=== PATIENT | female | born 1950 | race Caucasian/White ===

== ENCOUNTER → 2016-11-25 | Outpatient (CLI) | payer OTHER ==
[~2016-11-25] MED LIST: BUDESUS NAE; CALCTAB5 PO; CHOLDRO4 PO; DLN100 PO; FLUO40CA8 PO; GLUCTAB4; INSULIN ASPART; LEVO125T72 PO; MAGN1CAP2 PO; MELO15TA10 PO; MULTTAB45 PO; PHEN-310 PO; RIZA1TAB7 PO; SIMV20TA2 PO; SULF800T23 PO; TOPI50TA16 PO; ZOLP10TA PO; [UNRECOGNIZED DRUG - OTHER]
[2016-11-25 14:34] LABS: BASO % 1.1 %; BASO ABS # 0.04 K/uL (0-0.2); COMPLETE YES; HEMATOCRIT 39.8 % (37-47); LYMPH % 31.1 %; LYMPH ABS # 1.09 K/uL (1.2-3.4); MEAN CELL VOLUME 88.2 fL (80-100); MEAN CORPUSCULAR HEMOGLOBIN 30.4 pg (25-34); MEAN CORPUSCULAR HGB CONC 34.4 g/dl (32-36); MEAN PLATELET VOLUME 9.4 fL (7.4-10.4); MONO % 13.4 %; NEUT % 54.4 %; PLATELET COUNT 200 K/uL (130-400); RED BLOOD COUNT 4.51 M/uL (4.2-5.4); WHITE BLOOD COUNT 3.51 K/uL (4.8-10.8)
[2016-11-25 14:47] LABS: ALT/SGPT 22 U/L (12-78); BLOOD UREA NITROGEN 18 mg/dl (7-18); BUN/CREATININE RATIO 20.5 (10-20); CALCIUM 9.3 mg/dl (8.5-10.1); CARBON DIOXIDE 28 mmol/L (21-32); CHLORIDE 106 mmol/L (98-107); CHOLESTEROL 186 mg/dl (0-200); CREATININE 0.86 mg/dl (0.60-1.20); GLUCOSE 87 mg/dl (70-99); POTASSIUM 4.1 mmol/L (3.5-5.1); SODIUM 142 mmol/L (136-145)
[2016-11-25 14:56] LABS: ALKALINE PHOSPHATASE 131 U/L (45-117); AST/SGOT 17 U/L (15-37); HDL CHOLESTEROL 93 mg/dl; LDL CHOLESTEROL CALCULATED 79 mg/dl; THYROID STIMULATING HORMONE 0.187 uIu/ml (0.300-4.500); TRIGLYCERIDES 71 mg/dl (0-150); VERY LOW DENSITY LIPOPROT CALC 14 mg/dl
[2016-11-26 05:56] LABS: ESTIMATED AVERAGE GLUCOSE 169 mg/dl; HA1C FLAG Normal (Normal)
== END | disposition home or self-care (01) ==
LOC: C.LAB1850 12:32
PROVIDERS: ATTEND Internal Medicine
DX: E03.9 Hypothyroidism, unspecified (principal); G40.909 Epilepsy, unspecified, not intractable, without status epilepticus; E10.649 Type 1 diabetes mellitus with hypoglycemia without coma; E78.5 Hyperlipidemia, unspecified; M81.0 Age-related osteoporosis without current pathological fracture

== ENCOUNTER → 2017-02-07 | Outpatient (CLI) | payer OTHER ==
[2017-02-08 07:29] LABS: ESTIMATED AVERAGE GLUCOSE 186 mg/dl; HA1C FLAG Normal (Normal)
== END | disposition home or self-care (01) ==
LOC: C.LAB1850 15:31
PROVIDERS: ATTEND Internal Medicine
DX: E10.649 Type 1 diabetes mellitus with hypoglycemia without coma (principal); E03.9 Hypothyroidism, unspecified

== ENCOUNTER → 2017-03-23 | Outpatient (CLI) | payer OTHER ==
[2017-03-23 13:17] LABS: CHOLESTEROL/HDL RATIO 1.9
[2017-03-23 13:37] LABS: LYME DISEASE AB IGG NEG (NEG)
[2017-03-23 13:41] LABS: LYME DISEASE AB IGM NEG (NEG)
[2017-03-25 00:02] LABS: RAPID PLASMA REAGIN NONREACTIVE (NONREACT)
== END | disposition home or self-care (01) ==
LOC: C.LAB1850 10:52
PROVIDERS: ATTEND Internal Medicine
DX: R41.3 Other amnesia (principal); E78.5 Hyperlipidemia, unspecified

== ENCOUNTER → 2017-03-31 | Outpatient (CLI) | payer OTHER | END | disposition home or self-care (01) | LOC: C.LAB1850 11:23 | PROVIDERS: ATTEND Internal Medicine | DX: R41.3 Other amnesia (principal); Z51.81 Encounter for therapeutic drug level monitoring; Z79.899 Other long term (current) drug therapy ==

== ENCOUNTER → 2017-04-06 | Outpatient (CLI) | payer OTHER | END | disposition home or self-care (01) | LOC: C.LAB1850 11:56 | PROVIDERS: ATTEND Physician Assistant | DX: R41.3 Other amnesia (principal) ==

== ENCOUNTER → 2017-04-26 | Outpatient (CLI) | payer OTHER ==
[2017-04-26 16:10] LABS: BLOOD UREA NITROGEN 16 mg/dl (7-18)
[2017-04-26 16:20] LABS: RATIO 5.1 mcg/mg (0-30.0)
[2017-04-27 06:26] LABS: ESTIMATED AVERAGE GLUCOSE 160 mg/dl; HA1C FLAG Normal (Normal)
== END | disposition home or self-care (01) ==
LOC: C.LAB1850 14:05
PROVIDERS: ATTEND Nurse Practitioner Adult Health
DX: Z00.00 Encounter for general adult medical examination without abnormal findings (principal); E10.649 Type 1 diabetes mellitus with hypoglycemia without coma; E10.69 Type 1 diabetes mellitus with other specified complication; Z79.4 Long term (current) use of insulin

== ENCOUNTER → 2017-04-29 | Outpatient (CLI) | payer OTHER ==
[~2017-04-29] MED LIST changes: +GADAVIST IV PRN
--- NOTE | 2017-04-29 13:53 | DIAGNOSTIC IMAGING REPORT ---
MRI OF THE BRAIN COMBO CLINICAL HISTORY: Memory impairment. Urge and stress incontinence. COMPARISON STUDY: No priors. TECHNIQUE: MRI of the brain was performed utilizing various T1 and T2-weighted sequences in the axial, sagittal, and coronal planes. Contrast-enhanced sequences were acquired following the administration of 7 cc of Gadavist. FINDINGS: Brain parenchyma: There is mild age-related involutional change. Minimal periventricular microangiopathic disease is noted. There is no hemorrhage or mass effect. There is no restricted diffusion to suggest acute ischemia. No enhancing mass lesion is identified on the postcontrast images. Ramirez-white matter differentiation is preserved. No extra-axial fluid collection is seen. The cerebellar tonsils are normal in configuration. Ventricles, sulci, and cisterns: Prominent secondary to involutional change. Pituitary and sella: Unremarkable. Intracranial vasculature: Normal flow voids are maintained at the skull base. Orbits: The bony orbits are grossly intact. Orbital contents are normal in appearance noting bilateral ocular lens implants. Sinuses and mastoids: Clear. Calvarium: Unremarkable. Cervical cord: Partially visualized cervical spinal cord is normal in morphology and signal intensity. IMPRESSION: No acute intracranial abnormality. Electronically signed by: Shantanu Arias M.D. 04/29/2017 1:51 PM Dictated Date/Time: 04/29/2017 1:48 PM
== END | disposition home or self-care (01) ==
LOC: C.MRI 11:46
PROVIDERS: ATTEND Physician Assistant
DX: R41.3 Other amnesia (principal); R26.89 Other abnormalities of gait and mobility; N39.46 Mixed incontinence

== ENCOUNTER → 2017-05-12 | Outpatient (CLI) | payer OTHER ==
[~2017-05-12] MED LIST changes: -GADAVIST IV PRN
[2017-05-12 12:18] LABS: ALT/SGPT 30 U/L (12-78); BLOOD UREA NITROGEN 18 mg/dl (7-18); BUN/CREATININE RATIO 19.6 (10-20); CALCIUM 9.2 mg/dl (8.5-10.1); CARBON DIOXIDE 28 mmol/L (21-32); CHLORIDE 107 mmol/L (98-107); CREATININE 0.91 mg/dl (0.60-1.20); GLUCOSE 163 mg/dl (70-99); POTASSIUM 4.4 mmol/L (3.5-5.1); SODIUM 139 mmol/L (136-145)
[2017-05-12 12:30] LABS: ALB/GLOB RATIO 1.1 (0.9-2); ALKALINE PHOSPHATASE 115 U/L (45-117); AST/SGOT 23 U/L (15-37); THYROID STIMULATING HORMONE 0.813 uIu/ml (0.300-4.500)
== END | disposition home or self-care (01) ==
LOC: C.LAB1850 10:09
PROVIDERS: ATTEND Internal Medicine
DX: E03.9 Hypothyroidism, unspecified (principal); R74.8 Abnormal levels of other serum enzymes; G40.909 Epilepsy, unspecified, not intractable, without status epilepticus

== ENCOUNTER → 2017-08-12 | Outpatient (CLI) | payer OTHER ==
--- NOTE | 2017-08-12 15:38 | MAMMOGRAPHY REPORT ---
BILATERAL DIGITAL SCREENING MAMMOGRAM TOMOSYNTHESIS WITH CAD: 08/12/2017 CLINICAL HISTORY: Routine screening. TECHNIQUE: Breast tomosynthesis in addition to standard 2D mammography was performed. Current study was also evaluated with a Computer Aided Detection (CAD) system. COMPARISON: Comparison is made to exams dated: 09/07/2016 ultrasound, 07/26/2016 mammogram, 07/24/20 15 mammogram, 07/18/2014 mammogram, 07/17/2013 mammogram, and 04/26/2011 mammogram - [facility]. BREAST COMPOSITION: The tissue of both breasts is extremely dense, which lowers the sensitivity of m ammography. FINDINGS: No suspicious masses, calcifications, or areas of architectural distortion are noted in ei ther breast. There has been no significant interval change compared to prior exams. Benign left anna st calcifications are again noted. IMPRESSION: ACR BI-RADS CATEGORY 2: BENIGN There is no mammographic evidence of malignancy. A 1 year screening mammogram is recommended. The pa tient will receive written notification of the results. Approximately 10% of breast cancers are not detected with mammography. A negative mammographic report should not delay biopsy if a clinically suggestive mass is present. Cheli Allen M.D. /:08/12/2017 12:45:25 Road Oiler: Lisy CORONA(Justice)(M), [facility] letter sent: Normal 1/2 BI-RADS Code: ACR BI-RADS Category 2: Benign
== END | disposition home or self-care (01) ==
LOC: C.MAMM 10:16
PROVIDERS: ATTEND Obstetrics & Gynecology
DX: Z12.31 Encounter for screening mammogram for malignant neoplasm of breast (principal)

== ENCOUNTER → 2017-09-13 | Outpatient (CLI) | payer OTHER ==
--- NOTE | 2017-09-13 13:47 | DIAGNOSTIC IMAGING REPORT ---
L-SPINE MIN 4 VIEWS ROUTINE CLINICAL HISTORY: 67 years-old Female presenting with M62.830 Back muscle [id number]. TECHNIQUE: Frontal, bilateral oblique, lateral, and coned in lateral views of the lumbar spine were obtained. COMPARISON: 04/26/2015. FINDINGS: No scoliosis. 9 mm of grade 1 anterolisthesis of L4 on L5. No gross evidence of a pars defect. Vertebral body heights maintained. Intervertebral disc height loss at L4-5. Remainder of intervertebral disc spaces preserved. No advanced degenerative change other than changes at L4-5. Suspected osseous neural foraminal narrowing at this level. No compression deformity or subluxation. An implanted nerve stimulator device projects over the right lower quadrant. Moderate stool burden. Atherosclerosis. IMPRESSION: Degenerative changes focally at L4-5 with grade 1 anterolisthesis of L4 on L5. Electronically signed by: Fredo Coleman M.D. 09/13/2017 1:45 PM Dictated Date/Time: 09/13/2017 1:42 PM
[2017-09-13 14:38] LABS: HEMATOCRIT 38.8 % (37-47); MEAN CELL VOLUME 92.2 fL (80-100); MEAN CORPUSCULAR HEMOGLOBIN 31.6 pg (25-34); MEAN CORPUSCULAR HGB CONC 34.3 g/dl (32-36); MEAN PLATELET VOLUME 9.4 fL (7.4-10.4); PLATELET COUNT 210 K/uL (130-400); RED BLOOD COUNT 4.21 M/uL (4.2-5.4); WHITE BLOOD COUNT 3.79 K/uL (4.8-10.8)
[2017-09-13 15:02] LABS: AST/SGOT 16 U/L (15-37); BLOOD UREA NITROGEN 21 mg/dl (7-18); BUN/CREATININE RATIO 22.9 (10-20); CALCIUM 9.2 mg/dl (8.5-10.1); CARBON DIOXIDE 27 mmol/L (21-32); CHLORIDE 108 mmol/L (98-107); GLUCOSE 184 mg/dl (70-99); POTASSIUM 4.2 mmol/L (3.5-5.1); SODIUM 140 mmol/L (136-145)
[2017-09-13 15:13] LABS: ALT/SGPT 25 U/L (12-78); CHOLESTEROL 184 mg/dl (0-200); CHOLESTEROL/HDL RATIO 2.1; HDL CHOLESTEROL 86 mg/dl; LDL CHOLESTEROL CALCULATED 82 mg/dl; THYROID STIMULATING HORMONE 0.268 uIu/ml (0.300-4.500); TRIGLYCERIDES 82 mg/dl (0-150); VERY LOW DENSITY LIPOPROT CALC 16 mg/dl
[2017-09-14 07:38] LABS: ESTIMATED AVERAGE GLUCOSE 157 mg/dl; HA1C FLAG Normal (Normal)
== END | disposition home or self-care (01) ==
LOC: C.RAD1850 12:57
PROVIDERS: ATTEND Internal Medicine
DX: M62.830 Muscle spasm of back (principal); E03.9 Hypothyroidism, unspecified; E10.649 Type 1 diabetes mellitus with hypoglycemia without coma; G40.909 Epilepsy, unspecified, not intractable, without status epilepticus; M81.0 Age-related osteoporosis without current pathological fracture; E78.5 Hyperlipidemia, unspecified

== ENCOUNTER → 2017-10-07 | Outpatient (CLI) | payer OTHER | END | disposition home or self-care (01) | LOC: C.LAB1850 17:07 | PROVIDERS: ATTEND Urology | DX: N39.41 Urge incontinence (principal) ==

== ENCOUNTER → 2017-12-26 | Outpatient (CLI) | payer OTHER ==
[~2017-12-26] MED LIST changes: +METH4PAK PO
[2017-12-26 15:51] LABS: HEMOGLOBIN A1C 7.4 % (4.5-5.6)
== END | disposition home or self-care (01) ==
LOC: C.LAB1850 14:16
PROVIDERS: ATTEND Nurse Practitioner Adult Health
DX: Z00.00 Encounter for general adult medical examination without abnormal findings (principal); E10.649 Type 1 diabetes mellitus with hypoglycemia without coma; E03.9 Hypothyroidism, unspecified

== ENCOUNTER → 2017-12-28 | Outpatient (CLI) | payer OTHER ==
--- NOTE | 2017-12-28 19:50 | DIAGNOSTIC IMAGING REPORT ---
TWO VIEW CHEST CLINICAL HISTORY: Cough and fever. FINDINGS: PA and lateral chest radiographs are compared to study dated 02/06/2013. The cardiomediastinal silhouette is unremarkable. There is mild atherosclerotic calcification of the thoracic aorta. The lungs and pleural spaces are clear. There is no pneumothorax. The skeletal structures are osteopenic. The bony thorax appears intact. IMPRESSION: No active disease in the chest. Electronically signed by: Shantanu Arias M.D. 12/28/2017 7:49 PM Dictated Date/Time: 12/28/2017 7:48 PM
== END | disposition home or self-care (01) ==
LOC: C.RAD 19:15
PROVIDERS: ATTEND Internal Medicine
DX: R50.9 Fever, unspecified (principal); R05 Cough

== ENCOUNTER 2018-01-06 15:45 | Emergency (ER) | payer OTHER ==
[~2018-01-06] VITALS: Ht 165.1 cm; Wt 73.8 kg
[~2018-01-06 15:45] MED LIST changes: -METH4PAK PO
[2018-01-06 15:57] VITALS: TEMP 37.1; Ht 165.1 cm; Wt 73.8 kg
[2018-01-06] MEDS ORDERED: RANITIDINE HCL 50 MG/100 ML D5W IV STA (16:36)
[2018-01-06] MEDS ORDERED: DiphenhydrAMINE HCL 50 MG/ML VIAL IV STA ×2 (16:36→18:43)
--- NOTE | 2018-01-06 16:47 | EMERGENCY ROOM VISIT NOTE ---
History First contact with patient: 16:18 Chief Complaint: RASH Stated Complaint: HIVES ALL OVER FOR 4+ WEEKS NOW History of Present Illness The patient is a 67 year old female who presents to the Emergency Room with complaints of a pruritic rash that started on her legs approximately 1 month ago. Last week it spread to her chest. She has been to a heel cementer machine twice. She is also been to her primary care doctor. She was prescribed Zyrtec to take twice daily. She is also taken Benadryl 50 mg at night. They also recommended a shampoo and soap. She has had no significant relief. She denies any new environmental factors such as new pets or other changes in detergents or foods. No new medications besides what is stated above. She denies any difficulty breathing or swallowing. No swelling of the face, lips or tongue. No fever. Review of Systems 10 system review performed and negative unless noted in HPI or below Past Medical/Surgical History Type 1 diabetes bronchitis Urinary incontinence Seizures Migraines Social History Smoking Status: Never Smoker Marital Status: Housing Status: lives with significant other Current/Historical Medications Scheduled Budesonide (Nasal) (Rhinocort Aq Nasal), 2 SPRAY BLAINE QD Calcium (Caltrate), 600 MG PO DAILY Cholecalciferol (Vitamin D3), 1 TAB PO DAILY Fluoxetine (Prozac), 20 MG PO DAILY Eavatvyzxpx-Jec-Syb C-Manganes (Glucosamine Msm Complex), DIRECTED Levothyroxine Sodium (Synthroid), 125 MCG PO DAILY Magnesium Oxide (Mg Supplement (Magnesium), 1 CAP PO DAILY Meloxicam (Mobic), 15 MG PO DAILY Methylprednisolone (Medrol Dosepak), 0 PO DAILY Multiple Vitamin (Multiple Vitamin), 2 TABS PO DAILY Phenytoin Sodium (Dilantin *), 30 MG PO DAILY Phenytoin Sodium Extended (Dilantin), 30 MG PO UD Rizatriptan Benzoate (Rizatriptan Benzoate), 1 TAB PO PRN Simvastatin (Zocor), 20 MG PO DAILY Sulfa/Trimethoprim (Bactrim Ds 800MG/160MG), 1 TAB PO BID Topiramate (Topamax), 50 MG PO UD Scheduled PRN Zolpidem Tartrate (Ambien), 5-10 MG PO HS PRN for INSOMNIA Miscellaneous Medications [insulin novalog pump] Physical Exam Vital Signs Date Time Temp Pulse Resp B/P (MAP) Pulse Ox O2 Delivery O2 Flow Rate FiO2 01/06/18 19:15 69 20 152/69 98 Room Air 01/06/18 18:04 67 18 154/61 99 Room Air 01/06/18 15:57 37.1 80 18 153/66 95 Room Air Physical Exam VITALS: Vitals are noted on the nurse's note and reviewed by myself. Vital signs stable. GENERAL: 67-year-old female, in moderate discomfort, SKIN: Urticaria extensively noted on the anterior upper chest and to a lesser extent the thighs bilaterally. No lesions in the oral mucosa, palms or fingers. HEAD: Normocephalic atraumatic. MOUTH: Mucous membranes moist. Tonsils are not enlarged. Pharynx without erythema or exudate. Uvula midline. Airway patent. Tongue does not deviate. NECK: No lymphadenopathy. Cervical spine is nontender. No JVD. HEART: Regular rate and rhythm without murmurs gallops or rubs. LUNGS: Clear to auscultation bilaterally without wheezes, rales or rhonchi. No accessory muscle use. MUSCULOSKELETAL: No muscle atrophy, erythema, or edema noted. Strength 5/5 throughout. NEURO: Patient was alert and oriented to person place and time. Normal sensation to touch. No focal neurological deficits. Medical Decision & Procedures Laboratory Results 01/06/18 16:45 Red Blood Count 3.93, Mean Corpuscular Volume 89.3, Mean Corpuscular Hemoglobin 31.0, Mean Corpuscular Hemoglobin Concent 34.8, Mean Platelet Volume 8.4, Neutrophils (%) (Auto) 71.0, Lymphocytes (%) (Auto) 19.7, Monocytes (%) (Auto) 9.2, Eosinophils (%) (Auto) 0.0, Basophils (%) (Auto) 0.0, Neutrophils # (Auto) 4.80, Lymphocytes # (Auto) 1.33, Monocytes # (Auto) 0.62, Eosinophils # (Auto) 0.00, Basophils # (Auto) 0.00 01/06/18 16:45 Test 01/06/18 16:45 White Blood Count 6.76 K/uL (4.8-10.8) Red Blood Count 3.93 M/uL (4.2-5.4) Hemoglobin 12.2 g/dL (12.0-16.0) Hematocrit 35.1 % (37-47) Mean Corpuscular Volume 89.3 fL (80-100) Mean Corpuscular Hemoglobin 31.0 pg (25-34) Mean Corpuscular Hemoglobin Concent 34.8 g/dl (32-36) Platelet Count 263 K/uL (130-400) Mean Platelet Volume 8.4 fL (7.4-10.4) Neutrophils (%) (Auto) 71.0 % Lymphocytes (%) (Auto) 19.7 % Monocytes (%) (Auto) 9.2 % Eosinophils (%) (Auto) 0.0 % Basophils (%) (Auto) 0.0 % Neutrophils # (Auto) 4.80 K/uL (1.4-6.5) Lymphocytes # (Auto) 1.33 K/uL (1.2-3.4) Monocytes # (Auto) 0.62 K/uL (0.11-0.59) Eosinophils # (Auto) 0.00 K/uL (0-0.5) Basophils # (Auto) 0.00 K/uL (0-0.2) RDW Standard Deviation 41.8 fL (36.4-46.3) RDW Coefficient of Variation 12.9 % (11.5-14.5) Immature Granulocyte % (Auto) 0.1 % Immature Granulocyte # (Auto) 0.01 K/uL (0.00-0.02) Anion Gap 7.0 mmol/L (3-11) Est Creatinine Clear Calc Drug Dose 59.5 ml/min Estimated GFR () 75.1 Estimated GFR (Non- 64.8 BUN/Creatinine Ratio 15.2 (10-20) Calcium Level 9.0 mg/dl (8.5-10.1) Medications Administered Medications (Trade) Dose Ordered Sig/Valerie Route Start Time Stop Time Status Last Admin Dose Admin Ranitidine HCl (zANTac IV) 50 mg NOW STAT IV 01/06/18 16:36 01/06/18 16:39 DC 01/06/18 17:09 50 MG Diphenhydramine HCl (Benadryl Inj) 25 mg NOW STAT IV 01/06/18 16:36 01/06/18 16:39 DC 01/06/18 16:50 25 MG Sodium Chloride 500 ml @ 999 mls/hr Q31M STAT IV 01/06/18 17:17 01/06/18 17:47 DC 01/06/18 17:17 999 MLS/HR Dexamethasone Sodium Phosphate (Decadron Inj) 4 mg STK-MED ONCE .ROUTE 01/06/18 17:57 01/06/18 17:58 DC 01/06/18 18:02 2 MG Diphenhydramine HCl (Benadryl Inj) 25 mg NOW STAT IV 01/06/18 18:43 01/06/18 18:44 DC 01/06/18 18:53 25 MG ED Course Patient was seen and examined Vital signs including blood pressure were reviewed medications list was verified with patient Labs were obtained, and a saline lock was established The patient was medicated with Zantac 50 mg IV and Benadryl 25 mg IV The patient was also medicated with Decadron 2 mg IV and an additional dose of Benadryl 25 mg IV. The patient was seen and examined by my supervising physician who is in agreement with my plan I reviewed the patient's workup with her and her . They voiced understanding, and were comfortable being discharged home. I reviewed discharge instructions the patient. They voiced understanding and had no further questions. Medical Decision Differential diagnosis differential diagnosis: Allergic reaction, anaphylaxis, angioedema This patient is a 67-year-old female presents to the emergency department with an itchy rash for the last 4 weeks. No signs of anaphylaxis or angioedema. She does have diffuse hives. The patient was reluctant to take steroids Due to her history of type 1 diabetes. She was given a small dose of Decadron in addition to Benadryl and Zantac. She will be sent home with a Medrol Dosepak. She was encouraged to continue Benadryl every 8 hours, and follow-up with her primary care physician in addition to her corporate director of pharmacy. She was comfortable with this plan, and agrees to return with worsening symptoms This chart was completed in part utilizing [employer] Speech Voice Recognition software. Attempts were made to minimize the grammatical errors, random word insertions, pronoun errors and incomplete sentences. Any formal questions or concerns about the content, text or information contained within the body of this dictation should be directly addressed to the provider for clarification. Medication Reconcilliation Current Medication List: was personally reviewed by me Blood Pressure Screening Patient's blood pressure: Elevated blood pressure Blood pressure disposition: Did not require urgent referral Impression Primary Impression: Hives Departure Information Dispostion Home / Self-Care Condition GOOD Prescriptions Methylprednisolone (MEDROL DOSEPAK) 4 Mg Benjamin 0 PO DAILY, #1 PKT Prov: Orly Granados PA-C 01/06/18 Referrals Art Montenegro M.D. (PCP) Patient Instructions [facility] Additional Instructions You were evaluated in the emergency department for hives. Please take Benadryl 50 mg every 8 hours Please continue Zyrtec twice daily Please take the entire course of steroids. Please monitor your blood sugars. Please also touch base with your glue jointer operator. Please avoid getting overheated as this can make the rash and itching worse Please follow-up with your primary care physician in addition to your corporate director of pharmacy as soon as possible. If you have difficulty getting an appointment, please call the emergency department on Tuesday morning. [phone] Please do not hesitate to return to the emergency department with any new, worsening or concerning symptoms it was a pleasure participating in your care today
[2018-01-06 17:03] LABS: HEMATOCRIT 35.1 % (37-47); HEMOGLOBIN 12.2 g/dL (12.0-16.0); IG# 0.01 K/uL (0.00-0.02); LYMPH % 19.7 %; LYMPH ABS # 1.33 K/uL (1.2-3.4); MEAN CELL VOLUME 89.3 fL (80-100); MEAN CORPUSCULAR HGB CONC 34.8 g/dl (32-36); MEAN PLATELET VOLUME 8.4 fL (7.4-10.4); MONO % 9.2 %; MONO ABS # 0.62 K/uL (0.11-0.59); PLATELET COUNT 263 K/uL (130-400); RED CELL DISTRIBUTION WIDTH CV 12.9 % (11.5-14.5); RED CELL DISTRIBUTION WIDTH SD 41.8 fL (36.4-46.3); WHITE BLOOD COUNT 6.76 K/uL (4.8-10.8)
[2018-01-06] MEDS ORDERED: SODIUM CHLORIDE 0.9% 500ML 500 ML IV STA (17:17)
[2018-01-06 17:21] LABS: CREATININE 0.91 mg/dl (0.60-1.20)
[2018-01-06] MEDS ORDERED: DEXAMETHASONE INJ 2 MG in SYRINGE 0 ML IV STA (17:47)
--- NOTE | 2018-01-06 17:48 | EMERGENCY ROOM VISIT NOTE ---
ED Visit Note First contact with patient: 17:18 The patient was seen and examined with urban. I agree with the history, physical and findings. Please see the note for disposition and details.
[2018-01-06] MEDS ORDERED: DEXAMETHASONE SOD INJ 4 MG/ML VIAL ONE (17:57)
[2018-01-06 19:15] VITALS: BP 152/69; PULSE 69; O2SAT 98
[2018-01-06] MEDS ORDERED: METH4PAK PO (19:20)
== END 2018-01-06 19:45 | disposition home or self-care (01) ==
LOC: C.EDB 15:46 → C.EDA 19:45
DX: L50.9 Urticaria, unspecified (principal); E10.9 Type 1 diabetes mellitus without complications; G40.909 Epilepsy, unspecified, not intractable, without status epilepticus; Z79.899 Other long term (current) drug therapy; Z96.41 Presence of insulin pump (external) (internal)

== ENCOUNTER → 2018-01-06 | Outpatient (CLI) | payer OTHER ==
[2018-01-06 15:51] LABS: BASO % 0.1 %; BASO ABS # 0.01 K/uL (0-0.2); EOS % 0.1 %; EOS ABS # 0.01 K/uL (0-0.5); HEMOGLOBIN 11.8 g/dL (12.0-16.0); IG# 0.02 K/uL (0.00-0.02); LYMPH % 17.5 %; LYMPH ABS # 1.25 K/uL (1.2-3.4); MEAN CELL VOLUME 90.2 fL (80-100); MEAN CORPUSCULAR HEMOGLOBIN 30.4 pg (25-34); MEAN CORPUSCULAR HGB CONC 33.7 g/dl (32-36); MEAN PLATELET VOLUME 8.8 fL (7.4-10.4); MONO % 9.4 %; MONO ABS # 0.67 K/uL (0.11-0.59); NEUT % 72.6 %; NEUT ABS # 5.18 K/uL (1.4-6.5); PLATELET COUNT 270 K/uL (130-400); RED CELL DISTRIBUTION WIDTH CV 12.9 % (11.5-14.5); RED CELL DISTRIBUTION WIDTH SD 42.3 fL (36.4-46.3); WHITE BLOOD COUNT 7.14 K/uL (4.8-10.8)
[2018-01-06 16:12] LABS: ALBUMIN 3.4 gm/dl (3.4-5.0); ALT/SGPT 31 U/L (12-78); AST/SGOT 23 U/L (15-37); BLOOD UREA NITROGEN 15 mg/dl (7-18); CARBON DIOXIDE 27 mmol/L (21-32); CREATININE 0.94 mg/dl (0.60-1.20); GLUCOSE 194 mg/dl (70-99); SODIUM 136 mmol/L (136-145)
[2018-01-06 16:14] LABS: ALKALINE PHOSPHATASE 139 U/L (45-117); TOTAL PROTEIN 7.2 gm/dl (6.4-8.2)
== END | disposition home or self-care (01) ==
LOC: C.LAB1850 15:05
PROVIDERS: ATTEND Urology
DX: Z01.810 Encounter for preprocedural cardiovascular examination (principal); N39.41 Urge incontinence; R35.0 Frequency of micturition; Z01.812 Encounter for preprocedural laboratory examination

== ENCOUNTER → 2018-01-23 | Outpatient (CLI) | payer OTHER | END | disposition home or self-care (01) | LOC: C.LAB1850 16:23 | PROVIDERS: ATTEND Physician Assistant Medical | DX: L50.9 Urticaria, unspecified (principal) ==

== ENCOUNTER 2019-09-18 14:06 | Inpatient (IN) ==
[2019-09-18] MEDS ORDERED: fentaNYL citrate 100 MCG/2 ML VIAL IV STA ×2 (14:40→15:44)
[2019-09-18 14:57] LABS: Basophils # (auto) 0.01 K/uL (0-0.2); Basophils % (auto) 0.2 %; Hematocrit (blood only) 36.8 % (37-47); Hemoglobin 12.4 g/dL (12.0-16.0); Immature Granulocytes # (auto) 0.01 K/uL (0.00-0.02); Immature Granulocytes % (auto) 0.2 %; Lymphocytes # (auto) 1.09 K/uL (1.2-3.4); Lymphocytes % (auto) 25.1 %; Mean Corpuscular Hemoglobin 30.3 pg (25-34); Mean Corpuscular Hgb Conc 33.7 g/dL (32-36); Mean Platelet Volume 8.9 fL (7.4-10.4); Monocytes # (auto) 0.42 K/uL (0.11-0.59); Monocytes % (auto) 9.7 %; Neutrophils # (auto) 2.81 K/uL (1.4-6.5); Neutrophils % (auto) 64.8 %; Platelet Count 171 K/uL (130-400); RDW Standard Deviation 46.5 fL (36.4-46.3); Red Blood Count 4.09 M/uL (4.2-5.4); White Blood Count 4.34 K/uL (4.8-10.8)
--- NOTE | 2019-09-18 15:09 | XRay Report ---
XR ankle RT 2V, XR foot RT 2V HISTORY: 69 years-old Female R ankle pain and deformity s/p fall acute right foot and ankle pain sta tus post trauma COMPARISON: None available TECHNIQUE: 2 views of the right foot and 2 views of the right ankle FINDINGS: ANKLE: Demineralized appearance of the bones. Acute trimalleolar fracture with mild displacement and angulat ion of the distal fibular fracture. The posterior malleolar fracture is displaced posteriorly 1.7 cm and angulated. Pathologic widening of the anterior and medial aspects of the tibiotalar joint. The me dial malleolar fracture is mildly comminuted with a diffuse small mildly displaced bone fragments. Mo derate soft tissue swelling of the ankle with joint effusion. FOOT: Abnormal morphology of the first metatarsal head may be projectional. There is mild multifocal osteoa rthritis with demineralized appearance of the bones. Arterial calcifications are noted. No definite a cute fracture or dislocation of the foot. IMPRESSION: 1. Acute trimalleolar ankle fracture with displacement as above. 2. Associated subluxation/partial dislocation of the tibiotalar joint. 3. No acute fracture of the right foot identified. ACT 112: Negative or not required by law. The above report was generated using voice recognition software. It may contain grammatical, syntax o r spelling errors. Electronically signed by: Carlos Simon M.D. 09/18/2019 3:08 PM
[2019-09-18 15:29] LABS: BUN Creatinine Ratio 15.4 (10-20); Calcium 8.9 mg/dl (8.5-10.1); Creatinine Clr Calc Pharmacy 50.6 ml/min; Est GFR (African American) 58.3; Est GFR (Non-African American) 50.3; Potassium 4.1 mmol/L (3.5-5.1)
[2019-09-18] MEDS ORDERED: ONDANSETRON INJ 2 MG/ML 2 ML VIAL IV STA ×2 (15:39→19:19)
[2019-09-18] MEDS ORDERED: PROPOFOL IV EMULSION 10 MG/ML 20 ML VIAL IV ONE ×2 (16:06→16:25)
--- NOTE | 2019-09-18 16:33 | XRay Report ---
RIGHT ANKLE 3 VIEWS CLINICAL HISTORY: Postreduction examination. FINDINGS: 3 views of the right ankle are compared to study performed earlier the same day 09/18/2019. The examination is performed through a cast, obscuring fine bony details. The skeletal structures ar e osteopenic. Again seen is a comminuted fracture of the distal fibula, as well as a fracture through the base of the medial malleolus and a posterior malleolar fracture. There is mild dorsal distractio n of the posterior malleolar fragment. There has been nondenominational of near-anatomic alignment status p ost external fixation. There is a joint effusion, and soft tissue edema is present around ankle. IMPRESSION: Religion of near-anatomic alignment at the ankle joint status post closed reduction of a trimalleolar fracture as above. Electronically signed by: Shantanu Arias M.D. 09/18/2019 4:32 PM
--- NOTE | 2019-09-18 16:38 | Emergency Department Note ---
History of Present Illness General Chief complaint: Fall Time Seen by Provider: 09/18/19 14:26 History of Present Illness Maximum Pain Intensity: 8 This is a 69-year-old female that presents to the emergency department via ambulance with complaints of "fall/ankle pain". The patient states that just prior to arrival, she slipped on ice while ambulating around noon time. She notes that she twisted the right foot/ankle and now has pain and deformity to the right ankle. She notes that she has never broken this before. Pain is a 3/10 on arrival after 75 mcg of fentanyl. It is worse with movement and slightly alleviated with rest. She denies striking the head or loss of consciousness. She notes that she did not have a seizure or syncopize causing the fall, rather she slipped on ice. Home Medications Home Medications Medication Instructions Recorded Confirmed Type calcium carbonate 500 mg calcium 500 mg PO DAILY tab 04/03/19 09/18/19 History (1,250 mg) tablet multivitamin with iron 1 tab PO DAILY 04/03/19 09/18/19 History valacyclovir 1 gram tablet 1,000 mg PO DAILY #30 tab 04/03/19 09/18/19 History cholecalciferol (vitamin D3) 125 5,000 units PO DAILY tab 05/07/19 09/18/19 History mcg (5,000 unit) tablet ntylftqqhpb-fqe-ptijcruck-hrb 1 tab PO DAILY tab 05/07/19 09/18/19 History 149-hyalur 500 mg-500 mg-66.7 mg tablet insulin syringe-needle U-100 0.3 #10 ea 05/07/19 09/13/19 History mL 31 gauge x 5/16" rizatriptan 10 mg disintegrating 10 mg PO UD PRN tab 05/07/19 09/18/19 History tablet simvastatin 20 mg tablet 20 mg PO DAILY #90 tab 05/08/19 09/18/19 Rx levothyroxine 125 mcg tablet 125 mcg PO DAILY #90 tab 05/16/19 09/18/19 Rx omalizumab 150 mg subcutaneous 300 mg SQ Q4WK ea 05/21/19 09/18/19 History solution epinephrine 0.3 mg/0.3 mL 0.3 ml IM UD PRN ea 05/23/19 09/18/19 History injection, auto-injector insulin aspart U-100 100 100 See Rx Instructions SQ UD ml 05/23/19 09/18/19 History unit/mL subcutaneous solution fluoxetine 20 mg capsule 20 mg PO DAILY #90 cap 07/03/19 09/18/19 Rx FreeStyle Test #700 ea NS 07/05/19 09/13/19 Rx hydroxyzine HCl 50 mg PO BID 08/25/19 09/18/19 History phenytoin sodium extended 30 mg PO QPM 08/25/19 09/18/19 History phenytoin sodium extended 60 mg PO QAM 08/25/19 09/18/19 History phenytoin sodium extended 100 mg PO BID 08/25/19 09/18/19 History fluoxetine 10 mg capsule 10 mg PO Q OTHER DAY 09/13/19 09/18/19 History topiramate 50 mg tablet 50 mg PO PM tab 09/13/19 09/18/19 History magnesium 200 mg PO 3XWK 09/18/19 09/18/19 History oxycodone [Roxicodone] 5 mg PO Q6H PRN #12 tab 09/18/19 Rx topiramate 100 mg PO QAM 09/18/19 09/18/19 History Allergies Allergy/AdvReac Type Severity Reaction Status Date / Time Penicillins Allergy Severe ANAPHYLAXIS Verified 09/18/19 15:29 aspirin Allergy Unknown NOTED Verified 09/18/19 15:29 "ASPIRIN COMBINATION" chlorpheniramine Allergy Unknown . Verified 09/18/19 15:29 codeine Allergy Unknown . Verified 09/18/19 15:29 oxybutynin Allergy Unknown UNKNOWN Verified 09/18/19 15:29 propoxyphene Allergy Unknown . Verified 09/18/19 15:29 lisinopril AdvReac Intermediate DIZZY,LIGHT Verified 09/18/19 15:29 HEADED losartan AdvReac Intermediate Dizzy, Verified 09/18/19 15:29 mentation change, mood change Past Med/Surg History Medical History Constipation Dyslipidemia (Chronic) History of concussion History of migraine headaches Hypothyroidism (Chronic) No significant family history No significant medical problems Osteoporosis (Chronic) Seizure disorder (Chronic) Type 1 diabetes mellitus with hypoglycemia, with long-term current use of insulin (Chronic) Urge and stress incontinence (Chronic) Surgical History H/O dilation and curettage H/O hand surgery H/O oral surgery No significant past surgical history S/P carpal tunnel release Family History Mother Cervical cancer Grandmother Uterine cancer Father Acute myocardial infarction Stroke syndrome Myocardial infarction Social History Preferred Language: Peruvian Communication Ability: Effective Visual Impairment: No Limitations Hearing Ability: Normal marital status: Current Living Situation: Spouse Feels Safe at Home: Yes Smoking Status: Former smoker Hx Alcohol Use: No Hx Substance Use: No Seatbelt Use: always Review of Systems A total of 10 systems reviewed and were otherwise negative Physical Exam Vital Signs Vital Signs - 24 hr 09/18/19 14:11 09/18/19 14:28 09/18/19 14:41 Temperature 37.0 C Temperature Source Oral Pulse Rate 69 70 67 Pulse Rate [Left Finger] Pulse Rate from SpO2 Sensor 69 67 Pulse Rhythm [Left Finger] Pulse Strength [Left Finger] Respiratory Rate 16 18 17 Respiratory Effort / Characteristics Respiratory Depth Respiratory Pattern Blood Pressure 156/65 H 156/65 H Blood Pressure [Left Arm] Blood Pressure [Right Arm] Blood Pressure Mean 105 95 Blood Pressure Mean [Left Arm] Blood Pressure Mean [Right Arm] Blood Pressure Position [Left Arm] Pulse Oximetry 97 93 96 Oxygen Delivery Method Room Air Oxygen Flow Rate Sepsis Recent Fever Within 48 Hours No Sepsis New/Unexplained Change in Mental Status No Sepsis Action Taken by Nursing No Action Required End-Tidal CO2 End Tidal CO2 (18-54mmHg) 09/18/19 14:45 09/18/19 14:54 09/18/19 15:00 Temperature Temperature Source Pulse Rate 71 74 Pulse Rate [Left Finger] 71 Pulse Rate from SpO2 Sensor 71 74 Pulse Rhythm [Left Finger] Pulse Strength [Left Finger] Respiratory Rate 19 16 14 Respiratory Effort / Characteristics Respiratory Depth Respiratory Pattern Blood Pressure Blood Pressure [Left Arm] 156/65 H Blood Pressure [Right Arm] Blood Pressure Mean Blood Pressure Mean [Left Arm] 95 Blood Pressure Mean [Right Arm] Blood Pressure Position [Left Arm] Pulse Oximetry 98 98 87 L Oxygen Delivery Method Room Air Oxygen Flow Rate Sepsis Recent Fever Within 48 Hours Sepsis New/Unexplained Change in Mental Status Sepsis Action Taken by Nursing End-Tidal CO2 End Tidal CO2 (18-54mmHg) 09/18/19 15:15 09/18/19 15:30 09/18/19 15:45 Temperature Temperature Source Pulse Rate 69 68 69 Pulse Rate [Left Finger] Pulse Rate from SpO2 Sensor 68 68 69 Pulse Rhythm [Left Finger] Pulse Strength [Left Finger] Respiratory Rate 12 12 18 Respiratory Effort / Characteristics Respiratory Depth Respiratory Pattern Blood Pressure Blood Pressure [Left Arm] Blood Pressure [Right Arm] Blood Pressure Mean Blood Pressure Mean [Left Arm] Blood Pressure Mean [Right Arm] Blood Pressure Position [Left Arm] Pulse Oximetry 99 99 100 Oxygen Delivery Method Oxygen Flow Rate Sepsis Recent Fever Within 48 Hours Sepsis New/Unexplained Change in Mental Status Sepsis Action Taken by Nursing End-Tidal CO2 End Tidal CO2 (18-54mmHg) 09/18/19 16:00 09/18/19 16:14 09/18/19 16:15 Temperature Temperature Source Pulse Rate 69 69 65 Pulse Rate [Left Finger] Pulse Rate from SpO2 Sensor 69 70 66 Pulse Rhythm [Left Finger] Pulse Strength [Left Finger] Respiratory Rate 18 Respiratory Effort / Characteristics Non-Labored Spontaneous Respiratory Depth Normal Respiratory Pattern Blood Pressure 143/62 H Blood Pressure [Left Arm] 143/62 H Blood Pressure [Right Arm] 143/62 H Blood Pressure Mean 101 Blood Pressure Mean [Left Arm] Blood Pressure Mean [Right Arm] Blood Pressure Position [Left Arm] Pulse Oximetry 99 99 98 Oxygen Delivery Method Nasal Cannula Oxygen Flow Rate 6 Sepsis Recent Fever Within 48 Hours Sepsis New/Unexplained Change in Mental Status Sepsis Action Taken by Nursing End-Tidal CO2 32 26 End Tidal CO2 (18-54mmHg) 39 09/18/19 16:16 09/18/19 16:19 09/18/19 16:20 Temperature Temperature Source Pulse Rate 66 64 64 Pulse Rate [Left Finger] Pulse Rate from SpO2 Sensor 65 64 64 Pulse Rhythm [Left Finger] Pulse Strength [Left Finger] Respiratory Rate 17 14 13 Respiratory Effort / Characteristics Respiratory Depth Respiratory Pattern Blood Pressure 133/65 126/65 128/56 L Blood Pressure [Left Arm] Blood Pressure [Right Arm] Blood Pressure Mean 101 91 73 Blood Pressure Mean [Left Arm] Blood Pressure Mean [Right Arm] Blood Pressure Position [Left Arm] Pulse Oximetry 96 96 99 Oxygen Delivery Method Nasal Cannula Nasal Cannula Nasal Cannula Oxygen Flow Rate 6 6 6 Sepsis Recent Fever Within 48 Hours Sepsis New/Unexplained Change in Mental Status Sepsis Action Taken by Nursing End-Tidal CO2 29 6 20 End Tidal CO2 (18-54mmHg) 09/18/19 16:22 09/18/19 16:23 09/18/19 16:25 Temperature Temperature Source Pulse Rate 71 71 Pulse Rate [Left Finger] Pulse Rate from SpO2 Sensor 66 71 71 Pulse Rhythm [Left Finger] Pulse Strength [Left Finger] Respiratory Rate 18 13 Respiratory Effort / Characteristics Respiratory Depth Respiratory Pattern Blood Pressure 132/70 132/70 146/68 H Blood Pressure [Left Arm] Blood Pressure [Right Arm] Blood Pressure Mean 90 104 110 Blood Pressure Mean [Left Arm] Blood Pressure Mean [Right Arm] Blood Pressure Position [Left Arm] Pulse Oximetry 99 100 100 Oxygen Delivery Method Nasal Cannula Nasal Cannula Oxygen Flow Rate 6 6 Sepsis Recent Fever Within 48 Hours Sepsis New/Unexplained Change in Mental Status Sepsis Action Taken by Nursing End-Tidal CO2 29 13 36 End Tidal CO2 (18-54mmHg) 09/18/19 16:30 09/18/19 16:31 09/18/19 16:35 Temperature Temperature Source Pulse Rate 68 68 66 Pulse Rate [Left Finger] Pulse Rate from SpO2 Sensor 68 67 66 Pulse Rhythm [Left Finger] Pulse Strength [Left Finger] Respiratory Rate 20 Respiratory Effort / Characteristics Respiratory Depth Respiratory Pattern Blood Pressure 149/67 H 151/67 H Blood Pressure [Left Arm] Blood Pressure [Right Arm] Blood Pressure Mean 97 99 Blood Pressure Mean [Left Arm] Blood Pressure Mean [Right Arm] Blood Pressure Position [Left Arm] Pulse Oximetry 100 100 100 Oxygen Delivery Method Room Air Oxygen Flow Rate Sepsis Recent Fever Within 48 Hours Sepsis New/Unexplained Change in Mental Status Sepsis Action Taken by Nursing End-Tidal CO2 33 33 8 End Tidal CO2 (18-54mmHg) 09/18/19 16:40 09/18/19 16:45 09/18/19 16:46 Temperature Temperature Source Pulse Rate 66 62 64 Pulse Rate [Left Finger] 66 Pulse Rate from SpO2 Sensor 66 63 64 Pulse Rhythm [Left Finger] Pulse Strength [Left Finger] Respiratory Rate 20 Respiratory Effort / Characteristics Non-Labored Respiratory Depth Normal Respiratory Pattern Blood Pressure 145/67 H 159/65 H Blood Pressure [Left Arm] Blood Pressure [Right Arm] 133/65 Blood Pressure Mean 98 109 Blood Pressure Mean [Left Arm] Blood Pressure Mean [Right Arm] 87 Blood Pressure Position [Left Arm] Pulse Oximetry 100 100 100 Oxygen Delivery Method Nasal Cannula Oxygen Flow Rate 6 Sepsis Recent Fever Within 48 Hours Sepsis New/Unexplained Change in Mental Status Sepsis Action Taken by Nursing End-Tidal CO2 21 13 31 End Tidal CO2 (18-54mmHg) 09/18/19 16:50 09/18/19 16:55 09/18/19 17:00 Temperature Temperature Source Pulse Rate 65 64 67 Pulse Rate [Left Finger] Pulse Rate from SpO2 Sensor 66 64 67 Pulse Rhythm [Left Finger] Pulse Strength [Left Finger] Respiratory Rate 16 Respiratory Effort / Characteristics Respiratory Depth Respiratory Pattern Blood Pressure 153/67 H 136/63 111/65 Blood Pressure [Left Arm] Blood Pressure [Right Arm] Blood Pressure Mean 109 103 80 Blood Pressure Mean [Left Arm] Blood Pressure Mean [Right Arm] Blood Pressure Position [Left Arm] Pulse Oximetry 94 94 92 Oxygen Delivery Method Room Air Oxygen Flow Rate Sepsis Recent Fever Within 48 Hours Sepsis New/Unexplained Change in Mental Status Sepsis Action Taken by Nursing End-Tidal CO2 End Tidal CO2 (18-54mmHg) 09/18/19 17:01 09/18/19 17:05 09/18/19 17:10 Temperature Temperature Source Pulse Rate 67 66 66 Pulse Rate [Left Finger] Pulse Rate from SpO2 Sensor 67 66 67 Pulse Rhythm [Left Finger] Pulse Strength [Left Finger] Respiratory Rate 20 Respiratory Effort / Characteristics Respiratory Depth Respiratory Pattern Blood Pressure 144/60 H 135/76 Blood Pressure [Left Arm] Blood Pressure [Right Arm] Blood Pressure Mean 106 111 Blood Pressure Mean [Left Arm] Blood Pressure Mean [Right Arm] Blood Pressure Position [Left Arm] Pulse Oximetry 93 95 96 Oxygen Delivery Method Room Air Oxygen Flow Rate Sepsis Recent Fever Within 48 Hours Sepsis New/Unexplained Change in Mental Status Sepsis Action Taken by Nursing End-Tidal CO2 End Tidal CO2 (18-54mmHg) 09/18/19 17:15 09/18/19 17:16 09/18/19 17:18 Temperature Temperature Source Pulse Rate 66 66 65 Pulse Rate [Left Finger] Pulse Rate from SpO2 Sensor 67 67 66 Pulse Rhythm [Left Finger] Pulse Strength [Left Finger] Respiratory Rate Respiratory Effort / Characteristics Respiratory Depth Respiratory Pattern Blood Pressure 127/59 L 149/60 H Blood Pressure [Left Arm] Blood Pressure [Right Arm] Blood Pressure Mean 87 114 Blood Pressure Mean [Left Arm] Blood Pressure Mean [Right Arm] Blood Pressure Position [Left Arm] Pulse Oximetry 97 95 95 Oxygen Delivery Method Oxygen Flow Rate Sepsis Recent Fever Within 48 Hours Sepsis New/Unexplained Change in Mental Status Sepsis Action Taken by Nursing End-Tidal CO2 End Tidal CO2 (18-54mmHg) 09/18/19 17:30 09/18/19 17:31 09/18/19 17:45 Temperature Temperature Source Pulse Rate 66 67 73 Pulse Rate [Left Finger] Pulse Rate from SpO2 Sensor 66 67 73 Pulse Rhythm [Left Finger] Pulse Strength [Left Finger] Respiratory Rate Respiratory Effort / Characteristics Respiratory Depth Respiratory Pattern Blood Pressure 142/56 H Blood Pressure [Left Arm] Blood Pressure [Right Arm] Blood Pressure Mean 103 Blood Pressure Mean [Left Arm] Blood Pressure Mean [Right Arm] Blood Pressure Position [Left Arm] Pulse Oximetry 95 95 97 Oxygen Delivery Method Oxygen Flow Rate Sepsis Recent Fever Within 48 Hours Sepsis New/Unexplained Change in Mental Status Sepsis Action Taken by Nursing End-Tidal CO2 End Tidal CO2 (18-54mmHg) 09/18/19 18:00 09/18/19 18:01 09/18/19 18:15 Temperature Temperature Source Pulse Rate 74 76 74 Pulse Rate [Left Finger] Pulse Rate from SpO2 Sensor 74 71 74 Pulse Rhythm [Left Finger] Pulse Strength [Left Finger] Respiratory Rate Respiratory Effort / Characteristics Respiratory Depth Respiratory Pattern Blood Pressure 174/61 H Blood Pressure [Left Arm] Blood Pressure [Right Arm] Blood Pressure Mean 118 Blood Pressure Mean [Left Arm] Blood Pressure Mean [Right Arm] Blood Pressure Position [Left Arm] Pulse Oximetry 96 97 96 Oxygen Delivery Method Oxygen Flow Rate Sepsis Recent Fever Within 48 Hours Sepsis New/Unexplained Change in Mental Status Sepsis Action Taken by Nursing End-Tidal CO2 End Tidal CO2 (18-54mmHg) 09/18/19 18:30 09/18/19 18:31 09/18/19 19:39 Temperature Temperature Source Pulse Rate 68 69 Pulse Rate [Left Finger] 68 Pulse Rate from SpO2 Sensor 68 68 Pulse Rhythm [Left Finger] Regular Pulse Strength [Left Finger] Normal Respiratory Rate 16 Respiratory Effort / Characteristics Non-Labored Spontaneous Respiratory Depth Normal Respiratory Pattern Regular Blood Pressure 156/63 H Blood Pressure [Left Arm] 141/61 H Blood Pressure [Right Arm] Blood Pressure Mean 105 Blood Pressure Mean [Left Arm] 87 Blood Pressure Mean [Right Arm] Blood Pressure Position [Left Arm] Lying Pulse Oximetry 95 94 95 Oxygen Delivery Method Room Air Oxygen Flow Rate Sepsis Recent Fever Within 48 Hours Sepsis New/Unexplained Change in Mental Status Sepsis Action Taken by Nursing End-Tidal CO2 End Tidal CO2 (18-54mmHg) VITAL SIGNS - Vital signs and nursing notes were reviewed. Stable and afebrile. GENERAL -69-year-old female appearing her stated age who is in no acute distress. Communicates well with provider and answers questions appropriately. SKIN - Without rashes. There is no break in the integument. There is deformity with the right foot to the right on exam. HEAD - NC/AT. EYES - Sclera anicteric. LUNGS - Chest wall symmetric without accessory muscle use, intercostals retractions, or central cyanosis. Normal vesicular breath sounds CTA B/L. No wheezes, rales, or rhonchi appreciated. CARDIAC - RRR with S1/S2. No murmur, rubs, or gallops appreciated. EXTREMITIES - No clubbing or peripheral cyanosis. No pretibial edema present. Deformity to right ankle/foot on exam. +5/5 strength noted in UE/LE bilaterally. She is neurovascularly intact distally. There is tenderness overlying the right ankle. No proximal fibular tenderness or knee tenderness. NEUROLOGIC - Cranial nerves II through XII grossly intact. Sensory intact to light touch throughout. PSYCH - A&Ox3 and cooperates fully with examiner. Pt is very pleasant and interacts well with examiner. Course Administered Medications Discontinued Medications Fentanyl Citrate (Fentanyl Citrate) 75 mcg IV NOW STA Stop: 09/18/19 14:41 Last Admin: 09/18/19 14:53 Dose: 75 mcg Documented by: [id number] Fentanyl Citrate (Fentanyl Citrate) 50 mcg IV NOW STA Stop: 09/18/19 15:45 Last Admin: 09/18/19 15:54 Dose: 50 mcg Documented by: [id number] Morphine Sulfate (Morphine Sulfate) 4 mg IV NOW STA Stop: 09/18/19 19:25 Last Admin: 09/18/19 19:31 Dose: 4 mg Documented by: [id number] Ondansetron HCl (Zofran) 4 mg IV NOW STA Stop: 09/18/19 15:40 Last Admin: 09/18/19 15:55 Dose: 4 mg Documented by: [id number] Ondansetron HCl (Zofran) 4 mg IV NOW STA Stop: 09/18/19 19:20 Last Admin: 09/18/19 19:22 Dose: 4 mg Documented by: [id number] Ondansetron HCl (Zofran) Confirm Administered Dose 4 mg .ROUTE .STK-MED ONE Stop: 09/18/19 19:21 Last Admin: 09/18/19 19:22 Dose: Not Given Documented by: [id number] Oxycodone HCl (Roxicodone Immediate Rel 5mg Home Pack) 1 homepack PO UD ONE Stop: 09/18/19 18:18 Last Admin: 09/18/19 19:27 Dose: Not Given Documented by: [id number] Oxycodone HCl (Roxicodone Immediate Rel 5mg Home Pack) 1 homepack PO UD ONE Stop: 09/18/19 18:18 Last Admin: 09/18/19 19:28 Dose: Not Given Documented by: [id number] Propofol (Diprivan) Confirm Administered Dose 200 mg IV .STK-MED ONE Stop: 09/18/19 16:07 Last Admin: 09/18/19 17:02 Dose: Not Given Documented by: [id number] Propofol (Diprivan) 50 mg IV TODAY@1625 ONE Stop: 09/18/19 16:26 Last Admin: 09/18/19 17:01 Dose: 50 mg Documented by: [id number] Cosigned by: [id number] Medical Decision Making Laboratory Data Result diagrams: 09/18/19 14:45 09/18/19 14:45 Lab Results 09/18/19 09/18/19 Range/Units 14:45 14:45 WBC 4.34 L (4.8-10.8) K/uL RBC 4.09 L (4.2-5.4) M/uL Hgb 12.4 (12.0-16.0) g/dL Hct 36.8 L (37-47) % MCV 90.0 (80-100) fL MCH 30.3 (25-34) pg MCHC 33.7 (32-36) g/dL RDW Std Deviation 46.5 H (36.4-46.3) fL RDW Coeff of Price 14.0 (11.5-14.5) % Plt Count 171 (130-400) K/uL MPV 8.9 (7.4-10.4) fL Immature Gran % (Auto) 0.2 % Neut % (Auto) 64.8 % Lymph % (Auto) 25.1 % [place] % (Auto) 9.7 % Eos % (Auto) 0.0 % Baso % (Auto) 0.2 % Immature Gran # (Auto) 0.01 (0.00-0.02) K/uL Neut # (Auto) 2.81 (1.4-6.5) K/uL Lymph # (Auto) 1.09 L (1.2-3.4) K/uL [place] # (Auto) 0.42 (0.11-0.59) K/uL Eos # (Auto) 0.00 (0-0.5) K/uL Baso # (Auto) 0.01 (0-0.2) K/uL Sodium 138 (136-145) mmol/L Potassium 4.1 (3.5-5.1) mmol/L Chloride 106 (98-107) mmol/L Carbon Dioxide 27 (21-32) mmol/L Anion Gap 5.0 (3-11) BUN 17 (7-18) mg/dl Creatinine 1.11 (0.6-1.2) mg/dl Est Cr Clr Drug Dosing 50.6 ml/min Est GFR ( Amer) 58.3 Est GFR (Non-Af Amer) 50.3 BUN/Creatinine Ratio 15.4 (10-20) Glucose 283 H (70-99) mg/dl Calcium 8.9 (8.5-10.1) mg/dl Imaging Data Radiologist's Impression: XR ankle RT 2V, XR foot RT 2V HISTORY: 69 years-old Female R ankle pain and deformity s/p fall acute right foot and ankle pain status post trauma COMPARISON: None available TECHNIQUE: 2 views of the right foot and 2 views of the right ankle FINDINGS: ANKLE: Demineralized appearance of the bones. Acute trimalleolar fracture with mild displacement and angulation of the distal fibular fracture. The posterior malleolar fracture is displaced posteriorly 1.7 cm and angulated. Pathologic widening of the anterior and medial aspects of the tibiotalar joint. The medial malleolar fracture is mildly comminuted with a diffuse small mildly displaced bone fragments. Moderate soft tissue swelling of the ankle with joint effusion. FOOT: Abnormal morphology of the first metatarsal head may be projectional. There is mild multifocal osteoarthritis with demineralized appearance of the bones. Arterial calcifications are noted. No definite acute fracture or dislocation of the foot. IMPRESSION: 1. Acute trimalleolar ankle fracture with displacement as above. 2. Associated subluxation/partial dislocation of the tibiotalar joint. 3. No acute fracture of the right foot identified. ACT 112: Negative or not required by law. The above report was generated using voice recognition software. It may contain grammatical, syntax or spelling errors. Electronically signed by: Carlos Simon M.D. 09/18/2019 3:08 PM RIGHT ANKLE 3 VIEWS CLINICAL HISTORY: Postreduction examination. FINDINGS: 3 views of the right ankle are compared to study performed earlier the same day 09/18/2019. The examination is performed through a cast, obscuring fine bony details. The skeletal structures are osteopenic. Again seen is a comminuted fracture of the distal fibula, as well as a fracture through the base of the medial malleolus and a posterior malleolar fracture. There is mild dorsal distraction of the posterior malleolar fragment. There has been mandaen of near-anatomic alignment status post external fixation. There is a joint effusion, and soft tissue edema is present around ankle. IMPRESSION: Alevism of near-anatomic alignment at the ankle joint status post closed reduction of a trimalleolar fracture as above. Electronically signed by: Shantanu Arias M.D. 09/18/2019 4:32 PM MDM Narrative Patient was seen and evaluated as above in room a 10. Review was performed of nursing notes and vital signs. After obtaining a thorough history and physical examination the above work up was performed. She presents to us today via ambulance over concerns of a right ankle injury status post mechanical fall. She is adamant that she did not syncopized or have a seizure causing this event. She notes that she slipped on ice. She received 75 mcg of fentanyl prehospital. She rates her current pain at 3/10. Examination reveals a deformity to the right ankle. X-ray was obtained and there is acute trimalleolar fracture with displacement. This was felt to require reduction. The attending physician obtained consent, and the patient was sedated. The patient was supine, and distal traction was applied by myself to the patient's right foot and then I passively dorsiflex the right foot and ankle and on exam there was near anatomic alignment restored. This was confirmed via x-ray. Patient was neurovascularly intact post reduction. She was placed in a 3 sided Ortho-Glass splint. I discussed the case with the orthopedic surgeon, Dr. Eaton and the plan was to have the patient follow-up in the outpatient setting on of this week with likely having surgery on Tuesday. The patient was then provided a walker and was felt stable for discharge. Unfortunately, during ambulatory trial even with the patient nonweightbearing with the involved extremity, her pain was extreme and the patient as well as the at bedside verbalized concern over taking her home given the fall risk and were concerned about being able to take care of her. They desire admission. I believe this is reasonable and certainly the patient did try every reasonable effort to try to manage this. I discussed the case with the hospitalist, Dr. Moe. Patient be admitted for further evaluation and management. Please refer to further documentation regarding her stay. Case was discussed with the attending physician. I attest that I have personally reviewed the patient medication list. I attest that I have reviewed the patient's blood pressure, although she is not being admitted for her blood pressure, she will be admitted for further evaluation and management of her presentation here today. GCS: 15 In the evaluation and treatment of this patient, the following differential diagnoses were considered: Ankle Fracture, Ankle Sprain, Distal Fibula Fracture, Distal Tibia Fracture, Foot Fracture, [place] Fracture, among others. Impression & Plan Closed right trimalleolar fracture Discharge Plan Visit Data Chief Complaint: Fall ED Provider: Marcial Holman ED Midlevel Provider: Frank Corrales Discharge Problem: Closed right trimalleolar fracture Patient Disposition: Admitted As Inpatient Condition: Good Discharge Instructions Rosalba/Other Patient Handouts: ED Sedation Procedural Discon Forms Stand Alone Forms: [facility], Important Visit Information Prescriptions Prescriptions: New oxycodone [Roxicodone] 5 mg tablet 5 mg PO Q6H PRN (Reason: pain) Qty: 12 RF: 0 No Action simvastatin 20 mg tablet 20 mg PO DAILY Qty: 90 RF: 3 fluoxetine 20 mg capsule 20 mg PO DAILY Qty: 90 RF: 1 (DME) FreeStyle Test strip See Dose Instructions .ROUTE .MEDSUPPLY Qty: 700 RF: 3 multivitamin with iron [Daily Multiple Vitamins/Iron] tablet 1 tab PO DAILY RF: 0 calcium carbonate [Calcium 500] 500 mg calcium (1,250 mg) tablet 500 mg PO DAILY RF: 0 valacyclovir 1 gram tablet 1,000 mg PO DAILY Qty: 30 RF: 0 zdwsgguh-wtd-fvutf-dgd435-eydo 500-500-66.7 mg tablet 1 tab PO DAILY RF: 0 cholecalciferol (vitamin D3) 5,000 unit tablet 5,000 units PO DAILY RF: 0 epinephrine 0.3 mg/0.3 mL auto-injector 0.3 ml IM UD PRN (Reason: anaphylaxis) RF: 0 (DME) insulin syringe-needle U-100 [BD Insulin Syringe Ultra-Fine] 0.3 mL 31 gauge x 5/16" syringe See Dose Instructions .ROUTE .MEDSUPPLY Qty: 10 RF: 0 rizatriptan 10 mg tablet,disintegrating 10 mg PO UD PRN (Reason: Migraine Headache) RF: 0 levothyroxine 125 mcg tablet 125 mcg PO DAILY Qty: 90 RF: 3 Novolog U-100 Insulin aspart 100 unit/mL solution See Rx Instructions SQ UD RF: 0 topiramate 50 mg tablet 50 mg PO PM RF: 0 omalizumab 150 mg recon soln 300 mg SQ Q4WK RF: 0 phenytoin sodium extended 30 mg Capsule 30 mg PO QPM RF: 0 phenytoin sodium extended 100 mg capsule 100 mg PO BID RF: 0 hydroxyzine HCl 25 mg tablet 50 mg PO BID RF: 0 phenytoin sodium extended 30 mg capsule 60 mg PO QAM RF: 0 fluoxetine 10 mg capsule 10 mg PO Q OTHER DAY RF: 0 magnesium 200 mg Tablet 200 mg PO 3XWK RF: 0 topiramate 50 mg tablet 100 mg PO QAM RF: 0 Referrals Referrals: Art Montenegro MD [Primary Care Provider] - Edmundo Eaton DO [Surgeon] -
--- NOTE | 2019-09-18 17:17 | Emergency Department Note ---
Pre Sedation Assessment Vital Signs Temp Pulse Pulse Resp BP BP BP 09/18/19 17:05 68 20 144/60 H 09/18/19 16:50 65 16 153/67 H 09/18/19 16:45 66 20 133/65 09/18/19 16:35 67 20 151/67 H 09/18/19 16:25 72 13 146/68 H 09/18/19 16:22 18 132/70 09/18/19 16:20 13 128/56 L 09/18/19 16:19 64 14 126/65 09/18/19 16:16 66 17 133/65 09/18/19 16:14 72 18 143/62 H 143/62 H 143/62 H 09/18/19 14:54 71 16 156/65 H 09/18/19 14:28 37.0 C 70 18 156/65 H Pulse Ox 09/18/19 17:05 94 09/18/19 16:50 96 09/18/19 16:45 94 09/18/19 16:35 100 09/18/19 16:25 100 09/18/19 16:22 99 09/18/19 16:20 99 09/18/19 16:19 97 09/18/19 16:16 94 09/18/19 16:14 98 09/18/19 14:54 98 09/18/19 14:28 93 Pre-Sedation Airway Assessment Smoking Status: Former smoker Thyromental Distance: > or= 3.5 Finger Breadths Oral Cavity: + WNL Mallampati Class: II ASA: ASA2 NPO Status Date of Last Intake of Fluids: 09/18/19 Time of Last Intake of Fluids: 09:00 Date of Last Intake of Solid Food: 09/18/19 Time of Last Intake of Solid Foods: 09:00 Notes The planned sedation has been discussed with the patient. Informed Consent was obtained. I have identified the patient, determined the appropriateness of sedation and have assessed the patient immediately prior to the procedure. All medicine(s) and interventions are by my order.
--- NOTE | 2019-09-18 17:18 | Emergency Department Note ---
Post Sedation Assessment Vital Signs Temp Pulse Pulse Resp BP BP BP 09/18/19 17:05 68 20 144/60 H 09/18/19 16:50 65 16 153/67 H 09/18/19 16:45 66 20 133/65 09/18/19 16:35 67 20 151/67 H 09/18/19 16:25 72 13 146/68 H 09/18/19 16:22 18 132/70 09/18/19 16:20 13 128/56 L 09/18/19 16:19 64 14 126/65 09/18/19 16:16 66 17 133/65 09/18/19 16:14 72 18 143/62 H 143/62 H 143/62 H 09/18/19 14:54 71 16 156/65 H 09/18/19 14:28 37.0 C 70 18 156/65 H Pulse Ox 09/18/19 17:05 94 09/18/19 16:50 96 09/18/19 16:45 94 09/18/19 16:35 100 09/18/19 16:25 100 09/18/19 16:22 99 09/18/19 16:20 99 09/18/19 16:19 97 09/18/19 16:16 94 09/18/19 16:14 98 09/18/19 14:54 98 09/18/19 14:28 93 Recovery Score Activity: Moves 4 extremities Respiration: Deep Breath/Cough Circulation: +/-20% PreAnes Value Consciousness: Fully Awake Post Anesthesia Score: 4 Discharge Sedation Unexpected Event: None Post Sedation Plan On clinical assessment, the patient appears to have tolerated the sedation without complications. Patient is recovering as anticipated. Patient will continue to be monitored by nursing and may be discharged when sedation discharge criteria are met per below protocol. Upon Completions of procedure up to 15 minutes continue every 5 minute vital signs and the P.A.R. score; then discharge to a Phase I or Fast Track to Phase II per the following guidelines: * Discharge Patient to appropriate Phase II area if PAR is 8 or greater or return to pre- procedure baseline. The post - procedure orders will be as directed. * If PAR score is less than 8 or not return to pre-procedure baseline then patient will follow Phase I monitoring till PAR is reached for Phase II. The Phase I may be done in procedure room or may call to secure a Phase I area. * If naloxone or flumazenil are used for reversal, hold in Phase I for continued monitoring from when last reversal dose was given for a minimum of 60 minutes or longer pending the nurse and/or physician discretion of patient condition before discharge to Phase II. Please call the Sedation Physician to re-evaluate and complete post-note for discharge to Phase II area. Do NOT discharge from procedure sedation or Phase 1 until post- sedation evaluation note is complete by procedure /sedation MD Sedation Discharge Instructions to be given to the patient at discharge to home. Sedation Data Sedation Times Sedation Start Date: 09/18/19 Sedation Start Time: 16:14 Sedation End Date: 09/18/19 Sedation End Time: 16:24 Total Sedation Time: 10 Procedure Times Procedure Start Time:: 16:14 Procedure End Time: 16:45 Specimens Specimens Obtained: No
--- NOTE | 2019-09-18 17:21 | Emergency Department Note ---
ED Visit Note Procedural Sedation Indication: Right ankle dislocation reduction. Last Ate: 9am (6+ hours pre sedation) Previous issues with sedation: Yes, nausea/vomiting Snore: Yes Emergent: Yes Smoker: Remote use ASA: 2 Mallampati: 2+ Dentures: None Time Out: 16:12 Time Recovered: 16:24 Total time: 15 minutes including pre-anesthesia discussion and post anesthesia monitoring. Written consent was obtained after the risks and benefits were explained to the patient/, including, but not limited to aspiration, allergic reaction, breathing difficulties, cardiac complications, vomiting, pain, event recall, bleeding, and/or infection. Pre-sedation examination and paperwork completed. The patient was on 100% oxygen via NRB prior to the procedure. Continuos end tidal CO2 monitoring, pulse oximetry, and cardiac monitoring were utilized. Suction, airway equipment, medications, respiratory equipment, and appropriate personnel were prepared prior to the initiation of the procedure. A time out was taken. Sedation was achieved utilizing 50 mg of Propofol. After I observed the patient had reached the appropriate level of sedation the main procedure was performed without complication. Sedation was discontinued and the monitoring continued. The patient recovered quickly from the effects of the medication without complication or adverse event. Marcial Holman MD
[2019-09-18] MEDS: OXYCODONE IR HOME PACK PO ONE ×4 (18:55→19:28)
[2019-09-18] MEDS ORDERED: ONDANSETRON INJ 2 MG/ML 2 ML VIAL ONE (19:20)
[2019-09-18] MEDS ORDERED: MoRPHine SULFATE 4 MG/ML 1 ML CARP\\VIAL IV STA (19:24)
[2019-09-18] MEDS ORDERED: GLUCOSE 40% GEL 15 GM TUBE PO PRN (21:44)
[2019-09-18] MEDS ORDERED: DEXTROSE 50% 50 ML SYRINGE IV PRN (21:44)
[2019-09-18] MEDS ORDERED: INSULIN ASPART PER UNIT SQ SCH (21:44)
[2019-09-18] MEDS ORDERED: GLUCAGON FOR INJ 1 MG VIAL SQ PRN (21:44)
[2019-09-18] MEDS ORDERED: ONDANSETRON INJ 2 MG/ML 2 ML VIAL IV PRN (21:44)
[2019-09-18] MEDS ORDERED: GLUCOSE 10 TABS/TUBE PO PRN (21:44)
[2019-09-18] MEDS ORDERED: CARBOHYDRATES FOR HYPOGLYCEMIA PO PRN (21:44)
[2019-09-18] MEDS ORDERED: RIZATRIPTAN BENZOATE 10 MG TAB PO PRN (21:44)
--- NOTE | 2019-09-18 21:54 | History & Physical Report ---
Date of Service September 18, 2019 Assessment & Plan (1) Closed right trimalleolar fracture: Underwent reduction during ED stay. Being admitted due to uncontrolled pain. Was given fentanyl while in ED which did not last long enough. Morphine given in ED lasted longer but made her feel disoriented. Will do a trial of Dilaudid 0.5 mg IV every 3 hours as needed severe pain. She will be n.p.o. after midnight. Dr. Eaton, orthopedics, is aware and has been consulted. Present on Admission?: Yes (2) Manages insulin pump without assistance: Patient will manage her diabetic control with her own pump settings Present on Admission?: Yes (3) Type 1 diabetes mellitus with hypoglycemia, with long-term current use of insulin: Patient will manage her own blood sugar control by adjusting insulin pump settings. Placed on Accu-Cheks before meals and at bedtime at a minimum, or as frequently as patient needs. Present on Admission?: Yes (4) Constipation: Constipation- Patient reports she has a a pending appointment with gastroenterology within the next week. She has used [id number]-ovh-yomhcrf medications per her PCP to help with bowel movements. Presumptive diabetic gastroparesis. May benefit from trial of Amitiza, but will not be done during hospital stay. We need to monitor constipation is present side effect of narcotic medications used for pain control. Would do trial of Movantik during hospital stay while on narcotic medications, however, it is nonformulary. We will keep patient on MiraLAX and IV fluids. Present on Admission?: Yes (5) Urge and stress incontinence: No Rx treatment indicated Present on Admission?: Yes (6) Dyslipidemia: No medications listed for treatment Present on Admission?: Yes (7) Hypothyroidism: Continue levothyroxine sodium 1 to 25 mcg p.o. daily Present on Admission?: Yes (8) Seizure disorder: Continue phenytoin and topiramate. Present on Admission?: Yes History of Present Illness Chief Complaint: The patient presents to the emergency department after a slip and fall on ice, with the development of immediate left ankle pain and inability to bear weight. Primary Care Provider: Art Montenegro MD The patient is a 69-year-old female with a past medical history including type 1 diabetes mellitus with insulin pump, hypothyroidism, dyslipidemia, urge and stress urinary incontinence and seizure disorder. She reports that while out visiting a friend at their house, as she was stepping down from the step she slipped on ice, twisted and fell and developed immediate left ankle pain and inability to bear weight. Her called 911, she was brought to the emergency department, was found to have a closed right trimalleolar fracture, which was reduced while in the ED, but due to continued inability to bear weight due to extreme pain, she was referred for evaluation for admission. Allergies Allergy/AdvReac Type Severity Reaction Status Date / Time Penicillins Allergy Severe ANAPHYLAXIS Verified 09/18/19 15:29 aspirin Allergy Unknown NOTED Verified 09/18/19 15:29 "ASPIRIN COMBINATION" chlorpheniramine Allergy Unknown . Verified 09/18/19 15:29 codeine Allergy Unknown . Verified 09/18/19 15:29 oxybutynin Allergy Unknown UNKNOWN Verified 09/18/19 15:29 propoxyphene Allergy Unknown . Verified 09/18/19 15:29 lisinopril AdvReac Intermediate DIZZY,LIGHT Verified 09/18/19 15:29 HEADED losartan AdvReac Intermediate Dizzy, Verified 09/18/19 15:29 mentation change, mood change Home Medications Home Medications Medication Instructions Recorded Confirmed Type calcium carbonate 500 mg calcium 500 mg PO DAILY tab 04/03/19 09/18/19 History (1,250 mg) tablet multivitamin with iron 1 tab PO DAILY 04/03/19 09/18/19 History valacyclovir 1 gram tablet 1,000 mg PO DAILY #30 tab 04/03/19 09/18/19 History cholecalciferol (vitamin D3) 125 5,000 units PO DAILY tab 05/07/19 09/18/19 History mcg (5,000 unit) tablet wipalnapsuv-vsq-bqmfugroh-hrb 1 tab PO DAILY tab 05/07/19 09/18/19 History 149-hyalur 500 mg-500 mg-66.7 mg tablet insulin syringe-needle U-100 0.3 #10 ea 05/07/19 09/13/19 History mL 31 gauge x 02/08" rizatriptan 10 mg disintegrating 10 mg PO UD PRN tab 05/07/19 09/18/19 History tablet simvastatin 20 mg tablet 20 mg PO DAILY #90 tab 05/08/19 09/18/19 Rx levothyroxine 125 mcg tablet 125 mcg PO DAILY #90 tab 05/16/19 09/18/19 Rx omalizumab 150 mg subcutaneous 300 mg SQ Q4WK ea 05/21/19 09/18/19 History solution epinephrine 0.3 mg/0.3 mL 0.3 ml IM UD PRN ea 05/23/19 09/18/19 History injection, auto-injector insulin aspart U-100 100 100 See Rx Instructions SQ UD ml 05/23/19 09/18/19 History unit/mL subcutaneous solution fluoxetine 20 mg capsule 20 mg PO DAILY #90 cap 07/03/19 09/18/19 Rx FreeStyle Test #700 ea NS 07/05/19 09/13/19 Rx hydroxyzine HCl 50 mg PO BID 08/25/19 09/18/19 History phenytoin sodium extended 30 mg PO QPM 08/25/19 09/18/19 History phenytoin sodium extended 60 mg PO QAM 08/25/19 09/18/19 History phenytoin sodium extended 100 mg PO BID 08/25/19 09/18/19 History fluoxetine 10 mg capsule 10 mg PO Q OTHER DAY 09/13/19 09/18/19 History topiramate 50 mg tablet 50 mg PO PM tab 09/13/19 09/18/19 History magnesium 200 mg PO 3XWK 09/18/19 09/18/19 History oxycodone [Roxicodone] 5 mg PO Q6H PRN #12 tab 09/18/19 Rx topiramate 100 mg PO QAM 09/18/19 09/18/19 History Past Med/Surg History Medical History Constipation Dyslipidemia (Chronic) History of concussion History of migraine headaches Hypothyroidism (Chronic) No significant family history No significant medical problems Osteoporosis (Chronic) Seizure disorder (Chronic) Type 1 diabetes mellitus with hypoglycemia, with long-term current use of insulin (Chronic) Urge and stress incontinence (Chronic) Surgical History H/O dilation and curettage H/O hand surgery H/O oral surgery No significant past surgical history S/P carpal tunnel release Family History Mother Cervical cancer Grandmother Uterine cancer Father Acute myocardial infarction Stroke syndrome Myocardial infarction Social History Preferred Language: Algerian Communication Ability: Effective Visual Impairment: No Limitations Hearing Ability: Normal 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 Beliefs That Will Affect Care: None marital status: Current Living Situation: Spouse Feels Safe at Home: Yes Safety Concerns: Feels Safe At This Time Smoking Status: Never smoker Hx Alcohol Use: No Hx Substance Use: No Seatbelt Use: always Review of Systems Review of Systems: The patient denies chest pain, palpitations, shortness of breath, dyspnea on exertion, cough, sore throat, fevers, chills, sweats, weight change, fatigue, nausea, vomiting, diarrhea , constipation, abdominal pain, pelvic pain, blood in urine or stool, dysuria, urinary frequency or urgency, lightheadedness, dizziness, headache, memory loss, loss of consciousness, rash, abnormal bruising or bleeding, focal or generalized weakness, numbness or tingling in arms or left leg, generalized arthralgias or myalgias, back or neck pain, or night sweats. The review of systems is otherwise negative other than for that already noted above, and at least 10 systems have been reviewed. Physical Exam Physical Exam: The patient is awake, alert and oriented 3, well developed and well nourished, normocephalic and atraumatic, lying in bed and in no acute distress. HEENT--PERRL, EOMI, mucous membranes and oropharynx normal. Neck--supple. No JVD. No bruits. Thyroid normal, trachea midline, no adenopathy. Heart--normal S1 and S2. No murmurs, rubs or gallops. Lungs--clear bilaterally, no respiratory distress, no accessory muscle use. Abdomen--normal bowel sounds and soft. Nontender. Nondistended. Extremities--no cyanosis or clubbing. No edema. Dermatologic--normal skin turgor, normal color, no abnormal lymph nodes, no rash. Neurologic--cranial nerves II through XII grossly intact. Rheumatologic--normal range of motion. Psychiatric--normal affect. Results & Data Vital Signs (Past 12 Hours) Vital Signs Temp Pulse Pulse Resp BP BP BP 09/18/19 21:33 99.0 F 67 16 136/62 09/18/19 21:12 65 20 144/59 H 09/18/19 19:39 68 16 141/61 H 09/18/19 18:31 69 09/18/19 18:30 68 156/63 H 09/18/19 18:15 74 09/18/19 18:01 76 09/18/19 18:00 74 174/61 H 09/18/19 17:45 73 09/18/19 17:31 67 09/18/19 17:30 66 142/56 H 09/18/19 17:18 65 149/60 H 09/18/19 17:16 66 09/18/19 17:15 66 127/59 L 09/18/19 17:10 66 135/76 09/18/19 17:05 66 20 144/60 H 09/18/19 17:01 67 09/18/19 17:00 67 111/65 09/18/19 16:55 64 136/63 09/18/19 16:50 65 16 153/67 H 09/18/19 16:46 64 09/18/19 16:45 62 66 20 159/65 H 133/65 09/18/19 16:40 66 145/67 H 09/18/19 16:35 66 20 151/67 H 09/18/19 16:31 68 09/18/19 16:30 68 149/67 H 09/18/19 16:25 71 13 146/68 H 09/18/19 16:23 71 132/70 09/18/19 16:22 18 132/70 09/18/19 16:20 64 13 128/56 L 09/18/19 16:19 64 14 126/65 09/18/19 16:16 66 17 133/65 09/18/19 16:15 65 09/18/19 16:14 69 18 143/62 H 143/62 H 143/62 H 09/18/19 16:00 69 09/18/19 15:45 69 18 09/18/19 15:30 68 12 09/18/19 15:15 69 12 09/18/19 15:00 74 14 09/18/19 14:54 71 16 156/65 H 09/18/19 14:45 71 19 09/18/19 14:41 67 17 09/18/19 14:28 98.6 F 70 18 156/65 H 09/18/19 14:11 69 16 156/65 H Pulse Ox 09/18/19 21:33 98 09/18/19 21:12 98 09/18/19 19:39 95 09/18/19 18:31 94 09/18/19 18:30 95 09/18/19 18:15 96 09/18/19 18:01 97 09/18/19 18:00 96 09/18/19 17:45 97 09/18/19 17:31 95 09/18/19 17:30 95 09/18/19 17:18 95 09/18/19 17:16 95 09/18/19 17:15 97 09/18/19 17:10 96 09/18/19 17:05 95 09/18/19 17:01 93 09/18/19 17:00 92 09/18/19 16:55 94 09/18/19 16:50 94 09/18/19 16:46 100 09/18/19 16:45 100 09/18/19 16:40 100 09/18/19 16:35 100 09/18/19 16:31 100 09/18/19 16:30 100 09/18/19 16:25 100 09/18/19 16:23 100 09/18/19 16:22 99 09/18/19 16:20 99 09/18/19 16:19 96 09/18/19 16:16 96 09/18/19 16:15 98 09/18/19 16:14 99 09/18/19 16:00 99 09/18/19 15:45 100 09/18/19 15:30 99 09/18/19 15:15 99 09/18/19 15:00 87 L 09/18/19 14:54 98 09/18/19 14:45 98 09/18/19 14:41 96 09/18/19 14:28 93 09/18/19 14:11 97 Laboratory Results Laboratory Results WBC 4.34 K/uL (4.8-10.8) L 09/18/19 14:45 RBC 4.09 M/uL (4.2-5.4) L 09/18/19 14:45 Hgb 12.4 g/dL (12.0-16.0) 09/18/19 14:45 Hct 36.8 % (37-47) L 09/18/19 14:45 MCV 90.0 fL (80-100) 09/18/19 14:45 MCH 30.3 pg (25-34) 09/18/19 14:45 MCHC 33.7 g/dL (32-36) 09/18/19 14:45 RDW Std Deviation 46.5 fL (36.4-46.3) H 09/18/19 14:45 RDW Coeff of Price 14.0 % (11.5-14.5) 09/18/19 14:45 Plt Count 171 K/uL (130-400) 09/18/19 14:45 MPV 8.9 fL (7.4-10.4) 09/18/19 14:45 Immature Gran % (Auto) 0.2 % 09/18/19 14:45 Neut % (Auto) 64.8 % 09/18/19 14:45 Lymph % (Auto) 25.1 % 09/18/19 14:45 Pecos % (Auto) 9.7 % 09/18/19 14:45 Eos % (Auto) 0.0 % 09/18/19 14:45 Baso % (Auto) 0.2 % 09/18/19 14:45 Immature Gran # (Auto) 0.01 K/uL (0.00-0.02) 09/18/19 14:45 Neut # (Auto) 2.81 K/uL (1.4-6.5) 09/18/19 14:45 Lymph # (Auto) 1.09 K/uL (1.2-3.4) L 09/18/19 14:45 Pecos # (Auto) 0.42 K/uL (0.11-0.59) 09/18/19 14:45 Eos # (Auto) 0.00 K/uL (0-0.5) 09/18/19 14:45 Baso # (Auto) 0.01 K/uL (0-0.2) 09/18/19 14:45 Sodium 138 mmol/L (136-145) 09/18/19 14:45 Potassium 4.1 mmol/L (3.5-5.1) 09/18/19 14:45 Chloride 106 mmol/L (98-107) 09/18/19 14:45 Carbon Dioxide 27 mmol/L (21-32) 09/18/19 14:45 Anion Gap 5.0 (3-11) 09/18/19 14:45 BUN 17 mg/dl (7-18) 09/18/19 14:45 Creatinine 1.11 mg/dl (0.6-1.2) 09/18/19 14:45 Est Cr Clr Drug Dosing 50.6 ml/min 09/18/19 14:45 Est GFR ( Amer) 58.3 09/18/19 14:45 Est GFR (Non-Af Amer) 50.3 09/18/19 14:45 BUN/Creatinine Ratio 15.4 (10-20) 09/18/19 14:45 Glucose 283 mg/dl (70-99) H 09/18/19 14:45 POC Glucose 163 (70-99) H 09/18/19 23:28 Calcium 8.9 mg/dl (8.5-10.1) 09/18/19 14:45 Hepatitis C Ab Screen Neg (Neg) 09/18/19 14:45 Diagnostic Findings [place], [place] [phone] XRay Report Patient: TASH SURESH Date: 09/18/19 MR#: [id number]: [address] [facility] Acct ID:[id number]: Date: 1950[facility] Zip: [place] [address] Age: 69Location: ED Sex: F Room/Bed: Att Phy:Diagnosis: FALL/ANKLE RIGHT PAIN [place]ak Phy: Art Montenegro MDService Date: 09/18/19 Fam Phy:Interpreting Phy: Pacheco Simon Admit Phy: Ordering Phy: Frank Corrales PA-C cc: ~ XR ankle RT 2V, XR foot RT 2V HISTORY: 69 years-old Female R ankle pain and deformity s/p fall acute right foot and ankle pain status post trauma COMPARISON: None available TECHNIQUE: 2 views of the right foot and 2 views of the right ankle FINDINGS: ANKLE: Demineralized appearance of the bones. Acute trimalleolar fracture with mild displacement and angulation of the distal fibular fracture. The posterior malleolar fracture is displaced posteriorly 1.7 cm and angulated. Pathologic widening of the anterior and medial aspects of the tibiotalar joint. The medial malleolar fracture is mildly comminuted with a diffuse small mildly displaced helena ne fragments. Moderate soft tissue swelling of the ankle with joint effusion. FOOT: Abnormal morphology of the first metatarsal head may be projectional. There is mild multifocal osteoarthritis with demineralized appearance of the bones. Arterial calcifications are noted. No definite acute fracture or dislocation of the foot. IMPRESSION: 1. Acute trimalleolar ankle fracture with displacement as above. 2. Associated subluxation/partial dislocation of the tibiotalar joint. 3. No acute fracture of the right foot identified. ACT 112: Negative or not required by law. The above report was generated using voice recognition software. It may contain grammatical, syntax or spelling errors. Electronically signed by: Carlos Simon M.D. 09/18/2019 3:08 PM Dictated: 09/18/19 1504 Transcribed: 09/18/19 1504 [place], [place] [phone] XRay Report Patient: TASH SURESH Date: 09/18/19 MR#: [id number]: [address] Acct ID:[id number]: Date: 1950[facility] Zip: [place] [address] Age: 69Location: ED Sex: F Room/Bed: Att Phy:Diagnosis: FALL/ANKLE RIGHT PAIN Palak Phy: Art Montenegro MDServrui Date: 09/18/19 Fam Phy:Interpreting Phy: Shantanu Arias MD Admit Phy: Ordering Phy: Frank Corrales PA-C cc: ~ RIGHT ANKLE 3 VIEWS CLINICAL HISTORY: Postreduction examination. FINDINGS: 3 views of the right ankle are compared to study performed earlier the same day 09/18/2019. The examination is performed through a cast, obscuring fine bony details. The skeletal structures are osteopenic. Again seen is a comminuted fracture of the distal fibula, as well as a fracture through the base of the medial malleolus and a posterior malleolar fracture. There is mild dorsal distraction of the posterior malleolar fragment. There has been presybeterian of near-anatomic alignment status post external fixation. There is a joint effusion, and soft tissue edema is present around ankle. IMPRESSION: Mormon of near-anatomic alignment at the ankle joint status post closed reduction of a trimalleolar fracture as above. Electronically signed by: Shantanu Arias M.D. 09/18/2019 4:32 PM Dictated: 09/18/19 1630 Transcribed: 09/18/19 1630 Code Status & VTE Plan Code Status Full code VTE Prophylaxis Plan VTE Prophylaxis will be ordered: Yes PG Care Time/CCT Total # of Minutes Spent Total Time Spent with Patient: Total time spent is greater than 50% in coordination of care (as documented) at patient's floor/unit and/or counseling patient:
[2019-09-18] MEDS: PHENYTOIN SODIUM ER 30 MG CAP PO SCH (22:39)
[2019-09-18] MEDS: PHENYTOIN SODIUM ER 100 MG CAP PO SCH (22:39)
[2019-09-18] MEDS: FLUOXETINE HCL 10 MG CAP PO SCH (22:40)
[2019-09-18] MEDS: TOPIRAMATE 50 MG TAB PO SCH (22:40)
[2019-09-18] MEDS: HEPARIN SOD 5,000 UNIT/0.5 ML VIAL SQ SCH (22:47)
[2019-09-18] MEDS: HYDROmorphone INJ 0.5 MG/0.5 ML SYR IV PRN (22:49)
[2019-09-18] MEDS ORDERED: INSULIN ASPART 100 UNITS/ML VIAL SC PRN (23:00)
[2019-09-19] MEDS: NovoLOG INSULIN PUMP SCH ×5 (00:06→23:57)
[2019-09-19] MEDS: LEVOTHYROXINE SODIUM 125 MCG TABLET PO SCH (06:22)
[2019-09-19] MEDS: HYDROmorphone INJ 0.5 MG/0.5 ML SYR IV PRN ×4 (06:22→18:28)
[2019-09-19] MEDS: PHENYTOIN SODIUM ER 30 MG CAP PO SCH ×2 (07:36→20:46)
[2019-09-19] MEDS: PHENYTOIN SODIUM ER 100 MG CAP PO SCH ×2 (07:36→20:46)
[2019-09-19] MEDS: TOPIRAMATE 100 MG TAB PO SCH (07:37)
[2019-09-19] MEDS: SIMVASTATIN 20 MG TAB PO SCH (07:37)
[2019-09-19] MEDS: VALACYCLOVIR HCL 500 MG TABLET PO SCH (07:38)
[2019-09-19] MEDS: CHOLECALCIFEROL 1,000 UNITS TAB PO SCH (07:39)
[2019-09-19] MEDS: CALCIUM CARBONATE 1250MG TAB PO SCH (07:39)
[2019-09-19] MEDS: MAGNESIUM OXIDE 400 MG TAB PO SCH (07:39)
[2019-09-19] MEDS: MULTIVITAMIN TAB PO SCH (07:39)
[2019-09-19] MEDS ORDERED: [UNRECOGNIZED DRUG - OTHER] PO SCH (09:00)
--- NOTE | 2019-09-19 10:43 | Emergency Department Note ---
ED Visit Note Physician Evaluation Note: I have personally evaluated and examined this patient. I agree with assessment and plan of Frank Corrales PA-C. Right ankle fracture dislocation. I did do sedation while Mr Corrales reduced ankle. No complications. Repeat imaging shows excellent alignment post reduction. Multiple n/v exams post without issue. Discharged with strict post sedation and post fracture instructions reviewed. Marcial Holman MD
[2019-09-19] MEDS: fentaNYL 25 MCG/HR TDSY TD SCH (14:05)
--- NOTE | 2019-09-19 15:46 | CT Scan Report ---
CT OF THE RIGHT ANKLE WITHOUT CONTRAST CLINICAL HISTORY: pre-op planning, ankle fracture COMPARISON STUDY: Right ankle radiographs September 18, 2019 at 4:19 PM. TECHNIQUE: Axial images of the right ankle were obtained without IV contrast. Sagittal and coronal re constructions were viewed. Automated exposure control was utilized for the study. A dose lowering te chnique was utilized adhering to the principles of ALARA. FINDINGS: Note is made of an acute comminuted mildly displaced trimalleolar fracture of the right ank le. Ankle mortise alignment has improved since initial radiographs performed at 2:51 PM on August 272018. A few tiny bone fragments between the distal right tibia and fibula measure up to 4 mm. Silva r dome is intact. There is no acute fracture of the talus or calcaneus. Alignment of the subtalar mirna nt is anatomic. No midfoot fracture is identified on this examination. Diffuse soft tissue swelling i s present. IMPRESSION: 1. Acute comminuted mildly displaced trimalleolar fracture of the right ankle. 2. Multiple bone fragments located between the distal right tibia and fibula which measure up to 4 mm . Several these may be intra-articular location. ACT 112: Negative or not required by law. Electronically signed by: Saravanan Deutsch M.D. 09/19/2019 3:45 PM
[2019-09-19] MEDS: CHECK FENTANYL PATCH PLACEMENT SCH ×2 (17:10→23:55)
--- NOTE | 2019-09-19 19:00 | Orthopedic Consultation ---
Date of Consultation September 19, 2019 History of Present Illness Reason for Consultation: 69-year-old female who twisted her ankle slipped on the ice sustained a fracture dislocation of her right ankle had a closed reduction and splinting with good reduction. Patient still has considerable pain with any movement of her ankle. Attending Physician: Abram Mc Allergies Allergy/AdvReac Type Severity Reaction Status Date / Time Penicillins Allergy Severe ANAPHYLAXIS Verified 09/18/19 15:29 aspirin Allergy Unknown NOTED Verified 09/18/19 15:29 "ASPIRIN COMBINATION" chlorpheniramine Allergy Unknown . Verified 09/18/19 15:29 codeine Allergy Unknown . Verified 09/18/19 15:29 oxybutynin Allergy Unknown UNKNOWN Verified 09/18/19 15:29 propoxyphene Allergy Unknown . Verified 09/18/19 15:29 lisinopril AdvReac Intermediate DIZZY,LIGHT Verified 09/18/19 15:29 HEADED losartan AdvReac Intermediate Dizzy, Verified 09/18/19 15:29 mentation change, mood change Home Medications Home Medications Medication Instructions Recorded Confirmed Type calcium carbonate 500 mg calcium 500 mg PO DAILY tab 04/03/19 09/18/19 History (1,250 mg) tablet multivitamin with iron 1 tab PO DAILY 04/03/19 09/18/19 History valacyclovir 1 gram tablet 1,000 mg PO DAILY #30 tab 04/03/19 09/18/19 History cholecalciferol (vitamin D3) 125 5,000 units PO DAILY tab 05/07/19 09/18/19 History mcg (5,000 unit) tablet cvblsabhlxi-aqd-gfsiabjon-hrb 1 tab PO DAILY tab 05/07/19 09/18/19 History 149-hyalur 500 mg-500 mg-66.7 mg tablet insulin syringe-needle U-100 0.3 #10 ea 05/07/19 09/13/19 History mL 31 gauge x /16" rizatriptan 10 mg disintegrating 10 mg PO UD PRN tab 05/07/19 09/18/19 History tablet simvastatin 20 mg tablet 20 mg PO DAILY #90 tab 05/08/19 09/18/19 Rx levothyroxine 125 mcg tablet 125 mcg PO DAILY #90 tab 05/16/19 09/18/19 Rx omalizumab 150 mg subcutaneous 300 mg SQ Q4WK ea 05/21/19 09/18/19 History solution epinephrine 0.3 mg/0.3 mL 0.3 ml IM UD PRN ea 05/23/19 09/18/19 History injection, auto-injector insulin aspart U-100 100 100 See Rx Instructions SQ UD ml 05/23/19 09/18/19 History unit/mL subcutaneous solution fluoxetine 20 mg capsule 20 mg PO DAILY #90 cap 07/03/19 09/18/19 Rx FreeStyle Test #700 ea NS 07/05/19 09/13/19 Rx hydroxyzine HCl 50 mg PO BID 08/25/19 09/18/19 History phenytoin sodium extended 30 mg PO QPM 08/25/19 09/18/19 History phenytoin sodium extended 60 mg PO QAM 08/25/19 09/18/19 History phenytoin sodium extended 100 mg PO BID 08/25/19 09/18/19 History fluoxetine 10 mg capsule 10 mg PO Q OTHER DAY 09/13/19 09/18/19 History topiramate 50 mg tablet 50 mg PO PM tab 09/13/19 09/18/19 History magnesium 200 mg PO 3XWK 09/18/19 09/18/19 History oxycodone [Roxicodone] 5 mg PO Q6H PRN #12 tab 09/18/19 Rx topiramate 100 mg PO QAM 09/18/19 09/18/19 History Patient History Medical History Constipation Dyslipidemia (Chronic) History of concussion History of migraine headaches Hypothyroidism (Chronic) Manages insulin pump without assistance No significant family history No significant medical problems Osteoporosis (Chronic) Seizure disorder (Chronic) Type 1 diabetes mellitus with hypoglycemia, with long-term current use of insulin (Chronic) Urge and stress incontinence (Chronic) Surgical History H/O dilation and curettage H/O hand surgery H/O oral surgery No significant past surgical history S/P carpal tunnel release Family History Mother Cervical cancer Grandmother Uterine cancer Father Acute myocardial infarction Stroke syndrome Myocardial infarction Social History Preferred Language: Frisian Communication Ability: Effective Visual Impairment: No Limitations Hearing Ability: Normal Orthotics Prosthetics Assistant Required: No Beliefs That Will Affect Care: None marital status: Current Living Situation: Spouse Feels Safe at Home: Yes Safety Concerns: Feels Safe At This Time Smoking Status: Never smoker Hx Alcohol Use: No Hx Substance Use: No Seatbelt Use: always Review of Systems Review of Systems: Has diabetes but denies neuropathy or any loss sensation to the foot Physical Exam Physical Exam: Left knee nontender painless range of motion left ankle normal normal neurological exam circulation left lower extremity. Right ankle and a posterior and sugar tong splint with good capillary refill to the toes she can flex and extend her toes. She has sensation to light touch all toes. Results & Data Vital Signs (Past 12 Hours) Vital Signs Temp Pulse Resp BP Pulse Ox 09/19/19 15:26 36.8 C 75 18 148/65 H 92 09/19/19 06:58 36.9 C 69 18 120/65 96 Radiographs demonstrate a fracture dislocation and a subsequent reduction and splinting still with some slight malalignment from anatomic position. CT scan reviewed demonstrates some comminution at the fracture sites with most of the comminution and posterior malleolus fracture but sizable medial malleolus fracture which should be satisfactory for fixation as well as the fibula. Patient is going to require open reduction total fixation with plate and screw fixation. I discussed the case with Dr. Rishabh Eaton our foot and ankle specialist who will evaluate and likely proceed with surgery if there is not much swelling this Tuesday. At this time recommend ice and elevation with elevation above heart level on pillows when possible in the interim. Pain management as needed.
[2019-09-19] MEDS: TOPIRAMATE 50 MG TAB PO SCH (20:46)
[2019-09-19] MEDS: HEPARIN SOD 5,000 UNIT/0.5 ML VIAL SQ SCH (20:46)
[2019-09-19] MEDS: FLUOXETINE HCL 20 MG CAP PO SCH (20:46)
--- NOTE | 2019-09-19 23:13 | Hospitalist Progress Note ---
Date of Service September 19, 2019 Assessment & Plan (1) Closed right trimalleolar fracture: Underwent reduction during ED stay. Being admitted due to uncontrolled pain. Was given fentanyl while in ED which did not last long enough. Morphine given in ED lasted longer but made her feel disoriented. Pain currently is not controlled with dilaudid at 0.5 mg IV q3h Will place patient on fentanyl patch, updated . will order diet today. ordered ortho consult as it was not ordered on admission. She will be n.p.o. after midnight. Dr. Eaton, orthopedics, is aware. (2) Manages insulin pump without assistance: Patient will manage her diabetic control with her own pump settings (3) Type 1 diabetes mellitus with hypoglycemia, with long-term current use of insulin: Patient will manage her own blood sugar control by adjusting insulin pump settings. Placed on Accu-Cheks before meals and at bedtime at a minimum, or as frequently as patient needs. (4) Constipation: Constipation- Patient reports she has a a pending appointment with gastroenterology within the next week. She has used cgzq-lku-qrakqsu medications per her PCP to help with bowel movements. Presumptive diabetic gastroparesis. May benefit from trial of Amitiza, but will not be done during hospital stay. We need to monitor constipation is present side effect of narcotic medications used for pain control. Would do trial of Movantik during hospital stay while on narcotic medications, however, it is nonformulary. We will keep patient on MiraLAX and IV fluids. (5) Urge and stress incontinence: No Rx treatment indicated (6) Dyslipidemia: No medications listed for treatment (7) Hypothyroidism: Continue levothyroxine sodium 1 to 25 mcg p.o. daily (8) Seizure disorder: Continue phenytoin and topiramate. Subjective Patient reports having significant pain in her right leg. She states it is a 9 out of 10. Updated , Review of Systems Review of Systems: All systems reviewed & are unremarkable except as noted in HPI & below Physical Exam Physical Exam: The patient is awake, alert and oriented 3, well developed and well nourished, normocephalic and atraumatic, lying in bed and in no acute distress. HEENT--PERRL, EOMI, mucous membranes and oropharynx normal. Neck--supple. No JVD. No bruits. Thyroid normal, trachea midline, no adenopathy. Heart--normal S1 and S2. No murmurs, rubs or gallops. Lungs--clear bilaterally, no respiratory distress, no accessory muscle use. Abdomen--normal bowel sounds and soft. Nontender. Nondistended. Extremities--no cyanosis or clubbing. No edema. Right leg is wrapped. Dermatologic--normal skin turgor, normal color, no abnormal lymph nodes, no rash. Neurologic--cranial nerves II through XII grossly intact. Rheumatologic--normal range of motion. Psychiatric--normal affect. Results & Data Vital Signs (Past 12 Hours) Vital Signs Temp Pulse Resp BP Pulse Ox 09/19/19 23:01 37.1 C 75 16 131/67 91 09/19/19 15:26 36.8 C 75 18 148/65 H 92 PG Care Time/CCT Total # of Minutes Spent Total Time Spent with Patient: Total time spent is greater than 50% in coordination of care (as documented) at patient's floor/unit and/or counseling patient:
[2019-09-20] MEDS: LEVOTHYROXINE SODIUM 125 MCG TABLET PO SCH (05:55)
[2019-09-20] MEDS: NovoLOG INSULIN PUMP SCH ×4 (05:56→21:58)
[2019-09-20] MEDS: CHECK FENTANYL PATCH PLACEMENT SCH ×2 (07:50→16:35)
[2019-09-20] MEDS: PHENYTOIN SODIUM ER 30 MG CAP PO SCH (08:31)
[2019-09-20] MEDS: MULTIVITAMIN TAB PO SCH (08:31)
[2019-09-20] MEDS: VALACYCLOVIR HCL 500 MG TABLET PO SCH (08:31)
[2019-09-20] MEDS: CHOLECALCIFEROL 1,000 UNITS TAB PO SCH (08:31)
[2019-09-20] MEDS: CALCIUM CARBONATE 1250MG TAB PO SCH (08:31)
[2019-09-20] MEDS: TOPIRAMATE 100 MG TAB PO SCH (08:31)
[2019-09-20] MEDS: PHENYTOIN SODIUM ER 100 MG CAP PO SCH (08:31)
[2019-09-20] MEDS: SIMVASTATIN 20 MG TAB PO SCH (08:32)
[2019-09-20] MEDS: HEPARIN SOD 5,000 UNIT/0.5 ML VIAL SQ SCH ×2 (08:36→20:37)
[2019-09-20] MEDS: HYDROmorphone INJ 0.5 MG/0.5 ML SYR IV PRN ×3 (08:41→20:29)
[2019-09-20] MEDS ORDERED: ACETAMINOPHEN 1,000 MG/100 ML VIAL IV PRN (10:23)
[2019-09-20] MEDS ORDERED: HYDROmorphone INJ 0.5 MG/0.5 ML SYR IV STA (10:23)
--- NOTE | 2019-09-20 13:41 | Hospitalist Progress Note ---
Date of Service September 20, 2019 Assessment & Plan (1) Closed right trimalleolar fracture: Underwent reduction during ED stay. - Seen by Dr. Stanford on 09/19 with concern for fracture - Will be seen by Dr. Eaton today with plan for likely surgery. - Continue fentanyl patch and Dilaudid 0.5 mg IV q3h - Start standing Tylenol IV x 2 days to help maintain baseline pain. (2) Manages insulin pump without assistance: A1c is 7.8% in 06/2019. - Patient will manage her diabetic control with her own pump settings - Diabetic diet (3) Type 1 diabetes mellitus with hypoglycemia, with long-term current use of insulin: Patient will manage her own blood sugar control by adjusting insulin pump settings. - Placed on Accu-Cheks before meals and at bedtime at a minimum, or as frequently as patient needs. (4) Constipation: Patient reports she has a a pending appointment with gastroenterology within the next week. She has used faoc-gis-kikngru medications per her PCP to help with bowel movements. - May benefit from trial of Amitiza, but will not be done during hospital stay. - Continue MiraLAX and IV fluids. (5) Urge and stress incontinence: No Rx treatment indicated (6) Hypothyroidism: Last TSH was in 03/2019 and was normal. - Continue levothyroxine 125 mcg daily - Recheck tomorrow (7) Seizure disorder: No inpatient seizure activity. - Continue phenytoin and topiramate. (8) DVT prophylaxis: Heparin 5000 units BID - Hold prior to surgery Subjective In less pain now with the extra dose of Dilaudid. Reports the pain as a 3/10 at rest and 9/10 with any movement. Reports no fevers/chills, chest pain, shortness of breath, abdominal pain, nausea, or vomiting. Physical Exam Constitutional: WD/WN, vitals as above Eyes: EOM intact bilaterally; no conjunctival abnormality ENMT: external ear and nose normal, oropharynx normal Neck: trachea midline, no thyromegaly normal visual inspection Respiratory: normal respiratory effort, lungs clear to auscultation no respiratory distress Cardiovascular: RRR, no murmur, no edema Gastrointestinal (Abdomen): Inspection/Auscultation: abdomen normal to inspection; abdomen not distended Musculoskeletal: Extremities: + limited ROM of extremities (Right leg in bandage) Skin: no rashes, warm and dry Neurologic: moves all extremities and awake Psychiatric: Orientation: alert, oriented to person and cooperative Results & Data Vital Signs (Past 12 Hours) Vital Signs Temp Pulse Resp BP Pulse Ox 09/20/19 07:35 36.9 C 80 18 124/65 96 PG Care Time/CCT Total # of Minutes Spent Total Time Spent with Patient: Total time spent is greater than 50% in coordination of care (as documented) at patient's floor/unit and/or counseling patient:
[2019-09-20] MEDS: ACETAMINOPHEN 1,000 MG/100 ML VIAL IV SCH ×2 (14:01→21:40)
[2019-09-20] MEDS ORDERED: Nursing to Pharmacy Communication ONE ×2 (14:42→16:31)
[2019-09-20] MEDS ORDERED: PHENYTOIN SODIUM ER 100 MG CAP PO STA (16:31)
[2019-09-20] MEDS ORDERED: PHENYTOIN SODIUM ER 30 MG CAP PO STA (16:33)
[2019-09-20] MEDS ORDERED: TOPIRAMATE 100 MG TAB PO STA (16:34)
[2019-09-20] MEDS: FLUOXETINE HCL 20 MG CAP PO SCH (20:24)
[2019-09-20] MEDS: FLUOXETINE HCL 10 MG CAP PO SCH (20:24)
[2019-09-21] MEDS: PHENYTOIN SODIUM ER 30 MG CAP PO SCH ×3 (00:08→20:45)
[2019-09-21] MEDS: PHENYTOIN SODIUM ER 100 MG CAP PO SCH ×3 (00:08→20:45)
[2019-09-21] MEDS: TOPIRAMATE 50 MG TAB PO SCH ×2 (00:09→20:45)
[2019-09-21] MEDS: CHECK FENTANYL PATCH PLACEMENT SCH ×4 (00:10→23:16)
[2019-09-21] MEDS ORDERED: Nursing to Pharmacy Communication ONE ×2 (02:04→14:33)
[2019-09-21] MEDS: ACETAMINOPHEN 1,000 MG/100 ML VIAL IV SCH ×3 (05:44→22:35)
[2019-09-21] MEDS: LEVOTHYROXINE SODIUM 125 MCG TABLET PO SCH (05:44)
[2019-09-21] MEDS: NovoLOG INSULIN PUMP SCH ×4 (05:51→20:37)
[2019-09-21 06:09] LABS: Hematocrit (blood only) 34.2 % (37-47); Hemoglobin 11.6 g/dL (12.0-16.0); Mean Corpuscular Hemoglobin 31.1 pg (25-34); Mean Corpuscular Hgb Conc 33.9 g/dL (32-36); Mean Corpuscular Volume 91.7 fL (80-100); Platelet Count 152 K/uL (130-400); RDW Coefficient of Variation 13.8 % (11.5-14.5); RDW Standard Deviation 46.3 fL (36.4-46.3); Red Blood Count 3.73 M/uL (4.2-5.4); White Blood Count 7.12 K/uL (4.8-10.8)
[2019-09-21 06:39] LABS: BUN Creatinine Ratio 15.5 (10-20); Calcium 8.6 mg/dl (8.5-10.1); Est GFR (African American) 73.1; Est GFR (Non-African American) 63.1; Potassium 4.1 mmol/L (3.5-5.1)
[2019-09-21] MEDS ORDERED: ROPIVACAINE 0.5% 5 MG/ML 30 ML VIAL ONE (06:39)
[2019-09-21 06:40] LABS: Phosphorus 2.5 mg/dl (2.5-4.9)
[2019-09-21] MEDS: HYDROmorphone INJ 0.5 MG/0.5 ML SYR IV PRN (07:42)
[2019-09-21] MEDS ORDERED: ONDANSETRON INJ 2 MG/ML 2 ML VIAL ONE (08:36)
[2019-09-21] MEDS ORDERED: NEOSTIGMINE METHYLSULFATE 5 MG/5 ML SYR ONE (08:36)
[2019-09-21] MEDS ORDERED: DEXAMETHASONE SOD INJ 4 MG/ML VIAL ONE (08:36)
[2019-09-21] MEDS ORDERED: GLYCOPYRROLATE 0.2 MG/ML VIAL ONE (08:36)
[2019-09-21] MEDS ORDERED: PROPOFOL IV EMULSION 10 MG/ML 20 ML VIAL IV ONE (08:36)
[2019-09-21] MEDS ORDERED: LIDOCAINE HCL 2% 2 ML VIAL/AMP(20MG/ML) INFIL ONE (08:36)
[2019-09-21] MEDS ORDERED: fentaNYL citrate 100 MCG/2 ML VIAL ONE (08:37)
[2019-09-21] MEDS ORDERED: MIDAZOLAM HCL 1 MG/ML 2ML VIAL ONE ×2 (08:37)
[2019-09-21] MEDS: TOPIRAMATE 100 MG TAB PO SCH (09:05)
[2019-09-21] MEDS: CALCIUM CARBONATE 1250MG TAB PO SCH (09:05)
[2019-09-21] MEDS: CHOLECALCIFEROL 1,000 UNITS TAB PO SCH (09:05)
[2019-09-21] MEDS: SIMVASTATIN 20 MG TAB PO SCH (09:06)
[2019-09-21] MEDS: MULTIVITAMIN TAB PO SCH (09:06)
[2019-09-21] MEDS: VALACYCLOVIR HCL 500 MG TABLET PO SCH (09:06)
[2019-09-21] MEDS: MAGNESIUM OXIDE 400 MG TAB PO SCH (09:07)
[2019-09-21] MEDS: HEPARIN SOD 5,000 UNIT/0.5 ML VIAL SQ SCH (09:08)
[2019-09-21] MEDS ORDERED: BUPIVACAINE 0.25% 30 ML VIAL ONE (09:51)
--- NOTE | 2019-09-21 10:07 | History & Physical Bridge Note ---
Date of Service September 21, 2019 History & Physical Bridge Note I have examined the patient, reviewed the History & Physical and in the interval since the performance of the History & Physical I have noted the following changes of clinical significance:To OR for fixation right ankle fracture.
--- NOTE | 2019-09-21 10:14 | Anesthesiology Consultation ---
Date of Service September 21, 2019 Assessment & Plan (1) Encounter for pre-operative examination: Chart Review Chart Review: Acceptable Risk for Surgery and Patient seen in Pre Admission Testing Consults Requested none ASA ASA3 Proposed Anesthesia Anesthesia Type: General Regional Regional Laterality: Right Site: Popliteal and Adductor Canal Risk / Benefits Reviewed With: PT / POA / Parent / Guardian, Accepts Plan and Informed Consent Obtained History Surgery Operation Date: 09/21/19 09:30 Proposed Procedures p Right Trimalleolar Fracture Open Reduction Internal Fixation - Edmundo Eaton DO Height/Weight Height: 5 ft 5 in Weight: 84.4 kg Allergies Allergy/AdvReac Type Severity Reaction Status Date / Time Penicillins Allergy Severe ANAPHYLAXIS Verified 09/18/19 15:29 aspirin Allergy Unknown NOTED Verified 09/18/19 15:29 "ASPIRIN COMBINATION" chlorpheniramine Allergy Unknown . Verified 09/18/19 15:29 codeine Allergy Unknown . Verified 09/18/19 15:29 oxybutynin Allergy Unknown UNKNOWN Verified 09/18/19 15:29 propoxyphene Allergy Unknown . Verified 09/18/19 15:29 lisinopril AdvReac Intermediate DIZZY,LIGHT Verified 09/18/19 15:29 HEADED losartan AdvReac Intermediate Dizzy, Verified 09/18/19 15:29 mentation change, mood change Medications Home Medications Medication Instructions Recorded Confirmed Last Taken calcium carbonate 500 mg calcium 500 mg PO DAILY tab 04/03/19 09/18/19 Unknown (1,250 mg) tablet multivitamin with iron 1 tab PO DAILY 04/03/19 09/18/19 Unknown valacyclovir 1 gram tablet 1,000 mg PO DAILY #30 tab 04/03/19 09/18/19 Unknown cholecalciferol (vitamin D3) 125 5,000 units PO DAILY tab 05/07/19 09/18/19 Unknown mcg (5,000 unit) tablet bwatohephbs-npx-ldatxqhkr-hrb 1 tab PO DAILY tab 05/07/19 09/18/19 Unknown 149-hyalur 500 mg-500 mg-66.7 mg tablet insulin syringe-needle U-100 0.3 #10 ea 05/07/19 09/13/19 Unknown mL 31 gauge x 5/16" rizatriptan 10 mg disintegrating 10 mg PO UD PRN tab 05/07/19 09/18/19 Unknown tablet simvastatin 20 mg tablet 20 mg PO DAILY #90 tab 05/08/19 09/18/19 Unknown levothyroxine 125 mcg tablet 125 mcg PO DAILY #90 tab 05/16/19 09/18/19 Unknown omalizumab 150 mg subcutaneous 300 mg SQ Q4WK ea 05/21/19 09/18/19 Unknown solution epinephrine 0.3 mg/0.3 mL 0.3 ml IM UD PRN ea 05/23/19 09/18/19 Unknown injection, auto-injector insulin aspart U-100 100 100 See Rx Instructions SQ UD ml 05/23/19 09/18/19 Unknown unit/mL subcutaneous solution fluoxetine 20 mg capsule 20 mg PO DAILY #90 cap 07/03/19 09/18/19 Unknown FreeStyle Test #700 ea NS 07/05/19 09/13/19 Unknown hydroxyzine HCl 50 mg PO BID 08/25/19 09/18/19 Unknown phenytoin sodium extended 30 mg PO QPM 08/25/19 09/18/19 Unknown phenytoin sodium extended 60 mg PO QAM 08/25/19 09/18/19 Unknown phenytoin sodium extended 100 mg PO BID 08/25/19 09/18/19 Unknown fluoxetine 10 mg capsule 10 mg PO Q OTHER DAY 09/13/19 09/18/19 Unknown topiramate 50 mg tablet 50 mg PO PM tab 09/13/19 09/18/19 Unknown magnesium 200 mg PO 3XWK 09/18/19 09/18/19 Unknown oxycodone [Roxicodone] 5 mg PO Q6H PRN #12 tab 09/18/19 Unknown topiramate 100 mg PO QAM 09/18/19 09/18/19 Unknown Active Medications Generic Name Dose Route Start Last Admin Trade Name Freq PRN Reason Stop Dose Admin Calcium Carbonate 500 mg 09/19/19 09:00 09/21/19 09:05 Os-Miko 500 PO 10/19/19 08:59 500 mg DAILY ERNESTO Administration Fentanyl 25 mcg 09/19/19 13:30 09/19/19 14:05 Duragesic TD 10/03/19 13:29 25 mcg Q3D ERNESTO Administration Fluoxetine HCl 10 mg 09/18/19 21:44 09/20/19 20:24 Prozac PO 10/18/19 21:43 10 mg Q2D@2100 ERNESTO Administration Fluoxetine HCl 20 mg 09/19/19 21:00 09/20/19 20:24 Prozac PO 10/19/19 20:59 20 mg QPM ERNESTO Administration Heparin Sodium (Porcine) 5,000 units 09/18/19 22:00 09/21/19 09:08 Heparin Sodium (Porcine) SQ 10/18/19 21:59 5,000 units Q12 ERNESTO Administration Hydromorphone HCl 0.5 mg 09/18/19 21:44 09/21/19 07:42 Dilaudid IV 10/02/19 21:43 0.5 mg Q3H PRN Administration Severe Pain Hydroxyzine HCl 50 mg 09/18/19 22:00 09/21/19 09:06 Vistaril PO 10/18/19 21:59 50 mg BID ERNESTO Administration Acetaminophen 1,000 mg in 100 mls @ 400 mls/hr 09/20/19 14:00 09/21/19 05:59 Ofirmev IV 09/22/19 13:59 Infused Q8H ERNESTO Infusion Insulin Aspart 1 ea 09/21/19 06:00 09/21/19 05:51 Novolog Insulin Pump N/A 10/21/19 05:59 1 ea Q6 ERNESTO Administration Protocol Levothyroxine Sodium 125 mcg 09/19/19 06:30 09/21/19 05:44 Synthroid PO 10/19/19 06:29 125 mcg DAILYBB ERNESTO Administration Magnesium Oxide 200 mg 09/19/19 09:00 09/21/19 09:07 Mag-Ox PO 10/19/19 08:59 200 mg MoWeFr@0900 ERNESTO Administration Miscellaneous 1 ea 09/19/19 16:00 09/21/19 07:42 Fentanyl Patch Check Placement N/A 10/19/19 15:59 1 ea QS ERNESTO Administration Multivitamins 1 tab 09/19/19 09:00 09/21/19 09:06 Multivitamin Tab PO 10/19/19 08:59 1 tab DAILY ERNESTO Administration Phenytoin Sodium 30 mg 09/18/19 21:44 09/21/19 00:08 Dilantin Er PO 10/18/19 21:43 30 mg QPM ERNESTO Administration Phenytoin Sodium 60 mg 09/19/19 09:00 09/21/19 09:08 Dilantin Er PO 01/24/20 08:59 60 mg QAM ERNESTO Administration Phenytoin Sodium 100 mg 09/18/19 21:44 09/21/19 09:08 Dilantin Er PO 10/18/19 21:43 100 mg BID ERNESTO Administration Simvastatin 20 mg 09/19/19 09:00 09/21/19 09:06 Zocor PO 10/19/19 08:59 20 mg DAILY ERNESTO Administration Topiramate 50 mg 09/18/19 22:00 09/21/19 00:09 Topamax PO 10/18/19 21:59 50 mg PM ERNESTO Administration Topiramate 100 mg 09/19/19 09:00 09/21/19 09:05 Topamax PO 10/19/19 08:59 100 mg QAM ERNESTO Administration Valacyclovir HCl 1,000 mg 09/19/19 09:00 09/21/19 09:06 Valtrex PO 10/19/19 08:59 1,000 mg DAILY ERNESTO Administration Vitamin D 5,000 units 09/19/19 09:00 09/21/19 09:05 Vitamin D3 PO 10/19/19 08:59 5,000 units DAILY ERNESTO Administration NPO Date Last Intake of Fluids: 09/20/19 Time Last Intake of Fluids: 20:00 Date Last Intake of Solids: 09/20/19 Time Last Intake of Solids: 20:00 Past Medical History Medical History Constipation Dyslipidemia (Chronic) History of concussion History of migraine headaches Hypothyroidism (Chronic) Manages insulin pump without assistance No significant family history No significant medical problems Osteoporosis (Chronic) Seizure disorder (Chronic) Type 1 diabetes mellitus with hypoglycemia, with long-term current use of insulin (Chronic) Urge and stress incontinence (Chronic) Exercise / Class Metabolic Activity III < 4 Walking/Shop/Light housework Past Family History Family History Mother Cervical cancer Grandmother Uterine cancer Father Acute myocardial infarction Stroke syndrome Myocardial infarction Past Surgical History Surgical History H/O dilation and curettage H/O hand surgery H/O oral surgery No significant past surgical history S/P carpal tunnel release Past Anesthesia History No Hx of Anesthesia Complications (Slow to wake) History of PONV No Hx of Motion Sickness and History of PONV Social History Smoking Status: Never smoker Hx Alcohol Use: No Hx Substance Use: No Review of Systems Negative for chest pain or shortness of breath. Significant constipation - denies N/V Physical Exam Vital Signs Last Vital Signs Temp 37.2 C 09/21/19 09:29 Pulse 79 09/21/19 09:29 Resp 18 09/21/19 09:29 BP 158/70 H 09/21/19 09:29 Pulse Ox 94 09/21/19 09:29 Constitutional + obese ENMT Mouth: no TMJ abnormality and oral opening not small Thyromental Distance: < 3.5 Finger Breadths Mallampati Class: II Neck normal visual inspection; neck extension not limited Respiratory normal respiratory effort Auscultation: lungs clear to auscultation bilaterally Cardiovascular Rate/Rhythm: regular rate and regular rhythm Heart Sounds: no murmur Neurologic moves all extremities Psychiatric Orientation: alert and oriented x 3 Testing Laboratory Results 09/21/19 05:58 09/21/19 05:58 09/21/19 05:29 POC Glucose 162 H Electrocardiogram Date: 09/18/19 Findings: + NSR @ (66) and + RBBB (incomplete)
[2019-09-21] MEDS ORDERED: BACITRACIN INJ 50,000 UNIT VIAL ONE (10:29)
[2019-09-21] MEDS ORDERED: CLINDAMYCIN 600 MG/54 ML D5W IV ONE (10:57)
[2019-09-21] MEDS ORDERED: CLINDAMYCIN 600 MG/54 ML BAG IV SCH (11:00)
[2019-09-21] MEDS ORDERED: ePHEDrine sulfate 50 MG/ML AMP IV PRN (11:47)
[2019-09-21] MEDS ORDERED: ATROPINE SULFATE 0.1 MG/ML 10ML SYR IV PRN (11:47)
[2019-09-21] MEDS ORDERED: fentaNYL citrate 100 MCG/2 ML VIAL IV PRN (11:47)
[2019-09-21] MEDS ORDERED: HYDROmorphone INJ 2 MG/ML SYR/VIAL IV PRN (11:47)
[2019-09-21] MEDS ORDERED: ONDANSETRON INJ 2 MG/ML 2 ML VIAL IV PRN ×2 (11:47→13:32)
--- NOTE | 2019-09-21 13:07 | Fluoroscopy Report ---
FL ankle RT 2V CLINICAL HISTORY: R ANKLE FX COMPARISON STUDY: 09/18/2019 FLUOROSCOPY TIME: 43 seconds. NUMBER OF FLUOROSCOPIC IMAGES: 2 FINDINGS: 2 intraoperative fluoroscopic spot images are provided for interpretation. These demonstrat e 2 cannulated lag screws fixating a medial malleolar fracture. There is a distal fibular fracture wh ich is fixated with a lateral metallic plate and 10 screws. The ankle mortise appears intact on the p rovided images. IMPRESSION: Internally fixated fractures of the medial malleolus and distal fibula. ACT 112: Negative or not required by law. Electronically signed by: Warren Maldonado M.D. 09/21/2019 1:06 PM
--- NOTE | 2019-09-21 13:23 | Post Operative Brief Note ---
Immediate Post Op Note v1 Date of Surgery September 21, 2019 Pre & Post Diagnosis Operation Date: 09/21/19 09:30 Pre-Op Diagnosis: CLOSED DISPLACED RIGHT TRIMALLEOLAR ANKLE FRACTURE Post-Op Diagnosis: CLOSED DISPLACED RIGHT TRIMALLEOLAR ANKLE FRACTURE, INTRAARTICULAR AVULSION FRACTURE TIBIA, ACUTE CHONDRAL LESION MEDIAL TALUS I identified the patient and participated in the time-out.: Yes Procedure Operation Date: 09/21/19 09:30 Actual Procedures p Right Trimalleolar Fracture Open Reduction Internal Fixation, Removal of Intra Articular Avulsion Fracture tibia, Chondroplasty medial talus, Ankle Arthrotomy(Right) - Edmundo Eaton DO Surgeon Edmundo Eaton DO Department Of Sociology Chair Nando Patricia PA-C Estimated Blood Loss 7 Findings Consistent with Post-Op Diagnosis Specimens None Anesthesia Type General Regional Complications none Disposition Accompanied Patient To Recovery: No Disposition: Recovery Room
[2019-09-21] MEDS ORDERED: NALOXONE HCL 0.4 MG/1 ML VIAL/CARP IV PRN (13:32)
[2019-09-21] MEDS ORDERED: METOCLOPRAMIDE HCL INJ 5 MG/ML 2 ML VIAL IV PRN (13:32)
[2019-09-21] MEDS ORDERED: bisacodyL 10 MG SUPP PR PRN (13:32)
[2019-09-21] MEDS ORDERED: SODIUM CHLORIDE 0.9% 1000ML 1,000 ML IV SCH (13:45)
[2019-09-21] MEDS ORDERED: NO NSAIDS SCH (13:45)
--- NOTE | 2019-09-21 14:26 | Anesthesiology Progress Note ---
Date of Service September 21, 2019 Anesthesia Post Procedure Vital Signs Vital Signs: Temp Pulse Pulse Resp BP Pulse Ox 09/21/19 14:17 84 18 150/57 H 95 09/21/19 14:05 84 18 145/61 H 96 09/21/19 13:55 36.5 C 80 18 150/62 H 100 09/21/19 13:45 86 18 158/63 H 99 09/21/19 13:35 86 18 164/71 H 100 09/21/19 13:28 36.4 C L 92 H 18 179/68 H 99 09/21/19 09:29 37.2 C 79 18 158/70 H 94 09/21/19 07:18 37.3 C 76 16 134/64 92 09/21/19 06:13 95 09/20/19 23:34 93 09/20/19 23:33 37.4 C 81 141/61 H 81 L 09/20/19 15:40 36.9 C 77 16 159/66 H 91 Pain Intensity Right Ankle: Pain Intensity: 3 Transfer of Care Handoff Completed per policy Notes Mental Status: alert / awake / arousable and participated in evaluation Patient Amnestic to Procedure: Yes Nausea / Vomiting: adequately controlled Pain: adequately controlled Airway Patency, RR, SpO2: stable & adequate BP & HR: stable & adequate Hydration State: stable & adequate Anesthetic Complications: no major complications apparent and Pt Satisfied with anesthetic care Notes: block is functioning well
--- NOTE | 2019-09-21 15:09 | Operative Report ---
DATE OF OPERATION: 09/21/2019 PREOPERATIVE DIAGNOSES: 1. Right ankle displaced trimalleolar fracture. 2. Intra-articular avulsion fracture of the anterior distal tibia. POSTOPERATIVE DIAGNOSES: 1. Right displaced comminuted trimalleolar ankle fracture. 2. Intra-articular avulsion fracture of the anterior distal tibia. 3. Acute chondral lesion of the medial talus. PROCEDURE: 1. Open reduction internal fixation right ankle trimalleolar displaced comminuted fracture. 2. Chondroplasty of the medial talus. 3. Ankle joint arthrotomy. 4. Removal intraarticular avulsion fracture anterior distal tibia. SURGEON: Edmundo Eaton DO. VP STRATEGIC PARTNERSHIPS: Nando Patricia PA-C who was present for patient positioning, sterile prep and drape, management of retractors and instruments. He was present through the critical portions of the case including wound closure, application of sterile dressing and transport of the patient to recovery. ANESTHESIA: General regional. SPECIMENS: None. DRAINS: None. COMPLICATIONS: None. BLOOD LOSS: 7 mL. PERTINENT HISTORY: This is a 69-year-old female who sustained a twisting injury in the right ankle when she slipped on some ice, leaving a friend's home. She is unable to ambulate. Her ankle was notably twisted in a non-anatomic fashion. She was transported to [facility]. Radiographs and evaluation was performed by the emergency department physician. Her ankle joint was reduced and placed into a splint after radiographs were performed. She did have a CT scan to assess the degree of fragmentation and displacement. The patient was admitted to the hospital for further care and management and optimization for surgery. The patient was then scheduled for surgery as indicated. All potential risks, benefits, complications, alternatives, rehab, potential for incomplete relief of symptoms, need for further surgery, DVT, PE, , persistent pain, swelling, scarring, weakness, neurovascular injury, wound complications, hardware failure, nonunion, malunion, bone fracture were discussed with the patient. The patient decided to proceed with the procedure as indicated. DESCRIPTION OF PROCEDURE: The patient received a popliteal and adductor canal block in the preop holding area, the patient stated that local anesthetics did not work on her and I did explain to her that large fibroid nerve blocks were far more effective than any distal or local anesthetic effects of any previous procedures. I also explained her that the significant improvement in postop patient outcomes and reduction in risk of ileus and other sympathetic mediated pain phenomenon with the use of a regional anesthetic such as the one offered today. The patient did finally acquiesced and decided to have the nerve block as recommended. The patient was then taken to the operative suite, placed supine on the operating table. After review of consent and identification of proper operative site, the patient was anesthetized, LMA was placed. Tourniquet was placed high on the right thigh over cast padding. Right lower extremity was sterilely prepped in usual fashion, elevated and exsanguinated with bandage, tourniquet inflated to 350 mmHg. Next, a 15 blade scalpel was used to make an incision centered over the lateral malleolus of the distal aspect extending proximally. The incision was deepened subcutaneous tissue. Meticulous hemostasis achieved with electrocautery. Full thickness skin flaps were developed. The sensory cutaneous nerves were identified, freed, retracted, and protected with Maxx rakes. Periosteum was then incised along the skin incision over the fracture and using judicious sharp dissection with a 15 blade scalpel, the fracture was then clearly defined and then using a point reduction forceps and direct palpation the fracture fragments were then reduced and stabilized with 2 percutaneous pins placed in the distal fibula into the shaft of the fibula. Radiographs were obtained noting near anatomic reduction and alignment. Next, a Synthes 5-hole locking periarticular fibular plate was then firmly affixed to the lateral aspect of the fibula using a nonlocking screw under live fluoroscopic assistance. Next, using manual reduction techniques, the ankle was held in near anatomic reduction and the multiple locking screws were placed to stabilize and reduce the fracture in anatomic position and alignment. Next, a 15 blade scalpel was used to make an incision centered over the anterior aspect of the medial malleolus extending along the medial border of the tibialis anterior. The incision was deepened through subcutaneous tissue. Meticulous hemostasis was achieved with electrocautery. Full thickness skin flaps were developed with a Maxx rakes and the saphenous vein was identified, freed, retracted, and protected with a house retractor. The periosteum was then gently incised at the site of the fracture. The fracture was then opened with a Maxx rake revealing the intra-articular avulsion fracture of the distal tibia, which was then removed with a pituitary rongeur. Also noted to be an acute chondral lesion of the superomedial talus. A chondroplasty was then performed with the pituitary rongeur. The ankle was then copiously irrigated with sterile normal saline. Small arthrotomy was made anteriorly. A 15 blade scalpel was used to gain visualization. Next, after copious irrigation with sterile normal saline until clear, the medial malleolus was then reduced into near anatomic position and held in place with two 2.25 mm guide pins placed under live fluoroscopic assistance. Next, two 50 mm long thread Synthes cannulated screws were placed from the medial malleolus stabilizing and compressing the fracture into anatomic position and alignment. Guide pins were removed. Final radiographs were obtained in AP and lateral projections noting anatomic reduction and fixation of the right trimalleolar ankle fracture. All incisions were then copiously irrigated with sterile normal saline until clear. The periosteum was closed over the medial malleolus with 2-0 Vicryl and the periosteum and deep soft tissue was closed over the plate laterally with 2-0 Vicryl. The dermis was closed using buried interrupted 3-0 Vicryl sutures both medial and lateral incisions followed by closure of the skin with 4-0 nylon sutures both medially and laterally. Finally, a sterile compressive dressing and bulky Riley Cullen plaster splint was applied with the foot held in neutral dorsiflexion. The tourniquet was released, the toes noted to pink and warm. The patient was awakened and taken to recovery in stable condition. I attest to the content of the Intraoperative Record and any orders documented therein. Any exception s are noted below.
--- NOTE | 2019-09-21 17:41 | Hospitalist Progress Note ---
Date of Service September 21, 2019 Assessment & Plan (1) Closed right trimalleolar fracture: Underwent reduction during ED stay. Now s/p fixation with Dr. Eaton on 09/21. - Continue fentanyl patch and Dilaudid 0.5 mg IV q3h - Start standing Tylenol IV x 2 days to help maintain baseline pain control. - Post-op care per surgical team. (2) Manages insulin pump without assistance: A1c is 7.8% in 06/2019. - Patient will manage her diabetic control with her own pump settings - Diabetic diet - Sugars fairly controlled today with her surgery. Mostly in the 110-250 range. (3) Type 1 diabetes mellitus with hypoglycemia, with long-term current use of insulin: Patient will manage her own blood sugar control by adjusting insulin pump settings. - Placed on Accu-Cheks before meals and at bedtime at a minimum, or as frequently as patient needs. (4) Constipation: Patient reports she has a a pending appointment with gastroenterology within the next week. She has used [id number] medications per her PCP to help with bowel movements. - May benefit from trial of Amitiza, but will not be done during hospital stay. - Continue MiraLAX and IV fluids. (5) Urge and stress incontinence: No Rx treatment indicated (6) Hypothyroidism: Last TSH was in 03/2019 and was normal. - Continue levothyroxine 125 mcg daily - Recheck tomorrow (7) Seizure disorder: No inpatient seizure activity. - Continue phenytoin and topiramate. (8) DVT prophylaxis: Will start Xarelto DVT ppx dosing tomorrow after discussion with surgical team. Subjective Feels quite well after surgery. She does not have any pain in the foot as the block is still active. Reports no fevers/chills, chest pain, shortness of breath, abdominal pain, nausea, or vomiting. Physical Exam Constitutional: WD/WN, vitals as above Eyes: EOM intact bilaterally; no conjunctival abnormality ENMT: external ear and nose normal, oropharynx normal Neck: trachea midline, no thyromegaly normal visual inspection Respiratory: normal respiratory effort, lungs clear to auscultation no respiratory distress Cardiovascular: RRR, no murmur, no edema Gastrointestinal (Abdomen): Inspection/Auscultation: abdomen normal to inspection; abdomen not distended Musculoskeletal: Extremities: + limited ROM of extremities (Right leg in cast) Skin: no rashes, warm and dry Neurologic: moves all extremities and awake Psychiatric: Orientation: alert, oriented to person and cooperative Results & Data Vital Signs (Past 12 Hours) Vital Signs Temp Pulse Pulse Resp BP Pulse Ox 09/21/19 17:29 36.9 C 85 16 142/60 H 93 09/21/19 16:30 36.9 C 85 16 148/67 H 90 09/21/19 15:37 36.8 C 80 16 139/65 93 09/21/19 15:06 36.8 C 80 16 144/69 H 96 09/21/19 14:30 36.8 C 84 16 144/60 H 93 09/21/19 14:17 84 18 150/57 H 95 09/21/19 14:05 84 18 145/61 H 96 09/21/19 13:55 36.5 C 80 18 150/62 H 100 09/21/19 13:45 86 18 158/63 H 99 09/21/19 13:35 86 18 164/71 H 100 09/21/19 13:28 36.4 C L 92 H 18 179/68 H 99 09/21/19 09:29 37.2 C 79 18 158/70 H 94 09/21/19 07:18 37.3 C 76 16 134/64 92 09/21/19 06:13 95 PG Care Time/CCT Total # of Minutes Spent Total Time Spent with Patient: Total time spent is greater than 50% in coordination of care (as documented) at patient's floor/unit and/or counseling patient:
[2019-09-21] MEDS: CLINDAMYCIN 600 MG in DEXTROSE 5% 50 ML IV SCH (20:34)
[2019-09-21] MEDS: DOCUSATE SODIUM 100 MG CAP PO SCH (20:45)
[2019-09-21] MEDS: FLUOXETINE HCL 20 MG CAP PO SCH (20:45)
[2019-09-21] MEDS ORDERED: ASPIRIN 81 MG ECTAB PO SCH (21:00)
[2019-09-21] MEDS: SENNA 8.6 MG TAB PO SCH (21:42)
[2019-09-22] MEDS: OXYCODONE HCL IR 5 MG TAB (IMMEDIATE RELEASE) PO PRN ×3 (03:07→15:38)
[2019-09-22] MEDS: CLINDAMYCIN 600 MG in DEXTROSE 5% 50 ML IV SCH (04:03)
[2019-09-22 05:59] LABS: Hematocrit (blood only) 30.6 % (37-47); Hemoglobin 10.5 g/dL (12.0-16.0); Mean Corpuscular Hemoglobin 30.6 pg (25-34); Mean Corpuscular Hgb Conc 34.3 g/dL (32-36); Mean Corpuscular Volume 89.2 fL (80-100); Mean Platelet Volume 9.3 fL (7.4-10.4); Platelet Count 155 K/uL (130-400); RDW Coefficient of Variation 13.8 % (11.5-14.5); RDW Standard Deviation 45.4 fL (36.4-46.3); Red Blood Count 3.43 M/uL (4.2-5.4); White Blood Count 6.32 K/uL (4.8-10.8)
[2019-09-22] MEDS: LEVOTHYROXINE SODIUM 125 MCG TABLET PO SCH (06:03)
[2019-09-22] MEDS: ACETAMINOPHEN 1,000 MG/100 ML VIAL IV SCH (06:03)
[2019-09-22] MEDS: MAGNESIUM HYDROXIDE SUSP 30 ML UDC PO PRN (06:30)
[2019-09-22 06:35] LABS: BUN Creatinine Ratio 14.1 (10-20); Calcium 8.7 mg/dl (8.5-10.1); Creatinine Clr Calc Pharmacy 55.6 ml/min; Est GFR (African American) 65.3; Est GFR (Non-African American) 56.4; Potassium 3.8 mmol/L (3.5-5.1)
--- NOTE | 2019-09-22 08:25 | Orthopedic Progress Note ---
Date of Service September 22, 2019 Assessment & Plan (1) Closed right trimalleolar fracture: POD #1, Right ankle ORIF trimall fracture PT/ OT - NWB Right LE with walker DVT proph- Xarelto Pain management Disposition- Patient wishes rehab/ SNF As per primary team. Supervising Physician Co-Signing Physician Notes Patient seen and examined. Agree with MARKUS Guillaume's note above. Patient denies significant pain, but describes "creepy" feeling in ankle. Intact plantar flexion of ankle/toes, minimal dorsiflexion and decreased sensation diffusely; nerve block likely still working somewhat. NWB on ankle. Subjective POD #1, Patient seen in bed. Pain controlled his AM, she just had pain meds prior to exam Denies SOB, CP, N/V. Wishes rehab on discharge. Physical Exam Physical Exam: Right splints/ dressings c/d/i. Toes mobile. Patient somewhat groggy due to pain meds but A&Ox3 and appropriate. Results & Data Vital Signs (Past 12 Hours) Vital Signs Temp Pulse Resp BP BP Pulse Ox 09/22/19 07:33 37.2 C 84 16 127/61 96 09/22/19 03:26 37.1 C 80 16 151/64 H 96 09/21/19 22:55 37.3 C 82 18 135/66 95 09/21/19 21:06 37.3 C 83 18 146/68 H 95
[2019-09-22] MEDS: CHECK FENTANYL PATCH PLACEMENT SCH ×3 (08:29→23:15)
[2019-09-22] MEDS: NovoLOG INSULIN PUMP SCH ×3 (08:40→20:59)
[2019-09-22] MEDS: CHOLECALCIFEROL 1,000 UNITS TAB PO SCH (08:56)
[2019-09-22] MEDS: MULTIVITAMIN TAB PO SCH (08:56)
[2019-09-22] MEDS: SIMVASTATIN 20 MG TAB PO SCH (08:57)
[2019-09-22] MEDS: TOPIRAMATE 100 MG TAB PO SCH (08:58)
[2019-09-22] MEDS: VALACYCLOVIR HCL 500 MG TABLET PO SCH (08:58)
[2019-09-22] MEDS: PHENYTOIN SODIUM ER 100 MG CAP PO SCH ×2 (08:59→20:45)
[2019-09-22] MEDS ORDERED: MULTIVITAMIN TAB PO SCH (09:00)
[2019-09-22] MEDS: PHENYTOIN SODIUM ER 30 MG CAP PO SCH ×2 (09:00→20:42)
[2019-09-22] MEDS: DOCUSATE SODIUM 100 MG CAP PO SCH ×2 (09:01→20:44)
[2019-09-22] MEDS: CALCIUM CARBONATE 1250MG TAB PO SCH (09:01)
[2019-09-22] MEDS: RIVAROXABAN 10 MG TABLET PO SCH (09:02)
[2019-09-22] MEDS: HYDROmorphone INJ 0.5 MG/0.5 ML SYR IV PRN (13:21)
--- NOTE | 2019-09-22 14:06 | Hospitalist Progress Note ---
Date of Service September 22, 2019 Assessment & Plan (1) Closed right trimalleolar fracture: Underwent reduction during ED stay. Now s/p fixation with Dr. Eaton on 09/21. - Continue fentanyl patch and Dilaudid 0.5 mg IV q3h - Start standing Tylenol IV x 2 days to help maintain baseline pain control. - Post-op care per surgical team. (2) Manages insulin pump without assistance: A1c is 7.8% in 06/2019. - Patient will manage her diabetic control with her own pump settings - Diabetic diet - Sugars fairly controlled today after surgery. Mostly in the 110-250 range. (3) Type 1 diabetes mellitus with hypoglycemia, with long-term current use of insulin: Patient will manage her own blood sugar control by adjusting insulin pump settings. - Placed on Accu-Cheks before meals and at bedtime at a minimum, or as frequently as patient needs. (4) Constipation: Patient reports she has a a pending appointment with gastroenterology within the next week. She has used [id number] medications per her PCP to help with bowel movements. - May benefit from trial of Amitiza, but will not be done during hospital stay. - Continue bowel regimen. (5) Urge and stress incontinence: No Rx treatment indicated (6) Hypothyroidism: Last TSH was in 03/2019 and was normal. - Continue levothyroxine 125 mcg daily - Recheck tomorrow (7) Seizure disorder: No inpatient seizure activity. - Continue phenytoin and topiramate. (8) DVT prophylaxis: Xarelto DVT ppx dosing Subjective Some pain. Improving overall. Reports no fevers/chills, chest pain, shortness of breath, abdominal pain, nausea, or vomiting. Physical Exam Constitutional: WD/WN, vitals as above Eyes: EOM intact bilaterally; no conjunctival abnormality ENMT: external ear and nose normal, oropharynx normal Neck: trachea midline, no thyromegaly normal visual inspection Respiratory: normal respiratory effort, lungs clear to auscultation no respiratory distress Cardiovascular: RRR, no murmur, no edema Gastrointestinal (Abdomen): Inspection/Auscultation: abdomen normal to inspection; abdomen not distended Musculoskeletal: Extremities: + limited ROM of extremities (Right leg in cast) Skin: no rashes, warm and dry Neurologic: moves all extremities and awake Psychiatric: Orientation: alert, oriented to person and cooperative Results & Data Vital Signs (Past 12 Hours) Vital Signs Temp Pulse Resp BP BP Pulse Ox 09/22/19 07:33 37.2 C 84 16 127/61 96 09/22/19 03:26 37.1 C 80 16 151/64 H 96 PG Care Time/CCT Total # of Minutes Spent Total Time Spent with Patient: Total time spent is greater than 50% in coordination of care (as documented) at patient's floor/unit and/or counseling patient:
[2019-09-22] MEDS: fentaNYL 25 MCG/HR TDSY TD SCH (14:16)
[2019-09-22] MEDS ORDERED: PHARMACY GLYCEMIC MGMT CONSULT PRN (18:52)
--- NOTE | 2019-09-22 19:13 | Anesthesiology Progress Note ---
Date of Service September 22, 2019 Anesthesia Post Procedure Vital Signs Vital Signs: Temp Pulse Resp BP BP Pulse Ox 09/22/19 15:46 37.3 C 83 17 161/67 H 95 09/22/19 12:00 37.4 C 85 18 159/69 H 92 09/22/19 07:33 37.2 C 84 16 127/61 96 09/22/19 03:26 37.1 C 80 16 151/64 H 96 09/21/19 22:55 37.3 C 82 18 135/66 95 09/21/19 21:06 37.3 C 83 18 146/68 H 95 Pain Intensity Right Ankle: Pain Intensity: 4 Notes Mental Status: alert / awake / arousable and participated in evaluation Patient Amnestic to Procedure: Yes Nausea / Vomiting: adequately controlled Pain: improving with treatment Airway Patency, RR, SpO2: stable & adequate BP & HR: stable & adequate Hydration State: stable & adequate Anesthetic Complications: no major complications apparent and Pt Satisfied with anesthetic care Notes: Block has worn off and patient is reporting significant ankle pain that she feels is not being relieved by her current medications.
[2019-09-22] MEDS: INSULIN ASPART 100 UNITS/ML 3 ML PEN SC SCH ×2 (19:56→23:54)
[2019-09-22] MEDS: INSULIN GLARGINE SOLOSTAR 100 UNITS/ML 3 ML PEN SC SCH (19:59)
[2019-09-22] MEDS: FLUOXETINE HCL 20 MG CAP PO SCH (20:42)
[2019-09-22] MEDS: SENNA 8.6 MG TAB PO SCH (20:43)
[2019-09-22] MEDS: FLUOXETINE HCL 10 MG CAP PO SCH (20:43)
[2019-09-22] MEDS: TOPIRAMATE 50 MG TAB PO SCH (20:43)
[2019-09-22] MEDS: ACETAMINOPHEN 325 MG TAB PO SCH (20:44)
[2019-09-23] MEDS ORDERED: INSULIN ASPART 100 UNITS/ML 3 ML PEN SC SCH
[2019-09-23] MEDS: INSULIN ASPART 100 UNITS/ML 3 ML PEN SC SCH ×5 (03:10→21:42)
[2019-09-23] MEDS: LEVOTHYROXINE SODIUM 125 MCG TABLET PO SCH (05:32)
[2019-09-23 05:37] LABS: Hematocrit (blood only) 29.9 % (37-47); Hemoglobin 10.3 g/dL (12.0-16.0); Mean Corpuscular Hgb Conc 34.4 g/dL (32-36); Mean Corpuscular Volume 90.1 fL (80-100); Mean Platelet Volume 9.1 fL (7.4-10.4); Platelet Count 153 K/uL (130-400); RDW Standard Deviation 46.2 fL (36.4-46.3); Red Blood Count 3.32 M/uL (4.2-5.4); White Blood Count 5.94 K/uL (4.8-10.8)
[2019-09-23] MEDS: MAGNESIUM HYDROXIDE SUSP 30 ML UDC PO PRN (05:57)
[2019-09-23 06:05] LABS: BUN Creatinine Ratio 14.5 (10-20); Calcium 8.4 mg/dl (8.5-10.1); Creatinine Clr Calc Pharmacy 69.3 ml/min; Est GFR (African American) 85.3; Est GFR (Non-African American) 73.6; Magnesium 1.9 mg/dl (1.8-2.4); Potassium 3.6 mmol/L (3.5-5.1)
[2019-09-23 06:16] LABS: Phosphorus 2.3 mg/dl (2.5-4.9); Thyroid Stimulating Hormone 4.74 uIu/ml (0.300-4.500)
[2019-09-23 06:28] LABS: T4 Free Thyroxine 1.06 ng/dl (0.8-1.6)
[2019-09-23] MEDS: INSULIN GLARGINE SOLOSTAR 100 UNITS/ML 3 ML PEN SC SCH (09:23)
[2019-09-23] MEDS: DOCUSATE SODIUM 100 MG CAP PO SCH ×2 (09:28→20:32)
[2019-09-23] MEDS: PHENYTOIN SODIUM ER 100 MG CAP PO SCH ×2 (09:30→20:35)
[2019-09-23] MEDS: PHENYTOIN SODIUM ER 30 MG CAP PO SCH ×2 (09:30→20:36)
[2019-09-23] MEDS: CALCIUM CARBONATE 1250MG TAB PO SCH (09:31)
[2019-09-23] MEDS: MULTIVITAMIN TAB PO SCH (09:31)
[2019-09-23] MEDS: TOPIRAMATE 100 MG TAB PO SCH (09:31)
[2019-09-23] MEDS: VALACYCLOVIR HCL 500 MG TABLET PO SCH (09:32)
[2019-09-23] MEDS: ACETAMINOPHEN 325 MG TAB PO SCH ×3 (09:32→20:35)
[2019-09-23] MEDS: CHOLECALCIFEROL 1,000 UNITS TAB PO SCH (09:33)
[2019-09-23] MEDS: RIVAROXABAN 10 MG TABLET PO SCH (09:33)
[2019-09-23] MEDS: SIMVASTATIN 20 MG TAB PO SCH (09:33)
--- NOTE | 2019-09-23 12:20 | Orthopedic Progress Note ---
Date of Service September 23, 2019 Assessment & Plan (1) Closed right trimalleolar fracture: POD #2 Right ankle ORIF trimall fracture PT/ OT - NWB Right LE with walker DVT proph- Xarelto Pain management Disposition- Patient wishes rehab/ SNF As per primary team. Supervising Physician Co-Signing Physician Notes Patient seen and examined this morning. I agree with MARKUS Guillaume's note above. She is resting comfortably. Pain is well controlled. She is mobilizing on the scooter. She now has full motor control in her foot with intact dorsiflexion and plantarflexion of her toes. Sensation is intact light touch all around her forefoot. Likely discharge to rehab facility in the next 1 to 2 days. Subjective POD #2, Patient seen in bed. Pain controlled his AM, she just had pain meds prior to exam Denies SOB, CP, N/V. Wishes rehab on discharge. Sttates she was a bit disoriented when awakened during the night. Physical Exam Physical Exam: Right splint/ dressings c/d/i, Toes mobile, sensation in tact. A&Ox3 at time of interview. Results & Data Vital Signs (Past 12 Hours) Vital Signs Temp Pulse Resp BP Pulse Ox 09/23/19 07:42 37.0 C 78 16 138/69 95
--- NOTE | 2019-09-23 14:30 | Hospitalist Progress Note ---
Date of Service September 23, 2019 Assessment & Plan (1) Closed right trimalleolar fracture: Underwent reduction during ED stay. Now s/p fixation with Dr. Eaton on 09/21. - Continue pain management. - Was on fentanyl patch prior to surgery for pain; stopped on 09/22 for confusion. Doing better today. - Start standing Tylenol IV x 2 days to help maintain baseline pain control. - Post-op care per surgical team. Plan for SNF. - Getting left leg Doppler for some calf tenderness today. She did also fall on that leg, so I think low likelihood, but will check. Has been on DVT prophylaxis while here. (2) Manages insulin pump without assistance: A1c is 7.8% in 06/2019. - Patient managed her diabetic control with her own pump settings. - Diabetic diet - On 09/22, she got confused from the fentanyl patch. Pump was removed, and pharmacy is managing sugars now. Running a bit higher as we transitioned from pump to basal-bolus. (3) Type 1 diabetes mellitus with hypoglycemia, with long-term current use of insulin: - See above (4) Constipation: Patient reports she has a a pending appointment with gastroenterology within the next week. She has used [id number] medications per her PCP to help with bowel movements. - May benefit from trial of Amitiza, but will not be done during hospital stay. - Continue bowel regimen. (5) Urge and stress incontinence: No Rx treatment indicated (6) Hypothyroidism: Last TSH was in 03/2019 and was normal. Rechecked on 09/23 and again within normal range. - Continue levothyroxine 125 mcg daily (7) Seizure disorder: No inpatient seizure activity. - Continue phenytoin and topiramate. (8) DVT prophylaxis: Xarelto DVT ppx dosing - Left LE Doppler as above Subjective Doing well today. Overall, doing well. Had some confusion overnight. Fentanyl patch was taken off, and she is doing better today. Physical Exam Constitutional: WD/WN, vitals as above Eyes: EOM intact bilaterally; no conjunctival abnormality ENMT: external ear and nose normal, oropharynx normal Neck: trachea midline, no thyromegaly normal visual inspection Respiratory: normal respiratory effort, lungs clear to auscultation no respiratory distress Cardiovascular: RRR, no murmur, no edema Gastrointestinal (Abdomen): Inspection/Auscultation: abdomen normal to inspection; abdomen not distended Musculoskeletal: Extremities: + limited ROM of extremities (Right leg in cast) and + lower leg abnormality (Left calf tender) Skin: no rashes, warm and dry Neurologic: moves all extremities and awake Psychiatric: Orientation: alert, oriented to person and cooperative Results & Data Vital Signs (Past 12 Hours) Vital Signs Temp Pulse Resp BP Pulse Ox 09/23/19 07:42 37.0 C 78 16 138/69 95 PG Care Time/CCT Total # of Minutes Spent Total Time Spent with Patient: Total time spent is greater than 50% in coordination of care (as documented) at patient's floor/unit and/or counseling patient:
[2019-09-23] MEDS ORDERED: POTASSIUM PHOS 3 MMOL/1 ML INFUSION IV STA (14:31)
[2019-09-23] MEDS ORDERED: POTASSIUM PHOSPHATE 15 MMOL in SODIUM CHLORIDE 0.9% 250 ML IV ONE (14:45)
--- NOTE | 2019-09-23 15:36 | Ultrasound Report ---
US venous doppler LE LT HISTORY: 69 years-old Female Left anklel pain acute pain and swelling of the left lower extremity COMPARISON: Duplex venous Doppler study 08/28/2012 TECHNIQUE: Multiple real-time sonographic images of the left lower extremity deep venous structures w ere obtained assessing grayscale appearance, color and spectral flow FINDINGS: Normal flow, compressibility, phasicity and augmentation of the left lower extremity deep venous stru ctures. IMPRESSION: No sonographic evidence of deep venous thrombosis. ACT 112: Negative or not required by law. The above report was generated using voice recognition software. It may contain grammatical, syntax o r spelling errors. Electronically signed by: Carlos Simon M.D. 09/23/2019 3:35 PM
--- NOTE | 2019-09-23 15:40 | Pharmacy Report ---
Pharmacy Glycemic Short Note 2 - Date of Service September 23, 2019 - Glycemic Short BSG Results (Last 24 hours): 09/22/19 09/22/19 09/22/19 17:08 19:54 20:12 Glucose POC Glucose 253 H 325 H* 334 H* 09/22/19 09/22/19 09/23/19 20:14 23:40 03:06 Glucose POC Glucose 349 H* 242 H 238 H 09/23/19 09/23/19 09/23/19 05:18 08:38 12:02 Glucose 207 H POC Glucose 233 H 290 H OUTPATIENT ANTIDIABETIC REGIMEN: * Insulin pump 0.7 units/hr, CR: 13, CF: 55-65 * A1c = 7.8% 06/29/19 ASSESSMENT: * Patient is a T1DM admitted for closed right trimalleolar fracture s/p fixation on 09/21 * Patient was continue on her home insulin pump per outpatient settings 09/20- 09/12 PM. Nursing staff reported change in mental status, therefore pump was removed and pharmacy was consulted for SQ insulin management. * Lantus and Novolog were initiated 09/22 PM based on home insulin usage * Fasting BSG is above goal, 233 mg/dL. I suspect this is due to basal deficiency, therefore patient was given full 24 hour basal dose at dinnertime. * Will tighten carb ratio since lunch BSG is 290 mg/dL. PLAN FOR INPATIENT GLYCEMIC CONTROL: * Hold outpatient oral diabetes medications * Basal insulin * Lantus 18 units SQ qPM * Bolus insulin * NovoLog per scale ACHS or Q6hrs while NPO * Goal Range: Low 100 mg/dL - High 180 mg/dL * Correction Factor: 35 mg/dL/unit * Nutritional / Prandial insulin per carb ratio of 1 unit per 10 grams CHO consumed
[2019-09-23] MEDS ORDERED: INSULIN GLARGINE SOLOSTAR 100 UNITS/ML 3 ML PEN SC SCH (16:30)
[2019-09-23] MEDS: OXYCODONE HCL IR 5 MG TAB (IMMEDIATE RELEASE) PO PRN ×2 (16:43→22:57)
[2019-09-23] MEDS: HYDROmorphone INJ 0.5 MG/0.5 ML SYR IV PRN (18:47)
[2019-09-23] MEDS: SENNA 8.6 MG TAB PO SCH (20:33)
[2019-09-23] MEDS: TOPIRAMATE 50 MG TAB PO SCH (20:34)
[2019-09-23] MEDS: FLUOXETINE HCL 20 MG CAP PO SCH (20:34)
[2019-09-24] MEDS: HYDROmorphone INJ 0.5 MG/0.5 ML SYR IV PRN ×2 (00:10→03:54)
[2019-09-24] MEDS ORDERED: COUGH DROP (SUGAR FREE) LOZ 24 LOZ/1 BOX BUCCAL ONE (01:10)
[2019-09-24] MEDS: OXYCODONE HCL IR 5 MG TAB (IMMEDIATE RELEASE) PO PRN ×2 (02:44→08:18)
[2019-09-24] MEDS: LEVOTHYROXINE SODIUM 125 MCG TABLET PO SCH (05:57)
[2019-09-24 07:51] LABS: Hematocrit (blood only) 29.6 % (37-47); Hemoglobin 10.4 g/dL (12.0-16.0); Mean Corpuscular Hemoglobin 31.5 pg (25-34); Mean Corpuscular Hgb Conc 35.1 g/dL (32-36); Mean Corpuscular Volume 89.7 fL (80-100); Mean Platelet Volume 9.2 fL (7.4-10.4); Platelet Count 185 K/uL (130-400); RDW Coefficient of Variation 13.9 % (11.5-14.5); RDW Standard Deviation 45.9 fL (36.4-46.3); White Blood Count 5.53 K/uL (4.8-10.8)
--- NOTE | 2019-09-24 08:02 | Orthopedic Progress Note ---
Date of Service September 24, 2019 Assessment & Plan (1) Closed right trimalleolar fracture: POD #3 Right ankle ORIF trimalloelar fracture PT/ OT - NWB Right LE with walker or scooter DVT proph- Xarelto Pain management Disposition- Patient wishes rehab/ SNF As per primary team. Ortho will sign off at this time. Instructions already placed in DC instructions. Please call with any questions. Subjective Pt sitting up in bed awake and alert. Having some pain off and on with the ankle. No new complaints. Hoping to go to Rehab facility soon. Physical Exam Physical Exam: Splint C/D/I. Toes pink/warm. Cap refill <2 seconds. Moving toes well. Denies numbness in toes. Results & Data Vital Signs (Past 12 Hours) Vital Signs Temp Pulse Resp BP Pulse Ox 09/24/19 06:59 37.2 C 75 16 179/75 H 96 09/23/19 22:57 37 C 80 18 145/68 H 94
[2019-09-24 08:10] LABS: BUN Creatinine Ratio 14.6 (10-20); Calcium 8.7 mg/dl (8.5-10.1); Creatinine Clr Calc Pharmacy 75.9 ml/min; Est GFR (African American) 95.1; Est GFR (Non-African American) 82.1; Potassium 3.7 mmol/L (3.5-5.1)
[2019-09-24] MEDS: INSULIN ASPART 100 UNITS/ML 3 ML PEN SC SCH ×2 (09:31→13:31)
[2019-09-24] MEDS: SIMVASTATIN 20 MG TAB PO SCH (09:32)
[2019-09-24] MEDS: MULTIVITAMIN TAB PO SCH (09:32)
[2019-09-24] MEDS: DOCUSATE SODIUM 100 MG CAP PO SCH ×2 (09:32→09:43)
[2019-09-24] MEDS: CHOLECALCIFEROL 1,000 UNITS TAB PO SCH (09:33)
[2019-09-24] MEDS: CALCIUM CARBONATE 1250MG TAB PO SCH (09:33)
[2019-09-24] MEDS: VALACYCLOVIR HCL 500 MG TABLET PO SCH (09:33)
[2019-09-24] MEDS: RIVAROXABAN 10 MG TABLET PO SCH (09:33)
[2019-09-24] MEDS: MAGNESIUM OXIDE 400 MG TAB PO SCH (09:33)
[2019-09-24] MEDS: PHENYTOIN SODIUM ER 100 MG CAP PO SCH (09:34)
[2019-09-24] MEDS: ACETAMINOPHEN 325 MG TAB PO SCH ×2 (09:34→13:31)
[2019-09-24] MEDS: PHENYTOIN SODIUM ER 30 MG CAP PO SCH (09:35)
[2019-09-24] MEDS: TOPIRAMATE 100 MG TAB PO SCH (09:35)
[2019-09-24] MEDS ORDERED: INSULIN HUMAN REGULAR PER UNIT 4 UNITS in SYRINGE 3.96 ML IV ONE (12:30)
--- NOTE | 2019-09-24 15:04 | Pharmacy Report ---
Glycemic Control Progress Note - Date of Service September 24, 2019 - Scope Glycemic Pharmacist consulted for glycemic control to write orders per [facility] inpatient glycemic control protocol. - Objective Accuchecks BSG(last 24 hours):: 09/21/19 09/23/19 09/23/19 09:42 17:35 20:37 Glucose POC Glucose 173 H 253 H 161 H 09/24/19 09/24/19 09/24/19 06:54 07:05 12:03 Glucose 76 POC Glucose 76 364 H* 09/24/19 12:04 Glucose POC Glucose 360 H* - Recent Pertinent Medications The patient is currently receiving: * Basal insulin: Lantus 18 units every 24 hours * Correctional Insulin: Novolog Correction per scale ACHS Goal Range: Low 100 mg/dL - High 180 mg/dL Correction Factor: 35 mg/dL/unit * Prandial insulin: Per carb ratio of 1 unit per 10 grams CHO consumed - Outpatient Anti-Diabetic Meds Novolog pump Continuous rate of 0.7 units/hr CF 55-65 CR 13 - Assessment & Plan ASSESSMENT: * See progress note from 09/23/19 for more background info, in short: * Pt receiving SQ basal bolus insulin regimen for hyperglycemia secondary to baseline DM (outpatient regimen on hold). Patient s/p orthopedic surgery and in a great deal of pain. Per conversation with patient, she does not like blood sugars below 100 mg/dL. She does have labile blood sugars at home. * Patient is currently receiving an average of 50 units of insulin per day * 27 units of basal insulin * 23 units of prandial/correctional insulin * BSGs ranging 161 - 290 mg/dl over the past 24hrs * Changes needed to insulin regimen: * AM Fasting BSG = 76 mg/dl. This is below goal range for patient based on inpatient targets and co-morbidities. The patient expressed discomfort with this blood sugar. It is most likely due to combo of 9 units in morning and 18 units at dinnertime. After discussion with Nahomi Nolascoor (per patient's request), continue Lantus 18 units as patient's basal is 75% of her home dose. Okay with patient running a little high prior to pump placement tomorrow. * Post-prandial BSGs are labile. Tighten carbohydrate ratio for lunch but after speaking with patient loosened back up again. Gave small IV bolus for lunch blood sugar over 350 mg/dL. Expect swinging blood sugars. * Total daily dose = 30 units. Takes about 28 units/day at home. PLAN FOR INPATIENT GLYCEMIC CONTROL: * Continuing Lantus 18 units SQ QDD * Continuing correction factor of 35 mg/dl/unit * Continuing carb ratio of 1 unit per 10 grams CHO consumed * Continuing goal range of Low 110 mg/dL - High 180 mg/dL RECOMMENDATIONS FOR DISCHARGE: * Plan to place pump tomorrow afternoon prior to discharge to [facility]. * Please note that the plan above was derived based on current level of insulin resistance and hospital stress. These recommendations are appropriate for inpatient admission only. Plan of care upon discharge will need to be reassessed to avoid potential outpatient hypo/hyperglycemia. Thank you.
[2019-09-24] MEDS ORDERED: INSULIN GLARGINE SOLOSTAR 100 UNITS/ML 3 ML PEN SC SCH ×2 (16:30)
--- NOTE | 2019-09-24 17:02 | Discharge Summary ---
Date of Service September 24, 2019 Admission HPI Per Admitting Provider The patient is a 69-year-old female with a past medical history including type 1 diabetes mellitus with insulin pump, hypothyroidism, dyslipidemia, urge and stress urinary incontinence and seizure disorder. She reports that while out visiting a friend at their house, as she was stepping down from the step she slipped on ice, twisted and fell and developed immediate left ankle pain and inability to bear weight. Her called 911, she was brought to the emergency department, was found to have a closed right trimalleolar fracture, which was reduced while in the ED, but due to continued inability to bear weight due to extreme pain, she was referred for evaluation for admission. Admission Exam Per Admitting Provider The patient is awake, alert and oriented 3, well developed and well nourished, normocephalic and atraumatic, lying in bed and in no acute distress. HEENT--PERRL, EOMI, mucous membranes and oropharynx normal. Neck--supple. No JVD. No bruits. Thyroid normal, trachea midline, no adenopathy. Heart--normal S1 and S2. No murmurs, rubs or gallops. Lungs--clear bilaterally, no respiratory distress, no accessory muscle use. Abdomen--normal bowel sounds and soft. Nontender. Nondistended. Extremities--no cyanosis or clubbing. No edema. Dermatologic--normal skin turgor, normal color, no abnormal lymph nodes, no bear h. Neurologic--cranial nerves II through XII grossly intact. Rheumatologic--normal range of motion. Psychiatric--normal affect. Principal Diagnosis 1. Right trimalleolar fracture, status post ORIF by Dr. Eaton on 09/21 and 2. Diabetes mellitus with insulin pump 3. Hypothyroidism 4. Seizure disorder Discharge Exam Constitutional well nourished and cooperative Neck trachea midline, no thyromegaly Respiratory normal respiratory effort, lungs clear to auscultation Auscultation: lungs clear to auscultation bilaterally; no crackles, no rales, no rhonchi and no wheezes Cardiovascular Rate/Rhythm: regular rate Heart Sounds: normal S1 and normal S2 Vessels: no JVD and no carotid bruit Gastrointestinal (Abdomen) Inspection/Auscultation: abdomen normal to inspection Percussion/Palpation: abdomen soft; abdomen nontender, no guarding, abdomen not rigid and no hepatosplenomegaly Neurologic PERRL, EOMI, accommodation nl, no face palsy, no dysarthria Psychiatric A+Ox3, euthymic affect Discharge Data Allergies Allergy/AdvReac Type Severity Reaction Status Date / Time Penicillins Allergy Severe ANAPHYLAXIS Verified 09/18/19 15:29 aspirin Allergy Unknown NOTED Verified 09/18/19 15:29 "ASPIRIN COMBINATION" chlorpheniramine Allergy Unknown . Verified 09/18/19 15:29 codeine Allergy Unknown . Verified 09/18/19 15:29 oxybutynin Allergy Unknown UNKNOWN Verified 09/18/19 15:29 propoxyphene Allergy Unknown . Verified 09/18/19 15:29 lisinopril AdvReac Intermediate DIZZY,LIGHT Verified 09/18/19 15:29 HEADED losartan AdvReac Intermediate Dizzy, Verified 09/18/19 15:29 mentation change, mood change Consultations 09/18/19 19:24 ED Decision to Admit Stat 09/18/19 21:44 Consult Case Management - Discharge Planning Routine 09/19/19 13:12 Consult Orthopedic Surgery Routine 09/21/19 13:33 Consult Case Management - Discharge Planning Routine Procedures Performed Operation Date: 09/21/19 09:30 Actual Procedures p Right Trimalleolar Fracture Open Reduction Internal Fixation, Removal of Intra Articular Avulsion Fracture, Ankle Arthrotomy(Right) - Edmundo Eaton, Ordered Studies 09/19/19 14:42 CT ankle RT wo con Routine 09/21/19 11:39 FL ankle RT 2V Routine 09/21/19 11:40 FL fluoroscopy <1hr Routine 09/21/19 11:47 US - OR guided needle placemen Routine 09/21/19 11:55 US - OR guided needle placemen Routine 09/23/19 14:23 US venous doppler LE LT Routine Hospital Course (1) Closed right trimalleolar fracture: Underwent reduction during ED stay. Now s/p fixation with Dr. Eaton on 09/21. - Continue pain management. - Was on fentanyl patch prior to surgery for pain; stopped on 09/22 for confusion. Doing better today. - Start standing Tylenol IV x 2 days to help maintain baseline pain control. - Post-op care per surgical team. [facility], to follow with orthopedics as instructed. Nonweightbearing on the right leg. - Getting left leg Doppler for some calf tenderness today. Doppler was checked on 09/15 was negative for DVT (2) Manages insulin pump without assistance: A1c is 7.8% in 06/2019. - Patient managed her diabetic control with her own pump settings. - Diabetic diet - On 09/22, she got confused from the fentanyl patch. Pump was removed, and pharmacy is managing sugars now. Running a bit higher as we transitioned from pump to basal-bolus. -For now, will be continued on insulin as ordered. I will keep the insulin pump off as the patient is not maintaining it appropriately. I will defer to outpatient endocrinology whether to restart this. (3) Type 1 diabetes mellitus with hypoglycemia, with long-term current use of insulin: - See above (4) Constipation: Patient reports she has a a pending appointment with gastroenterology within the next week. She has used [id number] medications per her PCP to help with bowel movements. - May benefit from trial of Amitiza, but will not be done during hospital stay. - Continue bowel regimen. (5) Urge and stress incontinence: No Rx treatment indicated (6) Hypothyroidism: Last TSH was in 03/2019 and was normal. Rechecked on 09/23 and again within normal range. - Continue levothyroxine 125 mcg daily (7) Seizure disorder: No inpatient seizure activity. - Continue phenytoin and topiramate. (8) DVT prophylaxis: Xarelto DVT ppx dosing - Left LE Doppler as above Total Time Total Time Spent Total Time Spent (In Minutes): Time to prepare discharge in excess of 30 minutes Discharge Plan Discharge Items Patient Disposition: Transfer Inpatient Rehab Fac Reason For Visit: CLOSE RIGHT TRIMALLEOLAR FRACTURE Discharge Diagnosis: 1. Closed right trimalleolar fracture, status post ORIF on 09/21 2. Insulin-dependent diabetes mellitus, on insulin pump 3. Urge and stress incontinence 4. Hypothyroidism 5. Seizure disorder Condition on Discharge: Good Activity: Per Instructions section Lifting: Gradually increase as tolerated Exercise/Sports: None Weightbearing: Right non-weightbearing Non-emergency contact: Primary Care Provider Call non-emergency contact if: you have any medication questions, your pain is not controlled and your rectal temperature is above 100.4 Follow-up/Referrals: Pro,Art Batres MD [Primary Care Provider] - Barter,Edmundo A, DO [Surgeon] - (Call to make a follow up appointment for 2 weeks from surgery.) Diet: Carb Count or DM1 Addtl Attending Provider Instructions: Nonweightbearing to the right extremity Addtl Pet Care Associate Provider Instructions: ACTIVITY RECOMMENDATIONS: Limitations: No weight bearing to affected limb at all times. SPECIAL CARE INSTRUCTIONS: * Some drainage onto the dressing is normal and is no cause for alarm. * Some swelling is natural especially after walking. * When resting, keep your foot elevated above the level of your heart. * Call [facility] if you notice: -Increased drainage -Fever over 101 degrees F -Severe constant pain BANDAGE: * Leave bandage/cast in place unless otherwise directed. * Keep bandage/cast dry at all times. FOLLOW UP VISIT WITH DR. EATON If appointment is not already scheduled: Please call [facility] after you get home today to schedule a follow-up appointment for [address] Eaton at . Pending Studies at Discharge: No Stand-Alone Forms: My [facility] Skilled Items Patient informed of condition?: Yes DNR: No Discharge Level of Care: Acute rehab Communicable Disease: No Discharge Prognosis: Stable Lines: None Urinary Catheter: No Medications and DC Order Prescriptions: New oxycodone [Roxicodone] 5 mg tablet 5 mg PO Q6H PRN (Reason: pain) Qty: 12 RF: 0 sennosides [Senokot] 8.6 mg Tablet 17.2 mg PO HS Qty: 30 RF: 0 bisacodyl [Laxative (bisacodyl)] 10 mg Suppository 10 mg VT DAILY PRN (Reason: constipation) Qty: 28 RF: 0 docusate sodium 100 mg Capsule 100 mg PO BID Qty: 30 RF: 0 Continued simvastatin 20 mg tablet 20 mg PO DAILY Qty: 90 RF: 3 fluoxetine 20 mg capsule 20 mg PO DAILY Qty: 90 RF: 1 (DME) FreeStyle Test strip See Dose Instructions .ROUTE .MEDSUPPLY Qty: 700 RF: 3 multivitamin with iron [Daily Multiple Vitamins/Iron] tablet 1 tab PO DAILY RF: 0 calcium carbonate [Calcium 500] 500 mg calcium (1,250 mg) tablet 500 mg PO DAILY RF: 0 valacyclovir 1 gram tablet 1,000 mg PO DAILY Qty: 30 RF: 0 [id number]-gyc-[id number] 500-500-66.7 mg tablet 1 tab PO DAILY RF: 0 cholecalciferol (vitamin D3) 5,000 unit tablet 5,000 units PO DAILY RF: 0 epinephrine 0.3 mg/0.3 mL auto-injector 0.3 ml IM UD PRN (Reason: anaphylaxis) RF: 0 (DME) insulin syringe-needle U-100 [BD Insulin Syringe Ultra-Fine] 0.3 mL 31 gauge x 5/16" syringe See Dose Instructions .ROUTE .MEDSUPPLY Qty: 10 RF: 0 rizatriptan 10 mg tablet,disintegrating 10 mg PO UD PRN (Reason: Migraine Headache) RF: 0 levothyroxine 125 mcg tablet 125 mcg PO DAILY Qty: 90 RF: 3 Novolog U-100 Insulin aspart 100 unit/mL solution See Rx Instructions SQ UD RF: 0 topiramate 50 mg tablet 50 mg PO PM RF: 0 omalizumab 150 mg recon soln 300 mg SQ Q4WK RF: 0 phenytoin sodium extended 30 mg Capsule 30 mg PO QPM RF: 0 phenytoin sodium extended 100 mg capsule 100 mg PO BID RF: 0 hydroxyzine HCl 25 mg tablet 50 mg PO BID RF: 0 phenytoin sodium extended 30 mg capsule 60 mg PO QAM RF: 0 fluoxetine 10 mg capsule 10 mg PO Q OTHER DAY RF: 0 magnesium 200 mg Tablet 200 mg PO 3XWK RF: 0 topiramate 50 mg tablet 100 mg PO QAM RF: 0 Discharge Orders: Discharge Order (Routine); Ordered 09/24/19 Ordered By: Prem Emerson Admission Data Admit Date/Time: 09/18/19 20:48 Attending Provider: Prem Emerson Admit Provider: Hossein Moe Primary Care Provider: Art Montenegro Other Providers: Vladimir Mayo ; Hossein Moe ; Farshad Stanford ; [facility] Other Interventions: Discharge Summary Assessment (RN) Last Done: 09/24/19 16:34
== END 2019-09-24 17:33 | DRG 494 ==
LOC: ED 14:06 → SUATTDRO 20:48 → 3W 20:48

== ENCOUNTER 2021-09-17 16:05 | Observation (INO) ==
--- NOTE | 2021-09-17 17:13 | Emergency Department Note ---
Impression & Plan Bilateral pulmonary embolism, Seizure disorder, Type 1 diabetes mellitus, Deep vein thrombosis (DVT) of femoral vein of left lower extremity ED Provider Note NAME: TASH SURESH AGE: 71 SEX: F : 1950 ARRIVES VIA: Walk-In INFORMANT: patient, ED PROVIDER(S): Brant Vanegas MD � Chief Complaint: Shortness of breath, headache HPI: Patient does present with shortness of breath which is ongoing 3 days and is gotten progressively worse. Patient denies any cough. The patient had been seen in the outpatient setting for a tibial inflammatory issue with the orthopedist earlier today. The patient has noticed left lower extremity swelling over the last 3 days as well. No recent surgeries or procedures. Patient denies any recent hospitalizations or history of DVT or PE. The patient denies any chest pains. The patient does have migraine which started yesterday around 2 PM he describes it as bitemporal and throbbing in nature. Nonradiating. Patient denies any numbness tingling or focal weakness. No recent trauma or falls. Patient is vaccinated for COVID-19 denies any prior history of heart or lung disease. Patient is primarily concerned about her increasing shortness of breath which is been ongoing over the last 3 days. ROS: See HPI for pertinent positives and negatives. A total of 10 systems were reviewed and otherwise negative. Past medical history: See below Surgical history: See below Social history: See below Physical Exam: GENERAL: NAD, wearing a mask, non-toxic. EYE EXAM: Right eye conjunctival injection. Gross vision is intact. PERRL, no anisocoria and EOM's grossly intact w/o pain. NECK: Supple, no nuchal rigidity, no adenopathy, non-tender. No signs of mening ismus. LUNGS: Clear to auscultation. Normal chest wall mechanics. HEART: NSR, no MRG. ABDOMEN: Abdomen soft, non-tender, normo-active bowel sounds, no masses, no rebound or guarding. BACK: No CVA TTP. SKIN: No rashes and no bruising. UPPER EXTREMITIES: Upper extremities are grossly normal. LOWER EXTREMITIES: Left greater than right lower extremity swelling without pain. Neurovascular intact and compartments are soft. NEURO EXAM: A&O x3, cranial nerves II-XII grossly intact, normal speech, moves all 4 extremities on command w/o issue. Differential diagnoses: Reactive airway disease, pneumonia, pneumothorax, COPD, CHF, infections, cardiac ischemia, pulmonary embolism, musculoskeletal, jessica rointestinal, as well as other pathologies. Course: Patient was seen and evaluated the bedside. Full history physical exam was performed. EKG interpreted by me Normal sinus rhythm, rate of 66, normal intervals, normal axis, no ST changes or T WI. Imaging Studies: See Below Cardiac monitoring: An order was placed for continuous cardiac monitoring. The monitor shows a rate of 72 with sinus rhythm. MDM: Patient was seen in a subweight as there were no beds available for the patient at the time that I saw the patient. Blood work was obtained along with a DVT ultrasound. Patient is a normal white count H&H and platelet count. The patient's kidney function is unremarkable. Sugar is elevated but has known history of diabetes. Covid flu and RSV negative. DVT ultrasound is positive an d given the patient shortness of breath a CT angiography had also been ordered as well. Patient was ordered IV heparin. Patient CT does show bilateral pulmonary emboli. I did speak to the on-call hospitalist Dr. Cole and the patient was admitted to the medicine service. Critical Care: I have personally spent 77 minutes of critical care time in direct management of this patient. This includes bedside care, interpretation of diagnostic studies, and testing, discussion with consultants, patient, and family members, and other require inpatient management activities. This 77 minutes is in excess of all separately billable procedures. 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 Ana Julio, reason for dilantin Tremor of both hands Type 1 diabetes mellitus with hypoglycemia, with long-term current use of insulin Urge and stress incontinence Surgical History H/O dilation and curettage H/O hand surgery left hand thumb tendon repair History of bilateral cataract extraction History of bladder surgery bladder stimulator placed, currently not working, turned off History of carpal tunnel surgery of left wrist History of colonoscopy History of left breast biopsy benign History of open reduction and internal fixation (ORIF) procedure right ankle--hardware in place History of wisdom tooth extraction Status post trigger finger release x9--all fingers on left hand/all but ring finger on right hand Family History Mother Cervical cancer Grandmother Uterine cancer Father Acute myocardial infarction Myocardial infarction Stroke syndrome Other No family history of adverse response to anesthesia Denies family history of Ovarian cancer Prostate cancer Breast cancer Colorectal cancer Social History (Updated 09/17/21 @ 22:57 by Brant Vanegas MD) Smoking Status: Former smoker Age Started Using Tobacco: 17; Age Quit Using Tobacco: 26; Years Smoked: 9; Second Hand Exposure: Yes (parents smoked/ smoked); Hx Alcohol Use: Yes (Occasional social ) Alcohol type: wine Hx Substance Use: Yes (Marijuana as a younger adult - none in >40 years) Prescribed Medications: Marijuana Last Used Substance: Unknown Last Used Substance Other:: fall 2018 Preferred Language: German Communication Ability: Effective Visual Impairment: No Limitations Hearing Ability: Normal Master Lay Out Specialist Required: No Beliefs That Will Affect Care: None marital status: Current Living Situation: Spouse Feels Safe at Home: Yes Seatbelt Use: always Assistive Devices: Glasses Immunizations: Vaccinated for COVID-19 Allergies Allergies Allergy/AdvReac Type Severity Reaction Status Date / Time aspirin Allergy Severe bruise all Verified 09/17/21 19:55 over Penicillins Allergy Severe ANAPHYLAXIS Verified 09/17/21 19:55 dextromethorphan Allergy Intermediate "nearly Verified 09/17/21 19:55 [From Coricidin HBP Cough passed out" and Cold] lamotrigine Allergy Mild Rash Verified 09/17/21 19:55 oxybutynin Allergy Mild Rash Verified 09/17/21 19:55 fentanyl AdvReac Severe HALLUCINATIONS, Verified 09/17/21 19:55 SCREAMED FOR 6 DAYS. lisinopril AdvReac Intermediate DIZZY,LIGHT Verified 09/17/21 19:55 HEADED losartan AdvReac Intermediate Dizzy, Verified 09/17/21 19:55 mood change propoxyphene AdvReac Intermediate hallucinati Verified 09/17/21 19:55 ons meloxicam AdvReac Mild Nausea Verified 09/17/21 19:55 Home Meds Home Medications Medication Instructions Recorded Confirmed multivitamin with iron (Daily 1 tab PO QPM 04/03/19 09/17/21 Multiple Vitamins/Iron) cholecalciferol (vitamin D3) 125 5,000 units PO QPM tab 05/07/19 09/17/21 mcg (5,000 unit) tablet [id number]-hrb 1 tab PO HS tab 05/07/19 09/17/21 149-hyalur 500 mg-500 mg-66.7 mg tablet insulin syringe-needle U-100 0.3 #10 ea 05/07/19 09/16/21 mL 31 gauge x 5/16" (BD Insulin Syringe Ultra-Fine) calcium carbonate 500 mg calcium 500 mg PO DAILY tab 04/07/20 09/17/21 (1,250 mg) tablet (Calcium 500) valacyclovir 1 gram tablet 1,000 mg PO QPM tab 07/08/20 09/17/21 blood sugar diagnostic (FreeStyle ea 10/16/20 09/16/21 Test) hydroxyzine HCl 25 mg tablet 25 mg PO QID PRN tab 07/23/21 09/17/21 magnesium 250 mg tablet 250 mg PO DAILY 07/23/21 09/17/21 fluoxetine 10 mg capsule 10 mg PO Q OTHER DAY 09/17/21 09/17/21 fremanezumab-vfrm 225 mg/1.5 mL 225 mg SUBCUT MONTHLY 09/17/21 09/17/21 subcutaneous syringe insulin aspart U-100 100 unit/mL 0 unit CONTINUOUS SUBCUTANEOUS 09/17/21 09/17/21 subcutaneous solution (Novolog INFUSION UD U-100 Insulin aspart) rizatriptan 10 mg disintegrating 10 mg PO DIRECTED PRN 09/17/21 09/17/21 tablet Previous Rx's Medication Instructions Recorded Omnipod Dash 5 Pack Pod (insulin #30 ea NS 12/23/20 pump cartridge) simvastatin 20 mg tablet 20 mg PO QPM #90 tab 04/13/21 naproxen 500 mg tablet 500 mg PO BID #60 tab 07/23/21 fluoxetine 20 mg capsule 20 mg PO HS #90 cap 08/17/21 phenytoin sodium extended 100 mg 100 mg PO BID #180 cap 08/18/21 capsule levothyroxine 125 mcg tablet 125 mcg PO QAM #90 tab 08/24/21 phenytoin sodium extended 30 mg See Rx Instructions PO .COMPLEX 90 09/14/21 capsule Days #270 cap Results & Data (ED) Vital Signs Vital Signs - 24 hr 09/17/21 16:15 09/17/21 16:23 09/17/21 20:05 Temperature 36.6 C Temperature Source Oral Pulse Rate 73 66 Pulse Rate [Left Radial] 68 Pulse Rate from SpO2 Sensor Pulse Rhythm Regular Pulse Rhythm [Left Radial] Regular Pulse Strength [Left Radial] Normal Respiratory Rate 18 14 Respiratory Effort / Characteristics Non-Labored Spontaneous Non-Labored Respiratory Depth Normal Normal Respiratory Pattern Regular Blood Pressure 163/74 H Blood Pressure [Left Arm] 205/138 H Blood Pressure Mean 103 Blood Pressure Mean [Left Arm] 160 Blood Pressure Position [Left Arm] Lying Pulse Oximetry 96 96 98 Oxygen Delivery Method Room Air Room Air Room Air Sepsis Recent Fever Within 48 Hours No Sepsis New/Unexplained Change in Mental Status No Sepsis Action Taken by Nursing No Action Required 09/17/21 20:28 09/17/21 20:30 09/17/21 20:41 Temperature Temperature Source Pulse Rate 67 63 Pulse Rate [Left Radial] Pulse Rate from SpO2 Sensor 67 64 Pulse Rhythm Pulse Rhythm [Left Radial] Pulse Strength [Left Radial] Respiratory Rate 15 14 Respiratory Effort / Characteristics Respiratory Depth Respiratory Pattern Blood Pressure Blood Pressure [Left Arm] Blood Pressure Mean Blood Pressure Mean [Left Arm] Blood Pressure Position [Left Arm] Pulse Oximetry 99 98 Oxygen Delivery Method Room Air Sepsis Recent Fever Within 48 Hours Sepsis New/Unexplained Change in Mental Status Sepsis Action Taken by Nursing 09/17/21 20:45 09/17/21 21:20 09/17/21 21:25 Temperature Temperature Source Pulse Rate 115 H 68 Pulse Rate [Left Radial] Pulse Rate from SpO2 Sensor Pulse Rhythm Pulse Rhythm [Left Radial] Pulse Strength [Left Radial] Respiratory Rate 17 20 Respiratory Effort / Characteristics Non-Labored Respiratory Depth Respiratory Pattern Blood Pressure Blood Pressure [Left Arm] Blood Pressure Mean Blood Pressure Mean [Left Arm] Blood Pressure Position [Left Arm] Pulse Oximetry 98 Oxygen Delivery Method Room Air Sepsis Recent Fever Within 48 Hours Sepsis New/Unexplained Change in Mental Status Sepsis Action Taken by Nursing 09/17/21 21:30 09/17/21 21:40 09/17/21 21:50 Temperature Temperature Source Pulse Rate 66 71 74 Pulse Rate [Left Radial] Pulse Rate from SpO2 Sensor 65 Pulse Rhythm Pulse Rhythm [Left Radial] Pulse Strength [Left Radial] Respiratory Rate 16 16 21 Respiratory Effort / Characteristics Respiratory Depth Respiratory Pattern Blood Pressure 165/106 H Blood Pressure [Left Arm] Blood Pressure Mean 125 Blood Pressure Mean [Left Arm] Blood Pressure Position [Left Arm] Pulse Oximetry 97 Oxygen Delivery Method Sepsis Recent Fever Within 48 Hours Sepsis New/Unexplained Change in Mental Status Sepsis Action Taken by Nursing 09/17/21 22:00 Temperature Temperature Source Pulse Rate Pulse Rate [Left Radial] 70 Pulse Rate from SpO2 Sensor Pulse Rhythm Pulse Rhythm [Left Radial] Regular Pulse Strength [Left Radial] Normal Respiratory Rate 14 Respiratory Effort / Characteristics Non-Labored Respiratory Depth Normal Respiratory Pattern Regular Blood Pressure Blood Pressure [Left Arm] 183/75 H Blood Pressure Mean Blood Pressure Mean [Left Arm] 111 Blood Pressure Position [Left Arm] Lying Pulse Oximetry 96 Oxygen Delivery Method Room Air Sepsis Recent Fever Within 48 Hours Sepsis New/Unexplained Change in Mental Status Sepsis Action Taken by Half-Way Medications Current Medication List: was personally reviewed by me Laboratory Data Attestation: I reviewed the patient's lab results. Result diagrams: 09/17/21 17:39 09/17/21 17:39 Lab Results 09/17/21 09/17/21 09/17/21 Range/Units 16:20 17:39 17:39 WBC 6.29 (4.8-10.8) K/uL RBC 4.19 L (4.2-5.4) M/uL Hgb 12.6 (12.0-16.0) g/dL Hct 37.3 (37-47) % MCV 89.0 (80-100) fL MCH 30.1 (25-34) pg MCHC 33.8 (32-36) g/dL RDW Std Deviation 45.3 (36.4-46.3) fL RDW Coeff of Price 13.9 (11.5-14.5) % Plt Count 245 (130-400) K/uL MPV 9.0 (7.4-10.4) fL Immature Gran % (Auto) 0.2 % Neut % (Auto) 65.7 % Lymph % (Auto) 23.2 % Stevens % (Auto) 9.9 % Eos % (Auto) 0.0 % Baso % (Auto) 1.0 % Neut # (Auto) 4.14 (1.4-6.5) K/uL Lymph # (Auto) 1.46 (1.2-3.4) K/uL Stevens # (Auto) 0.62 H (0.11-0.59) K/uL Eos # (Auto) 0.00 (0-0.5) K/uL Baso # (Auto) 0.06 (0-0.2) K/uL Immature Gran # (Auto) 0.01 (0.00-0.02) K/uL PT Cancelled INR Cancelled APTT Cancelled PTT Ratio Cancelled Sodium (136-145) mmol/L Potassium (3.5-5.1) mmol/L Chloride (98-107) mmol/L Carbon Dioxide (21-32) mmol/L Anion Gap (3-11) BUN (7-18) mg/dl Creatinine (0.6-1.2) mg/dl Est Cr Clr Drug Dosing ml/min Est GFR ( Amer) ml/min Est GFR (Non-Af Amer) ml/min BUN/Creatinine Ratio (10-20) Glucose (70-99) mg/dl Calcium (8.5-10.1) mg/dl Magnesium (1.8-2.4) mg/dl Total Bilirubin (0.2-1) mg/dl AST (15-37) U/L ALT (12-78) Alkaline Phosphatase (45-117) U/L Troponin I (0-0.045) ng/ml Total Protein (6.4-8.2) gm/dl Albumin (3.4-5.0) gm/dl Globulin (2.5-4.0) gm/dl Albumin/Globulin Ratio (0.9-2) SARS-CoV-2 (PCR) NEGATIVE (Negative) Influenza Type A (PCR) Negative (Neg) Influenza Type B (PCR) Negative (Neg) RSV (RT-PCR) Negative (Neg) 09/17/21 09/17/21 Range/Units 17:39 20:24 WBC (4.8-10.8) K/uL RBC (4.2-5.4) M/uL Hgb (12.0-16.0) g/dL Hct (37-47) % MCV (80-100) fL MCH (25-34) pg MCHC (32-36) g/dL RDW Std Deviation (36.4-46.3) fL RDW Coeff of Price (11.5-14.5) % Plt Count (130-400) K/uL MPV (7.4-10.4) fL Immature Gran % (Auto) % Neut % (Auto) % Lymph % (Auto) % Stevens % (Auto) % Eos % (Auto) % Baso % (Auto) % Neut # (Auto) (1.4-6.5) K/uL Lymph # (Auto) (1.2-3.4) K/uL Stevens # (Auto) (0.11-0.59) K/uL Eos # (Auto) (0-0.5) K/uL Baso # (Auto) (0-0.2) K/uL Immature Gran # (Auto) (0.00-0.02) K/uL PT 11.8 INR 1.2 H APTT 25.1 PTT Ratio 1.0 Sodium 137 (136-145) mmol/L Potassium 4.3 (3.5-5.1) mmol/L Chloride 105 (98-107) mmol/L Carbon Dioxide 27 (21-32) mmol/L Anion Gap 5.0 (3-11) BUN 20 H (7-18) mg/dl Creatinine 1.01 (0.6-1.2) mg/dl Est Cr Clr Drug Dosing 52.0 ml/min Est GFR ( Amer) 64.4 ml/min Est GFR (Non-Af Amer) 55.6 ml/min BUN/Creatinine Ratio 20.3 H (10-20) Glucose 262 H (70-99) mg/dl Calcium 9.5 (8.5-10.1) mg/dl Magnesium 2.0 (1.8-2.4) mg/dl Total Bilirubin 0.2 (0.2-1) mg/dl AST 24 (15-37) U/L ALT 24 (12-78) Alkaline Phosphatase 153 H (45-117) U/L Troponin I < 0.015 (0-0.045) ng/ml Total Protein 7.4 (6.4-8.2) gm/dl Albumin 3.4 (3.4-5.0) gm/dl Globulin 4.0 (2.5-4.0) gm/dl Albumin/Globulin Ratio 0.9 (0.9-2) SARS-CoV-2 (PCR) (Negative) Influenza Type A (PCR) (Neg) Influenza Type B (PCR) (Neg) RSV (RT-PCR) (Neg) Administered Medications Enoxaparin Sodium (Enoxaparin 80 Mg/0.8 Ml Syr) 80 mg SQ Q12H ERNESTO Stop: 10/17/21 21:59 Last Admin: 09/17/21 21:40 Dose: 80 mg Documented by: [id number] Discontinued Medications Heparin Sodium/Dextrose (Heparin Iv Adult Wt-Based Standard *No* Bolus Protocol) 1 ea IV ONE ONE; Protocol Stop: 09/17/21 18:55 Last Admin: 09/17/21 20:46 Dose: Not Given Documented by: [id number] Heparin Sodium/Dextrose (Heparin Sodium/Dextrose) 25,000 units in 500 mls @ 0.02 mls/hr IV .Q24H ERNESTO; Protocol Stop: 10/17/21 19:14 Last Admin: 09/17/21 20:46 Dose: Not Given Documented by: [id number] Ioversol (Optiray 320 125ml) 114 ml IV ONCE ONE Stop: 09/17/21 19:03 Last Admin: 09/17/21 20:46 Dose: Not Given Documented by: [id number] Ioversol (Optiray 320 125ml) 114 ml IV ONCE ONE Stop: 09/17/21 19:19 Last Admin: 09/17/21 19:18 Dose: 114 ml Documented by: [id number] Imaging Data Radiologist's Impression: Chest X-Ray 09/17/21 16:23 XR chest 1V portable CLINICAL HISTORY: SOB TECHNIQUE: Single frontal radiograph of the chest was obtained. Comparison: Comparison is made to chest one view 01/22/2009 FINDINGS: No lines and tubes are seen. The cardiomediastinal silhouette is normal. The lungs are clear. No evidence of pleural effusion or pneumothorax. IMPRESSION: No acute chest disease. ACT 112: Negative or not required by law. Electronically signed by: Bacilio Jaimes M.D. 09/17/2021 5:43 PM Chest CTA 09/17/21 17:08 CT angio chest PE protocol CLINICAL HISTORY: PE dyspnea TECHNIQUE: Multidetector row helical CT of the chest was performed. Coronal and sagittal reformations were obtained. Coronal and sagittal MIPS were obtained from the axial data set and were submitted for review. Automated dose lowering techniques and/or adjustment according to patient size were utilized for this exam. Comparison: Diffuse peripheral predominant groundglass opacities are seen. There is focal atelectasis in the right middle lobe. FINDINGS: Lungs and pleura: Normal. Heart and pericardium: Cardiomegaly is seen with biatrial enlargement. Vessels: Moderate atherosclerotic changes in the aorta and coronary arteries. There is a nonocclusive embolus in the left main pulmonary artery with extension into the lower lobes. Nonocclusive right lower lobe pulmonary embolism is also seen. Mediastinum and laura: Unremarkable. Chest wall and lower neck: Unremarkable. Abdomen: Unremarkable. Bones: Degenerative changes in the thoracic spine. IMPRESSION: Bilateral nonocclusive pulmonary emboli are seen. No evidence of right heart strain. ACT 112: Negative or not required by law. Electronically signed by: Bacilio Jaimes M.D. 09/17/2021 7:32 PM Venous Doppler Study 09/17/21 17:08 US venous doppler LE LT CLINICAL HISTORY: swelling, SOB COMPARISON: None available at the time of this dictation. TECHNIQUE: Left lower extremity real-time compression venous ultrasound with Color Doppler imaging. Utilizing real-time ultrasonic imaging multiple real time high-resolution ultrasonic images with compression and noncompression maneuvers of the deep venous system in addition to color doppler imaging were performed from the common femoral vein through the proximal calf veins. FINDINGS: Occlusive deep venous thrombus is seen in the superficial femoral vein distally, the popliteal vein, the posterior tibial vein, and the peroneal vein. Impression: Occlusive deep venous thrombus as above. ACT 112: Negative or not required by law. Electronically signed by: Bacilio Jaimes M.D. 09/17/2021 6:38 PM Discharge Plan Visit Data Chief Complaint: Shortness of Breath/Dyspnea Stated Complaint: SOB 3 DAYS, GETTING WORSE, MIGRAINE ED Provider: Brant Vanegas Patient Disposition: Admitted As Inpatient Prescriptions Prescriptions: No Action (DME) Omnipod Dash 5 Pack Pod Cartridge See Rx Instructions .ROUTE .MEDSUPPLY Qty: 30 RF: 3 simvastatin 20 mg tablet 20 mg PO QPM Qty: 90 RF: 3 fluoxetine 20 mg capsule 20 mg PO HS Qty: 90 RF: 3 phenytoin sodium extended 100 mg capsule 100 mg PO BID Qty: 180 RF: 1 levothyroxine 125 mcg tablet 125 mcg PO QAM Qty: 90 RF: 3 phenytoin sodium extended 30 mg capsule See Rx Instructions PO .COMPLEX 90 Days Qty: 270 RF: 1 multivitamin with iron [Daily Multiple Vitamins/Iron] tablet 1 tab PO QPM RF: 0 [id number]-geyc 500-500-66.7 mg tablet 1 tab PO HS RF: 0 cholecalciferol (vitamin D3) 5,000 unit tablet 5,000 units PO QPM RF: 0 calcium carbonate [Calcium 500] 500 mg calcium (1,250 mg) tablet 500 mg PO DAILY RF: 0 (DME) insulin syringe-needle U-100 [BD Insulin Syringe Ultra-Fine] 0.3 mL 31 gauge x 5/16" syringe See Dose Instructions .ROUTE .MEDSUPPLY Qty: 10 RF: 0 hydroxyzine HCl 25 mg tablet 25 mg PO QID PRN (Reason: itching) RF: 0 magnesium 250 mg tablet 250 mg PO DAILY RF: 0 naproxen 500 mg tablet 500 mg PO BID Qty: 60 RF: 2 valacyclovir 1 gram tablet 1,000 mg PO QPM RF: 0 (DME) FreeStyle Test Strip See Rx Instructions .ROUTE .MEDSUPPLY RF: 0 rizatriptan 10 mg tablet,disintegrating 10 mg PO DIRECTED PRN (Reason: Migraine Headache) RF: 0 insulin aspart U-100 [Novolog U-100 Insulin aspart] 100 unit/mL solution 0 unit continuous subcutaneous infusion UD RF: 0 fluoxetine 10 mg capsule 10 mg PO Q OTHER DAY RF: 0 fremanezumab-vfrm 225 mg/1.5 mL syringe 225 mg subcut MONTHLY RF: 0
--- NOTE | 2021-09-17 17:44 | XRay Report ---
XR chest 1V portable CLINICAL HISTORY: SOB TECHNIQUE: Single frontal radiograph of the chest was obtained. Comparison: Comparison is made to chest one view 01/22/2009 FINDINGS: No lines and tubes are seen. The cardiomediastinal silhouette is normal. The lungs are clear. No evid ence of pleural effusion or pneumothorax. IMPRESSION: No acute chest disease. ACT 112: Negative or not required by law. Electronically signed by: Bacilio Jaimes M.D. 09/17/2021 5:43 PM
[2021-09-17 17:47] LABS: Basophils # (auto) 0.06 K/uL (0-0.2); Hematocrit (blood only) 37.3 % (37-47); Hemoglobin 12.6 g/dL (12.0-16.0); Immature Granulocytes # (auto) 0.01 K/uL (0.00-0.02); Immature Granulocytes % (auto) 0.2 %; Lymphocytes # (auto) 1.46 K/uL (1.2-3.4); Lymphocytes % (auto) 23.2 %; Mean Corpuscular Hemoglobin 30.1 pg (25-34); Mean Corpuscular Hgb Conc 33.8 g/dL (32-36); Monocytes # (auto) 0.62 K/uL (0.11-0.59); Monocytes % (auto) 9.9 %; Neutrophils # (auto) 4.14 K/uL (1.4-6.5); Neutrophils % (auto) 65.7 %; Platelet Count 245 K/uL (130-400); RDW Coefficient of Variation 13.9 % (11.5-14.5); RDW Standard Deviation 45.3 fL (36.4-46.3); Red Blood Count 4.19 M/uL (4.2-5.4); White Blood Count 6.29 K/uL (4.8-10.8)
[2021-09-17 18:12] LABS: Alanine Aminotransferase 24 (12-78); Albumin Level 3.4 gm/dl (3.4-5.0); Aspartate Aminotransferase 24 U/L (15-37); BUN Creatinine Ratio 20.3 (10-20); Blood Urea Nitrogen 20 mg/dl (7-18); Calcium 9.5 mg/dl (8.5-10.1); Carbon Dioxide 27 mmol/L (21-32); Chloride 105 mmol/L (98-107); Est GFR (African American) 64.4 ml/min; Est GFR (Non-African American) 55.6 ml/min; Glucose 262 mg/dl (70-99); Potassium 4.3 mmol/L (3.5-5.1); Sodium 137 mmol/L (136-145)
[2021-09-17 18:24] LABS: Influenza A virus by PCR Negative (Neg); Influenza B virus by PCR Negative (Neg); RSV by PCR Negative (Neg); SARS CoV2 RNA(COVID-19) InHosp NEGATIVE (Negative)
[2021-09-17 18:28] LABS: Albumin Globulin Ratio 0.9 (0.9-2); Alkaline Phosphatase 153 U/L (45-117); Bilirubin,Total 0.2 mg/dl (0.2-1); Total Protein 7.4 gm/dl (6.4-8.2); Troponin I < 0.015 ng/ml (0-0.045)
--- NOTE | 2021-09-17 18:39 | Ultrasound Report ---
US venous doppler LE LT CLINICAL HISTORY: swelling, SOB COMPARISON: None available at the time of this dictation. TECHNIQUE: Left lower extremity real-time compression venous ultrasound with Color Doppler imaging. Utilizing real-time ultrasonic imaging multiple real time high-resolution ultrasonic images with comp ression and noncompression maneuvers of the deep venous system in addition to color doppler imaging w ere performed from the common femoral vein through the proximal calf veins. FINDINGS: Occlusive deep venous thrombus is seen in the superficial femoral vein distally, the popliteal vein, the posterior tibial vein, and the peroneal vein. Impression: Occlusive deep venous thrombus as above. ACT 112: Negative or not required by law. Electronically signed by: Bacilio Jaimes M.D. 09/17/2021 6:38 PM
[2021-09-17] MEDS ORDERED: Heparin IV Adult Wt-Based Standard *NO* Bolus Protocol IV ONE (18:54)
[2021-09-17] MEDS ORDERED: OPTIRAY 320 125ml IV ONE ×2 (19:02→19:18)
[2021-09-17] MEDS ORDERED: HEPARIN SODIUM/DEXTROSE 25,000 UNITS/500 ML BAG IV SCH (19:15)
--- NOTE | 2021-09-17 19:33 | CT Scan Report ---
CT angio chest PE protocol CLINICAL HISTORY: PE dyspnea TECHNIQUE: Multidetector row helical CT of the chest was performed. Coronal and sagittal reformations were obtained. Coronal and sagittal MIPS were obtained from the axial data set and were submitted fo r review. Automated dose lowering techniques and/or adjustment according to patient size were utiliz ed for this exam. Comparison: Diffuse peripheral predominant groundglass opacities are seen. There is focal atelectasis in the right middle lobe. FINDINGS: Lungs and pleura: Normal. Heart and pericardium: Cardiomegaly is seen with biatrial enlargement. Vessels: Moderate atherosclerotic changes in the aorta and coronary arteries. There is a nonocclusive embolus in the left main pulmonary artery with extension into the lower lobes. Nonocclusive right lo wer lobe pulmonary embolism is also seen. Mediastinum and laura: Unremarkable. Chest wall and lower neck: Unremarkable. Abdomen: Unremarkable. Bones: Degenerative changes in the thoracic spine. IMPRESSION: Bilateral nonocclusive pulmonary emboli are seen. No evidence of right heart strain. ACT 112: Negative or not required by law. Electronically signed by: Bacilio Jaimes M.D. 09/17/2021 7:32 PM
[2021-09-17 20:48] LABS: INR 1.2 (0.9-1.1); Partial Thromboplastin Time 25.1 Seconds (21.0-31.0); Prothrombin Time 11.8 Seconds (9.0-12.0)
--- NOTE | 2021-09-17 20:59 | History & Physical Report ---
Date of Service September 17, 2021 Assessment & Plan (1) Deep vein thrombosis (DVT) of left lower extremity: Plan: DVT left lower extremity/bilateral PE- Placed on Lovenox 1 mg/kg subcu every 12 hours Can be changed over to Xarelto in the a.m. Hypercoagulable work-up Father with history of clots (2) Bilateral pulmonary embolism: Plan: See above (3) Type 1 diabetes mellitus with hypoglycemia, with long-term current use of insulin: Plan: Patient will continue his own insulin pump (4) Dyslipidemia: Plan: Continue simvastatin (5) Hypothyroidism: Plan: Continue levothyroxine 125 mcg daily (6) Seizure disorder: Plan: Continue phenytoin (7) Depression: Plan: Continue fluoxetine (8) Viral infection of right eye: Plan: Continue valacyclovir 1 g p.o. every evening Has a history of a unknown viral infection in the left line. Now with erythema and foreign body sensation in right eye For now placed on Viroptic 1 drop every 2 hours while awake, up to maximum of 9 doses History of Present Illness Chief Complaint: The patient presents to the emergency department with complaint of 3 days of worsening shortness of breath Primary Care Provider: Art Montenegro MD The patient is a 71-year-old female with past medical history including, migrai ne without aura, depression, chronic idiopathic urticaria, insulin pump, urge and stress incontinence, dyslipidemia, hypothyroidism, seizure disorder and type 1 diabetes mellitus. She presents with 3 days of worsening shortness of breath as noted above Allergies Allergy/AdvReac Type Severity Reaction Status Date / Time aspirin Allergy Severe bruise all Verified 09/17/21 19:55 over Penicillins Allergy Severe ANAPHYLAXIS Verified 09/17/21 19:55 dextromethorphan Allergy Intermediate "nearly Verified 09/17/21 19:55 [From Coricidin HBP Cough passed out" and Cold] lamotrigine Allergy Mild Rash Verified 09/17/21 19:55 oxybutynin Allergy Mild Rash Verified 09/17/21 19:55 fentanyl AdvReac Severe HALLUCINATIONS, Verified 09/17/21 19:55 SCREAMED FOR 6 DAYS. lisinopril AdvReac Intermediate DIZZY,LIGHT Verified 09/17/21 19:55 HEADED losartan AdvReac Intermediate Dizzy, Verified 09/17/21 19:55 mood change propoxyphene AdvReac Intermediate hallucinati Verified 12/23/21 19:55 ons meloxicam AdvReac Mild Nausea Verified 09/17/21 19:55 Home Medications Medication Instructions Recorded Confirmed Type multivitamin with iron (Daily 1 tab PO QPM 04/03/19 09/17/21 History Multiple Vitamins/Iron) cholecalciferol (vitamin D3) 125 5,000 units PO QPM tab 05/07/19 09/17/21 History mcg (5,000 unit) tablet cpbphlipwkw-rus-usrvrnrld-hrb 1 tab PO HS tab 05/07/19 09/17/21 History 149-hyalur 500 mg-500 mg-66.7 mg tablet insulin syringe-needle U-100 0.3 #10 ea 05/07/19 09/16/21 History mL 31 gauge x 5/16" (BD Insulin Syringe Ultra-Fine) calcium carbonate 500 mg calcium 500 mg PO DAILY tab 04/07/20 09/17/21 History (1,250 mg) tablet (Calcium 500) valacyclovir 1 gram tablet 1,000 mg PO QPM tab 07/08/20 09/17/21 History blood sugar diagnostic (FreeStyle ea 10/16/20 09/16/21 History Test) Omnipod Dash 5 Pack Pod (insulin #30 ea NS 12/23/20 09/16/21 Rx pump cartridge) simvastatin 20 mg tablet 20 mg PO QPM #90 tab 04/13/21 09/17/21 Rx hydroxyzine HCl 25 mg tablet 25 mg PO QID PRN tab 07/23/21 09/17/21 History magnesium 250 mg tablet 250 mg PO DAILY 07/23/21 09/17/21 History naproxen 500 mg tablet 500 mg PO BID #60 tab 07/23/21 09/17/21 Rx fluoxetine 20 mg capsule 20 mg PO HS #90 cap 08/17/21 09/17/21 Rx phenytoin sodium extended 100 mg 100 mg PO BID #180 cap 08/18/21 09/17/21 Rx capsule levothyroxine 125 mcg tablet 125 mcg PO QAM #90 tab 08/24/21 09/17/21 Rx phenytoin sodium extended 30 mg See Rx Instructions PO .COMPLEX 90 09/14/21 09/17/21 Rx capsule Days #270 cap fluoxetine 10 mg capsule 10 mg PO Q OTHER DAY 09/17/21 09/17/21 History fremanezumab-vfrm 225 mg/1.5 mL 225 mg SUBCUT MONTHLY 09/17/21 09/17/21 History subcutaneous syringe insulin aspart U-100 100 unit/mL 0 unit CONTINUOUS SUBCUTANEOUS 09/17/21 09/17/21 History subcutaneous solution (Novolog INFUSION UD U-100 Insulin aspart) rizatriptan 10 mg disintegrating 10 mg PO DIRECTED PRN 09/17/21 09/17/21 History tablet Past Med/Surg History Medical History Anxiety Colonic obstruction 07/2019 Constipation Depression Dyslipidemia History of migraine headaches Hypothyroidism Insulin pump in place Manages insulin pump without assistance Nausea and vomiting after administration of anesthetic agent Nocturnal hypoxia no oxygen Osteoarthritis Osteoporosis Seizure disorder 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 Ana Julio, reason for dilantin Tremor of both hands Type 1 diabetes mellitus with hypoglycemia, with long-term current use of insulin Urge and stress incontinence Surgical History H/O dilation and curettage H/O hand surgery left hand thumb tendon repair History of bilateral cataract extraction History of bladder surgery bladder stimulator placed, currently not working, turned off History of carpal tunnel surgery of left wrist History of colonoscopy History of left breast biopsy benign History of open reduction and internal fixation (ORIF) procedure right ankle--hardware in place History of wisdom tooth extraction Status post trigger finger release x9--all fingers on left hand/all but ring finger on right hand Family History Mother Cervical cancer Grandmother Uterine cancer Father Acute myocardial infarction Myocardial infarction Stroke syndrome Other No family history of adverse response to anesthesia Denies family history of Ovarian cancer Prostate cancer Breast cancer Colorectal cancer Social History (Updated 09/17/21 @ 22:57 by Brant Vanegas MD) Smoking Status: Former smoker Age Started Using Tobacco: 17; Age Quit Using Tobacco: 26; Years Smoked: 9; Second Hand Exposure: Yes (parents smoked/ smoked); Hx Alcohol Use: Yes (Occasional social ) Alcohol type: wine Hx Substance Use: Yes (Marijuana as a younger adult - none in >40 years) Prescribed Medications: Marijuana Last Used Substance: Unknown Last Used Substance Other:: fall 2018 Preferred Language: Greek Communication Ability: Effective Visual Impairment: No Limitations Hearing Ability: Normal Turning Sander Operator Required: No Beliefs That Will Affect Care: None marital status: Current Living Situation: Spouse Feels Safe at Home: Yes Seatbelt Use: always Assistive Devices: Glasses Review of Systems Review of Systems: The patient denies palpitations, cough, lower extremity swelling, sore throat, fevers, chills, sweats, nausea, vomiting, diarrhea , constipation, abdominal pain, pelvic pain, blood in urine or stool, dysuria, urinary frequency or urgency, lightheadedness, dizziness, headache, memory loss, loss of consciousness, rash, abnormal bruising or bleeding, imbalance, focal or generalized weakness, numbness or tingling in arms or legs, generalized arthralgias or myalgias, back or neck pain, or night sweats. The review of systems is otherwise negative other than for that already noted above, and at least 10 systems have been reviewed. Physical Exam Physical Exam: The patient is awake, alert and oriented �3, well developed and well nourished, normocephalic and atraumatic, lying in bed and in no acute distress. HEENT--PERRL, EOMI, mucous membranes and oropharynx normal Neck--supple. No JVD. No bruits. Thyroid normal, trachea midline, no adenopathy. Heart--normal S1 and S2. No murmurs, rubs or gallops. Lungs--clear bilaterally, no respiratory distress, no accessory muscle use. Abdomen--normal bowel sounds and soft. Nontender. Nondistended, no hernias or masses, no organomegaly. Extremities--no cyanosis or clubbing. No edema. There are good distal pulses b/l. Dermatologic--normal skin turgor, normal color, no abnormal lymph nodes, no rash. Neurologic--cranial nerves II through XII grossly intact. Rheumatologic--normal range of motion. Psychiatric--normal affect. Results & Data Results & Data ([facility]) Vital Signs (Past 12 Hours) Vital Signs Temp Pulse Pulse Resp BP BP Pulse Ox 09/17/21 20:05 68 14 205/138 H 98 09/17/21 16:15 36.6 C 73 18 163/74 H 96 Laboratory Results Laboratory Results WBC 6.29 K/uL (4.8-10.8) 09/17/21 17:39 RBC 4.19 M/uL (4.2-5.4) L 09/17/21 17:39 Hgb 12.6 g/dL (12.0-16.0) 09/17/21 17:39 Hct 37.3 % (37-47) 09/17/21 17:39 MCV 89.0 fL (80-100) 09/17/21 17:39 MCH 30.1 pg (25-34) 09/17/21 17:39 MCHC 33.8 g/dL (32-36) 09/17/21 17:39 RDW Std Deviation 45.3 fL (36.4-46.3) 09/17/21 17:39 RDW Coeff of Price 13.9 % (11.5-14.5) 09/17/21 17:39 Plt Count 245 K/uL (130-400) 09/17/21 17:39 MPV 9.0 fL (7.4-10.4) 09/17/21 17:39 Immature Gran % (Auto) 0.2 % 09/17/21 17:39 Neut % (Auto) 65.7 % 09/17/21 17:39 Lymph % (Auto) 23.2 % 09/17/21 17:39 Whitman % (Auto) 9.9 % 09/17/21 17:39 Eos % (Auto) 0.0 % 09/17/21 17:39 Baso % (Auto) 1.0 % 09/17/21 17:39 Neut # (Auto) 4.14 K/uL (1.4-6.5) 09/17/21 17:39 Lymph # (Auto) 1.46 K/uL (1.2-3.4) 09/17/21 17:39 Whitman # (Auto) 0.62 K/uL (0.11-0.59) H 09/17/21 17:39 Eos # (Auto) 0.00 K/uL (0-0.5) 09/17/21 17:39 Baso # (Auto) 0.06 K/uL (0-0.2) 09/17/21 17:39 Immature Gran # (Auto) 0.01 K/uL (0.00-0.02) 09/17/21 17:39 PT 11.8 Seconds (9.0-12.0) 09/17/21 20:24 INR 1.2 (0.9-1.1) H 09/17/21 20:24 APTT 25.1 Seconds (21.0-31.0) 09/17/21 20:24 PTT Ratio 1.0 09/17/21 20:24 Sodium 137 mmol/L (136-145) 09/17/21 17:39 Potassium 4.3 mmol/L (3.5-5.1) 09/17/21 17:39 Chloride 105 mmol/L (98-107) 09/17/21 17:39 Carbon Dioxide 27 mmol/L (21-32) 09/17/21 17:39 Anion Gap 5.0 (3-11) 09/17/21 17:39 BUN 20 mg/dl (7-18) H 09/17/21 17:39 Creatinine 1.01 mg/dl (0.6-1.2) 09/17/21 17:39 Est Cr Clr Drug Dosing 52.0 ml/min 09/17/21 17:39 Est GFR ( Amer) 64.4 ml/min 09/17/21 17:39 Est GFR (Non-Af Amer) 55.6 ml/min 09/17/21 17:39 BUN/Creatinine Ratio 20.3 (10-20) H 09/17/21 17:39 Glucose 262 mg/dl (70-99) H 09/17/21 17:39 Calcium 9.5 mg/dl (8.5-10.1) 09/17/21 17:39 Magnesium 2.0 mg/dl (1.8-2.4) 09/17/21 17:39 Total Bilirubin 0.2 mg/dl (0.2-1) 09/17/21 17:39 AST 24 U/L (15-37) 09/17/21 17:39 ALT 24 (12-78) 09/17/21 17:39 Alkaline Phosphatase 153 U/L (45-117) H 09/17/21 17:39 Troponin I < 0.015 ng/ml (0-0.045) 09/17/21 17:39 Total Protein 7.4 gm/dl (6.4-8.2) 09/17/21 17:39 Albumin 3.4 gm/dl (3.4-5.0) 09/17/21 17:39 Globulin 4.0 gm/dl (2.5-4.0) 09/17/21 17:39 Albumin/Globulin Ratio 0.9 (0.9-2) 09/17/21 17:39 SARS-CoV-2 (PCR) NEGATIVE (Negative) 09/17/21 16:20 Influenza Type A (PCR) Negative (Neg) 09/17/21 16:20 Influenza Type B (PCR) Negative (Neg) 09/17/21 16:20 RSV (RT-PCR) Negative (Neg) 09/17/21 16:20 Impressions Chest X-Ray 09/17/21 16:23 XR chest 1V portable CLINICAL HISTORY: SOB TECHNIQUE: Single frontal radiograph of the chest was obtained. Comparison: Comparison is made to chest one view 01/22/2009 FINDINGS: No lines and tubes are seen. The cardiomediastinal silhouette is normal. The lungs are clear. No evidence of pleural effusion or pneumothorax. IMPRESSION: No acute chest disease. ACT 112: Negative or not required by law. Electronically signed by: Bacilio Jaimes M.D. 09/17/2021 5:43 PM Chest CTA 09/17/21 17:08 CT angio chest PE protocol CLINICAL HISTORY: PE dyspnea TECHNIQUE: Multidetector row helical CT of the chest was performed. Coronal and sagittal reformations were obtained. Coronal and sagittal MIPS were obtained from the axial data set and were submitted for review. Automated dose lowering techniques and/or adjustment according to patient size were utilized for this exam. Comparison: Diffuse peripheral predominant groundglass opacities are seen. There is focal atelectasis in the right middle lobe. FINDINGS: Lungs and pleura: Normal. Heart and pericardium: Cardiomegaly is seen with biatrial enlargement. Vessels: Moderate atherosclerotic changes in the aorta and coronary arteries. There is a nonocclusive embolus in the left main pulmonary artery with extension into the lower lobes. Nonocclusive right lower lobe pulmonary embolism is also seen. Mediastinum and laura: Unremarkable. Chest wall and lower neck: Unremarkable. Abdomen: Unremarkable. Bones: Degenerative changes in the thoracic spine. IMPRESSION: Bilateral nonocclusive pulmonary emboli are seen. No evidence of right heart strain. ACT 112: Negative or not required by law. Electronically signed by: Bacilio Jaimes M.D. 09/17/2021 7:32 PM Venous Doppler Study 09/17/21 17:08 US venous doppler LE LT CLINICAL HISTORY: swelling, SOB COMPARISON: None available at the time of this dictation. TECHNIQUE: Left lower extremity real-time compression venous ultrasound with Color Doppler imaging. Utilizing real-time ultrasonic imaging multiple real time high-resolution ultrasonic images with compression and noncompression maneuvers of the deep venous system in addition to color doppler imaging were performed from the common femoral vein through the proximal calf veins. FINDINGS: Occlusive deep venous thrombus is seen in the superficial femoral vein distally, the popliteal vein, the posterior tibial vein, and the peroneal vein. Impression: Occlusive deep venous thrombus as above. ACT 112: Negative or not required by law. Electronically signed by: Bacilio Jaimes M.D. 09/17/2021 6:38 PM Code Status & VTE Plan Code Status Full code VTE Prophylaxis Plan VTE Prophylaxis will be ordered: Yes PG Care Time/CCT Total # of Minutes Spent Total Time Spent with Patient: Total time spent is greater than 50% in coordination of care (as documented) at patient's floor/unit and/or counseling patient: Coding Level of Care Code INT OBSERVATION CARE 70M LVL 3 Diagnoses Deep vein thrombosis (DVT) of left lower extremity I82.402 Bilateral pulmonary embolism I26.99 Type 1 diabetes mellitus with hypoglycemia, with long-term current use of insulin E10.649 Dyslipidemia E78.5 Hypothyroidism E03.9 Seizure disorder G40.909 Depression F32.9 Viral infection of right eye H44.001; B97.89
[2021-09-17] MEDS: ENOXAPARIN 80 MG/0.8 ML SYR SQ SCH (21:40)
[2021-09-17] MEDS ORDERED: FLUoxetine HCL 20 MG CAP PO SCH (23:08)
[2021-09-17] MEDS ORDERED: [UNRECOGNIZED DRUG - MIXTURE] PO SCH (23:08)
[2021-09-17] MEDS ORDERED: GLUCOSE 10 TABS/TUBE PO PRN (23:08)
[2021-09-17] MEDS ORDERED: PHENYTOIN SODIUM ER 30 MG CAP PO SCH (23:08)
[2021-09-17] MEDS ORDERED: CARBOHYDRATES FOR HYPOGLYCEMIA PO PRN (23:08)
[2021-09-17] MEDS ORDERED: ONDANSETRON INJ 2 MG/ML 2 ML VIAL IV PRN (23:08)
[2021-09-17] MEDS ORDERED: GLUCOSE 40% GEL 15 GM TUBE PO PRN (23:08)
[2021-09-17] MEDS ORDERED: DEXTROSE 50% 50 ML SYRINGE IV PRN (23:08)
[2021-09-17] MEDS ORDERED: CHOLECALCIFEROL 5,000 UNITS 125 MCG TAB PO SCH (23:08)
[2021-09-17] MEDS ORDERED: GLUCAGON FOR INJ 1 MG VIAL SQ PRN (23:08)
[2021-09-17] MEDS ORDERED: MULTIVITAMIN CHEWABLE TAB PO SCH (23:08)
[2021-09-17] MEDS ORDERED: hydrOXYzine HCl 25 MG TAB PO PRN (23:08)
[2021-09-17] MEDS ORDERED: valACYclovir HCL 500 MG TABLET PO SCH (23:08)
[2021-09-17] MEDS ORDERED: SIMVASTATIN 20 MG TAB PO SCH (23:08)
[2021-09-18] MEDS ORDERED: RIZATRIPTAN BENZOATE MLT 10 MG TAB PO PRN (00:54)
[2021-09-18] MEDS: PHENYTOIN SODIUM ER 100 MG CAP PO SCH ×2 (01:35→10:31)
[2021-09-18] MEDS: TRIFLURIDINE 1% 7.5 ML BTL OP SCH ×6 (01:37→14:17)
[2021-09-18] MEDS: ACETAMINOPHEN 325 MG TAB PO PRN ×2 (01:40→12:11)
[2021-09-18 06:09] LABS: Basophils # (auto) 0.06 K/uL (0-0.2); Eosinophils # (auto) 0.01 K/uL (0-0.5); Eosinophils % (auto) 0.2 %; Hematocrit (blood only) 37.8 % (37-47); Hemoglobin 12.6 g/dL (12.0-16.0); Immature Granulocytes # (auto) 0.01 K/uL (0.00-0.02); Immature Granulocytes % (auto) 0.2 %; Lymphocytes # (auto) 1.73 K/uL (1.2-3.4); Lymphocytes % (auto) 29.2 %; Mean Corpuscular Hemoglobin 29.9 pg (25-34); Mean Corpuscular Hgb Conc 33.3 g/dL (32-36); Mean Corpuscular Volume 89.6 fL (80-100); Mean Platelet Volume 9.1 fL (7.4-10.4); Monocytes # (auto) 0.75 K/uL (0.11-0.59); Monocytes % (auto) 12.7 %; Neutrophils # (auto) 3.36 K/uL (1.4-6.5); Neutrophils % (auto) 56.7 %; Platelet Count 262 K/uL (130-400); RDW Coefficient of Variation 13.7 % (11.5-14.5); Red Blood Count 4.22 M/uL (4.2-5.4); White Blood Count 5.92 K/uL (4.8-10.8)
[2021-09-18] MEDS ORDERED: LEVOTHYROXINE SODIUM 125 MCG TABLET PO SCH (06:30)
[2021-09-18 06:38] LABS: Albumin Level 3.3 gm/dl (3.4-5.0); BUN Creatinine Ratio 19.9 (10-20); Calcium 9.2 mg/dl (8.5-10.1); Creatinine Clr Calc Pharmacy 66.5 ml/min; Est GFR (African American) 86.7 ml/min; Est GFR (Non-African American) 74.8 ml/min; Potassium 3.8 mmol/L (3.5-5.1)
[2021-09-18 06:41] LABS: Albumin Globulin Ratio 0.9 (0.9-2); Bilirubin,Total 0.3 mg/dl (0.2-1); Globulin 3.8 gm/dl (2.5-4.0); Total Protein 7.1 gm/dl (6.4-8.2)
[2021-09-18 07:56] LABS: Estimated Average Glucose 180 mg/dl; Hemoglobin A1C 7.9 % (4.5-5.6)
[2021-09-18] MEDS ORDERED: CALCIUM CARBONATE 1250MG TAB PO SCH (09:00)
[2021-09-18] MEDS ORDERED: PHENYTOIN SODIUM ER 30 MG CAP PO SCH ×2 (09:00→21:00)
[2021-09-18] MEDS ORDERED: MAGNESIUM OXIDE 400 MG TAB PO SCH (09:00)
--- NOTE | 2021-09-18 10:24 | Electrocardiogram Report ---
Test Reason : Blood Pressure : / mmHG Vent. Rate : 066 BPM Atrial Rate : 066 BPM P-R Int : 180 ms QRS Dur : 086 ms QT Int : 460 ms P-R-T Axes : 076 006 038 degrees QTc Int : 482 ms Normal sinus rhythm Normal ECG When compared with ECG of 24-OCT-2020 15:35, Questionable change in QRS axis Confirmed by Art Ku ([id number]) on 09/18/2021 10:23:52 AM Referred By: REFERRED SELF Confirmed By:Art Ku
[2021-09-18] MEDS: ENOXAPARIN 80 MG/0.8 ML SYR SQ SCH (10:32)
[2021-09-18 14:02] LABS: INR 1.3 (0.9-1.1); Prothrombin Time 12.5 Seconds (9.0-12.0)
[2021-09-18 14:09] LABS: NT Pro B Type Natriuretic Pept 399 pg/ml (0-900); Troponin I < 0.015 ng/ml (0-0.045)
[2021-09-18] MEDS ORDERED: WARFARIN SOD 5 MG TAB PO ONE (14:45)
--- NOTE | 2021-09-18 20:32 | Discharge Summary ---
Date of Service September 18, 2021 Admission HPI Per Admitting Provider The patient is a 71-year-old female with past medical history including, migraine without aura, depression, chronic idiopathic urticaria, insulin pump, urge and stress incontinence, dyslipidemia, hypothyroidism, seizure disorder and type 1 diabetes mellitus. She presents with 3 days of worsening shortness of breath as noted above Principal Diagnosis LLE DVT; Bilateral Pulmonary Embolism Discharge Exam PHYSICAL EXAM General Appearance: WDWN in NAD who is A&O x 3 HEENT: Head is normocephalic/atraumatic; Hearing grossly intact; Mucous membranes moist; Pharynx negative for exudate/lesions Neck: Supple; Trachea midline; Neg JVD Heart: RRR with no M/G/R Lungs: CTA in all lung ibrahim bilaterally; Respirations unlabored; Neg accessory muscle use Abdomen: Soft, non-tender, non-distended; Positive BS x 4 quadrants Extremities: Neg cyanosis or edema Neurological: Speech clear; Gross motor/sensory function intact; Neg focal neurologic deficits Psychiatric: Appropriate mood/affect Skin: Normal Color; Warm/Dry Discharge Data Allergies Allergy/AdvReac Type Severity Reaction Status Date / Time aspirin Allergy Severe bruise all Verified 09/17/21 19:55 over Penicillins Allergy Severe ANAPHYLAXIS Verified 09/17/21 19:55 dextromethorphan Allergy Intermediate "nearly Verified 09/17/21 19:55 [From Coricidin HBP Cough passed out" and Cold] lamotrigine Allergy Mild Rash Verified 09/17/21 19:55 oxybutynin Allergy Mild Rash Verified 09/17/21 19:55 fentanyl AdvReac Severe HALLUCINATIONS, Verified 09/17/21 19:55 SCREAMED FOR 6 DAYS. lisinopril AdvReac Intermediate DIZZY,LIGHT Verified 09/17/21 19:55 HEADED losartan AdvReac Intermediate Dizzy, Verified 09/17/21 19:55 mood change propoxyphene AdvReac Intermediate hallucinati Verified 09/17/21 19:55 ons meloxicam AdvReac Mild Nausea Verified 09/17/21 19:55 Consultations 09/17/21 19:35 ED Decision to Admit Stat Ordered Studies Chest X-Ray 09/17/21 16:23 XR chest 1V portable CLINICAL HISTORY: SOB TECHNIQUE: Single frontal radiograph of the chest was obtained. Comparison: Comparison is made to chest one view 01/22/2009 FINDINGS: No lines and tubes are seen. The cardiomediastinal silhouette is normal. The lungs are clear. No evidence of pleural effusion or pneumothorax. IMPRESSION: No acute chest disease. ACT 112: Negative or not required by law. Electronically signed by: Bacilio Jaimes M.D. 09/17/2021 5:43 PM Chest CTA 09/17/21 17:08 CT angio chest PE protocol CLINICAL HISTORY: PE dyspnea TECHNIQUE: Multidetector row helical CT of the chest was performed. Coronal and sagittal reformations were obtained. Coronal and sagittal MIPS were obtained from the axial data set and were submitted for review. Automated dose lowering techniques and/or adjustment according to patient size were utilized for this exam. Comparison: Diffuse peripheral predominant groundglass opacities are seen. There is focal atelectasis in the right middle lobe. FINDINGS: Lungs and pleura: Normal. Heart and pericardium: Cardiomegaly is seen with biatrial enlargement. Vessels: Moderate atherosclerotic changes in the aorta and coronary arteries. There is a nonocclusive embolus in the left main pulmonary artery with extension into the lower lobes. Nonocclusive right lower lobe pulmonary embolism is also seen. Mediastinum and laura: Unremarkable. Chest wall and lower neck: Unremarkable. Abdomen: Unremarkable. Bones: Degenerative changes in the thoracic spine. IMPRESSION: Bilateral nonocclusive pulmonary emboli are seen. No evidence of right heart strain. ACT 112: Negative or not required by law. Electronically signed by: Bacilio Jaimes M.D. 09/17/2021 7:32 PM Venous Doppler Study 09/17/21 17:08 US venous doppler LE LT CLINICAL HISTORY: swelling, SOB COMPARISON: None available at the time of this dictation. TECHNIQUE: Left lower extremity real-time compression venous ultrasound with Color Doppler imaging. Utilizing real-time ultrasonic imaging multiple real time high-resolution ultrasonic images with compression and noncompression maneuvers of the deep venous system in addition to color doppler imaging were performed from the common femoral vein through the proximal calf veins. FINDINGS: Occlusive deep venous thrombus is seen in the superficial femoral vein distally, the popliteal vein, the posterior tibial vein, and the peroneal vein. Impression: Occlusive deep venous thrombus as above. ACT 112: Negative or not required by law. Electronically signed by: Bacilio Jaimes M.D. 09/17/2021 6:38 PM Hospital Course (1) Deep vein thrombosis (DVT) of left lower extremity: - Found to have occlusive DVT in the left superficial femoral vein distally, the popliteal vein, the posterior tibial vein, and the peroneal vein. Also with bilateral nonocclusive pulmonary emboli (left main pulmonary artery with extension into lower lobes and right lower lobe PE) - Not certain what the etiology of the clots could be. She reports both parents had clots. Hypercoaguable work-up sent however may be skewed if obtained after anti-coagulation started as well as active clot may produce false positive reads -- She is up-to-date on mammogram and colonoscopy - may be worth doing a CT scan of the abdomen to assess for any other occult malignancy? - Due to her Dilantin the best anti-coagulant option would be Coumadin as Xarelto/Eliquis could have reduced efficacy with Dilantin and discussed with Dr. Kessler - Start Coumadin 5 mg daily and bridge with Lovenox BID until INR between 2-3. Rx for lab work given to patient as next available Coumadin clinic appt is Sep 28 which was arranged -- Since she is diabetic she is well trained in self administration of injectables (2) Bilateral pulmonary embolism: - See above (3) Type 1 diabetes mellitus with hypoglycemia, with long-term current use of insulin: - Continue insulin pump (4) Dyslipidemia: - Continue simvastatin (5) Hypothyroidism: - Continue levothyroxine 125 mcg daily (6) Seizure disorder: - Continue phenytoin (7) Depression: - Continue fluoxetine (8) Viral infection of right eye: - Continue valacyclovir 1 g p.o. every evening Has a history of a unknown viral infection in the left line; Given Viroptic drops while here (9) Elevated blood pressure reading: - Having higher pressures. No neurological symptoms - Reports normal BPs as outpatient and never had issue - suspect may be situational and therefore recommend routine monitoring - Should pressures remain high could consider treatment as outpatient Total Time Total Time Spent Total Time Spent (In Minutes): Spent greater than 30 minutes preparing patient for discharge. This includes discussion with patient/family, assessment, intervention, medication reconciliation, and coordination of care. Discharge Plan Discharge Items Patient Disposition: Home - Self-Care Reason For Visit: LLE DVT, B/L PE'S Discharge Diagnosis: Blood Clot in Leg; Blood Clot in Lungs Activity: Per Instructions section Lifting: Gradually increase as tolerated Bathing: No limitations Sexual Activity: When tolerated Exercise/Sports: Gradually increase as tolerated Driving/Machine Use: No limitations Weightbearing: Full weightbearing Non-emergency contact: Primary Care Provider Call non-emergency contact if: you have any medication questions, your symptoms worsen and you have a fever Follow-up/Referrals: Art Montenegro MD [Primary Care Provider] - Ashley Kessler MD, PhD [Pathologist] - 09/28/21 9:00 am (This appointment is for the anticoagulation clinic at [facility]. Please come to the hospital, and drive around to the back of the facility. You will need to enter through the [facility] entrance. The veterinary receptionist will direct you from there. ) Diet: Carb Count or DM1 Ambulatory Orders: Prothrombin Time INR (Routine) Timeframe: 3 Days Location: Determined by Patient Ordered By: Yuliya Echols Attending Provider Instructions: �Deep Vein Thrombosis of Left Leg and Pulmonary Embolism: - You were found to have blood clots in the superficial femoral vein distally, the popliteal vein, the posterior tibial vein, and the peroneal vein - You were also found to have blood clots that traveled to the lungs. This is non-occlusive in the left main pulmonary artery with extension to the lower lobes and non-occlusive right lower lobe pulmonary embolism - You had blood drawn to check for genetic markers that may make you prone to clots but these can take a week or so to come back and can follow-up with your family doctor for these results. - They may want to refer to you a trust advisor (blood doctor) for further workup to try and determine a cause of the clots and determine length of treatment with blood thinners - Due to your Dilantin, our best blood thinner option is Coumadin. In order for Coumadin to be effective it needs to be therapeutic. We check an INR and need it between 2 to 3. We will have to bridge with Lovenox 80 mg twice a day injected until the level is therapeutic. Once in the range of 2-3 then the Lovenox will stop. - You had a dose of Lovenox today so you would just need to do once tonight near bedtime. - You will have a dose of Coumadin prior to leaving the hospital. You will continue Coumadin 5 mg daily starting tomorrow. Pending a check of INR you may need a dosage adjustment. - We got you set up with the Coumadin Clinic here at the hospital however the first appointment is not until 28 September at 9 AM. In the meantime we will give you a script for bloodwork to be sent to Dr. Bacon office. You can go anywhere you normally do for blood work and the results will be sent to him until you have your Coumadin clinic appointment - Would recommend stopping the Naproxen for now. Talk with Dr. Montenegro about an alternative option. Tylenol is safe to use while on blood thinners. Blood Pressure: - You had some higher blood pressures here but that may be situational given you normally have good pressures outside of the hospital. - Recommend to periodically check this and can monitor with Dr. Montenegro for any need for medication for this Pending Studies at Discharge: No Stand-Alone Forms: My [facility] [employer], Smoking Cessation Medications and DC Order Prescriptions: New enoxaparin 80 mg/0.8 mL syringe 80 mg subcut Q12H 5 Days Qty: 8 RF: 0 warfarin 5 mg tablet 5 mg PO DAILY 30 Days Qty: 30 RF: 0 Continued (DME) Omnipod Dash 5 Pack Pod Cartridge See Rx Instructions .ROUTE .MEDSUPPLY Qty: 30 RF: 3 simvastatin 20 mg tablet 20 mg PO QPM Qty: 90 RF: 3 fluoxetine 20 mg capsule 20 mg PO HS Qty: 90 RF: 3 phenytoin sodium extended 100 mg capsule 100 mg PO BID Qty: 180 RF: 1 levothyroxine 125 mcg tablet 125 mcg PO QAM Qty: 90 RF: 3 phenytoin sodium extended 30 mg capsule See Rx Instructions PO .COMPLEX 90 Days Qty: 270 RF: 1 multivitamin with iron [Daily Multiple Vitamins/Iron] tablet 1 tab PO QPM RF: 0 [id number]-kpl-[id number]-[id number] 500-500-66.7 mg tablet 1 tab PO HS RF: 0 cholecalciferol (vitamin D3) 5,000 unit tablet 5,000 units PO QPM RF: 0 calcium carbonate [Calcium 500] 500 mg calcium (1,250 mg) tablet 500 mg PO DAILY RF: 0 (DME) insulin syringe-needle U-100 [BD Insulin Syringe Ultra-Fine] 0.3 mL 31 gauge x 5/16" syringe See Dose Instructions .ROUTE .MEDSUPPLY Qty: 10 RF: 0 hydroxyzine HCl 25 mg tablet 25 mg PO QID PRN (Reason: itching) RF: 0 magnesium 250 mg tablet 250 mg PO DAILY RF: 0 valacyclovir 1 gram tablet 1,000 mg PO QPM RF: 0 (DME) FreeStyle Test Strip See Rx Instructions .ROUTE .MEDSUPPLY RF: 0 rizatriptan 10 mg tablet,disintegrating 10 mg PO DIRECTED PRN (Reason: Migraine Headache) RF: 0 insulin aspart U-100 [Novolog U-100 Insulin aspart] 100 unit/mL solution 0 unit continuous subcutaneous infusion UD RF: 0 fluoxetine 10 mg capsule 10 mg PO Q OTHER DAY RF: 0 fremanezumab-vfrm 225 mg/1.5 mL syringe 225 mg subcut MONTHLY RF: 0 Discontinued naproxen 500 mg tablet 500 mg PO BID Qty: 60 RF: 2 Discharge Orders: Discharge Order (Routine); Ordered 09/18/21 Ordered By: Marianne Navarrete/Other Patient Handouts: Pulmonary Embolism, What to Know When Taking�Warfarin, Managing Type 1 Diabetes, Embolism Pulmonary Dc, Venous Thromboembolism, ED Deep Vein Thrombosis (DVT) Admission Data Admit Date/Time: 09/17/21 20:59 Attending Provider: Marianne Sotelo Admit Provider: Hossein Moe Primary Care Provider: Art Montenegro Other Providers: Hossein Moe Other Interventions: Discharge Summary Assessment (RN) Last Done: 09/18/21 16:19 Coding Level of Care Code D/C DAY MANAGEMENT >30 MINS Diagnoses Deep vein thrombosis (DVT) of left lower extremity I82.402 Bilateral pulmonary embolism I26.99 Type 1 diabetes mellitus with hypoglycemia, with long-term current use of insulin E10.649 Dyslipidemia E78.5 Hypothyroidism E03.9 Seizure disorder G40.909 Depression F32.9 Viral infection of right eye H44.001; B97.89 Elevated blood pressure reading R03.0
[2021-09-19] MEDS ORDERED: FLUoxetine HCL 10 MG CAP PO SCH (21:00)
[2021-09-23 07:01] LABS: Anti Cardiolipin Ab IgG <2.0 GPL-U/mL; Anti Cardiolipin Ab IgM 2.7 MPL-U/mL; Anti-Thrombin III Activity 150 % normal (80-135); B2 Glycoprotein IgG <2.0 U/mL (<20.0); B2 Glycoprotein IgM <2.0 U/mL (<20.0); PTT LA Screen 34 sec (<=40); Protein S Functional(Activity) 69 % (60-140)
[2021-09-23 17:41] LABS: Factor 5 Mutation NEGATIVE
== END 2021-09-18 16:19 | disposition home or self-care (01) ==
LOC: EDINP 16:05 → ED 16:05 → SUATTDRO 20:59 → EDINP 23:09
DX: G40.909 Epilepsy, unspecified, not intractable, without status epilepticus; Z88.0 Allergy status to penicillin; B97.89 Other viral agents as the cause of diseases classified elsewhere; E10.649 Type 1 diabetes mellitus with hypoglycemia without coma; Z88.6 Allergy status to analgesic agent; E78.5 Hyperlipidemia, unspecified; Z79.899 Other long term (current) drug therapy; Z88.8 Allergy status to other drugs, medicaments and biological substances; Z82.3 Family history of stroke; Z82.49 Family history of ischemic heart disease and other diseases of the circulatory system; I26.99 Other pulmonary embolism without acute cor pulmonale; Z79.890 Hormone replacement therapy; Z79.82 Long term (current) use of aspirin; Z87.891 Personal history of nicotine dependence; I82.452 Acute embolism and thrombosis of left peroneal vein; I82.432 Acute embolism and thrombosis of left popliteal vein; E03.9 Hypothyroidism, unspecified; Z20.822 Contact with and (suspected) exposure to COVID-19; M81.0 Age-related osteoporosis without current pathological fracture; I82.412 Acute embolism and thrombosis of left femoral vein; Z96.41 Presence of insulin pump (external) (internal); Z79.4 Long term (current) use of insulin; H44.001 Unspecified purulent endophthalmitis, right eye; I82.442 Acute embolism and thrombosis of left tibial vein

== ENCOUNTER 2023-10-24 06:19 | Inpatient (IN) ==
--- NOTE | 2023-10-06 12:03 | PAT Medication Instructions ---
Medication Instructions Date of Service October 06, 2023 Home Medications Medication Instructions Recorded insulin lispro 100 unit/mL 50 unit (0.5 mL) subcut .COMPLEX 01/15/23 subcutaneous solution (Humalog #50 mL U-100 Insulin) Omnipod Dash Pods (Gen 4) (insulin #30 ea 02/09/23 pump cart,cont inf,BT) betamethasone dipropionate 0.05 % 1 applic topical DAILY PRN skin 04/11/23 lotion irritation #60 mL phenytoin sodium extended 100 mg See Rx Instructions .Route 06/20/23 capsule .COMPLEX #180 caps fremanezumab-vfrm 225 mg/1.5 mL See Rx Instructions .Route 07/19/23 subcutaneous syringe (Ajovy .COMPLEX #1.5 mL Syringe) phenytoin sodium extended 30 mg See Rx Instructions .Route 07/28/23 capsule (Dilantin) .COMPLEX #270 caps levothyroxine 125 mcg tablet 125 mcg PO QAM #90 tabs 08/09/23 hydroxyzine HCl 25 mg tablet See Rx Instructions .Route 09/12/23 .COMPLEX #90 tabs pregabalin 75 mg capsule 75 mg PO BID #180 caps 09/23/23 cholecalciferol (vitamin D3) 125 mcg (5,000 unit) tablet 5,000 units PO QPM [id number]-nym-oklyuwyqa-hrb 149-hyalur 500 mg-500 mg-66.7 mg tablet 1 tab PO HS rizatriptan 10 mg disintegrating tablet 10 mg PO DIRECTED PRN albuterol sulfate 90 mcg/actuation aerosol inhaler 2 inh inhalation Q8H PRN duloxetine 30 mg capsule,delayed release 30 mg PO QAM insulin lispro 100 unit/mL subcutaneous solution (Humalog U-100 Insulin) 50 unit (0.5 mL) subcut .COMPLEX betamethasone dipropionate 0.05 % lotion 1 applic topical DAILY PRN magnesium 250 mg tablet 250 mg PO UD phenytoin sodium extended 100 mg capsule See Rx Instructions .Route .COMPLEX fremanezumab-vfrm 225 mg/1.5 mL subcutaneous syringe (Ajovy Syringe) See Rx Instructions .Route .COMPLEX phenytoin sodium extended 30 mg capsule (Dilantin) See Rx Instructions .Route .COMPLEX levothyroxine 125 mcg tablet 125 mcg PO QAM hydroxyzine HCl 25 mg tablet See Rx Instructions .Route .COMPLEX pregabalin 75 mg capsule 75 mg PO BID calcium carbonate 500 mg calcium (1,250 mg) tablet 1,000 mg PO HS cyanocobalamin (vitamin B-12) 2,500 mcg tablet 2,500 mcg PO Q2D simvastatin 40 mg tablet 40 mg PO PM Continue as directed phenytoin sodium extended 100 mg capsule See Rx Instructions .Route .COMPLEX phenytoin sodium extended 30 mg capsule (Dilantin) See Rx Instructions .Route .COMPLEX hydroxyzine HCl 25 mg tablet See Rx Instructions .Route .COMPLEX rizatriptan 10 mg disintegrating tablet 10 mg PO DIRECTED PRN(if needed) ASK your prescriber and surgeon fremanezumab-vfrm 225 mg/1.5 mL subcutaneous syringe (Ajovy Syringe) See Rx Instructions .Route .COMPLEX STOP taking 2 weeks before surgery (or as soon as possible if surgery is within 2 weeks) rrezgqozdux-lon-omnomnfrq-hrb 149-hyalur 500 mg-500 mg-66.7 mg tablet 1 tab PO HS STOP taking 24 hours before surgery betamethasone dipropionate 0.05 % lotion 1 applic topical DAILY PRN DO NOT take the morning of surgery insulin lispro 100 unit/mL subcutaneous solution (Humalog U-100 Insulin) 50 unit (0.5 mL) subcut .COMPLEX magnesium 250 mg tablet 250 mg PO UD cyanocobalamin (vitamin B-12) 2,500 mcg tablet 2,500 mcg PO Q2D Take morning of surgery With a small sip of water, OTHERWISE NOTHING TO EAT OR DRINK AFTER MIDNIGHT: albuterol sulfate 90 mcg/actuation aerosol inhaler 2 inh inhalation Q8H PRN(use if needed; please bring with you to hospital day of surgery if possible) duloxetine 30 mg capsule,delayed release 30 mg PO QAM levothyroxine 125 mcg tablet 125 mcg PO QAM pregabalin 75 mg capsule 75 mg PO BID Take evening before surgery cholecalciferol (vitamin D3) 125 mcg (5,000 unit) tablet 5,000 units PO QPM pregabalin 75 mg capsule 75 mg PO BID calcium carbonate 500 mg calcium (1,250 mg) tablet 1,000 mg PO HS simvastatin 40 mg tablet 40 mg PO PM albuterol sulfate 90 mcg/actuation aerosol inhaler 2 inh inhalation Q8H PRN(if needed) Other Notes If you have any questions please call us at [phone] or [phone] or [phone] or [phone]
--- NOTE | 2023-10-10 09:09 | Anesthesiology Consultation ---
Date of Service October 10, 2023 Assessment & Plan (1) Encounter for pre-operative examination: - Check BSG AM DOS - Infectious disease screening: Per assessment on 10/10/23: No known infectious disease contacts or current infectious disease symptoms. No noted recent Covid positive test result. - Pending: * Awaiting surgeon-ordered PCP [facility]op evaluation [facility] * Awaiting upcoming neurology visit ([facility] [place] [facility], [place]). Chart Review Chart Review: Patient seen in Pre Admission Testing Teaching & Discussion Pre-Anesthesia Teaching/Discussion Notes: Instructed NPO after midnight before surgery,except medications with 15 cc of water. Medication instructions provided according to the PAT guidelines. History Surgery Operation Date: 10/25/23 07:45 Proposed Procedures p L2-L5 Decompression and Fusion with Spinal Cord Monitoring - Delta Pratt, Height/Weight Height: 5 ft 3 in Weight: 85.7 kg Allergies Allergy/AdvReac Type Severity Reaction Status Date / Time aspirin Allergy Severe Diffuse Verified 10/07/23 11:28 bruising Penicillins Allergy Severe Anaphylaxis Verified 10/07/23 11:28 lamotrigine Allergy Mild Rash Verified 10/06/23 09:34 oxybutynin Allergy Mild Rash Verified 10/06/23 09:34 fentanyl AdvReac Severe Hallucinations Verified 10/07/23 11:28 ("screamed for 6 days") dextromethorphan AdvReac Intermediate Near Verified 10/07/23 11:28 [From Coricidin HBP Cough syncope and Cold] losartan AdvReac Intermediate Dizzy, Verified 10/06/23 09:34 mood change propoxyphene AdvReac Intermediate Hallucinati Verified 10/07/23 11:28 ons meloxicam AdvReac Mild Nausea Verified 10/06/23 09:34 Medications Home Medications Medication Instructions Recorded Confirmed Last Taken cholecalciferol (vitamin D3) 125 5,000 units PO QPM 05/07/19 10/06/23 01/09/23 mcg (5,000 unit) tablet khjzruqdteu-mpn-ppirvxwws-hrb 1 tab PO HS 05/07/19 10/06/23 01/09/23 149-hyalur 500 mg-500 mg-66.7 mg tablet rizatriptan 10 mg disintegrating 10 mg PO DIRECTED PRN Migraine 09/17/21 10/06/2321 tablet Headache albuterol sulfate 90 mcg/actuation 2 inh inhalation Q8H PRN sob 03/08/22 10/06/23 01/08/23 aerosol inhaler duloxetine 30 mg capsule,delayed 30 mg PO QAM 12/31/22 10/06/23 01/09/23 release insulin lispro 100 unit/mL 50 unit (0.5 mL) subcut .COMPLEX 01/15/23 10/06/23 Unknown subcutaneous solution (Humalog #50 mL U-100 Insulin) Omnipod Dash Pods (Gen 4) (insulin #30 ea 02/09/23 09/29/23 Unknown pump cart,cont inf,BT) betamethasone dipropionate 0.05 % 1 applic topical DAILY PRN skin 04/11/23 10/06/23 Unknown lotion irritation #60 mL magnesium 250 mg tablet 250 mg PO UD 04/11/23 10/06/23 Unknown phenytoin sodium extended 100 mg See Rx Instructions .Route 06/20/23 10/06/23 Unknown capsule .COMPLEX #180 caps fremanezumab-vfrm 225 mg/1.5 mL See Rx Instructions .Route 07/19/23 10/06/23 Unknown subcutaneous syringe (Ajovy .COMPLEX #1.5 mL Syringe) phenytoin sodium extended 30 mg See Rx Instructions .Route 07/28/23 10/06/23 Unknown capsule (Dilantin) .COMPLEX #270 caps levothyroxine 125 mcg tablet 125 mcg PO QAM #90 tabs 08/09/23 10/06/23 Unknown hydroxyzine HCl 25 mg tablet See Rx Instructions .Route 09/12/23 10/06/23 Unknown .COMPLEX #90 tabs pregabalin 75 mg capsule 75 mg PO BID #180 caps 09/23/23 10/06/23 Unknown calcium carbonate 500 mg calcium 1,000 mg PO HS 10/06/23 10/06/23 Unknown (1,250 mg) tablet cyanocobalamin (vitamin B-12) 2,500 mcg PO Q2D 10/06/23 10/06/23 Unknown 2,500 mcg tablet simvastatin 40 mg tablet 40 mg PO PM 10/06/23 10/06/23 Unknown Past Medical History Medical History Anxiety and depression Bilateral pulmonary embolism 2020 Constipation Deep vein thrombosis (DVT) of left lower extremity LLE (2020) Dyslipidemia History of migraine headaches Hoarseness of voice Occasional Hx of intestinal obstruction 2018 Hypothyroidism Insulin pump in place Lumbar radiculopathy Nocturnal hypoxia no oxygen Osteoarthritis Osteoporosis Seizure disorder 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 Ana Julio, reason for Dilantin Spinal stenosis of lumbar region Spondylolisthesis at L4-L5 level Tremor of both hands Type 1 diabetes mellitus with hypoglycemia, with long-term current use of insulin Urge and stress incontinence Exercise / Class Metabolic Activity II 4-5 Yardwork/Stairs/Walk up hill (one FS (no CP, no SOB)) Past Family History Family History Mother Cervical cancer Grandmother Uterine cancer Father Acute myocardial infarction Myocardial infarction Stroke syndrome Other No family history of adverse response to anesthesia Denies family history of Ovarian cancer Prostate cancer Breast cancer Colorectal cancer Past Surgical History Surgical History H/O dilation and curettage History of bilateral cataract extraction History of bladder surgery bladder stimulator > removed 08/2023 History of carpal tunnel surgery of left wrist History of carpal tunnel surgery of right wrist History of colonoscopy History of esophagogastroduodenoscopy (EGD) EGD (01/10/23): MAC at [facility] History of left breast biopsy benign History of open reduction and internal fixation (ORIF) procedure right ankle History of removal of retained hardware History of wisdom tooth extraction Nausea and vomiting after administration of anesthetic agent Status post trigger finger release x10 (left hand "all fingers"/several right hand fingers) Past Anesthesia History No Hx of Anesthesia Complications and No Family Hx of Anesthesia Complications History of PONV No Hx of Motion Sickness and History of PONV (Post-op dry heaves (1988), no issues with subsequent anesthesia/surgeries) Social History Smoking Status: Former smoker Do You Dip or Chew Tobacco: No Smoking End Date: Quit 1991 Hx Alcohol Use: Yes Alcohol type: wine alcohol intake frequency: holidays/special occasions only substance use type: does not use Review of Systems Patient denies chest pain, shortness of breath, dyspnea on exertion, fever, chills, cough, wheezing, palpitations. Physical Exam Vital Signs VITALS BP 147/75 P 77 TEMP SP02 95%RA RESP 18 PHYSICAL Full cervical extension range of motion. Full TMJ range of motion. TMD 3 finger breaths Mallampati Score 3 Dentition: intact Lungs: clear throughout to auscultation Cardiac: regular rate and rhythm, no murmurs noted Spine: normal Carotid arteries: negative bruit Extremities: no LE edema Lab Results Anesthesia Preop Results Results Anesthesia Widget: WBC 3.97 K/ul (4.8-10.8) L 10/10/23 Hgb 13.3 g/dl (12.0-16.0) 10/10/23 Hct 40.7 % (37.0-47.0) 10/10/23 Plt 224 K/uL (130-400) 10/10/23 Na 140 mmol/L (136-145) 10/10/23 K 4.3 mmol/L (3.5-5.1) 10/10/23 Cl 105 mmol/L (98-107) 10/10/23 CO2 30 mmol/L (21-32) 10/10/23 BUN 19 mg/dl (6-23) 10/10/23 Creat 0.86 mg/dl (0.6-1.2) 10/10/23 Glucose Level 136 mg/dl (70-99(Fasting)) H 10/10/23 PT 12.8 Seconds (9.0-12.0) H 10/10/23 PTT 26 Seconds (21-31) 10/10/23 INR 1.2 (0.9-1.1) H 10/10/23 HA1c 7.9 % (4.5-5.6) H 10/10/23 Urine Color Yellow 10/10/23 Urine Appearance Clear (Clear) 10/10/23 Urine pH 5.5 (4.5-7.5) 10/10/23 Urine Specific [place] 1.019 (1.000-1.030) 10/10/23 Urine Protein Negative (Negative) 10/10/23 Urine Glucose (UA) Negative (Negative) 10/10/23 Urine Ketones Negative (Negative) 10/10/23 Urine Blood 1+ (Negative) H 10/10/23 Urine Nitrite Negative (Negative) 10/10/23 Urine Bilirubin Negative (Negative) 10/10/23 Urine Urobilinogen Negative (Negative) 10/10/23 Urine Leukocyte Esterase 1+ (Negative) H 10/10/23 Urine WBC (Auto) 5-10 /hpf (0-5) H 10/10/23 Urine RBC (Auto) 5-10 /hpf (0-4) H 10/10/23 Urine Hyaline Casts (Auto) 1-5 /lpf (0-5) 10/10/23 Urine Epithelial Cells (Auto) >30 /lpf (0-5) H 10/10/23 Urine Bacteria (Auto) Negative (Negative) 10/10/23 Blood Type A Negative 10/10/23 Antibody Screen NEGATIVE 10/10/23 Testing Laboratory Results *Surgeon's office made aware of low WBC/elevated A1C* Electrocardiogram Date: 10/10/23 NSR at 68bpm. iRBBB. No significant change compared to 09/20/2021 per nurse transplant comparison. Chest X-Ray Date: 10/10/23 FINDINGS: No lines and tubes are seen. Calcified aortic knob is seen. The lungs are clear. No evidence of pleural effusion or pneumothorax. IMPRESSION: No acute chest disease. Echocardiogram Date: 09/25/21 EF greater than 70%. No regional wall motion abnormality. Mild concentric LVH. Normal RV size and systolic function. Mild MR.
[~2023-10-24 06:19] MED LIST changes: -BUDESUS NAE; -CALCTAB5 PO; -CHOLDRO4 PO; +CeleBREX 200 MG CAP PO SCH; -DLN100 PO; -FLUO40CA8 PO; +GABAPENTIN 300 MG CAP PO SCH; -GLUCTAB4; -INSULIN ASPART; -LEVO125T72 PO; +LR 15ML/HR IV SCH; +LR 60ML/HR IV SCH; -MAGN1CAP2 PO; -MELO15TA10 PO; -MULTTAB45 PO; -PHEN-310 PO; -RIZA1TAB7 PO; -SIMV20TA2 PO; -SULF800T23 PO; -TOPI50TA16 PO; +VANCOMYCIN HCL 1,250 MG in SODIUM CHLORIDE 0.9% 250 ML IV SCH; -ZOLP10TA PO; -[UNRECOGNIZED DRUG - OTHER]
[2023-10-24] MEDS ORDERED: BUPIVACAINE/EPINEPHRINE 0.5% MPF 1:200,000 30 ML VIAL ONE (07:02)
[2023-10-24] MEDS ORDERED: ceFAZolin 330 MG/ML 1 GM VIAL ONE (07:03)
[2023-10-24] MEDS ORDERED: ROCURONIUM BROMIDE 10 MG/ML 5 ML VIAL IV ONE ×2 (07:09→08:57)
[2023-10-24] MEDS ORDERED: LIDOCAINE 2% 2 ML VIAL/AMP(20MG/ML) INFIL ONE (07:09)
[2023-10-24] MEDS ORDERED: PROPOFOL IV EMULSION 10 MG/ML 20 ML VIAL IV ONE ×3 (07:09→09:34)
[2023-10-24] MEDS ORDERED: fentaNYL citrate PF 100 MCG/2 ML VIAL ONE (07:09)
[2023-10-24] MEDS ORDERED: MIDAZOLAM HCL 1 MG/ML 2ML VIAL ONE (07:09)
[2023-10-24] MEDS ORDERED: PROMETHAZINE HCL 12.5 MG in SODIUM CHLORIDE 0.9% 50 ML IV PRN ×2 (07:16→12:09)
[2023-10-24] MEDS ORDERED: ePHEDrine sulfate 50 MG/ML AMP IV PRN (07:16)
[2023-10-24] MEDS ORDERED: HYDROmorphone INJ 2 MG/ML SYR/VIAL IV PRN (07:16)
[2023-10-24] MEDS ORDERED: ATROPINE SULFATE 0.1 MG/ML 10ML SYR IV PRN (07:16)
[2023-10-24] MEDS ORDERED: ONDANSETRON INJ 2 MG/ML 2 ML VIAL IV PRN ×2 (07:16→12:09)
--- NOTE | 2023-10-24 07:39 | History & Physical Bridge Note ---
Date of Service October 24, 2023 History & Physical Bridge Note I have examined the patient, reviewed the History & Physical and in the interval since the performance of the History & Physical I have noted the following changes of clinical significance: no changes noted
--- NOTE | 2023-10-24 07:40 | History & Physical Report ---
Date of Service October 24, 2023 Assessment & Plan (1) Spinal stenosis of lumbar region: Plan: L2-L5 decompression and fusion History of Present Illness Chief Complaint: Back and bilateral leg pain Primary Care Provider: Art Montenegro MD This is a 73-year-old female who presents with chronic persistent back and leg pain after failing course of nonoperative care is here for surgical invention. Allergies Allergy/AdvReac Type Severity Reaction Status Date / Time aspirin Allergy Severe Diffuse Verified 10/24/23 06:52 bruising Penicillins Allergy Severe Anaphylaxis Verified 10/24/23 06:52 lamotrigine Allergy Mild Rash Verified 10/24/23 06:52 oxybutynin Allergy Mild Rash Verified 10/24/23 06:52 fentanyl AdvReac Severe Hallucinations Verified 10/24/23 06:52 ("screamed for 6 days") dextromethorphan AdvReac Intermediate Near Verified 10/24/23 06:52 [From Coricidin HBP Cough syncope and Cold] losartan AdvReac Intermediate Dizzy, Verified 10/24/23 06:52 mood change propoxyphene AdvReac Intermediate Hallucinati Verified 10/24/23 06:52 ons meloxicam AdvReac Mild Nausea Verified 10/24/23 06:52 ajovy Allergy Intermediate Rash Uncoded 10/24/23 06:52 Home Medications Medication Instructions Recorded Confirmed Type cholecalciferol (vitamin D3) 125 5,000 units PO QPM 05/07/19 10/24/23 History mcg (5,000 unit) tablet duoeqrwgxzj-sxl-mmzmteusm-hrb 1 tab PO HS 05/07/19 10/24/23 History 149-hyalur 500 mg-500 mg-66.7 mg tablet rizatriptan 10 mg disintegrating 10 mg PO DIRECTED PRN Migraine 09/17/21 10/24/23 History tablet (Maxalt-ANIMAL BEHAVIORIST) Headache albuterol sulfate 90 mcg/actuation 2 inh inhalation Q8H PRN sob 03/08/22 10/24/23 History aerosol inhaler (ProAir HFA) duloxetine 30 mg capsule,delayed 30 mg PO QAM 12/31/22 10/24/23 History release (Cymbalta) insulin lispro 100 unit/mL 50 unit (0.5 mL) subcut .COMPLEX 01/15/23 10/24/23 Rx subcutaneous solution (Humalog #50 mL U-100 Insulin) Omnipod Dash Pods (Gen 4) (insulin #30 ea 02/09/23 10/13/23 Rx pump cart,cont inf,BT) betamethasone dipropionate 0.05 % 1 applic topical DAILY PRN skin 04/11/23 10/24/23 Rx lotion irritation #60 mL magnesium 250 mg tablet 250 mg PO UD 04/11/23 10/24/23 History phenytoin sodium extended 100 mg See Rx Instructions .Route 06/20/23 10/24/23 Rx capsule .COMPLEX #180 caps phenytoin sodium extended 30 mg See Rx Instructions .Route 07/28/23 10/24/23 Rx capsule (Dilantin) .COMPLEX #270 caps levothyroxine 125 mcg tablet 125 mcg PO QAM #90 tabs 08/09/23 10/24/23 Rx hydroxyzine HCl 25 mg tablet See Rx Instructions .Route 09/12/23 10/24/23 Rx .COMPLEX #90 tabs calcium carbonate 500 mg calcium 1,000 mg PO HS 10/06/23 10/24/23 History (1,250 mg) tablet cyanocobalamin (vitamin B-12) 2,500 mcg PO Q2D 10/06/23 10/24/23 History 2,500 mcg tablet atogepant 60 mg tablet (Qulipta) 60 mg PO DAILY #90 tabs 10/13/23 10/24/23 Rx simvastatin 40 mg tablet 40 mg PO PM #90 tabs 10/14/23 10/24/23 Rx pregabalin 75 mg capsule (Lyrica) 75 mg PO BID 10/24/23 10/24/23 History Past Med/Surg History Medical History Hx of intestinal obstruction Anxiety and depression Hoarseness of voice Spinal stenosis of lumbar region Lumbar radiculopathy Spondylolisthesis at L4-L5 level Bilateral pulmonary embolism Deep vein thrombosis (DVT) of left lower extremity Osteoarthritis Insulin pump in place Tremor of both hands Nocturnal hypoxia Constipation Dyslipidemia Hypothyroidism Osteoporosis Seizure disorder Type 1 diabetes mellitus with hypoglycemia, with long-term current use of insulin Urge and stress incontinence History of migraine headaches Surgical History History of esophagogastroduodenoscopy (EGD) History of carpal tunnel surgery of right wrist History of removal of retained hardware Nausea and vomiting after administration of anesthetic agent History of left breast biopsy History of open reduction and internal fixation (ORIF) procedure History of carpal tunnel surgery of left wrist Status post trigger finger release History of bladder surgery History of colonoscopy History of wisdom tooth extraction History of bilateral cataract extraction H/O dilation and curettage Family History Mother Cervical cancer Grandmother Uterine cancer Father Acute myocardial infarction Myocardial infarction Stroke syndrome Other No family history of adverse response to anesthesia Denies family history of Ovarian cancer Prostate cancer Breast cancer Colorectal cancer Social History Smoking Status: Former smoker Tobacco Type: Cigarettes Age Started Using Tobacco: 17; Age Quit Using Tobacco: 26; Smoking End Date: Quit 1991; Second Hand Exposure: Yes (parents smoked. smoked first 10 years of marriage); Do You Dip or Chew Tobacco: No; Hx Alcohol Use: Yes Alcohol type: wine Preferred Language: Kinyarwanda Communication Ability: Effective Visual Impairment: No Limitations Hearing Ability: Normal Staff Anesthetist Required: No Beliefs That Will Affect Care: None marital status: Current Living Situation: Spouse Feels Safe at Home: Yes Safety Concerns: Feels Safe At This Time Seatbelt Use: always Assistive Devices: Cane and Glasses Assistive Devices Comment: reading glasses Physical Exam Physical Exam: Patient is alert and oriented Heart regular rhythm Lungs clear Results & Data Results & Data Vital Signs (Past 12 Hours) Vital Signs Temp Pulse Resp BP Pulse Ox O2 Del Method 10/24/23 07:02 36.7 C 72 20 178/72 H 94 Room Air
[2023-10-24] MEDS ORDERED: ePHEDrine sulfate 50 MG/ML AMP ONE (08:34)
[2023-10-24] MEDS ORDERED: DEXAMETHASONE SOD INJ 4 MG/ML VIAL ONE (08:34)
[2023-10-24] MEDS ORDERED: ONDANSETRON INJ 2 MG/ML 2 ML VIAL ONE (08:34)
[2023-10-24] MEDS ORDERED: HYDROmorphone INJ 2 MG/ML SYR/VIAL ONE (08:35)
[2023-10-24] MEDS ORDERED: FLOSEAL HEMOSTATIC MATRIX 10ML TOP ONE (08:46)
[2023-10-24] MEDS ORDERED: PHENYLEPHRINE 100MCG/ML 10ML SYR IV ONE (09:58)
[2023-10-24] MEDS ORDERED: SUGAMMADEX SODIUM 200 MG/2 ML VIAL IV ONE ×2 (10:14→10:33)
--- NOTE | 2023-10-24 10:23 | Operative Report ---
Post Operative Report Pre & Post Diagnosis Operation Date: 10/24/23 07:45 Pre-Op Diagnosis: Lumbar spinal stenosis with neurogenic claudication Lumbar spondylolisthesis Post-Op Diagnosis: Same I identified the patient and participated in the time-out.: Yes Procedure Operation Date: 10/24/23 07:45 Actual Procedures #1 lumbar decompression bilateral medial facetectomies and foraminotomies L2-L3, L3-L4 and L4-L5. #2 posterior spinal fusion L2-L5. #3 placement posterior segmental instrumentation L2-L5. #4 interbody fusion L5-S1. #5 the 9 x 26 mm c age x 2 at L5-S1. #6 placement locally harvested morselized autograft in the posterior lateral gutters. #7 placement of infuse collagen sponge combined with Koros bone graft in the posterior gutters and Morpheus bone graft interbody space. Surgeon Delta Pratt, DO Vacation Guide Kaitlynn Chaudhari Estimated Blood Loss 800 Findings See Below The patient is 5 foot 3 weighing over 86 kg with a BMI in excess of 33. The patient's body habitus did contribute to significant technical difficulty requiring her deeper retractors longer instruments in order to perform her procedure. This at least 50% increased operative time. Specimens None Indications This is a 73-year-old female who presents above was diagnosed after failing extensive course of nonoperative care is a here for surgical intervention. Description of Procedure Patient met with identified informed consent obtained. Patient was then taken to the operative suite underwent patient placed in a prone position the Nabor abdominals and frame. All bony promises well-padded eyes inspected to ensure no external precipice upon them. This point the lumbar spine was prepped and draped in a sterile fashion. Sharp dissection with the assistance of Bovie cautery form down to and exposing the lamina and transverse processes of L2-L3 L4-5 bilaterally. From caudal to cephalad fashion complete laminectomy of L4 L3 and L2 was performed including bilateral medial facetectomies and foraminotomies addressing severe spinal stenosis. Pedicle screws were then placed at L2-L3 L4- 5 bilaterally with assistance of fluoroscopy in the process bo contoured and placed. By way of transforaminal approach on the right at discectomy of L4-L5 was performed endplates guarded to subcortical bleeding bone and a 9 x 26 mm spiral cage with Morpheus tapped in position. Then proceeded to the left transforaminal region at L4-5 completed the discectomy curetted the endplates to subcortical bleeding bone and placed a second 9 x 26 mm Spira cage with I factor into position. The rods were then locked in final position bilaterally. The transverse processes of L2-L3 L4-5 burred to subcortical bone. Infuse collagen sponge, with Koros and local autograft placed in the posterior lateral gutters. 15 round BREANN inserted. The incision was then closed with 1 Vicryl to fascia 2-0 Vicryl subcutaneously and 4 Monocryl for final skin closure. Steri-Strips sterile dressing placed. Patient waken taken to PACU stable condition. Please note spinal cord monitoring was utilized at the procedure no changes noted. Lastly Kaitlynn Chaudhari was present at the entire surgeon while the patient positioning complex portion of the surgery and fashion closure. I attest to the content of the Intraoperative Record and any orders documented therein. Any exceptions are noted below.
--- NOTE | 2023-10-24 10:38 | Fluoroscopy Report ---
FL lumbar spine 2-3V CLINICAL HISTORY: L2-L5 DECOMRPESSION AND FUSION WITH INTERBODY COMPARISON STUDY: CT lumbar spine 09/14/2022 FLUOROSCOPY TIME: 31.0 seconds FLUOROSCOPY IMAGES: 3 EXPOSURE DOSE: 25.49 mGy FINDINGS: Posterior interbody bo and screw fusion hardware is noted at L2-L5 with L4-L5 discectomy. There is improved alignment at L4-L5 compared to the prior exam. The hardware appears intact. A batte ry pack projects over the left flank. IMPRESSION: Fluoroscopic assistance as above. ACT 112: Negative or not required by law. Electronically signed by: Pacheco Simon M.D. 10/24/2023 10:37 AM
[2023-10-24] MEDS ORDERED: INSULIN HUMAN REGULAR SC STA ×2 (10:48→11:28)
[2023-10-24] MEDS ORDERED: NovoLIN-R INSULIN PER UNIT CHARGE ONE ×2 (10:51→11:30)
--- NOTE | 2023-10-24 11:49 | Anesthesiology Progress Note ---
Date of Service October 24, 2023 Anesthesia Post Procedure Vital Signs Vital Signs: Temp Pulse Pulse Resp BP Pulse Ox O2 Del Method 10/24/23 11:40 36.4 C L 83 15 112/53 L 93 Nasal Cannula 10/24/23 11:30 36.4 C L 86 17 148/53 H 93 Nasal Cannula 10/24/23 11:20 36.4 C L 84 10 L 120/60 92 Oxymask 10/24/23 11:10 87 10 L 119/50 L 100 Oxymask 10/24/23 11:00 79 8 L 135/49 L 99 Oxymask 10/24/23 10:50 78 7 L 131/45 L 99 Oxymask 10/24/23 10:44 36.4 C L 79 10 L 133/49 L 100 Oxymask 10/24/23 07:02 36.7 C 72 20 178/72 H 94 Room Air O2 Flow Rate 10/24/23 11:40 3 10/24/23 11:30 3 10/24/23 11:20 4 10/24/23 11:10 7 10/24/23 11:00 9 10/24/23 10:50 9 10/24/23 10:44 9 10/24/23 07:02 Transfer of Care Handoff Completed per policy Notes Mental Status: alert / awake / arousable and participated in evaluation Patient Amnestic to Procedure: Yes Nausea / Vomiting: adequately controlled Pain: adequately controlled Airway Patency, RR, SpO2: stable & adequate BP & HR: stable & adequate Hydration State: stable & adequate Anesthetic Complications: no major complications apparent
[2023-10-24] MEDS ORDERED: SOD PHOSPHATE/SOD BIPHOSPHATE ENEMA 132 ML BTL PR PRN (12:09)
[2023-10-24] MEDS ORDERED: ACETAMINOPHEN 500 MG TAB PO PRN (12:09)
[2023-10-24] MEDS ORDERED: DO NOT ADMINISTER PNEUMOCOCCAL VACCINE PRN (12:09)
[2023-10-24] MEDS ORDERED: FAMOTIDINE 20 MG TAB PO PRN (12:09)
[2023-10-24] MEDS ORDERED: NON-FORMULARY MEDICATION (Insulin Lispro [Humalog U-100 Insulin] 100 unit/mL solution) SQ SCH (12:09)
[2023-10-24] MEDS ORDERED: ONDANSETRON 4 MG OD TAB PO PRN (12:09)
[2023-10-24] MEDS ORDERED: HYDROmorphone INJ 1 MG/ML SYRINGE IV PRN (12:09)
[2023-10-24] MEDS ORDERED: RIZATRIPTAN BENZOATE MLT 10 MG TAB PO PRN (12:09)
[2023-10-24] MEDS ORDERED: MAGNESIUM HYDROXIDE SUSP 30 ML UDC PO PRN (12:09)
[2023-10-24] MEDS ORDERED: HYDROmorphone INJ 0.5 MG/0.5 ML SYR IV PRN (12:09)
[2023-10-24] MEDS ORDERED: METOCLOPRAMIDE HCL INJ 5 MG/ML 2 ML VIAL IV PRN (12:09)
[2023-10-24] MEDS ORDERED: LORazepam 0.5 MG in SYRINGE 0.25 ML IV PRN (12:09)
[2023-10-24] MEDS ORDERED: diphenhydrAMINE Capsule 25 MG CAP PO PRN (12:09)
[2023-10-24] MEDS ORDERED: bisacodyL 10 MG SUPP PR PRN (12:09)
[2023-10-24] MEDS ORDERED: hydrOXYzine HCl 25 MG TAB PO PRN (12:09)
[2023-10-24] MEDS ORDERED: DO NOT ADMINISTER FLU VACCINE PRN (12:09)
[2023-10-24] MEDS ORDERED: LORazepam 0.5 MG TAB PO PRN (12:09)
[2023-10-24] MEDS ORDERED: NALOXONE HCL 0.4 MG/1 ML VIAL/CARP IV PRN (12:09)
[2023-10-24] MEDS ORDERED: ACETAMINOPHEN 1,000 MG/100 ML VIAL IV PRN (12:09)
[2023-10-24] MEDS ORDERED: ALBUTEROL HFA 8 GM INHALER INH PRN (12:09)
[2023-10-24] MEDS ORDERED: PHARMACY GLYCEMIC MGMT CONSULT PRN (12:09)
[2023-10-24] MEDS ORDERED: ALUMINUM/MAGNESIUM SUSP 30 ML UDC PO PRN (12:09)
--- NOTE | 2023-10-24 12:20 | Hospitalist Consultation ---
Date of Consultation October 24, 2023 Assessment & Plan (1) Status post lumbar spine surgery for decompression of spinal cord: Pain / VTE / Bowel management per primary ortho spine team (2) Postoperative hypotension: LR 1L bolus now, as long as MAP > 65 can go back on maintenance fluids following this. CBC, BMP now. (3) Type 1 diabetes mellitus with hypoglycemia, with long-term current use of insulin: HbA1C 7.9, no need to repeat Patient wishes to manage insulin with her pump while here and she is alert and orientated to do so with glucose levels now coming down Given prior lability of glucose with basal bolus SQ will allow her to control with insulin pump as long as remains reasonably controlled (4) Seizure disorder: Continue her usual phenytoin (5) Osteoporosis: Noted history of this (6) History of pulmonary embolism: Ambulate when able Plan Thanks you for the consult, we will continue to see with AM labs History of Present Illness Reason for Consultation: Medical management Attending Physician: Delta Pratt, History of Present Illness Pippa Kwan is a 73-year-old female POD#0 lumbar decompression and posterior spinal fusion L2-L5 performed by Dr. Pratt earlier today. Estimated blood loss 800 mL. Patient with hypotension post operatively but no associated dizziness or lightheadedness. She does not take any anti-hypertensives. Last seizures was in the 1980s. No history of heart attack or stroke. She feels she is doing well post operatively. Allergies Allergy/AdvReac Type Severity Reaction Status Date / Time aspirin Allergy Severe Diffuse Verified 10/24/23 06:52 bruising Penicillins Allergy Severe Anaphylaxis Verified 10/24/23 06:52 lamotrigine Allergy Mild Rash Verified 10/24/23 06:52 oxybutynin Allergy Mild Rash Verified 10/24/23 06:52 fentanyl AdvReac Severe Hallucinations Verified 10/24/23 06:52 ("screamed for 6 days") dextromethorphan AdvReac Intermediate Near Verified 10/24/23 06:52 [From Coricidin HBP Cough syncope and Cold] losartan AdvReac Intermediate Dizzy, Verified 10/24/23 06:52 mood change propoxyphene AdvReac Intermediate Hallucinati Verified 10/24/23 06:52 ons meloxicam AdvReac Mild Nausea Verified 10/24/23 06:52 ajovy Allergy Intermediate Rash Uncoded 10/24/23 06:52 Home Medications Medication Instructions Recorded Confirmed Type cholecalciferol (vitamin D3) 125 5,000 units PO QPM 05/07/19 10/24/23 History mcg (5,000 unit) tablet aikxbadqfxm-nvi-zxpzymeue-hrb 1 tab PO HS 05/07/19 10/24/23 History 149-hyalur 500 mg-500 mg-66.7 mg tablet rizatriptan 10 mg disintegrating 10 mg PO DIRECTED PRN Migraine 09/17/21 10/24/23 History tablet (Maxalt-[employer]) Headache albuterol sulfate 90 mcg/actuation 2 inh inhalation Q8H PRN sob 03/08/22 10/24/23 History aerosol inhaler (ProAir HFA) duloxetine 30 mg capsule,delayed 30 mg PO QAM 12/31/22 10/24/23 History release (Cymbalta) insulin lispro 100 unit/mL 50 unit (0.5 mL) subcut .COMPLEX 01/15/23 10/24/23 Rx subcutaneous solution (Humalog #50 mL U-100 Insulin) Omnipod Dash Pods (Gen 4) (insulin #30 ea 02/09/23 10/13/23 Rx pump cart,cont inf,BT) betamethasone dipropionate 0.05 % 1 applic topical DAILY PRN skin 04/11/23 10/24/23 Rx lotion irritation #60 mL magnesium 250 mg tablet 250 mg PO UD 04/11/23 10/24/23 History phenytoin sodium extended 100 mg See Rx Instructions .Route 06/20/23 10/24/23 Rx capsule .COMPLEX #180 caps phenytoin sodium extended 30 mg See Rx Instructions .Route 07/28/23 10/24/23 Rx capsule (Dilantin) .COMPLEX #270 caps levothyroxine 125 mcg tablet 125 mcg PO QAM #90 tabs 08/09/23 10/24/23 Rx hydroxyzine HCl 25 mg tablet See Rx Instructions .Route 09/12/23 10/24/23 Rx .COMPLEX #90 tabs calcium carbonate 500 mg calcium 1,000 mg PO HS 10/06/23 10/24/23 History (1,250 mg) tablet cyanocobalamin (vitamin B-12) 2,500 mcg PO Q2D 10/06/23 10/24/23 History 2,500 mcg tablet atogepant 60 mg tablet (Qulipta) 60 mg PO DAILY #90 tabs 10/13/23 10/24/23 Rx simvastatin 40 mg tablet 40 mg PO PM #90 tabs 10/14/23 10/24/23 Rx pregabalin 75 mg capsule (Lyrica) 75 mg PO BID 10/24/23 10/24/23 History Patient History Medical History Hx of intestinal obstruction Anxiety and depression Hoarseness of voice Spinal stenosis of lumbar region Lumbar radiculopathy Spondylolisthesis at L4-L5 level Bilateral pulmonary embolism Deep vein thrombosis (DVT) of left lower extremity Osteoarthritis Insulin pump in place Tremor of both hands Nocturnal hypoxia Constipation Dyslipidemia Hypothyroidism Osteoporosis Seizure disorder Type 1 diabetes mellitus with hypoglycemia, with long-term current use of insulin Urge and stress incontinence History of migraine headaches Surgical History History of esophagogastroduodenoscopy (EGD) History of carpal tunnel surgery of right wrist History of removal of retained hardware Nausea and vomiting after administration of anesthetic agent History of left breast biopsy History of open reduction and internal fixation (ORIF) procedure History of carpal tunnel surgery of left wrist Status post trigger finger release History of bladder surgery History of colonoscopy History of wisdom tooth extraction History of bilateral cataract extraction H/O dilation and curettage Family History Mother Cervical cancer Grandmother Uterine cancer Father Acute myocardial infarction Myocardial infarction Stroke syndrome Other No family history of adverse response to anesthesia Denies family history of Ovarian cancer Prostate cancer Breast cancer Colorectal cancer Social History Smoking Status: Former smoker Tobacco Type: Cigarettes Age Started Using Tobacco: 17; Age Quit Using Tobacco: 26; Smoking End Date: Quit 1991; Second Hand Exposure: Yes (parents smoked. smoked first 10 years of marriage); Do You Dip or Chew Tobacco: No; Hx Alcohol Use: Yes Alcohol type: wine Preferred Language: [place]ar[place] Communication Ability: Effective Visual Impairment: No Limitations Hearing Ability: Normal Behavioral Pediatrician Required: No Beliefs That Will Affect Care: None marital status: Current Living Situation: Spouse Feels Safe at Home: Yes Safety Concerns: Feels Safe At This Time Seatbelt Use: always Assistive Devices: Cane and Glasses Assistive Devices Comment: reading glasses Review of Systems Review of Systems: All systems reviewed & are unremarkable except as noted in HPI & below Physical Exam Constitutional: WD/WN, vitals as above Eyes: PERRL, conjunctivae normal, anicteric sclerae Respiratory: normal respiratory effort, lungs clear to auscultation Cardiovascular: RRR, no murmur, no edema Gastrointestinal (Abdomen): normal bowel sounds, soft, nontender, no hep atosplenomegaly Skin: no rashes, warm and dry Neurologic: moves all extremities and awake; not confused Psychiatric: A+Ox3, euthymic affect Results & Data Results & Data Vital Signs (Past 12 Hours) Vital Signs Temp Pulse Pulse Resp BP Pulse Ox O2 Del Method 10/24/23 11:50 36.4 C L 82 16 135/55 L 95 Nasal Cannula 10/24/23 11:40 36.4 C L 83 15 112/53 L 93 Nasal Cannula 10/24/23 11:30 36.4 C L 86 17 148/53 H 93 Nasal Cannula 10/24/23 11:20 36.4 C L 84 10 L 120/60 92 Oxymask 10/24/23 11:10 87 10 L 119/50 L 100 Oxymask 10/24/23 11:00 79 8 L 135/49 L 99 Oxymask 10/24/23 10:50 78 7 L 131/45 L 99 Oxymask 10/24/23 10:44 36.4 C L 79 10 L 133/49 L 100 Oxymask 10/24/23 07:02 36.7 C 72 20 178/72 H 94 Room Air O2 Flow Rate 10/24/23 11:50 3 10/24/23 11:40 3 10/24/23 11:30 3 10/24/23 11:20 4 10/24/23 11:10 7 10/24/23 11:00 9 10/24/23 10:50 9 10/24/23 10:44 9 10/24/23 07:02 PG Care Time/CCT Total # of Minutes Spent Total Time Spent with Patient: Total time spent is greater than 50% in coordination of care (as documented) at patient's floor/unit and/or counseling patient: Coding Level of Care Code 20681 IN/OBS CONSULT LVL 4,60M Diagnoses Status post lumbar spine surgery for decompression of spinal cord Z98.890 Postoperative hypotension I95.81 Type 1 diabetes mellitus with hypoglycemia, with long-term current use of insulin E10.649 Seizure disorder G40.909 Osteoporosis M81.0 History of pulmonary embolism Z86.711
[2023-10-24] MEDS ORDERED: MAGNESIUM OXIDE 400 MG TAB PO SCH (12:30)
[2023-10-24] MEDS: LACTATED RINGER'S 1,000 ML IV SCH ×2 (13:07→23:09)
[2023-10-24] MEDS ORDERED: DEXTROSE 50% 50 ML SYRINGE IV PRN (13:15)
[2023-10-24] MEDS ORDERED: GLUCOSE 40% GEL 15 GM TUBE PO PRN (13:15)
[2023-10-24] MEDS ORDERED: CARBOHYDRATES FOR HYPOGLYCEMIA PO PRN (13:15)
[2023-10-24] MEDS ORDERED: GLUCAGON FOR INJ 1 MG VIAL IM PRN (13:15)
[2023-10-24] MEDS ORDERED: INSULIN ASPART 100 UNITS/ML VIAL SC PRN (13:15)
[2023-10-24] MEDS ORDERED: GLUCOSE 10 TAB/TUBE PO PRN (13:15)
[2023-10-24] MEDS: INSULIN, Rapid-Acting PUMP SCH ×3 (13:26→21:38)
[2023-10-24] MEDS ORDERED: LACTATED RINGER'S 1,000 ML IV ONE (15:48)
[2023-10-24] MEDS: MAGNESIUM OXIDE 400 MG TAB PO SCH (15:57)
[2023-10-24] MEDS: CYANOCOBALAMIN (B-12) 2,500 MCG TABLET PO SCH (15:57)
[2023-10-24] MEDS: hydrOXYzine HCl 25 MG TAB PO SCH ×2 (15:58→21:33)
[2023-10-24] MEDS: oxyCODONE HCL IR 5 MG TAB (IMMEDIATE RELEASE) PO PRN ×2 (16:17→21:25)
[2023-10-24 16:30] LABS: Basophils # (auto) 0.03 K/uL (0.00-0.20); Basophils % (auto) 0.3 %; Hematocrit (blood only) 30.8 % (37.0-47.0); Hemoglobin 9.9 g/dl (12.0-16.0); Immature Granulocytes # (auto) 0.03 K/uL (0.01-0.20); Immature Granulocytes % (auto) 0.3 %; Lymphocytes # (auto) 0.58 K/uL (1.20-3.40); Mean Corpuscular Hemoglobin 28.2 pg (25.0-34.0); Mean Corpuscular Hgb Conc 32.1 g/dL (32.0-36.0); Mean Corpuscular Volume 87.7 fL (80.0-100.0); Mean Platelet Volume 9.6 fL (9.4-12.4); Monocytes # (auto) 0.63 K/uL (0.11-0.59); Monocytes % (auto) 6.5 %; Neutrophils # (auto) 8.37 K/uL (1.40-6.50); Neutrophils % (auto) 86.9 %; Platelet Count 186 K/uL (130-400); RDW Coefficient of Variation 13.6 % (11.5-14.5); RDW Standard Deviation 43.9 fL (36.4-46.3); Red Blood Count 3.51 M/uL (4.20-5.40); White Blood Count 9.64 K/ul (4.8-10.8)
[2023-10-24] MEDS: CLINDAMYCIN/D5W 600 MG/50 ML BAG IV SCH (16:47)
[2023-10-24 17:01] LABS: BUN Creatinine Ratio 24.8 (10-20); Calcium 8.9 mg/dl (8.6-10.3); Creatinine Clr Calc Pharmacy 48.9 ml/min; Est GFR (African American) 60.6 ml/min; Est GFR (Non-African American) 52.3 ml/min; Magnesium 1.7 mg/dl (1.7-2.4); Potassium 4.6 mmol/L (3.5-5.1)
[2023-10-24 17:05] LABS: INR 1.2 (0.9-1.1); Partial Thromboplastin Ratio 0.9; Partial Thromboplastin Time 24 Seconds (21-31); Prothrombin Time 13.5 Seconds (9.0-12.0)
[2023-10-24] MEDS: CALCIUM CARBONATE 500 MG CHEWABLE TAB PO SCH (21:29)
[2023-10-24] MEDS: PHENYTOIN SODIUM ER 30 MG CAP PO SCH (21:30)
[2023-10-24] MEDS: SIMVASTATIN 40 MG TAB PO SCH (21:30)
[2023-10-24] MEDS: DOCUSATE SODIUM/SENNA 50/8.6MG TAB PO SCH (21:30)
[2023-10-24] MEDS: CHOLECALCIFEROL 125 MCG (5,000 UNITS) TAB PO SCH (21:30)
[2023-10-24] MEDS: PHENYTOIN SODIUM ER 100 MG CAP PO SCH (21:32)
[2023-10-24] MEDS: PREGABALIN 75 MG CAP PO SCH (21:38)
[2023-10-25] MEDS: CLINDAMYCIN/D5W 600 MG/50 ML BAG IV SCH (01:18)
[2023-10-25] MEDS: oxyCODONE HCL IR 5 MG TAB (IMMEDIATE RELEASE) PO PRN ×2 (01:19→05:16)
[2023-10-25] MEDS: POLYETHYLENE (MIRALAX) 17 GM PACK PO SCH ×3 (05:17→18:28)
[2023-10-25] MEDS: LEVOTHYROXINE SODIUM 125 MCG TABLET PO SCH (05:17)
[2023-10-25] MEDS ORDERED: PHARMACY GLYCEMIC MGMT CONSULT PRN (06:55)
[2023-10-25] MEDS ORDERED: [UNRECOGNIZED DRUG - REMARK] ONE (07:30)
[2023-10-25] MEDS ORDERED: INSULIN HUMAN REGULAR IV BOLUS 3 UNITS in SYRINGE 0 ML IV ONE (07:30)
[2023-10-25 08:38] LABS: Basophils # (auto) 0.03 K/uL (0.00-0.20); Basophils % (auto) 0.3 %; Hematocrit (blood only) 28.6 % (37.0-47.0); Hemoglobin 8.9 g/dl (12.0-16.0); Immature Granulocytes # (auto) 0.05 K/uL (0.01-0.20); Immature Granulocytes % (auto) 0.4 %; Lymphocytes # (auto) 0.67 K/uL (1.20-3.40); Lymphocytes % (auto) 5.9 %; Mean Corpuscular Hemoglobin 28.4 pg (25.0-34.0); Mean Corpuscular Hgb Conc 31.1 g/dL (32.0-36.0); Mean Corpuscular Volume 91.4 fL (80.0-100.0); Mean Platelet Volume 10.2 fL (9.4-12.4); Monocytes # (auto) 1.27 K/uL (0.11-0.59); Monocytes % (auto) 11.2 %; Neutrophils # (auto) 9.36 K/uL (1.40-6.50); Neutrophils % (auto) 82.2 %; Platelet Count 140 K/uL (130-400); RDW Coefficient of Variation 13.7 % (11.5-14.5); RDW Standard Deviation 46.2 fL (36.4-46.3); Red Blood Count 3.13 M/uL (4.20-5.40); White Blood Count 11.38 K/ul (4.8-10.8)
[2023-10-25] MEDS: INSULIN REGULAR 250 UNITS in SODIUM CHLORIDE 0.9% 247.5 ML IV SCH (08:53)
[2023-10-25 08:55] LABS: BUN Creatinine Ratio 29.2 (10-20); Creatinine Clr Calc Pharmacy 53.5 ml/min; Est GFR (African American) 67.5 ml/min; Est GFR (Non-African American) 58.3 ml/min; Potassium 5.7 mmol/L (3.5-5.1)
[2023-10-25] MEDS: INSULIN ASPART PER UNIT CHARGE SC SCH ×5 (08:56→20:27)
[2023-10-25] MEDS: LACTATED RINGER'S 1,000 ML IV SCH (08:57)
[2023-10-25] MEDS ORDERED: dexAMETHasone 4 MG in SYRINGE 0 ML IV SCH (09:00)
[2023-10-25] MEDS ORDERED: KETOROLAC TROMETHAMINE 15 MG/ML VIAL IV PRN (10:11)
[2023-10-25] MEDS ORDERED: KETOROLAC TROMETHAMINE 15 MG/ML VIAL IV ONE (10:11)
--- NOTE | 2023-10-25 10:13 | Orthopedic Progress Note ---
Date of Service October 25, 2023 Assessment & Plan (1) Status post lumbar spine surgery for decompression of spinal cord: Plan: Patient is struggling with postoperative pain. She may be a candidate for rehab. Will progress physical therapy as she is able to tolerate. Admission and Anticipated Discharge Date Admission Date: October 24, 2023 Subjective Patient is struggling with significant back pain. She denies any leg pain. Physical Exam Physical Exam: On exam she is currently in bed. Has good strength testing. Results & Data Vital Signs (Past 12 Hours) Vital Signs Temp Pulse Resp BP BP Pulse Ox O2 Del Method 10/25/23 08:00 Nasal Cannula 10/25/23 07:49 36.8 C 95 H 18 124/66 97 Nasal Cannula 10/25/23 03:28 36.7 C 87 18 105/58 L 98 Room Air 10/24/23 23:00 36.9 C 87 14 113/66 98 Nasal Cannula O2 Flow Rate 10/25/23 08:00 2 10/25/23 07:49 2 10/25/23 03:28 10/24/23 23:00 2 Queries Orthopedic Spine Acute Posthemorrhagic Anemia: Yes Obesity: Yes
--- NOTE | 2023-10-25 10:38 | Pharmacy Report ---
Pharmacy Glycemic Short Note 2 - Date of Service October 25, 2023 - Glycemic Short BSG Results (Last 24 hours): 10/24/23 10/24/23 10/24/23 10:44 11:25 12:07 Glucose POC Glucose 406 H* 409 H* 421 H* 10/24/23 10/24/23 10/24/23 12:09 16:05 16:47 Glucose 268 H POC Glucose 397 H* 245 H 10/24/23 10/25/23 10/25/23 21:30 06:15 07:11 Glucose POC Glucose 312 H* 430 H* 444 H* 10/25/23 10/25/23 10/25/23 07:27 07:51 10:04 Glucose 489 H* POC Glucose 453 H* 439 H* OUTPATIENT ANTIDIABETIC REGIMEN: * Humalog insulin pump - basal 17 units/day ; CF 50 / CR 12 ASSESSMENT: * 73 year old s/p spinal surgery, POD 1 - pharmacy consulted for glycemic management. Patient is a type 1 diabetic managed on insulin pump. BSGs had been trending down yesterday, so insulin pump was continued postop. * Pharmacy consulted this AM as BSGs spiking back up in 400s this AM. Started an insulin infusion this morning and had nurse d/c insulin pump. Patient did receive steroids yesterday in OR, so likely contributing to higher BSG values. Ongoing steroids ordered this AM, however provider discontinued orders. * Reasonable to continue insulin drip today until BSGs trend down into goal range. At that time, could consider reattaching patient's insulin pump and d/c drip PLAN FOR INPATIENT GLYCEMIC CONTROL: * Continue insulin drip per protocol / goal 110-180.
[2023-10-25] MEDS: DULoxetine HCL 30 MG CAP PO SCH (10:43)
[2023-10-25] MEDS: hydrOXYzine HCl 25 MG TAB PO SCH ×2 (10:43→20:25)
[2023-10-25] MEDS: MAGNESIUM OXIDE 400 MG TAB PO SCH (10:43)
[2023-10-25] MEDS: PHENYTOIN SODIUM ER 30 MG CAP PO SCH ×2 (10:44→20:26)
[2023-10-25] MEDS: PREGABALIN 75 MG CAP PO SCH ×2 (10:44→20:24)
[2023-10-25] MEDS: PHENYTOIN SODIUM ER 100 MG CAP PO SCH ×2 (10:44→20:27)
[2023-10-25] MEDS ORDERED: Nursing to Pharmacy Communication SCH (11:00)
--- NOTE | 2023-10-25 13:22 | Hospitalist Progress Note ---
Date of Service October 25, 2023 Assessment & Plan (1) Status post lumbar spine surgery for decompression of spinal cord: Plan: Pain / VTE / Bowel management per primary ortho spine team -EBL 800 PT/OT (2) Type 1 diabetes mellitus with hypoglycemia, with long-term current use of insulin: Plan: HbA1C 7.9, no need to repeat Patient wishes to manage insulin with her pump while here and she is alert and orientated to do so Patient with significant elevations of blood glucose into the 400s overnight, per nursing patient was unaware she received steroids -Pharmacy glycemic consult: Patient is currently on an insulin drip -Insulin pump discontinued, When blood sugars trend to goal range, could consider reattaching insulin pump (3) Hyperkalemia: Plan: K: 5.7 on a.m. labs., With sodium 131 Patient is currently on insulin drip Will recheck BMP this afternoon (4) Postoperative hypotension: Plan: Received LR 1L bolus, and then continued on maintenance fluids following this. Blood pressure is improved (5) Seizure disorder: Plan: Continue her usual phenytoin (6) Osteoporosis: Plan: Noted history of this (7) History of pulmonary embolism: Plan: Ambulate when able -not on chronic Anticoagulation Plan Dispo: Continued inpatient stay, continue to monitor blood sugars and electrolytes Thank you for allowing us to participate in the care of this patient, please reach out with any questions or concerns Admission and Anticipated Discharge Date Admission Date: October 24, 2023 Subjective Patient lying in bed, appears to have difficulty getting comfortable. Has had significant elevations in blood sugar after receiving steroids. Currently on insulin drip. Per nursing, patient with emesis this morning. States she does feel better in that regard, but does not have an appetite. Has not been out of bed yet due to pain, but is going to try to work with therapy this afternoon to get up to the chair Review of Systems Review of Systems: All systems reviewed & are unremarkable except as noted in Subjective Physical Exam Physical Exam: .General: NAD, rolling around in bed cl early unable to get comfortable VS as above Resp: normal respiratory effort, lungs clear to auscultation, currently on room CV: RRR, no murmur, Abd: normal bowel sounds, non tender, no hepatosplenomegaly : [place] in place Extremities: Moves all extremities, no edema Neuro: A&O x3, Skin: intact, no lesions noted Results & Data Results & Data Vital Signs (Past 12 Hours) Vital Signs Temp Pulse Pulse Resp BP BP Pulse Ox 10/25/23 11:36 36.3 C L 77 16 109/67 97 10/25/23 08:00 10/25/23 07:49 36.8 C 95 H 18 124/66 97 10/25/23 03:28 36.7 C 87 18 105/58 L 98 O2 Del Method O2 Flow Rate 10/25/23 11:36 Room Air 10/25/23 08:00 Nasal Cannula 2 10/25/23 07:49 Nasal Cannula 2 10/25/23 03:28 Room Air Laboratory Results CBC and chemistry reviewed PG Care Time/CCT Total # of Minutes Spent Total Time Spent with Patient: Total time spent is greater than 50% in coordination of care (as documented) at patient's floor/unit and/or counseling patient: Coding Level of Care Code 35687 SUB INP/OBS CARE 2/35MIN Diagnoses Status post lumbar spine surgery for decompression of spinal cord Z98.890 Type 1 diabetes mellitus with hypoglycemia, with long-term current use of insulin E10.649 Hyperkalemia E87.5 Postoperative hypotension I95.81 Seizure disorder G40.909 Osteoporosis M81.0 History of pulmonary embolism Z86.711
[2023-10-25 17:11] LABS: BUN Creatinine Ratio 28.2 (10-20); Calcium 9.4 mg/dl (8.6-10.3); Creatinine Clr Calc Pharmacy 46.7 ml/min; Est GFR (African American) 57.3 ml/min; Est GFR (Non-African American) 49.4 ml/min; Magnesium 1.9 mg/dl (1.7-2.4); Potassium 4.2 mmol/L (3.5-5.1)
[2023-10-25] MEDS ORDERED: SODIUM CHLORIDE 0.9% 500 ML IV SCH (20:15)
[2023-10-25] MEDS: traMADol HCL 50 MG TABLET PO PRN (20:24)
[2023-10-25] MEDS: CHOLECALCIFEROL 125 MCG (5,000 UNITS) TAB PO SCH (20:25)
[2023-10-25] MEDS: DOCUSATE SODIUM/SENNA 50/8.6MG TAB PO SCH (20:26)
[2023-10-25] MEDS: SIMVASTATIN 40 MG TAB PO SCH (20:26)
[2023-10-25] MEDS: CALCIUM CARBONATE 500 MG CHEWABLE TAB PO SCH (20:26)
[2023-10-26] MEDS: POLYETHYLENE (MIRALAX) 17 GM PACK PO SCH ×4 (00:42→17:22)
[2023-10-26] MEDS: oxyCODONE HCL IR 5 MG TAB (IMMEDIATE RELEASE) PO PRN ×3 (01:52→18:26)
[2023-10-26] MEDS: LEVOTHYROXINE SODIUM 125 MCG TABLET PO SCH (06:03)
[2023-10-26] MEDS: PENDING ORDER - INSULIN DRIP SCH ×2 (07:24→07:25)
[2023-10-26] MEDS: hydrOXYzine HCl 25 MG TAB PO SCH ×2 (08:56→21:18)
[2023-10-26] MEDS: DULoxetine HCL 30 MG CAP PO SCH (08:56)
[2023-10-26] MEDS: PHENYTOIN SODIUM ER 100 MG CAP PO SCH ×2 (08:56→21:17)
[2023-10-26] MEDS: CYANOCOBALAMIN (B-12) 2,500 MCG TABLET PO SCH (08:56)
[2023-10-26] MEDS: MAGNESIUM OXIDE 400 MG TAB PO SCH (08:56)
[2023-10-26] MEDS: PHENYTOIN SODIUM ER 30 MG CAP PO SCH ×2 (08:57→21:21)
[2023-10-26] MEDS: PREGABALIN 75 MG CAP PO SCH ×2 (09:03→21:58)
[2023-10-26 09:08] LABS: BUN Creatinine Ratio 35.9 (10-20); Calcium 9.4 mg/dl (8.6-10.3); Creatinine Clr Calc Pharmacy 49.9 ml/min; Est GFR (Non-African American) 53.5 ml/min; Potassium 4.1 mmol/L (3.5-5.1)
[2023-10-26] MEDS: INSULIN ASPART PER UNIT CHARGE SC SCH (09:26)
[2023-10-26] MEDS ORDERED: INSULIN ASPART 100 UNITS/ML VIAL SC PRN (09:30)
[2023-10-26] MEDS: INSULIN REGULAR 250 UNITS in SODIUM CHLORIDE 0.9% 247.5 ML IV SCH (09:52)
--- NOTE | 2023-10-26 10:49 | Orthopedic Progress Note ---
Date of Service October 26, 2023 Assessment & Plan (1) Spinal stenosis of lumbar region: Plan: At this time we will continue physical therapy monitor BREANN output. Will assess her for rehab in the next day or so. Admission and Anticipated Discharge Date Admission Date: October 24, 2023 Subjective Back pain is improved. Her leg symptoms improved. Physical Exam Physical Exam: On exam she is sitting up at the bedside. Is comfortable. Skin strength testing. Results & Data Vital Signs (Past 12 Hours) Vital Signs Temp Pulse Resp BP Pulse Ox O2 Del Method 10/26/23 07:43 36.7 C 89 16 146/70 H 95 Room Air Queries Orthopedic Spine Acute Posthemorrhagic Anemia: Yes Obesity: Yes
[2023-10-26] MEDS: INSULIN, Rapid-Acting PUMP SCH ×3 (12:27→23:55)
--- NOTE | 2023-10-26 12:50 | Pharmacy Report ---
Pharmacy Glycemic Short Note 2 - Date of Service October 26, 2023 - Glycemic Short BSG Results (Last 24 hours): 10/25/23 10/25/23 10/25/23 13:12 14:21 15:07 Glucose POC Glucose 293 H 232 H 254 H 10/25/23 10/25/23 10/25/23 16:36 16:40 17:40 Glucose 160 H POC Glucose 166 H 115 H 10/25/23 10/25/23 10/25/23 19:23 20:42 21:34 Glucose POC Glucose 166 H 267 H 305 H* 10/25/23 10/26/23 10/26/23 22:58 00:29 01:43 Glucose POC Glucose 278 H 186 H 139 H 10/26/23 10/26/23 10/26/23 03:48 04:09 04:33 Glucose POC Glucose 90 86 96 10/26/23 10/26/23 10/26/23 04:55 05:50 07:13 Glucose POC Glucose 119 H 178 H 179 H 10/26/23 10/26/23 10/26/23 08:08 08:15 11:58 Glucose 171 H POC Glucose 167 H 282 H OUTPATIENT ANTIDIABETIC REGIMEN: * Humalog via OmniPod Dash insulin pump- basal 17 units/day ; CF 50 / CR 12 TDD: 35 units Basal: 19 units (55%) Bolus: 16 units (45%) ASSESSMENT: 10/26 * POD2 * Patient sustaining euglycemia on insulin drip this morning, transition to patient's own home insulin pump with help of Sri FLETCHER. Ensured insulin in date and safe to use. 10/25 * 73 year old s/p spinal surgery, POD 1 - pharmacy consulted for glycemic management. Patient is a type 1 diabetic managed on insulin pump. BSGs had been trending down yesterday, so insulin pump was continued postop. * Pharmacy consulted this AM as BSGs spiking back up in 400s this AM. Started an insulin infusion this morning and had nurse d/c insulin pump. Patient did receive steroids yesterday in OR, so likely contributing to higher BSG values. Ongoing steroids ordered this AM, however provider discontinued orders. * Reasonable to continue insulin drip today until BSGs trend down into goal range. At that time, could consider reattaching patient's insulin pump and d/c drip PLAN FOR INPATIENT GLYCEMIC CONTROL: * DC insulin drip * Resume home Humalog insulin pump * Pharmacy to sign off glycemic consult for pump patient per protocol. Please re-consult if needed in the future. Thank you!
--- NOTE | 2023-10-26 13:24 | Hospitalist Progress Note ---
Date of Service October 26, 2023 Assessment & Plan (1) Status post lumbar spine surgery for decompression of spinal cord: Plan: Pain / VTE / Bowel management per primary ortho spine team -EBL 800 PT/OT - recommending rehab, case managament following (2) Type 1 diabetes mellitus with hypoglycemia, with long-term current use of insulin: Plan: HbA1C 7.9, no need to repeat Patient wishes to manage insulin with her pump while here and she is alert and orientated to do so Patient with significant elevations of blood glucose into the 400s overnight, per nursing patient was unaware she received steroids. Was on insulin pump managed by pharmacy 10/25 to AM of 10/26. Patient now back on home pump with basal bolus insulin (3) Hyperkalemia: Plan: resolved after insulin drip Na improving AM BMP (4) Postoperative hypotension: Plan: Received LR 1L bolus, and then continued on maintenance fluids following this. Blood pressure is improved (5) Seizure disorder: Plan: Continue her usual phenytoin (6) Osteoporosis: Plan: Noted history of this (7) History of pulmonary embolism: Plan: Ambulate when able -not on chronic Anticoagulation states was only on for 3 months Plan Dispo: Continued inpatient stay, continue to monitor blood sugars and electrolytes Thank you for allowing us to participate in the care of this patient, please reach out with any questions or concerns Admission and Anticipated Discharge Date Admission Date: October 24, 2023 Subjective Patient seen sitting up in bed eating lunch. Feeling improved after her sugars are now more controlled. states she did walk with PT and became diaphoretic and had to have a wheelchair back to room. Pain is in her back with some radiation down to her legs. No bowel movement yet, typically goes every 3 days at home. States that her blood sugars run from 70-300 at home. Physical Exam Physical Exam: .General: NAD, sitting up in bed eating lunch, VS as above Resp: normal respiratory effort, lungs clear to auscultation, CV: RRR, no murmur, Abd: normal bowel sounds, non tender, no hepatosplenomegaly Back: dressing c/d/i Extremities: Moves all extremities, no edema Neuro: A&O x3, Skin: intact, no lesions noted Results & Data Results & Data Vital Signs (Past 12 Hours) Vital Signs Temp Pulse Resp BP Pulse Ox O2 Del Method 10/26/23 07:43 36.7 C 89 16 146/70 H 95 Room Air Laboratory Results Chemistry and blood sugars reviewed PG Care Time/CCT Total # of Minutes Spent Total Time Spent with Patient: Total time spent is greater than 50% in coordination of care (as documented) at patient's floor/unit and/or counseling patient: Coding Level of Care Code 81740 SUB INP/OBS CARE 2/35MIN Diagnoses Status post lumbar spine surgery for decompression of spinal cord Z98.890 Type 1 diabetes mellitus with hypoglycemia, with long-term current use of insulin E10.649 Hyperkalemia E87.5 Postoperative hypotension I95.81 Seizure disorder G40.909 Osteoporosis M81.0 History of pulmonary embolism Z86.711
[2023-10-26] MEDS: CHOLECALCIFEROL 125 MCG (5,000 UNITS) TAB PO SCH (21:17)
[2023-10-26] MEDS: SIMVASTATIN 40 MG TAB PO SCH (21:18)
[2023-10-26] MEDS: CALCIUM CARBONATE 500 MG CHEWABLE TAB PO SCH (21:19)
[2023-10-26] MEDS: DOCUSATE SODIUM/SENNA 50/8.6MG TAB PO SCH (21:20)
[2023-10-26] MEDS ORDERED: GLUCOSE 40% GEL 15 GM TUBE PO PRN (23:25)
[2023-10-26] MEDS ORDERED: CARBOHYDRATES FOR HYPOGLYCEMIA PO PRN (23:25)
[2023-10-26] MEDS ORDERED: GLUCAGON FOR INJ 1 MG VIAL SQ PRN (23:25)
[2023-10-26] MEDS ORDERED: GLUCOSE 10 TAB/TUBE PO PRN (23:25)
[2023-10-26] MEDS ORDERED: DEXTROSE 50% 50 ML SYRINGE IV PRN (23:25)
[2023-10-27] MEDS: POLYETHYLENE (MIRALAX) 17 GM PACK PO SCH ×4 (00:29→17:11)
[2023-10-27] MEDS: INSULIN ASPART PER UNIT CHARGE SC SCH ×7 (00:49→21:13)
[2023-10-27] MEDS: LANTUS PER UNIT CHARGE SQ SCH ×2 (00:50→08:13)
[2023-10-27] MEDS: oxyCODONE HCL IR 5 MG TAB (IMMEDIATE RELEASE) PO PRN ×2 (02:12→13:00)
[2023-10-27] MEDS: LEVOTHYROXINE SODIUM 125 MCG TABLET PO SCH (05:50)
[2023-10-27] MEDS: DULoxetine HCL 30 MG CAP PO SCH (08:06)
[2023-10-27] MEDS: PHENYTOIN SODIUM ER 30 MG CAP PO SCH ×2 (08:06→20:56)
[2023-10-27] MEDS: MAGNESIUM OXIDE 400 MG TAB PO SCH (08:06)
[2023-10-27] MEDS: hydrOXYzine HCl 25 MG TAB PO SCH ×2 (08:06→20:59)
[2023-10-27] MEDS: PHENYTOIN SODIUM ER 100 MG CAP PO SCH ×2 (08:07→20:57)
[2023-10-27 08:10] LABS: BUN Creatinine Ratio 34.2 (10-20); Calcium 8.9 mg/dl (8.6-10.3); Creatinine Clr Calc Pharmacy 67.6 ml/min; Est GFR (African American) 89.6 ml/min; Est GFR (Non-African American) 77.3 ml/min; Potassium 4.1 mmol/L (3.5-5.1)
[2023-10-27] MEDS: PREGABALIN 75 MG CAP PO SCH ×2 (08:13→21:11)
--- NOTE | 2023-10-27 08:35 | Orthopedic Progress Note ---
Date of Service October 27, 2023 Assessment & Plan (1) Status post lumbar spine surgery for decompression of spinal cord: Plan: Today we will continue physical therapy monitor BREANN output. We anticipate discharge to rehab tomorrow. Admission and Anticipated Discharge Date Admission Date: October 24, 2023 Subjective Back pain controlled. She has improvement of her leg pain. Physical Exam Physical Exam: Patient is currently in bed. She is struggling with back pain. Strength testing. Results & Data Vital Signs (Past 12 Hours) Vital Signs Temp Pulse Pulse Resp BP BP Pulse Ox 10/27/23 07:45 94 10/27/23 07:43 36.7 C 83 160/71 H 84 L 10/26/23 21:55 36.6 C 90 16 162/85 H 95 10/26/23 21:20 10/26/23 20:47 36.8 C 84 16 117/48 L 92 O2 Del Method O2 Flow Rate 10/27/23 07:45 Nasal Cannula 2 10/27/23 07:43 Room Air 10/26/23 21:55 Nasal Cannula 2 10/26/23 21:20 Nasal Cannula 2 10/26/23 20:47 Nasal Cannula 2 Queries Orthopedic Spine Acute Posthemorrhagic Anemia: Yes Obesity: Yes
--- NOTE | 2023-10-27 09:25 | Hospitalist Progress Note ---
Date of Service October 27, 2023 Assessment & Plan (1) Status post lumbar spine surgery for decompression of spinal cord: Plan: S/P L2-L5 Decompression and Fusion with Dr. Pratt 10/24 Pain / VTE / Bowel management per primary ortho spine team -EBL 800 PT/OT - recommending rehab, case management following Hgb 8.9 post operatively --> Expected dilutional acute blood loss anemia Now requiring 2L NC - CXR: mild atelectasis, no PNA or effusions - Flutter valve and IS - Wean as able (2) Type 1 diabetes mellitus with hypoglycemia, with long-term current use of insulin: Plan: 10/10: HbA1C 7.9, 10/25: had elevations overnight after OR - required insulin drip through morning of 10/26 10/26: was transitioned off insulin drip to home pump, there was concerns that pump was not working, when confirmed pump was working, patient was too disoriented overnight to use pump. Basal bolus insulin started 10/27: continue on basal bolus insulin with [facility] Pharmacy Glycemic consult (3) Confusion: Plan: Worsening in the evenings - causing inability for pt to manage insulin pump -ing vs hospital delirium vs dementia process vs? -Will check UA reports no issues with insulin pump or confusion at home. (4) Hyperkalemia: Plan: resolved after insulin drip Na 135 when corrected for glucose (5) Postoperative hypotension: Plan: Received LR 1L bolus, and then continued on maintenance fluids following this. Blood pressure is improved (6) Seizure disorder: Plan: Continue her usual phenytoin (7) Osteoporosis: Plan: Noted history of this (8) History of pulmonary embolism: Plan: Ambulate when able -not on chronic Anticoagulation states was only on for 3 months Plan Dispo: Continued inpatient stay, continue to monitor blood sugars and electrolytes Thank you for allowing us to participate in the care of this patient, please reach out with any questions or concerns Admission and Anticipated Discharge Date Admission Date: October 24, 2023 Subjective Patient seen sitting up in the bed, complains of back pain that radiates down her legs. Is now requiring oxygen, denies feeling short of breath or cough. Has not had a bowel movement since surgery. Overnight, nursing reported that patient was too confused to work her insulin pump and figure out how much insulin she needed to give herself. Patient does remember being confused and states this has been happing over the last few months where she is unable to remember names of things as well. Spoke with her , Hasmukh. States he has not noticed Lisset being more confused at home. States she manages all her own medications and has been very diligent about it. He did notice confusion and inability to use her diabetic supplies properly while inpatient. He states he was well versed in her old glucose monitor, but not as familiar with the new one but is willing to learn. Review of Systems Review of Systems: All systems reviewed & are unremarkable except as noted in Subjective Physical Exam Physical Exam: .General: NAD, sitting up in bed, VS as above Resp: normal respiratory effort, diminished in bases. instructed to use IS, patient with fair performance CV: RRR, no murmur, Abd: normal bowel sounds, non tender, no hepatosplenomegaly Back: dressing c/d/i Extremities: Moves all extremities, no edema Neuro: A&O x3, Results & Data Results & Data Vital Signs (Past 12 Hours) Vital Signs Temp Pulse Resp BP BP Pulse Ox O2 Del Method 10/27/23 07:45 94 Nasal Cannula 10/27/23 07:43 36.7 C 83 160/71 H 84 L Room Air 10/27/23 07:30 Nasal Cannula 10/26/23 21:55 36.6 C 90 16 162/85 H 95 Nasal Cannula O2 Flow Rate 10/27/23 07:45 2 10/27/23 07:43 10/27/23 07:30 2 10/26/23 21:55 2 Laboratory Results Chemistry and blood sugar levels reviewed PG Care Time/CCT Total # of Minutes Spent Total Time Spent with Patient: Total time spent is greater than 50% in coordination of care (as documented) at patient's floor/unit and/or counseling patient: Coding Level of Care Code 93849 SUB INP/OBS CARE 3/50MIN Diagnoses Status post lumbar spine surgery for decompression of spinal cord Z98.890 Type 1 diabetes mellitus with hypoglycemia, with long-term current use of insulin E10.649 Confusion R41.0 Hyperkalemia E87.5 Postoperative hypotension I95.81 Seizure disorder G40.909 Osteoporosis M81.0 History of pulmonary embolism Z86.711
[2023-10-27] MEDS: traMADol HCL 50 MG TABLET PO PRN (09:52)
--- NOTE | 2023-10-27 10:18 | XRay Report ---
XR chest 1V portable HISTORY: Hypoxia. COMPARISON: Chest 10/10/2023. FINDINGS: No pneumothorax. No pleural effusions. The cardiac silhouette is top normal in size. A few bibasilar linear densities favor subsegmental atelectasis or scarring. Mild interstitial thickening i s likely chronic. This is similar to the prior study. No new focal lung consolidations to suggest pne umonia. No evidence for pulmonary edema. IMPRESSION: No significant change compared to the prior study. No acute process. ACT 112: Negative or not required by law. Electronically signed by: Franc Aalniz M.D. 10/27/2023 10:16 AM
[2023-10-27] MEDS ORDERED: PHARMACY GLYCEMIC MGMT CONSULT PRN (11:25)
[2023-10-27] MEDS ORDERED: LANTUS PER UNIT CHARGE SQ ONE (12:00)
[2023-10-27 13:12] LABS: Appearance Urine Clear (Clear); Bacteria Urine Automated Negative (Negative); Bilirubin Urine Negative (Negative); Blood Urine Trace (Negative); Cast Urine Automated 0 /lpf (0-5); Color Urine Yellow; Epithelial Cell Urine Auto >30 /lpf (0-5); Glucose Urine UA 3+ (Negative); Ketones Urine 1+ (Negative); Leukocyte Esterase Urine Trace (Negative); Nitrite Urine Negative (Negative); Protein Urine Trace (Negative); RBC Urine Automated 0-4 /hpf (0-4); Specific Gravity Urine 1.024 (1.000-1.030); Urobilinogen Urine Negative (Negative); pH Urine 5.5 (4.5-7.5)
--- NOTE | 2023-10-27 13:22 | Pharmacy Report ---
Pharmacy Glycemic Short Note 2 - Date of Service October 27, 2023 - Glycemic Short BSG Results (Last 24 hours): 10/26/23 10/26/23 10/26/23 02:41 16:52 20:41 Glucose POC Glucose 118 H 291 H 243 H 10/26/23 10/27/23 10/27/23 22:55 00:34 04:01 Glucose POC Glucose 232 H 211 H 205 H 10/27/23 10/27/23 10/27/23 06:31 07:47 11:43 Glucose 224 H POC Glucose 241 H 366 H* 10/27/23 11:45 Glucose POC Glucose 349 H* 10/27/23 14:03 POC Glucose 299 H OUTPATIENT ANTIDIABETIC REGIMEN: * Humalog via OmniPod Dash insulin pump- basal 17 units/day ; CF 50 / CR 12 TDD: 35 units Basal: 19 units (55%) Bolus: 16 units (45%) ASSESSMENT: 10/27 * POD3, pharmacy re-consulted at this time as patient felt that insulin pump, despite CDE helping her to restart, and trying a new vial of insulin, was not working and then became disoriented last night. * Basal bolus started - patient started Lantus 6 units BID last night and CF/CR 50/22. Blood sugars elevated at 349mg/dL, will tighten CF/CR, add additional basal, and recheck in 2 hours at 1400 = 299mg/dl - will give further correctional insulin. * Overnight checks tonight. 10/26 * POD2 * Patient sustaining euglycemia on insulin drip this morning, transition to patient's own home insulin pump with help of [employer]. Ensured insulin in date and safe to use. 10/25 * 73 year old s/p spinal surgery, POD 1 - pharmacy consulted for glycemic management. Patient is a type 1 diabetic managed on insulin pump. BSGs had been trending down yesterday, so insulin pump was continued postop. * Pharmacy consulted this AM as BSGs spiking back up in 400s this AM. Started an insulin infusion this morning and had nurse d/c insulin pump. Patient did receive steroids yesterday in OR, so likely contributing to higher BSG values. Ongoing steroids ordered this AM, however provider discontinued orders. * Reasonable to continue insulin drip today until BSGs trend down into goal range. At that time, could consider reattaching patient's insulin pump and d/c drip PLAN FOR INPATIENT GLYCEMIC CONTROL: * Lantus 6 units x 1 now, then 0-12 units SQ BID starting at HS ( 0 units BSG < 120, 7 units BSG 120-180, 12 units BSG > 180) * NovoLog ACHS or Q6H when NPO and overnight tonight at 0000 and 0400 * Goal range 120-150mg/dl * CF: 40 mg/dL/unit * CR: 1 unit per 10 grams CHO consumed
[2023-10-27] MEDS ORDERED: INSULIN ASPART PER UNIT CHARGE SC ONE (14:00)
[2023-10-27] MEDS ORDERED: INSULIN ASPART PER UNIT CHARGE SC SCH (16:30)
[2023-10-27] MEDS ORDERED: THIAMINE HCL 200 MG in SODIUM CHLORIDE 0.9% 50 ML IV ONE (16:30)
[2023-10-27] MEDS: CHOLECALCIFEROL 125 MCG (5,000 UNITS) TAB PO SCH (20:56)
[2023-10-27] MEDS: SIMVASTATIN 40 MG TAB PO SCH (20:56)
[2023-10-27] MEDS: DOCUSATE SODIUM/SENNA 50/8.6MG TAB PO SCH (20:57)
[2023-10-27] MEDS: CALCIUM CARBONATE 500 MG CHEWABLE TAB PO SCH (20:57)
[2023-10-27] MEDS ORDERED: LANTUS PER UNIT CHARGE SQ SCH (21:00)
[2023-10-28] MEDS: INSULIN ASPART PER UNIT CHARGE SC SCH ×6 (00:25→21:45)
[2023-10-28] MEDS: POLYETHYLENE (MIRALAX) 17 GM PACK PO SCH ×3 (00:27→12:01)
[2023-10-28] MEDS: LEVOTHYROXINE SODIUM 125 MCG TABLET PO SCH (06:06)
[2023-10-28] MEDS: oxyCODONE HCL IR 5 MG TAB (IMMEDIATE RELEASE) PO PRN ×2 (07:36→17:25)
[2023-10-28 07:41] LABS: BUN Creatinine Ratio 24.3 (10-20); Calcium 8.7 mg/dl (8.6-10.3); Creatinine Clr Calc Pharmacy 73.4 ml/min; Est GFR (African American) 98.9 ml/min; Est GFR (Non-African American) 85.4 ml/min
[2023-10-28] MEDS: CYANOCOBALAMIN (B-12) 2,500 MCG TABLET PO SCH (08:23)
[2023-10-28] MEDS: MAGNESIUM OXIDE 400 MG TAB PO SCH (08:23)
--- NOTE | 2023-10-28 08:23 | Orthopedic Progress Note ---
Date of Service October 28, 2023 Assessment & Plan (1) Spinal stenosis of lumbar region: Plan: Patient is progressing appropriately. For 1 more day of medical management is appropriate and plan [facility]. Admission and Anticipated Discharge Date Admission Date: October 24, 2023 Subjective Patient still complaining of significant discomfort with activity but feels it is improving. Her leg pain has improved. Physical Exam Physical Exam: On exam patient is in the chair at the bedside. She is comfortable. She is good strength testing. Results & Data Vital Signs (Past 12 Hours) Vital Signs Temp Pulse Resp BP Pulse Ox O2 Del Method O2 Flow Rate 10/28/23 07:29 37.6 C H 82 96 Nasal Cannula 2 10/28/23 07:19 37.1 C 84 16 144/48 H 93 Room Air 10/28/23 00:27 37.6 C H 79 16 122/67 96 Nasal Cannula 2 10/27/23 21:00 Nasal Cannula 2 Queries Orthopedic Spine Acute Posthemorrhagic Anemia: Yes Obesity: Yes
[2023-10-28] MEDS: PHENYTOIN SODIUM ER 30 MG CAP PO SCH ×2 (08:24→21:47)
[2023-10-28] MEDS: DULoxetine HCL 30 MG CAP PO SCH (08:24)
[2023-10-28] MEDS: hydrOXYzine HCl 25 MG TAB PO SCH ×2 (08:25→21:48)
[2023-10-28] MEDS: PHENYTOIN SODIUM ER 100 MG CAP PO SCH ×2 (08:25→21:48)
--- NOTE | 2023-10-28 08:46 | Pharmacy Report ---
Pharmacy Glycemic Short Note 2 - Date of Service October 28, 2023 - Glycemic Short BSG Results (Last 24 hours): 10/26/23 10/27/23 10/27/23 02:41 11:43 11:45 Glucose POC Glucose 118 H 366 H* 349 H* 10/27/23 10/27/23 10/27/23 14:03 16:33 20:21 Glucose POC Glucose 299 H 194 H 226 H 10/28/23 10/28/23 10/28/23 00:21 03:47 06:21 Glucose 212 H POC Glucose 124 H 146 H 10/28/23 07:45 Glucose POC Glucose 210 H OUTPATIENT ANTIDIABETIC REGIMEN: * Humalog via OmniPod Dash insulin pump- basal 19.3 units/day ; CF 50 / CR 12 (BSG > 140 mg/dL) TDD: 35 units Basal: 19 units (55%) Bolus: 16 units (45%) ASSESSMENT: 10/28/23: * POD #4 s/p spinal surgery * Per CDE note yesterday, patient is agreeable to SC basal/bolus regimen while inpatient and at rehab. Will focus on figuring out an acceptable regimen for her to safely discharge to rehab facility. * Patient received basal insulin 3 separate times yesterday, will change to once daily basal administration today * No steroids since day of surgery 10/27 * POD3, pharmacy re-consulted at this time as patient felt that insulin pump, despite CDE helping her to restart, and trying a new vial of insulin, was not working and then became disoriented last night. * Basal bolus started - patient started Lantus 6 units BID last night and CF/CR 50/22. Blood sugars elevated at 349mg/dL, will tighten CF/CR, add additional basal, and recheck in 2 hours at 1400 = 299mg/dl - will give further correctional insulin. * Overnight checks tonight. 10/26 * POD2 * Patient sustaining euglycemia on insulin drip this morning, transition to patient's own home insulin pump with help of [employer]LETCH[employer]. Ensured insulin in date and safe to use. 10/25 * 73 year old s/p spinal surgery, POD 1 - pharmacy consulted for glycemic management. Patient is a type 1 diabetic managed on insulin pump. BSGs had been trending down yesterday, so insulin pump was continued postop. * Pharmacy consulted this AM as BSGs spiking back up in 400s this AM. Started an insulin infusion this morning and had nurse d/c insulin pump. Patient did receive steroids yesterday in OR, so likely contributing to higher BSG values. Ongoing steroids ordered this AM, however provider discontinued orders. * Reasonable to continue insulin drip today until BSGs trend down into goal range. At that time, could consider reattaching patient's insulin pump and d/c drip PLAN FOR INPATIENT GLYCEMIC CONTROL: * Lantus 17 units SC x 1 * Slightly reduced dose today given, increased daily dose yesterday w/ multiple administration times * Anticipate increasing to 19-20 units SC daily on 10/29/23 if still admitted * NovoLog ACHS or Q6H when NPO * Goal range 120-150mg/dl * CF: 40 mg/dL/unit * CR: 1 unit per 8 grams CHO consumed
[2023-10-28] MEDS: PREGABALIN 75 MG CAP PO SCH ×2 (08:59→21:52)
[2023-10-28] MEDS ORDERED: LANTUS PER UNIT CHARGE SC SCH ×3 (09:00)
--- NOTE | 2023-10-28 12:43 | Hospitalist Progress Note ---
Date of Service October 28, 2023 Assessment & Plan (1) Status post lumbar spine surgery for decompression of spinal cord: Plan: S/P L2-L5 Decompression and Fusion with Dr. Pratt 10/24 Pain / VTE / Bowel management per primary ortho spine team -EBL 800 PT/OT - recommending rehab, case management following, plan for [facility] Hgb 8.9 post operatively --> Expected dilutional acute blood loss anemia Now requiring 2L NC - CXR: mild atelectasis, no PNA or effusions - Flutter valve and IS - Wean as able - Suspect related to narcotic use and limited activity --> encouraged ambulation (2) Type 1 diabetes mellitus with hypoglycemia, with long-term current use of insulin: Plan: 10/10: HbA1C 7.9, 10/25: had elevations overnight after OR - required insulin drip through morning of 10/26 10/26: was transitioned off insulin drip to home pump, there was concerns that pump was not working, when confirmed pump was working, patient was too disoriented overnight to use pump. Basal bolus insulin started 10/27: continue on basal bolus insulin with ACHS 2: Patient will continue off the insulin pump and do ACHS check with basal bolus insulin here and during rehab and will transition back to pump at discharge from rehab Pharmacy Glycemic consult (3) Confusion: Plan: Worsening in the evenings - causing inability for pt to manage insulin pump prior in admission - vs hospital delirium vs dementia process vs? - pending, [facility] reports no issues with insulin pump or confusion at home. 2/2 confusion improving (4) Hyperkalemia: Plan: resolved after insulin drip Na 135 when corrected for glucose (5) Postoperative hypotension: Plan: Received LR 1L bolus, and then continued on maintenance fluids following this. Blood pressure is improved (6) Seizure disorder: Plan: Continue her usual phenytoin (7) Osteoporosis: Plan: Noted history of this (8) History of pulmonary embolism: Plan: Ambulate when able -not on chronic Anticoagulation states was only on for 3 months Plan Dispo: Continued inpatient stay, we will continue to monitor blood sugars and o xygen needs. However this can be managed at [facility] and can discharge when they have a bed for her. Thank you for allowing us to participate in the care of this patient, please reach out with any questions or concerns Admission and Anticipated Discharge Date Admission Date: October 24, 2023 Subjective Patient seen lying in bed, appears much better than prior days. Already went for a walk this morning, encouraged her to do so again Agreeable to stay on our basal bolus insulin while here Review of Systems Review of Systems: All systems reviewed & are unremarkable except as noted in Subjective Physical Exam Physical Exam: .General: appears much better than prior days, NAD, sitting up in bed, VS as above Resp: normal respiratory effort, diminished in bases - improved from yesterday CV: RRR, no murmur, Abd: normal bowel sounds, non tender, no hepatosplenomegaly Back: BREANN drain in place Extremities: Moves all extremities, no edema Neuro: A&O x3, Results & Data Results & Data Vital Signs (Past 12 Hours) Vital Signs Temp Pulse Resp BP Pulse Ox O2 Del Method O2 Flow Rate 10/28/23 08:29 36.9 C 10/28/23 07:30 Nasal Cannula 2 10/28/23 07:29 37.6 C H 82 96 Nasal Cannula 2 10/28/23 07:19 37.1 C 84 16 144/48 H 93 Room Air PG Care Time/CCT Total # of Minutes Spent Total Time Spent with Patient: Total time spent is greater than 50% in coordination of care (as documented) at patient's floor/unit and/or counseling patient: Coding Level of Care Code 74670 SUB INP/OBS CARE 3/50MIN Diagnoses Status post lumbar spine surgery for decompression of spinal cord Z98.890 Type 1 diabetes mellitus with hypoglycemia, with long-term current use of insulin E10.649 Confusion R41.0 Hyperkalemia E87.5 Postoperative hypotension I95.81 Seizure disorder G40.909 Osteoporosis M81.0 History of pulmonary embolism Z86.711
[2023-10-28] MEDS: CHOLECALCIFEROL 125 MCG (5,000 UNITS) TAB PO SCH (21:47)
[2023-10-28] MEDS: SIMVASTATIN 40 MG TAB PO SCH (21:49)
[2023-10-28] MEDS: CALCIUM CARBONATE 500 MG CHEWABLE TAB PO SCH (21:49)
[2023-10-28] MEDS: DOCUSATE SODIUM/SENNA 50/8.6MG TAB PO SCH (22:31)
[2023-10-29] MEDS: LEVOTHYROXINE SODIUM 125 MCG TABLET PO SCH (05:52)
[2023-10-29] MEDS: oxyCODONE HCL IR 5 MG TAB (IMMEDIATE RELEASE) PO PRN ×3 (06:29→15:14)
[2023-10-29 07:16] LABS: BUN Creatinine Ratio 22.7 (10-20); Calcium 8.3 mg/dl (8.6-10.3); Creatinine Clr Calc Pharmacy 77.9 ml/min; Est GFR (African American) 100.9 ml/min; Potassium 4.1 mmol/L (3.5-5.1)
[2023-10-29] MEDS: INSULIN ASPART PER UNIT CHARGE SC SCH ×2 (08:25→12:28)
[2023-10-29] MEDS: hydrOXYzine HCl 25 MG TAB PO SCH (08:32)
[2023-10-29] MEDS: MAGNESIUM OXIDE 400 MG TAB PO SCH (08:32)
[2023-10-29] MEDS: DULoxetine HCL 30 MG CAP PO SCH (08:32)
[2023-10-29] MEDS: PHENYTOIN SODIUM ER 100 MG CAP PO SCH (08:33)
[2023-10-29] MEDS: PHENYTOIN SODIUM ER 30 MG CAP PO SCH (08:33)
[2023-10-29] MEDS: PREGABALIN 75 MG CAP PO SCH (08:37)
[2023-10-29] MEDS ORDERED: LANTUS PER UNIT CHARGE SC SCH ×2 (09:00)
--- NOTE | 2023-10-29 10:28 | Discharge Summary ---
Date of Service October 29, 2023 Admission HPI Per Admitting Provider This is a 73-year-old female who presents with chronic persistent back and leg pain after failing course of nonoperative care is here for surgical invention. Principal Diagnosis Lumbar spinal stenosis with neurogenic claudication Discharge Data Allergies Allergy/AdvReac Type Severity Reaction Status Date / Time aspirin Allergy Severe Diffuse Verified 10/24/23 06:52 bruising Penicillins Allergy Severe Anaphylaxis Verified 10/24/23 06:52 [id number]-vfrm Allergy Intermediate Rash Verified 10/25/23 19:52 [From Ajovy Autoinjector] lamotrigine Allergy Mild Rash Verified 10/24/23 06:52 oxybutynin Allergy Mild Rash Verified 10/24/23 06:52 fentanyl AdvReac Severe Hallucinations Verified 10/24/23 06:52 ("screamed for 6 days") dextromethorphan AdvReac Intermediate Near Verified 10/24/23 06:52 [From Coricidin HBP Cough syncope and Cold] losartan AdvReac Intermediate Dizzy, Verified 10/24/23 06:52 mood change propoxyphene AdvReac Intermediate Hallucinati Verified 10/24/23 06:52 ons meloxicam AdvReac Mild Nausea Verified 10/24/23 06:52 Consultations 10/24/23 12:09 Consult Hospitalist Routine Procedures Performed Operation Date: 10/24/23 07:45 Actual Procedures p L2-L5 Decompression and Fusion, Spinal Cord Monitoring(Not Applicable) - Delta Pratt DO Ordered Studies 10/24/23 07:45 FL lumbar spine 2-3V Routine Hospital Course (1) Status post lumbar spine surgery for decompression of spinal cord: Patient underwent multilevel lumbar decompression fusion tolerated this well was taken to orthopedic floor postoperatively. Postoperatively she progressed appropriately throughout her hospital stay BREANN drain decreasing well. Good strength testing. Subsequently discharged to rehab. Discharge orders instructions from the chart for further review. Total Time Total Time Spent Total Time Spent (In Minutes): 20 minutes Discharge Plan Discharge Items Patient Disposition: Transfer Inpatient Rehab Fac Reason For Visit: Spinal Stenosis of Lumbar Region with Nuerogenic C Discharge Diagnosis: Lumbar spinal stenosis with neurogenic claudication Activity: As commented below Non-emergency contact: Primary Care Provider Call non-emergency contact if: you have any medication questions Follow-up/Referrals: ProArt MD [Primary Care Provider] - Diet: Regular Addtl Attending Provider Instructions: ACTIVITY RECOMMENDATIONS: SELF CARE INSTRUCTIONS AFTER THORACIC/LUMBAR FUSIONS 1. You may walk to your tolerance. It is good exercise for your legs and back. Expect some back and intermittent leg aches and pains. 2. You may perform "counter-top" level activities (make a sandwich, jameel with a project, etc.). 3. No bending or lifting of more than 10 pounds or back twisting of any nature (roll like a log when turning in bed). 4. You may ride in a car for 20-30 minutes at a time. No driving until after your first visit with your doctor. 5. Frequent changes of position and restricting sitting to 30 minutes at a time will help limit the amount of back spasms and stiffness you may experience. 6. You may discontinue the use of ambulatory aids (cane, crutches, etc.) once your strength and confidence allow. 7. You may piping drafter the shower and let water strike your incision when you arrive home at least once daily. Do not take a tub bath, sit in a hot tub or go into a swimming pool until after your first recheck in the office. SPECIAL CARE INSTRUCTIONS: VERY IMPORTANT TO READ AND REVIEW A. Your surgical incision has been closed with a cosmetic suture under the skin that will dissolve in about 6 weeks. In 14 days, you can use a pair of clean scissors and cut the suture that is left outside of the skin at the ends of your incision. 1. The small skin tapes can be removed 7 days after surgery if they have not fallen off by that point. 2. You may keep the wound open to air as much as possible to promote healing after post-op day number 5 unless told otherwise by your doctor. 3. If you think the wound looks like it is becoming infected (redness or worsening drainage) and/or you are experiencing fever, chill or worsening back pain and muscle spasms, contact the office so that we may evaluate you as soon as possible. B. Complications are uncommon, but please contact us if you have any signs or symptoms of: 1. wound infection (fever higher than 102.5 degrees F, redness, separation of wound, drainage, or increasing pain from the incision) 2. blood clots in legs (pain, swelling, redness and warmth in legs) 3. urinary tract infection (fever higher than 102.5 degrees F, burning upon urination or increased frequency of urination) 4. nerve problems (inability to walk on your toes or heels, numbness, loss of bowel or bladder control) 5. any other symptoms that concern you C. Please call the office at if you have any concerns or questions about your operation or recovery. D. No smoking! Smoking drastically decreases the chance of a solid fusion. E. Do not take any anti-inflammatory medications (Indocin, Advil, Motrin, Aspirin, Naprosyn, etc.) as these may inhibit the chance of a solid fusion. Tylenol is okay to take for pain. MANAGING PAIN AFTER SPINAL SURGERY 1. Narcotic medication is intended for short-term use and will be provided for surgical pain. Surgical pain usually lasts for a period of 4-6 weeks. Narcotic medication includes Percocet, Vicodin, Darvocet, Tylenol #3 or Lortab. 2. Longer-term pain is more appropriately treated with non-narcotic medication such as Tylenol ES. 3. Muscle spasm is not appropriately treated with narcotics. Muscle relaxers such as Soma, Flexeril or Skelaxin can be used along with Tylenol ES. 4. Remember that we all live with some "aches and pains". This is not unusual or uncommon after an injury or as we get older. a. Back pain is expected and may include muscle spasms for 4 to 6 weeks after surgery. The pain should gradually improve. If the pain worsens for no apparent reason, please contact the office. b. Intermittent leg pain may also be experienced and should not be concerned about unless it worsens for no apparent reason. If so, please contact the office. 5. We will provide appropriate medication within the normal guidelines of their prescribed use. We will also be very cautious and aware of potential abuse and extended duration of patients' medication needs. a. Pain medications are for your comfort and to assist with sleep and rest so that the tissue can heal. They are not provided in order to return to normal activity and should not be used through the day. To do so or worsening pain at night can result from ongoing tissue damage and development of tolerance to the prescribed medicine. 6. Please allow 2-3 days to process refills. Prescriptions will not be mailed but must be picked up at the office. FOLLOW UP VISIT: Keep your scheduled follow-up appointment. Any questions, please call the office at . Pending Studies at Discharge: No Stand-Alone Forms: [employer], Smoking Cessation Skilled Items Patient informed of condition?: Yes DNR: No Discharge Level of Care: Acute rehab Communicable Disease: No Discharge Prognosis: Improving Lines: None Urinary Catheter: No Medications and DC Order Prescriptions: New tramadol 50 mg tablet 50 mg PO Q6H PRN (Reason: pain, moderate) Qty: 30 0RF oxycodone 5 mg tablet 5 mg PO Q6H PRN (Reason: pain) Qty: 30 0RF Continued albuterol sulfate [ProAir HFA] 90 mcg/actuation HFA aerosol inhaler 2 inh inhalation Q8H PRN (Reason: sob) insulin lispro [Humalog U-100 Insulin] 100 unit/mL solution 50 unit subcut .COMPLEX MDD 50 nunits Qty: 50 2RF Rx Instructions: 50 units subcutaneously via insulin pump; (DME) Omnipod Dash Pods (Gen 4) Cartridge See Rx Instructions .Route Qty: 30 3RF Rx Instructions: Sub-cutaneous, change every 72 hours phenytoin sodium extended 100 mg capsule See Rx Instructions .ROUTE .COMPLEX Qty: 180 1RF Dose Instruction: 1 CAP ORALLY TWICE A DAY TOTAL DOSE 160MG EVERY MORNIING--TAKES WITH 2-30 MG CAPS, THEN 130MG IN THE EVENING--TAKES WITH 1-30MG CAP. Rx Instructions: 1 CAP ORALLY TWICE A DAY TOTAL DOSE 160MG EVERY MORNIING--TAKES WITH 2-30 MG CAPS, THEN 130MG IN THE EVENING--TAKES WITH 1-30MG CAP. Dilantin 30 mg capsule See Rx Instructions .ROUTE .COMPLEX Qty: 270 1RF Dose Instruction: TAKE 2 TABLETS BY MOUTH IN THE MORNING AND 1 TAB IN THE EVENING . TAKE WITH 100 MG TABLET Rx Instructions: TAKE 2 TABLETS BY MOUTH IN THE MORNING AND 1 TABLET PO IN THE EVENING. TAKE WITH 100 MG TABLET levothyroxine 125 mcg tablet 125 mcg PO QAM Qty: 90 3RF simvastatin 40 mg tablet 40 mg PO PM Qty: 90 1RF [id number] 500-500-66.7 mg tablet 1 tab PO HS cholecalciferol (vitamin D3) 5,000 unit tablet 5,000 units PO QPM magnesium 250 mg tablet 250 mg PO UD Patient Comments: takes 5 days a week hydroxyzine HCl 25 mg tablet See Rx Instructions .ROUTE .COMPLEX Qty: 90 3RF Dose Instruction: TAKE 1 TABLET BY MOUTH 4 TIMES A DAY NEEDED FOR ITCHING Rx Instructions: TAKE 1 TABLET BY MOUTH IN THE MORNING AND TWO TABLETS BY MOUTH AT BEDTIME. betamethasone dipropionate 0.05 % lotion 1 applic topical DAILY PRN (Reason: skin irritation) Qty: 60 0RF Qulipta 60 mg tablet 60 mg PO DAILY Qty: 90 3RF calcium carbonate 500 mg calcium (1,250 mg) Tablet 1,000 mg PO HS cyanocobalamin (vitamin B-12) 2,500 mcg Tablet 2,500 mcg PO Q2D pregabalin [Lyrica] 75 mg capsule 75 mg PO BID rizatriptan [Maxalt-SYSTEMS ACCOUNTANT] 10 mg tablet,disintegrating 10 mg PO DIRECTED PRN (Reason: Migraine Headache) Rx Instructions: may repeat in 2 hours if needed, limit 2-3 days per week duloxetine [Cymbalta] 30 mg capsule,delayed release(DR/EC) 30 mg PO QAM Discharge Orders: Discharge Order (Routine); Ordered 10/29/23 Ordered By: Delta Pratt Admission Data Admit Date/Time: 10/24/23 10:27 Attending Provider: Delta Pratt Admit Provider: Delta Pratt Primary Care Provider: Art Montenegro Other Providers: [facility]; Cam[facility] Herrera
--- NOTE | 2023-10-29 11:28 | Hospitalist Progress Note ---
Date of Service October 29, 2023 Assessment & Plan (1) Status post lumbar spine surgery for decompression of spinal cord: Plan: S/P L2-L5 Decompression and Fusion with Dr. Pratt 10/24 Pain / VTE / Bowel management per primary ortho spine team PT/OT - recommending rehab,discharge to [facility] today Hgb 8.9 post operatively --> Expected dilutional acute blood loss anemia Now requiring 2L NC - CXR: mild atelectasis, no PNA or effusions - Flutter valve and IS - patient demonstrates appropiate use - Wean as able - Suspect related to narcotic use and limited activity --> encouraged ambulation (2) Type 1 diabetes mellitus with hypoglycemia, with long-term current use of insulin: Plan: 10/10: HbA1C 7.9, 10/25: had elevations overnight after OR - required insulin drip through morning of 10/26 10/26: was transitioned off insulin drip to home pump, there was concerns that pump was not working, when confirmed pump was working, patient was too disorie nted overnight to use pump. Basal bolus insulin started 10/27: continue on basal bolus insulin with ACHS 2/2: Patient will continue off the insulin pump and do ACHS check with basal bolus insulin here and during rehab and will transition back to pump at discharge from rehab 2/3: continues on basal bolus insulin, regiment adjusted by pharmacy Pharmacy Glycemic consult (3) Confusion: Plan: IMPROVED Worsening in the evenings - causing inability for pt to manage insulin pump prior in admission - vs hospital delirium vs dementia process vs? -UC - 3 organsims of moderate counts, likely contamination, patient asymptomatic reports no issues with insulin pump or confusion at home. (4) Postoperative hypotension: Plan: Received LR 1L bolus, and then continued on maintenance fluids following this. No longer on fluids. Blood pressure is improved (5) Seizure disorder: Plan: Continue her usual phenytoin (6) Osteoporosis: Plan: Noted history of this (7) History of pulmonary embolism: Plan: Ambulate when able -not on chronic Anticoagulation states was only on for 3 months Plan Dispo: discharge to [facility] today Thank you for allowing us to participate in the care of this patient, please reach out with any questions or concerns Admission and Anticipated Discharge Date Admission Date: October 24, 2023 Subjective patient sitting up in the chair. Still reports back pain. States is unusual for sugars to be this high for so long. Continues on a basal bolus insulin. Denies shortness of breath, however still requiring 2 L of nasal cannula oxygen Review of Systems Review of Systems: All systems reviewed & are unremarkable except as noted in Subjective Physical Exam Physical Exam: .General: appears much better than prior days, NAD, sitting up in bed, VS as above Resp: normal respiratory effort, diminished in bases - improved from yesterday. Demonstrates flutter valve use CV: RRR, no murmur, Abd: normal bowel sounds, non tender, no hepatosplenomegaly Back: BREANN drain in place Extremities: Moves all extremities, no edema Neuro: A&O x3, Results & Data Results & Data Vital Signs (Past 12 Hours) Vital Signs Temp Pulse Resp BP Pulse Ox O2 Del Method O2 Flow Rate 10/29/23 06:59 37.1 C 82 16 149/71 H 95 Nasal Cannula 2 10/29/23 01:20 Nasal Cannula 2 Laboratory Results BMP reviewed PG Care Time/CCT Total # of Minutes Spent Total Time Spent with Patient: Total time spent is greater than 50% in coordination of care (as documented) at patient's floor/unit and/or counseling patient: Coding Level of Care Code 80467 SUB INP/OBS CARE 2/35MIN Diagnoses Status post lumbar spine surgery for decompression of spinal cord Z98.890 Type 1 diabetes mellitus with hypoglycemia, with long-term current use of insulin E10.649 Confusion R41.0 Postoperative hypotension I95.81 Seizure disorder G40.909 Osteoporosis M81.0 History of pulmonary embolism Z86.711
== END 2023-10-29 16:23 | DRG 454 ==
LOC: ASU 06:19 → 3N 10:27

== ENCOUNTER 2024-02-26 17:36 | Inpatient (IN) ==
--- NOTE | 2024-02-26 17:52 | Emergency Department Note ---
Impression & Plan Atrial fibrillation, new onset ADMIT ED Provider Note HPI: History obtained from patient. The patient is a 73-year-old female with history of DVT, currently anticoagulated on Coumadin, presents to the emergency department with a chief complaint of whole body pain, lightheadedness, and dyspnea that is been ongoing for about the past 2 weeks. Patient states that seem to correlate with a recent injection she had for bone density. Patient does not remember the medication that she received. Patient denies any chest pain, on arrival here to the ED the patient is tachycardic at 127, blood pressure stable at 106/67, temperature 36.0, patient is saturating well on room air on arrival. ROS: - Per HPI Differential Diagnosis: Arrhythmia to include SVT, atrial fibrillation with RVR, WPW, ventricular tachycardia, ACS, pulmonary embolism, critical electrolyte abnormalities, acute kidney injury, amongst other potential pathologies. *Outpatient medications and allergy history reviewed. PE: General: Alert HEENT: Normocephalic, trachea midline Eyes: Extraocular eye movement is intact, no scleral erythema Pulmonary: Clear to auscultation bilaterally, no wheezing Cardio: Tachycardic rate with an irregular rhythm GI: Abdomen is soft to palpation : No suprapubic tenderness MSK: No evidence of trauma or malformation of the extremities, no edema Skin: No evidence of rash Neuro: Alert, no focal deficits Psychiatric: Cooperative INDEPENDENT INTERPRETATIONS: phototypesetting equipment monitor: (As interpreted by myself): - An order was placed for continuous cardiac monitoring - Patient was noted to be in atrial fibrillation with a rate of 127 EKG: (As interpreted by myself): Rate: 130 Rhythm: Atrial fibrillation with RVR Intervals: Within normal limits ST changes: No ST elevation Time: 1747 Chest x-ray: (As interpreted by myself): No acute disease Interventions provided in ED: -IV diltiazem bolus, IV diltiazem drip, IV normal saline bolus Medical Decision Making: IV was established and lab work obtained, patient was placed on lunchroom monitor. Lab work shows no leukocytosis, hemoglobin is stable at 11.3, platelet count is normal, CMP does not show any critical findings, troponin is mildly elevated at 33.6, patient denies any chest pain, low suspicion for PE. Patient did have CT angiography of the chest performed on 02/15/2024 that did not show any evidence of large central PE. She is anticoagulated on Coumadin for history of DVT however her INR is only 1.3 today. I will add on CT angiography of the chest to assure no worsening clot burden. BNP is mildly elevated at 547, chest x-ray per my interpretation does not show any evidence of pulmonary vascular congestion. Patient is saturating well on room air. CT angiography of the chest was performed and did not show any evidence of any new PE. Patient's heart rate did respond to diltiazem and metoprolol. Heart rate is in the 80s at approximately 9:42 PM on my reassessment on the monitor. I did discuss the patient's presentation with the on-call hospitalist, Dr. Moe, and he did accept the patient for inpatient management and further care. Patient was in agreement to this plan as was her significant other at the bedside. Consultants/Discussions held with other healthcare providers: -Hospitalist, Dr. Moe Disposition discussion held by myself with: -Patient * CRITICAL CARE TIME: ( 45 ) minutes -Stabilization of tachyarrhythmia/atrial fibrillation with RVR requiring IV rate control medications for improvement, time spent at the bedside, interpretation of EKG and diagnostic studies, discussion with other physicians and arrangement of admission. Diagnosis: 1. Atrial fibrillation with RVR, acute, new onset 2. Lightheadedness, acute 3. Elevated high-sensitivity troponin level, acute 4. Elevated BNP Disposition: Admission Bishop Rick DO Emergency Medicine Past Med/Surg History Problem List Atrial fibrillation, new onset (Acute) Hoarseness of voice Occasional Deep vein thrombosis (DVT) of left lower extremity LLE (2020 and 01/2025) Chronic anticoagulation Confusion Hyperkalemia Postoperative hypotension Status post lumbar spine surgery for decompression of spinal cord History of pulmonary embolism Dense breast tissue Vitamin D deficiency Post menopausal problems Other mechanical complication of urinary electronic stimulator device, initial encounter PUD (peptic ulcer disease) Chronic pain Dysphagia Toe pain Fatigue Arthralgia of multiple joints Lumbar radicular pain Cervical radicular pain Leg swelling Leg pain, bilateral Hypertension Elevated blood pressure reading Bilateral pulmonary embolism 2020 Overweight Common migraine without aura Depression Encounter for pre-operative examination Chronic idiopathic urticaria Spinal stenosis of lumbar region Lumbar radiculopathy Spondylolisthesis at L4-L5 level Urge and stress incontinence (Chronic) Type 1 diabetes mellitus with hypoglycemia, with long-term current use of insulin (Chronic) Seizure disorder (Chronic) 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 Ana Julio, reason for Dilantin Osteoporosis (Chronic) Hypothyroidism (Chronic) Dyslipidemia (Chronic) Manages insulin pump without assistance History of open reduction and internal fixation (ORIF) procedure right ankle Medical History Hx of intestinal obstruction Anxiety and depression Osteoarthritis Insulin pump in place Tremor of both hands Nocturnal hypoxia Constipation History of migraine headaches Surgical History History of esophagogastroduodenoscopy (EGD) History of carpal tunnel surgery of right wrist History of removal of retained hardware Nausea and vomiting after administration of anesthetic agent History of left breast biopsy History of carpal tunnel surgery of left wrist Status post trigger finger release History of bladder surgery History of colonoscopy History of wisdom tooth extraction History of bilateral cataract extraction H/O dilation and curettage Family History Mother Cervical cancer Grandmother Uterine cancer Father Acute myocardial infarction Myocardial infarction Stroke syndrome Other No family history of adverse response to anesthesia Denies family history of Ovarian cancer Prostate cancer Breast cancer Colorectal cancer Social History Smoking Status: Former smoker Tobacco Type: Cigarettes Age Started Using Tobacco: 17; Age Quit Using Tobacco: 26; Second Hand Exposure: Yes (parents smoked. smoked first 10 years of marriage); Do You Dip or Chew Tobacco: No; Hx Alcohol Use: Yes Alcohol type: wine Preferred Language: Mosotho Communication Ability: Effective Visual Impairment: No Limitations Hearing Ability: Normal [place] Specialist Required: No Beliefs That Will Affect Care: None marital status: Current Living Situation: Spouse Feels Safe at Home: Yes Seatbelt Use: always Assistive Devices: Cane Allergies Allergies Allergy/AdvReac Type Severity Reaction Status Date / Time Penicillins Allergy Severe Anaphylaxis Verified 02/26/24 20:15 [id number] Allergy Intermediate Rash Verified 02/26/24 20:15 [From Ajovy Autoinjector] lamotrigine Allergy Mild Rash Verified 02/26/24 20:15 oxybutynin Allergy Mild Rash Verified 02/26/24 20:15 Corticosteroids AdvReac Severe (STEROIDS)H Verified 02/26/24 20:15 (Glucocorticoids) allucinatin g fentanyl AdvReac Severe Hallucinations Verified 02/26/24 20:15 ("screamed for 6 days") dextromethorphan AdvReac Intermediate Near Verified 02/26/24 20:15 [From Coricidin HBP Cough syncope and Cold] losartan AdvReac Intermediate Dizzy, Verified 02/26/24 20:15 mood change propoxyphene AdvReac Intermediate Hallucinati Verified 02/26/24 20:15 ons meloxicam AdvReac Mild Nausea Verified 02/26/24 20:15 Home Meds Home Medications Medication Instructions Recorded Confirmed cholecalciferol (vitamin D3) 125 5,000 units PO QPM 05/07/19 02/26/24 mcg (5,000 unit) tablet [id number]-[id number] 1 tab PO HS 05/07/19 02/26/24 149-hyalur 500 mg-500 mg-66.7 mg tablet rizatriptan 10 mg disintegrating 10 mg PO DIRECTED PRN Migraine 09/17/21 02/26/24 tablet (Maxalt-ELECTRONICS HARDWARE DESIGN ENGINEER) Headache albuterol sulfate 90 mcg/actuation 2 inh inhalation Q8H PRN sob 03/08/22 02/26/24 aerosol inhaler (ProAir HFA) magnesium 250 mg tablet 250 mg PO DAILY 04/11/23 02/26/24 calcium carbonate 1,000 mg PO HS 10/06/23 02/26/24 cyanocobalamin (vitamin B-12) 2,500 mcg PO Q2D 10/06/23 02/26/24 2,500 mcg tablet warfarin 5 mg tablet See Rx Instructions PO DAILY 02/14/24 02/26/24 zoledronic acid 5 mg/100 mL in 1 ea IV DIRECTED 02/14/24 02/26/24 mannitol 5 %-water intravenous piggybck (Reclast) hydroxyzine HCl 25 mg tablet 25 mg PO QAM 02/26/24 02/26/24 hydroxyzine HCl 25 mg tablet 50 mg PO QPM 02/26/24 02/26/24 insulin lispro 100 unit/mL 0 unit subcut DAILY 02/26/24 02/26/24 subcutaneous solution (Humalog U-100 Insulin) phenytoin sodium extended 100 mg 100 mg PO BID 02/26/24 02/26/24 capsule Previous Rx's Medication Instructions Recorded betamethasone dipropionate 0.05 % 1 applic topical DAILY PRN skin 04/11/23 lotion irritation #60 mL levothyroxine 125 mcg tablet 125 mcg PO QAM #90 tabs 12/12/23 phenytoin sodium extended 30 mg See Rx Instructions .Route 12/12/23 capsule (Dilantin) .COMPLEX #270 caps rosuvastatin 20 mg tablet 20 mg PO DAILY #90 tabs 12/12/23 duloxetine 30 mg capsule,delayed 30 mg PO QAM #90 caps 12/15/23 release (Cymbalta) pregabalin 75 mg capsule (Lyrica) 75 mg PO BID #180 caps 12/16/23 Results & Data (ED) Vital Signs Vital Signs - 24 hr 02/26/24 17:40 02/26/24 17:57 02/26/24 18:11 Temperature 36.0 C L Temperature Source Temporal Artery Scan Pulse Rate 127 H 135 H Pulse Rate [Left Apical] Pulse Rhythm Regular Pulse Strength Normal Respiratory Rate 18 Respiratory Effort / Characteristics Non-Labored Spontaneous Respiratory Depth Normal Respiratory Pattern Regular Blood Pressure 106/67 153/97 H Blood Pressure [Left Radial Artery] Blood Pressure Mean 80 115 Blood Pressure Mean [Left Radial Artery] Blood Pressure Position Sitting Pulse Oximetry 97 Oxygen Delivery Method Room Air Sepsis Recent Fever Within 48 Hours No Sepsis New/Unexplained Change in Mental Status No Sepsis Action Taken by Nursing No Action Required 02/26/24 18:12 02/26/24 18:33 02/26/24 18:43 Temperature Temperature Source Pulse Rate 127 H 139 H Pulse Rate [Left Apical] Pulse Rhythm Pulse Strength Respiratory Rate 13 23 Respiratory Effort / Characteristics Respiratory Depth Respiratory Pattern Blood Pressure 145/114 H Blood Pressure [Left Radial Artery] Blood Pressure Mean 124 Blood Pressure Mean [Left Radial Artery] Blood Pressure Position Pulse Oximetry 91 Oxygen Delivery Method Room Air Sepsis Recent Fever Within 48 Hours Sepsis New/Unexplained Change in Mental Status Sepsis Action Taken by Nursing 02/26/24 18:45 02/26/24 19:22 02/26/24 19:27 Temperature Temperature Source Pulse Rate 108 H 117 H Pulse Rate [Left Apical] 123 H Pulse Rhythm Pulse Strength Respiratory Rate 23 15 15 Respiratory Effort / Characteristics Non-Labored Spontaneous Respiratory Depth Normal Respiratory Pattern Blood Pressure Blood Pressure [Left Radial Artery] 155/106 H Blood Pressure Mean Blood Pressure Mean [Left Radial Artery] 122 Blood Pressure Position Pulse Oximetry 96 96 96 Oxygen Delivery Method Room Air Room Air Room Air Sepsis Recent Fever Within 48 Hours Sepsis New/Unexplained Change in Mental Status Sepsis Action Taken by Nursing 02/26/24 19:30 02/26/24 20:00 02/26/24 20:39 Temperature Temperature Source Pulse Rate 116 H Pulse Rate [Left Apical] 109 H Pulse Rhythm Pulse Strength Respiratory Rate 18 17 Respiratory Effort / Characteristics Non-Labored Spontaneous Respiratory Depth Normal Respiratory Pattern Blood Pressure 157/107 H 162/101 H Blood Pressure [Left Radial Artery] 160/104 H Blood Pressure Mean 111 121 Blood Pressure Mean [Left Radial Artery] 122 Blood Pressure Position Pulse Oximetry 96 95 Oxygen Delivery Method Room Air Room Air Sepsis Recent Fever Within 48 Hours Sepsis New/Unexplained Change in Mental Status Sepsis Action Taken by Nursing 02/26/24 21:23 Temperature Temperature Source Pulse Rate Pulse Rate [Left Apical] 91 H Pulse Rhythm Pulse Strength Respiratory Rate 15 Respiratory Effort / Characteristics Non-Labored Spontaneous Respiratory Depth Normal Respiratory Pattern Blood Pressure Blood Pressure [Left Radial Artery] 156/91 H Blood Pressure Mean Blood Pressure Mean [Left Radial Artery] 112 Blood Pressure Position Pulse Oximetry 94 Oxygen Delivery Method Room Air Sepsis Recent Fever Within 48 Hours Sepsis New/Unexplained Change in Mental Status Sepsis Action Taken by Nursing Laboratory Data 02/26/24 17:49 02/26/24 17:49 Lab Results 02/26/24 02/26/24 02/26/24 Range/Units 17:49 18:11 19:31 WBC 8.61 (4.8-10.8) K/ul RBC 5.13 (4.20-5.40) M/uL Hgb 11.3 L (12.0-16.0) g/dl POC Hgb 11.9 L (12.0-16.0) g/dl Hct 35.9 L (37.0-47.0) % POC Hct 35 L (37-47) % MCV 70.0 L (80.0-100.0) fL MCH 22.0 L (25.0-34.0) pg MCHC 31.5 L (32.0-36.0) g/dL RDW Std Deviation 44.2 (36.4-46.3) fL RDW Coeff of Price 18.3 H (11.5-14.5) % Plt Count 309 (130-400) K/uL MPV 9.6 (9.4-12.4) fL Immature Gran % (Auto) 0.3 % Neut % (Auto) 70.9 % Lymph % (Auto) 17.4 % Candler % (Auto) 10.5 % Eos % (Auto) 0.0 % Baso % (Auto) 0.9 % Neut # (Auto) 6.10 (1.40-6.50) K/uL Lymph # (Auto) 1.50 (1.20-3.40) K/uL Candler # (Auto) 0.90 H (0.11-0.59) K/uL Eos # (Auto) 0.00 (0.00-0.50) K/uL Baso # (Auto) 0.08 (0.00-0.20) K/uL Immature Gran # (Auto) 0.03 (0.01-0.20) K/uL PT 13.5 H (9.0-12.0) Seconds INR 1.3 H (0.9-1.1) APTT 29 (21-31) Seconds PTT Ratio 1.1 VBG pH 7.42 H (7.36-7.41) VBG pCO2 44 (38-50) mmHg VBG pO2 35 mmHg VBG HCO3 29 mmol/L VBG O2 Saturation < 60.0 % VBG Base Excess 3.4 mEq/L POC Sodium 138 (135-144) mmol/L Sodium 137 (136-145) mmol/L POC Potassium 4.8 (3.3-5.0) mmol/L Potassium 4.6 (3.5-5.1) mmol/L POC Chloride 104 (101-112) mmol/L Chloride 103 (98-107) mmol/L Carbon Dioxide 26 (21-32) mmol/L POC Total CO2 26 (24-31) mmol/L Anion Gap 8 (3-11) POC Anion Gap 13.0 L (16-25) mmol/L POC BUN 20 H (7-18) mg/dl BUN 21 (6-23) mg/dl Creatinine 1.01 (0.6-1.2) mg/dl POC Creatinine 1.1 (0.6-1.3) mg/dl Est Cr Clr Drug Dosing Not Reportable Est GFR ( Amer) 63.5 ml/min Est GFR (Non-Af Amer) 54.8 ml/min BUN/Creatinine Ratio 20.8 H (10-20) Glucose 213 H (70-99(Fasting)) mg/dl POC Glucose (other) 229 H (70-99) mg/dl Calcium 8.7 (8.6-10.3) mg/dl POC Ioniz Calcium Radha 1.12 (1.12-1.32) mmol/l Magnesium 2.1 (1.7-2.4) mg/dl Total Bilirubin 0.4 (0.2-1.0) mg/dl AST 25 (13-39) U/L ALT 19 (7-52) U/L Alkaline Phosphatase 131 H (34-104) U/L Troponin I High Sens 33.6 H 31.7 H (0-14) pg/ml B-Natriuretic Peptide 547 H (0-100) pg/ml Total Protein 7.2 (6.0-8.3) gm/dl Albumin 3.7 (3.4-5.0) gm/dl Globulin 3.5 (2.5-4.0) gm/dl Albumin/Globulin Ratio 1.1 (0.9-2) TSH 2.402 (0.300-4.500) uIu/ml Administered Medications Diltiazem HCl 125 mg/ Dextrose 125 mls @ 10 mls/hr IV .[id number] [facility]; Protocol Stop: 03/27/24 19:29 Last Titration: 02/26/24 20:48 Dose: 10 mg/hr, 10 mls/hr Documented By: GOPI Co-signed By: ARISTEO Admin: 02/26/24 19:43 Dose: 5 mg/hr, 5 mls/hr Documented By: DMH Co-signed By: JR Discontinued Medications Diltiazem HCl (Diltiazem Hcl 5 Mg/Ml 5 Ml Vial) 15 mg IV NOW STA Stop: 02/26/24 18:32 Last Admin: 02/26/24 18:39 Dose: 15 mg Documented By: DMGarcia Co-signed By: OAC Sodium Chloride (Nss) 1,000 mls @ 999 mls/hr IV .Q1H1M ONE Stop: 02/26/24 18:51 Last Admin: 02/26/24 18:16 Dose: 999 mls/hr Documented By: MATHIEU Ioversol (Optiray 320 125ml) 120 ml IV ONCE ONE Stop: 02/26/24 21:12 Last Admin: 02/26/24 21:12 Dose: 120 ml Documented By: CLAUDIA Metoprolol Tartrate (Metoprolol Tartrate 1 Mg/Ml Vial) 5 mg IV NOW STA Stop: 02/26/24 20:07 Last Admin: 02/26/24 20:46 Dose: 3 mg Documented By: GOPI Miscellaneous (Stat Iv Infusion Titration Per Protocol) 1 each N/A NOW STA Stop: 02/26/24 19:24 Last Admin: 02/26/24 19:46 Dose: Not Given Documented By: JAIR Imaging Data Radiologist's Impression: Chest X-Ray 02/26/24 17:45 XR chest 1V portable CLINICAL HISTORY: Dyspnea TECHNIQUE: Single frontal radiograph of the chest was obtained. Comparison: Comparison is made to chest radiograph 10/27/2023 FINDINGS: No lines and tubes are seen. Cardiomegaly is noted. The lungs are clear. No evidence of pleural effusion or pneumothorax. IMPRESSION: No acute abnormalities and in particular no radiographic evidence of pneumonia. ACT 112: Negative or not required by law. Electronically signed by: Bacilio Jaimes M.D. 02/26/2024 7:38 PM Chest CTA 02/26/24 20:02 CT angio chest PE protocol CLINICAL HISTORY: PE TECHNIQUE: Multidetector row helical CT of the chest was performed with angiographic protocol. Coronal and sagittal reformations were obtained. Coronal and sagittal MIPS were obtained from the axial data set and were submitted for review. Automated dose lowering techniques and/or adjustment according to patient size were utilized for this exam. CT DOSE: 634.47 mGy.cm Comparison: Comparison is made to CT chest 02/15/2024 FINDINGS: Lungs and pleura: Atelectasis versus scarring is seen in the dependent portions of the lungs. Heart and pericardium: Heart size is normal. No pericardial effusion. Vessels: There is a thin, bandlike filling defect in the right lower lobe artery compatible with improving chronic pulmonary embolus. No acute embolus is seen. Mediastinum and laura: Unremarkable. Chest wall and lower neck: Unremarkable. Abdomen: A hiatal hernia is seen. Bones: Degenerative changes in the thoracic spine. IMPRESSION: No acute pulmonary embolus is seen. There is a tiny residual right lower lung pulmonary embolus which is minimally improved from the prior exam. ACT 112: Negative or not required by law. Electronically signed by: Bacilio Jaimes M.D. 02/26/2024 9:35 PM Discharge Plan Visit Data Chief Complaint: Shortness of Breath/Dyspnea Stated Complaint: SOB, WEAKNESS, DIZZY ED Provider: Bishop Rick Discharge Problem: Atrial fibrillation, new onset Forms Stand Alone Forms: My [facility] Prescriptions Prescriptions: No Action albuterol sulfate [ProAir HFA] 90 mcg/actuation HFA aerosol inhaler 2 inh inhalation Q8H PRN (Reason: sob) warfarin 5 mg tablet See Rx Instructions PO DAILY Rx Instructions: 7.5 mg Tues and Sat and 5 mg x 5 days orally daily; UD per [facility] Dilantin 30 mg capsule See Rx Instructions .ROUTE .COMPLEX Qty: 270 1RF Dose Instruction: TAKE 2 TABLETS BY MOUTH IN THE MORNING AND 1 TAB IN THE EVENING . TAKE WITH 100 MG TABLET Rx Instructions: TAKE 2 TABLETS BY MOUTH IN THE MORNING AND 1 TABLET PO IN THE EVENING. TAKE WITH 100 MG TABLET rosuvastatin 20 mg tablet 20 mg PO DAILY Qty: 90 1RF levothyroxine 125 mcg tablet 125 mcg PO QAM Qty: 90 3RF duloxetine [Cymbalta] 30 mg capsule,delayed release(DR/EC) 30 mg PO QAM Qty: 90 2RF pregabalin [Lyrica] 75 mg capsule 75 mg PO BID Qty: 180 0RF [id number]-[id number]-sdryj-[id number] 500-500-66.7 mg tablet 1 tab PO HS cholecalciferol (vitamin D3) 5,000 unit tablet 5,000 units PO QPM magnesium 250 mg tablet 250 mg PO DAILY Patient Comments: takes 5 days a week zoledronic sldg-ikhmdkqa-quehl [Reclast] 5 mg/100 mL piggyback 1 ea IV DIRECTED betamethasone dipropionate 0.05 % lotion 1 applic topical DAILY PRN (Reason: skin irritation) Qty: 60 0RF calcium carbonate 500 mg calcium (1,250 mg) Tablet 1,000 mg PO HS cyanocobalamin (vitamin B-12) 2,500 mcg Tablet 2,500 mcg PO Q2D rizatriptan [Maxalt-ELECTRONICS HARDWARE DESIGN ENGINEER] 10 mg tablet,disintegrating 10 mg PO DIRECTED PRN (Reason: Migraine Headache) Rx Instructions: may repeat in 2 hours if needed, limit 2-3 days per week hydroxyzine HCl 25 mg tablet 50 mg PO QPM phenytoin sodium extended 100 mg capsule 100 mg PO BID Rx Instructions: 1 CAP ORALLY TWICE A DAY TOTAL DOSE 160MG EVERY MORNIING--TAKES WITH 2-30 MG CAPS, THEN 130MG IN THE EVENING--TAKES WITH 1-30MG CAP. hydroxyzine HCl 25 mg tablet 25 mg PO QAM Rx Instructions: TAKE 1 TABLET BY MOUTH IN THE MORNING AND TWO TABLETS BY MOUTH AT BEDTIME. APPROVED GOOD 11/14/23-12/13/24 insulin lispro [Humalog U-100 Insulin] 100 unit/mL solution 0 unit subcut DAILY Rx Instructions: via insulin pump Referrals Referrals: Art Montenegro MD [Primary Care Provider] -
[2024-02-26 18:03] LABS: Basophils # (auto) 0.08 K/uL (0.00-0.20); Basophils % (auto) 0.9 %; Hematocrit (blood only) 35.9 % (37.0-47.0); Hemoglobin 11.3 g/dl (12.0-16.0); Immature Granulocytes # (auto) 0.03 K/uL (0.01-0.20); Immature Granulocytes % (auto) 0.3 %; Lymphocytes % (auto) 17.4 %; Mean Corpuscular Hgb Conc 31.5 g/dL (32.0-36.0); Mean Platelet Volume 9.6 fL (9.4-12.4); Monocytes % (auto) 10.5 %; Neutrophils % (auto) 70.9 %; Platelet Count 309 K/uL (130-400); RDW Coefficient of Variation 18.3 % (11.5-14.5); RDW Standard Deviation 44.2 fL (36.4-46.3); Red Blood Count 5.13 M/uL (4.20-5.40); White Blood Count 8.61 K/ul (4.8-10.8)
[2024-02-26] MEDS: SODIUM CHLORIDE 0.9% 1,000 ML IV ONE (18:16)
[2024-02-26 18:19] LABS: Alanine Aminotransferase 19 U/L (7-52); Albumin Globulin Ratio 1.1 (0.9-2); Albumin Level 3.7 gm/dl (3.4-5.0); Alkaline Phosphatase 131 U/L (34-104); Anion Gap 8 (3-11); Aspartate Aminotransferase 25 U/L (13-39); BUN Creatinine Ratio 20.8 (10-20); Bilirubin,Total 0.4 mg/dl (0.2-1.0); Blood Urea Nitrogen 21 mg/dl (6-23); Calcium 8.7 mg/dl (8.6-10.3); Carbon Dioxide 26 mmol/L (21-32); Chloride 103 mmol/L (98-107); Est GFR (African American) 63.5 ml/min; Est GFR (Non-African American) 54.8 ml/min; Globulin 3.5 gm/dl (2.5-4.0); Glucose 213 mg/dl (70-99(Fasting)); Potassium 4.6 mmol/L (3.5-5.1); Sodium 137 mmol/L (136-145); Total Protein 7.2 gm/dl (6.0-8.3)
[2024-02-26 18:24] LABS: iSTAT Creatinine 1.1 mg/dl (0.6-1.3); iSTAT Hemoglobin 11.9 g/dl (12.0-16.0); iSTAT Ionized Calcium 1.12 mmol/l (1.12-1.32); iSTAT Potassium 4.8 mmol/L (3.3-5.0)
[2024-02-26 18:25] LABS: Troponin I High Sensitivity 33.6 pg/ml (0-14)
[2024-02-26 18:32] LABS: INR 1.3 (0.9-1.1); Partial Thromboplastin Ratio 1.1; Partial Thromboplastin Time 29 Seconds (21-31); Prothrombin Time 13.5 Seconds (9.0-12.0)
[2024-02-26] MEDS: dilTIAZem HCl 5 MG/ML 5 ML VIAL IV STA (18:39)
[2024-02-26 18:41] LABS: Base Excess VBG 3.4 mEq/L; HCO3 VBG 29 mmol/L; Oxygen Saturation VBG < 60.0 %; PCO2 VBG 44 mmHg (38-50); PO2 VBG 35 mmHg; pH VBG 7.42 (7.36-7.41)
[2024-02-26 19:06] LABS: Magnesium 2.1 mg/dl (1.7-2.4)
[2024-02-26 19:27] LABS: Thyroid Stimulating Hormone 2.402 uIu/ml (0.300-4.500)
--- NOTE | 2024-02-26 19:40 | XRay Report ---
XR chest 1V portable CLINICAL HISTORY: Dyspnea TECHNIQUE: Single frontal radiograph of the chest was obtained. Comparison: Comparison is made to chest radiograph 10/27/2023 FINDINGS: No lines and tubes are seen. Cardiomegaly is noted. The lungs are clear. No evidence of pleural effus ion or pneumothorax. IMPRESSION: No acute abnormalities and in particular no radiographic evidence of pneumonia. ACT 112: Negative or not required by law. Electronically signed by: Bacilio Jaimes M.D. 02/26/2024 7:38 PM
[2024-02-26] MEDS: dilTIAZem HCL 125 MG in DEXTROSE 5% 100 ML IV SCH (19:43)
--- NOTE | 2024-02-26 19:45 | History & Physical Report ---
Date of Service February 26, 2024 Assessment & Plan (1) Atrial fibrillation, new onset: Plan: A fib with RVR, acute onset. No prior episodes. Etiology unclear. No signs of pneumonia or new PE. No obvious triggers - recent illnesses, medication changes, stimulant/alcohol use. Patient HDS. On dilt gtt - up-titrating for rate control. ED provider did order lopressor 5 mg push - d/c by hospitalist team after about 3 mg was given. Had normal stress ECHO 02/22/2024. Consider cardiology consult if unable to obtain rate control. Patient started on heparin drip as there was concern for PE. Subtherapeutic INR on warfarin. continue dilt gtt, transition to PO when able continue heparin gtt cards consult if unable to obtain rate control Mg > 2, K > 4 (2) Deep vein thrombosis (DVT) of left lower extremity: Plan: Patient started on heparin drip as there was concern for PE. Subtherapeutic INR on warfarin at 1.2. Would recommend education on warfarin as patient does not seem entirely familiar with the therapy. continue heparin gtt follows with coumadin clinic, consider reaching out to Dr. Kessler for outpatient coag planning (3) Chronic anticoagulation: Plan: See above (4) Hypertension: Plan: Elevated BP. Not on outpatient antihypertensives. Continue to monitor. (5) Common migraine without aura: Plan: continue home meds. (6) Type 1 diabetes mellitus with hypoglycemia, with long-term current use of insulin: Plan: Patient able to manage her insulin pump without assistance. Continue with home administration while inpatient. DM 1 diet. (7) Seizure disorder: Plan: Continue home phenytoin. (8) Manages insulin pump without assistance: (9) Osteoporosis: Plan: Had Reclast injection 02/13. Significant side effects. Would defer to Endocrinology for further management. (10) Hypothyroidism: Plan: Continue home levothyroxine (11) Dyslipidemia: Plan: Continue home statin (12) Bilateral pulmonary embolism: Plan: History of PE. No current PE seen on CTA PE. Plan Code status: full DVT ppx: on heparin gtt FENGI: DM T1, IVF 1L NS given Dispo: PCU/Tele History of Present Illness Chief Complaint: SOB Primary Care Provider: Art Montenegro MD Patient with a PMHx of T1DM on insulin pump, hypothyroidism, osteopenia/osteoporosis with recent Reclast injection, hx of DVT/PE, and seizure disorder on phenytoin and mannitol presented to the ED with significant SOB, sweating, palpitations, and generally feeling unwell. Symptoms started this morning. Has never experienced this previously. Has never been in a fib before. No recent excessive caffeine or alcohol use. No new medications. No recent illnesses. No sick contacts. No f/c/CP/abd pain/n/v/d/c or dysuria. Of note patient with recent left DVT on doppler 02/01. ?Provoked from ankle surgery in September. Patient was started on warfarin and follows with Dr. Kessler. Patient saw PCP 02/14 who ordered a CTA PE protocol no signs of new PE. Calf symptoms have since resolved. INR subtherapeutic at 1.7 last outpatient check. Patient had Reclast injection for osteopenia/osteoporosis ordered by Endocrinology. Has been having significant joint/bone pain since this injection. Allergies Allergy/AdvReac Type Severity Reaction Status Date / Time Penicillins Allergy Severe Anaphylaxis Verified 02/26/24 20:15 [id number]-vfrm Allergy Intermediate Rash Verified 02/26/24 20:15 [From Ajovy Autoinjector] lamotrigine Allergy Mild Rash Verified 02/26/24 20:15 oxybutynin Allergy Mild Rash Verified 02/26/24 20:15 Corticosteroids AdvReac Severe (STEROIDS)H Verified 02/26/24 20:15 (Glucocorticoids) allucinatin g fentanyl AdvReac Severe Hallucinations Verified 02/26/24 20:15 ("screamed for 6 days") dextromethorphan AdvReac Intermediate Near Verified 02/26/24 20:15 [From Coricidin HBP Cough syncope and Cold] losartan AdvReac Intermediate Dizzy, Verified 02/26/24 20:15 mood change propoxyphene AdvReac Intermediate Hallucinati Verified 02/26/24 20:15 ons meloxicam AdvReac Mild Nausea Verified 02/26/24 20:15 Home Medications Medication Instructions Recorded Confirmed Type cholecalciferol (vitamin D3) 125 5,000 units PO QPM 05/07/19 02/26/24 History mcg (5,000 unit) tablet bjygjuwyxgz-lcl-zqyyxlfqj-hrb 1 tab PO HS 05/07/19 02/26/24 History 149-hyalur 500 mg-500 mg-66.7 mg tablet rizatriptan 10 mg disintegrating 10 mg PO DIRECTED PRN Migraine 09/17/21 02/26/24 History tablet (Maxalt-DRY CANS OPERATOR) Headache albuterol sulfate 90 mcg/actuation 2 inh inhalation Q8H PRN sob 03/08/22 02/26/24 History aerosol inhaler (ProAir HFA) betamethasone dipropionate 0.05 % 1 applic topical DAILY PRN skin 04/11/23 02/26/24 Rx lotion irritation #60 mL magnesium 250 mg tablet 250 mg PO DAILY 04/11/23 02/26/24 History calcium carbonate 1,000 mg PO HS 10/06/23 02/26/24 History cyanocobalamin (vitamin B-12) 2,500 mcg PO Q2D 10/06/23 02/26/24 History 2,500 mcg tablet levothyroxine 125 mcg tablet 125 mcg PO QAM #90 tabs 12/12/23 02/26/24 Rx phenytoin sodium extended 30 mg See Rx Instructions .Route 12/12/23 02/26/24 Rx capsule (Dilantin) .COMPLEX #270 caps rosuvastatin 20 mg tablet 20 mg PO DAILY #90 tabs 12/12/23 02/26/24 Rx duloxetine 30 mg capsule,delayed 30 mg PO QAM #90 caps 12/15/23 02/26/24 Rx release (Cymbalta) pregabalin 75 mg capsule (Lyrica) 75 mg PO BID #180 caps 12/16/23 02/26/24 Rx warfarin 5 mg tablet See Rx Instructions PO DAILY 02/14/24 02/26/24 History zoledronic acid 5 mg/100 mL in 1 ea IV DIRECTED 02/14/24 02/26/24 History mannitol 5 %-water intravenous piggybck (Reclast) hydroxyzine HCl 25 mg tablet 25 mg PO QAM 02/26/24 02/26/24 History hydroxyzine HCl 25 mg tablet 50 mg PO QPM 02/26/24 02/26/24 History insulin lispro 100 unit/mL 0 unit subcut DAILY 02/26/24 02/26/24 History subcutaneous solution (Humalog U-100 Insulin) phenytoin sodium extended 100 mg 100 mg PO BID 02/26/24 02/26/24 History capsule Past Med/Surg History Problem List Atrial fibrillation, new onset (Acute) Hoarseness of voice Occasional Deep vein thrombosis (DVT) of left lower extremity LLE (2020 and 01/2025) Chronic anticoagulation Confusion Hyperkalemia Postoperative hypotension Status post lumbar spine surgery for decompression of spinal cord History of pulmonary embolism Dense breast tissue Vitamin D deficiency Post menopausal problems Other mechanical complication of urinary electronic stimulator device, initial encounter PUD (peptic ulcer disease) Chronic pain Dysphagia Toe pain Fatigue Arthralgia of multiple joints Lumbar radicular pain Cervical radicular pain Leg swelling Leg pain, bilateral Hypertension Elevated blood pressure reading Bilateral pulmonary embolism 2020 Overweight Common migraine without aura Depression Encounter for pre-operative examination Chronic idiopathic urticaria Spinal stenosis of lumbar region Lumbar radiculopathy Spondylolisthesis at L4-L5 level Urge and stress incontinence (Chronic) Type 1 diabetes mellitus with hypoglycemia, with long-term current use of insulin (Chronic) Seizure disorder (Chronic) 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 Ana Julio, reason for Dilantin Osteoporosis (Chronic) Hypothyroidism (Chronic) Dyslipidemia (Chronic) Manages insulin pump without assistance History of open reduction and internal fixation (ORIF) procedure right ankle Medical History Hx of intestinal obstruction Anxiety and depression Osteoarthritis Insulin pump in place Tremor of both hands Nocturnal hypoxia Constipation History of migraine headaches Surgical History History of esophagogastroduodenoscopy (EGD) History of carpal tunnel surgery of right wrist History of removal of retained hardware Nausea and vomiting after administration of anesthetic agent History of left breast biopsy History of carpal tunnel surgery of left wrist Status post trigger finger release History of bladder surgery History of colonoscopy History of wisdom tooth extraction History of bilateral cataract extraction H/O dilation and curettage Family History Mother Cervical cancer Grandmother Uterine cancer Father Acute myocardial infarction Myocardial infarction Stroke syndrome Other No family history of adverse response to anesthesia Denies family history of Ovarian cancer Prostate cancer Breast cancer Colorectal cancer Social History Smoking Status: Never smoker Tobacco Type: Cigarettes Age Started Using Tobacco: 17; Age Quit Using Tobacco: 26; Second Hand Exposure: Yes (parents smoked. smoked first 10 years of marriage); Do You Dip or Chew Tobacco: No; Hx Alcohol Use: No Hx Substance Use: No Preferred Language: Hungarian Communication Ability: Effective Visual Impairment: No Limitations Hearing Ability: Normal Recreational Director Required: No Beliefs That Will Affect Care: None marital status: Current Living Situation: Spouse Other Information That Helps Us Care for You: No Feels Safe at Home: Yes Safety Concerns: Feels Safe At This Time Seatbelt Use: always Assistive Devices: Cane Review of Systems 2 Review of Systems: See HPI Physical Exam 2 Physical Exam: Gen: well appearing patient in NAD HEENT: AT NC MMM Resp: CTAB no wheezing no increased work of breathing CV: tachycardic, irregularly irregular rhythm, irregular pulse, no m/r/g, clinically well perfused Abd: +BS soft, non-tender, non-distended MSK: no obvious deformities Skin: no rashes or bruising Neuro: alert and oriented Psych: appropriate mood and affect Results & Data Results & Data Vital Signs (Past 12 Hours) Vital Signs Temp Pulse Pulse Resp BP BP Pulse Ox 02/26/24 19:22 123 H 15 155/106 H 96 02/26/24 18:45 108 H 23 96 02/26/24 18:43 91 02/26/24 18:33 139 H 23 145/114 H 02/26/24 18:12 127 H 13 02/26/24 18:11 153/97 H 02/26/24 17:57 135 H 02/26/24 17:40 36.0 C L 127 H 18 106/67 97 O2 Del Method 02/26/24 19:22 Room Air 02/26/24 18:45 Room Air 02/26/24 18:43 Room Air 02/26/24 18:33 02/26/24 18:12 02/26/24 18:11 02/26/24 17:57 02/26/24 17:40 Room Air Laboratory Results 02/26/24 17:49 02/26/24 17:49 Diagnostic Findings Chest X-Ray 02/26/24 17:45 FINDINGS: No lines and tubes are seen. Cardiomegaly is noted. The lungs are clear. No evidence of pleural effusion or pneumothorax. IMPRESSION: No acute abnormalities and in particular no radiographic evidence of pneumonia. Chest CTA 02/26/24 20:02 FINDINGS: Lungs and pleura: Atelectasis versus scarring is seen in the dependent portions of the lungs. Heart and pericardium: Heart size is normal. No pericardial effusion. Vessels: There is a thin, bandlike filling defect in the right lower lobe artery compatible with improving chronic pulmonary embolus. No acute embolus is seen. Mediastinum and laura: Unremarkable. Chest wall and lower neck: Unremarkable. Abdomen: A hiatal hernia is seen. Bones: Degenerative changes in the thoracic spine. IMPRESSION: No acute pulmonary embolus is seen. There is a tiny residual right lower lung pulmonary embolus which is minimally improved from the prior exam. Supervising Physician Co-Signing Physician Notes Attending addendum: I have physically seen this patient, have supervised the medical residents activities, and agree with the H&P unless as otherwise noted. Assessment and Plan: New onset atrial fibrillation- The patient will be admitted to telemetry for serial cardiac enzymes, serial EKG's, cardiac rhythm monitoring and a 2-D echocardiogram with Dopplers. Magnesium 2.1, potassium 4.6 Starting heparin drip standard dosing without bolus per protocol Patient had been on warfarin for DVT left lower extremity, however, INR subtherapeutic at 1.3 CTA negative for PE Consult cardiology Left lower extremity DVT- INR subtherapeutic at 1.3, and will be held Placed on heparin drip as noted above Patient has been following with the coagulation clinic Long-term anticoagulation to be determined with combination of new onset atrial fibrillation and present history of of left lower extremity DVT Diabetes mellitus- Check hemoglobin A1c Glucose 213 on admission Sliding scale insulin as noted Remaining orders and notations as noted Resident Activity Tracking Resident Involvement: Resident Care Provided Care Provided: Adult Hospital Medicine
[2024-02-26] MEDS: STAT IV Infusion **Titration per Protocol STA (19:46)
[2024-02-26] MEDS: METOPROLOL TARTRATE 1 MG/ML VIAL IV STA (20:41)
[2024-02-26] MEDS: OPTIRAY 320 125ml IV ONE (21:12)
--- NOTE | 2024-02-26 21:38 | CT Scan Report ---
CT angio chest PE protocol CLINICAL HISTORY: PE TECHNIQUE: Multidetector row helical CT of the chest was performed with angiographic protocol. Castrejon l and sagittal reformations were obtained. Coronal and sagittal MIPS were obtained from the axial adolfo a set and were submitted for review. Automated dose lowering techniques and/or adjustment according to patient size were utilized for this exam. CT DOSE: 634.47 mGy.cm Comparison: Comparison is made to CT chest 02/15/2024 FINDINGS: Lungs and pleura: Atelectasis versus scarring is seen in the dependent portions of the lungs. Heart and pericardium: Heart size is normal. No pericardial effusion. Vessels: There is a thin, bandlike filling defect in the right lower lobe artery compatible with impr oving chronic pulmonary embolus. No acute embolus is seen. Mediastinum and laura: Unremarkable. Chest wall and lower neck: Unremarkable. Abdomen: A hiatal hernia is seen. Bones: Degenerative changes in the thoracic spine. IMPRESSION: No acute pulmonary embolus is seen. There is a tiny residual right lower lung pulmonary embolus which is minimally improved from the prior exam. ACT 112: Negative or not required by law. Electronically signed by: Bacilio Jaimes M.D. 02/26/2024 9:35 PM
[2024-02-26] MEDS: Heparin IV Adult Wt-Based Standard *NO* INITIAL Bolus Protocol IV STA (22:23)
[2024-02-26] MEDS: HEPARIN SODIUM/DEXTROSE 25,000 UNITS/500 ML BAG IV SCH (22:23)
[2024-02-26 22:52] LABS: Appearance Urine Clear (Clear); Bacteria Urine Automated None Seen (None Seen); Bilirubin Urine Negative (Negative); Blood Urine Trace (Negative); Cast Urine Automated 0-2 /lpf (0-2); Color Urine Yellow; Epithelial Cell Urine Auto 0-2 /hpf (0-2); Glucose Urine UA 2+ (Negative); Ketones Urine Trace (Negative); Leukocyte Esterase Urine Negative (Negative); Nitrite Urine Negative (Negative); Protein Urine 1+ (Negative); Specific Gravity Urine 1.027 (1.000-1.030); Urobilinogen Urine Negative (Negative); WBC Urine Automated 0-5 /hpf (0-5); pH Urine 6.5 (4.5-7.5)
[2024-02-27] MEDS ORDERED: ALBUTEROL HFA 8 GM INHALER INH PRN (00:12)
[2024-02-27] MEDS ORDERED: ACETAMINOPHEN 325 MG TAB PO PRN (00:12)
[2024-02-27] MEDS ORDERED: [UNRECOGNIZED DRUG - MIXTURE] PO SCH (00:12)
[2024-02-27] MEDS ORDERED: POLYETHYLENE (MIRALAX) 17 GM PACK PO PRN (00:12)
[2024-02-27] MEDS ORDERED: INSULIN ASPART 100 UNITS/ML VIAL SC PRN (00:27)
[2024-02-27] MEDS ORDERED: RIZATRIPTAN BENZOATE MLT 10 MG TAB PO PRN (00:30)
[2024-02-27] MEDS ORDERED: BETAMETHASONE VAL 0.1% CR 15 GM TOP PRN (00:53)
[2024-02-27] MEDS ORDERED: DEXTROSE 50% 50 ML SYRINGE IV PRN (01:00)
[2024-02-27] MEDS ORDERED: GLUCAGON FOR INJ 1 MG VIAL IM PRN (01:00)
[2024-02-27] MEDS ORDERED: GLUCOSE 40% GEL 15 GM TUBE PO PRN (01:00)
[2024-02-27] MEDS ORDERED: GLUCOSE 10 TAB/TUBE PO PRN (01:00)
[2024-02-27] MEDS ORDERED: CARBOHYDRATES FOR HYPOGLYCEMIA PO PRN (01:00)
[2024-02-27] MEDS: PHENYTOIN SODIUM ER 100 MG CAP PO SCH (01:54)
[2024-02-27] MEDS: PHENYTOIN SODIUM ER 30 MG CAP PO SCH ×2 (01:54→09:07)
[2024-02-27] MEDS: hydrOXYzine HCl 25 MG TAB PO SCH ×2 (01:54→09:09)
[2024-02-27] MEDS: PREGABALIN 75 MG CAP PO SCH (01:54)
[2024-02-27] MEDS: INSULIN, Rapid-Acting PUMP SC SCH (01:55)
[2024-02-27] MEDS: Continuous Glucose Monitor SCH (01:55)
[2024-02-27 04:38] LABS: Hematocrit (blood only) 29.3 % (37.0-47.0); Hemoglobin 9.2 g/dl (12.0-16.0); Mean Corpuscular Hemoglobin 21.9 pg (25.0-34.0); Mean Corpuscular Hgb Conc 31.4 g/dL (32.0-36.0); Mean Corpuscular Volume 69.6 fL (80.0-100.0); Mean Platelet Volume 9.8 fL (9.4-12.4); Platelet Count 318 K/uL (130-400); RDW Coefficient of Variation 18.2 % (11.5-14.5); RDW Standard Deviation 44.6 fL (36.4-46.3); Red Blood Count 4.21 M/uL (4.20-5.40); White Blood Count 6.79 K/ul (4.8-10.8)
[2024-02-27 04:53] LABS: Albumin Level 3.2 gm/dl (3.4-5.0); Bilirubin,Total 0.3 mg/dl (0.2-1.0); Calcium 7.9 mg/dl (8.6-10.3); Potassium 3.9 mmol/L (3.5-5.1)
[2024-02-27 04:58] LABS: Albumin Globulin Ratio 1.1 (0.9-2); Creatinine Clr Calc Pharmacy 61.7 ml/min; Est GFR (African American) 79.4 ml/min; Est GFR (Non-African American) 68.5 ml/min; Total Protein 6.2 gm/dl (6.0-8.3)
[2024-02-27 05:06] LABS: ANTI-Xa, UFH(UnfractionatedHep 0.25 IU/ml (0.3-0.7)
--- NOTE | 2024-02-27 06:05 | Billing Data ---
Date of Service February 27, 2024 Coding Level of Care Code 19743 INT INP/OBS CARE
[2024-02-27] MEDS: LEVOTHYROXINE SODIUM 125 MCG TABLET PO SCH (06:07)
[2024-02-27] MEDS ORDERED: ENOXAPARIN 1 MG/KG SC SCH (08:15)
[2024-02-27] MEDS: ENOXAPARIN 100 MG/1ML SYR SQ SCH (09:00)
[2024-02-27] MEDS ORDERED: NON-FORMULARY MEDICATION (Insulin Lispro [Humalog U-100 Insulin] 100 unit/mL solution) SQ SCH (09:00)
[2024-02-27] MEDS: DULoxetine HCL 30 MG CAP PO SCH (09:06)
[2024-02-27] MEDS: dilTIAZem HCL 240 MG CAPCR PO SCH (09:29)
[2024-02-27] MEDS: dilTIAZem HCL 30 MG TAB PO SCH (14:36)
[2024-02-27] MEDS: traMADol HCL 50 MG TABLET PO STA (16:54)
--- NOTE | 2024-02-27 16:55 | Hospitalist Progress Note ---
Date of Service February 27, 2024 Assessment & Plan (1) Atrial fibrillation, new onset: Plan: 73-year-old woman on warfarin for left lower extremity DVT/PE though is subtherapeutic presented with new onset atrial fibrillation with rapid rate dobutamine stress echo 02/22/2024 reviewed no valvular disease though there is some mild left atrial enlargement. Stress test portion was negative for evidence of ischemia CTPA done in the ED notable for tiny residual right lower lung pulmonary embolus which is minimally improved from the prior exam INR was 1.3 on admission. She was started on heparin drip and diltiazem drip for rate control - Heparin drip changed to enoxaparin 1 mg/kg every 12 hours for bridging. Ordered warfarin 10 mg x 1 for this afternoon. every morning INR. She has used enoxaparin at home in the past - discussed with care coordination to reschedule anticoagulation appointment to late this week or early next week - well rate controlled on diltiazem drip at 10 mg this morning, stop drip and started Dilt-CD 240 mg. remained mildly tachycardic through the day added short acting Dilt 30 mg p.o. every 6 x 3 doses then increase Dilt-CD to 360 mg tomorrow morning - could go home tomorrow if rate control adequate (2) Deep vein thrombosis (DVT) of left lower extremity: Plan: see above (3) Chronic anticoagulation: Plan: See above is on warfarin because of drug interaction between phenytoin and DOACs (4) Hypertension: Plan: Elevated BP. Not on outpatient antihypertensives. Continue to monitor response to diltiazem. (5) Common migraine without aura: Plan: continue home meds. rizatriptan as needed, avoid NSAIDs with anticoagulation, headache today did not respond to Tylenol added one-time dose of tramadol (6) Type 1 diabetes mellitus with hypoglycemia, with long-term current use of insulin: Plan: Patient able to manage her insulin pump without assistance. Continue with home administration while inpatient. DM 1 diet. - glucoses running a little elevated today in the low to mid 200s (7) Seizure disorder: Plan: Continue home phenytoin. (8) Osteoporosis: Plan: Had Reclast injection 02/13. Significant side effects. Would defer to Endocrinology for further management. (9) Hypothyroidism: Plan: Continue home levothyroxine (10) Dyslipidemia: Plan: Continue home statin (11) Bilateral pulmonary embolism: Plan: History of PE. only small residual PE seen on CTPA at admission Plan DVT prophylaxisanticoagulated disposition anticipate home as soon as tomorrow when rate controlled Admission and Anticipated Discharge Date Admission Date: February 26, 2024 Subjective sent he is feeling better this morning no shortness of breath no palpitations no chest pain she thinks she got the DVT and probably the PE in September after back surgery that was not discovered for a little while after that she says she has been taking her warfarin consistently and there have been no dose changes recently, she does eat spinach sometimes and salads and admits to perhaps her diet is a little inconsistent though no clear-cut reason that she became subtherapeutic on INR. She states she has a appointment tomorrow with Dr. Kessler Physical Exam 2 Physical Exam: PHYSICAL EXAMINATION Last 24h vital signs reviewed, see documentation in flowsheet General: comfortable appearing, no distress HEENT: Normocephalic, atraumatic, pupils round and equal, sclerae anicteric, no conjunctival injection, moist mucus membranes Lungs: Normal respiratory effort. Clear to auscultation bilaterally. No RRW Heart: irregularly irregular not tachycardic, no murmurs. No JVD Abdomen: Soft, nontender, nondistended. Bowel sounds present. Extremities: Warm, dry, well-perfused. No extremity edema. Neuro: Alert and oriented x 4, face symmetric, moves 4 extremities well Psych: Normal affect and behavior Results & Data Results & Data Vital Signs (Past 12 Hours) Vital Signs Temp Pulse Pulse Resp BP BP Pulse Ox 02/27/24 12:37 138/113 H 02/27/24 12:37 115 H 20 137/96 94 02/27/24 12:36 138 H 16 02/27/24 11:33 116 H 20 93 02/27/24 11:20 36.8 C 103 H 16 167/66 H 94 02/27/24 11:06 108 H 16 02/27/24 10:03 81 16 94 02/27/24 09:33 87 20 95 02/27/24 09:09 99 H 14 97 02/27/24 08:42 86 17 92 02/27/24 08:03 74 17 95 02/27/24 07:50 36.4 C L 83 18 130/64 96 02/27/24 07:35 85 02/27/24 07:30 79 19 94 02/27/24 07:06 82 18 91 02/27/24 06:42 89 17 93 02/27/24 06:03 103 H 20 96 02/27/24 06:00 107 H 18 120/78 96 02/27/24 05:30 88 16 93 02/27/24 05:21 94 H 17 94 O2 Del Method 02/27/24 12:37 02/27/24 12:37 Room Air 02/27/24 12:36 02/27/24 11:33 02/27/24 11:20 Room Air 02/27/24 11:06 02/27/24 10:03 02/27/24 09:33 02/27/24 09:09 02/27/24 08:42 02/27/24 08:03 02/27/24 07:50 Room Air 02/27/24 07:35 02/27/24 07:30 02/27/24 07:06 02/27/24 06:42 02/27/24 06:03 02/27/24 06:00 Room Air 02/27/24 05:30 02/27/24 05:21 Laboratory Results 02/27/24 03:36 02/27/24 03:36 PG Care Time/CCT Total # of Minutes Spent Total Time Spent with Patient: Total time spent is greater than 50% in coordination of care (as documented) at patient's floor/unit and/or counseling patient: Coding Level of Care Code 40439 SUB INP/OBS CARE 3/50MIN Diagnoses Atrial fibrillation, new onset I48.91 Deep vein thrombosis (DVT) of left lower extremity I82.402 Chronic anticoagulation Z79.01 Hypertension I10 Common migraine without aura G43.009 Type 1 diabetes mellitus with hypoglycemia, with long-term current use of insulin E10.649 Seizure disorder G40.909 Osteoporosis M81.0 Hypothyroidism E03.9 Dyslipidemia E78.5 Bilateral pulmonary embolism I26.99
[2024-02-27] MEDS: WARFARIN SOD 10 MG TAB PO SCH (17:52)
[2024-02-27] MEDS: ENOXAPARIN 80 MG/0.8 ML SYR SQ SCH (20:02)
[2024-02-28 06:09] LABS: Hematocrit (blood only) 32.2 % (37.0-47.0); Hemoglobin 10.2 g/dl (12.0-16.0); Mean Corpuscular Hemoglobin 22.1 pg (25.0-34.0); Mean Corpuscular Hgb Conc 31.7 g/dL (32.0-36.0); Mean Corpuscular Volume 69.7 fL (80.0-100.0); Mean Platelet Volume 9.4 fL (9.4-12.4); Platelet Count 359 K/uL (130-400); RDW Coefficient of Variation 18.4 % (11.5-14.5); RDW Standard Deviation 45.1 fL (36.4-46.3); Red Blood Count 4.62 M/uL (4.20-5.40); White Blood Count 5.84 K/ul (4.8-10.8)
[2024-02-28 06:38] LABS: INR 1.3 (0.9-1.1)
[2024-02-28] MEDS: dilTIAZem HCL 180 MG CAPCR PO SCH (08:37)
[2024-02-28] MEDS: METOPROLOL TARTRATE 25 MG TAB PO SCH (10:27)
[2024-02-28] MEDS: WARFARIN SOD 10 MG TAB PO ONE (10:27)
[2024-02-28] MEDS: ROSUVASTATIN CALCIUM 20 MG TAB PO SCH (10:27)
--- NOTE | 2024-02-28 11:55 | Hospitalist Progress Note ---
Date of Service February 28, 2024 Assessment & Plan (1) Atrial fibrillation, new onset: Plan: despite large dose of Cardizem CD 360mg PO daily she remains uncontrolled. added metoprolol tartrate 25mg q6h for additional rate control. rates did improve with such. hopefully she spontaneously converts to NSR while hospitalized. 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 INR is subtherapeutic again today thus is on lovenox 1mg/kg BID. re-dose coumadin today at 10mg. INR in am. of note - dobutamine stress echo 02/22/2024 reviewed no valvular disease but she does have mild left atrial enlargement. the study was negative for ischemia. recent TSH was wnl. Mag and K are wnl. cont to monitor on tele. (2) Deep vein thrombosis (DVT) of left lower extremity: Plan: non-occlusive thrombus seen in 2 veins on doppler study of LLE on 02/02/24. 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 following with the anticoagulation clinic at [facility] with Dr Kessler. currently on lovenox 1mg/kg BID + coumadin. redose coumadin today at 10mg. repeat INR am. (3) Chronic anticoagulation: Plan: See above By report is on warfarin because of drug interaction between phenytoin and DOACs (4) Hypertension: Plan: uncontrolled cardizem + metoprolol will help adjust as needed (5) Common migraine without aura: Plan: continue home meds. rizatriptan as needed. (6) Type 1 diabetes mellitus with hypoglycemia, with long-term current use of insulin: Plan: Cont home insulin pump Most recent a1c - 9% - 01/2024 (7) Seizure disorder: Plan: Continue home phenytoin Most recent dilantin level was 8.2 in January 2024 (8) Osteoporosis: Plan: Had Reclast injection 02/13. Significant side effects including diffuse bone pain. (9) Hypothyroidism: Plan: Continue home levothyroxine TSH wnl (10) Dyslipidemia: Plan: Continue home statin CPK a few days ago wnl (11) Bilateral pulmonary embolism: Plan: History of PE 2020 and 2023 only small residual PE seen on CTA chest this admission Cont lovenox Cont coumadin (12) Iron deficiency anemia: Plan: transferrin sat is very low, ferritin is low at 28.7, and MCV is <70 all c/w Fe def she is symptomatic from her anemia venofer 300mg IV x 1 now saw [facility] earlier this spring; was to have EGD soon for dysphagia previous EGD in 2022 showed gastritis and a gastric ulcer she is not on PPI therapy in light of the above start PPI last colonoscopy - 2019; no source of bleeding seen during that endoscopy recheck a cbc in am Plan updated at bedside Admission and Anticipated Discharge Date Admission Date: February 26, 2024 Subjective tele overnight - a.fib, rates >100 despite cardizem after adding metoprolol this am her rates have improved to <100 during rounds patient reports "feeling shaky" (this was despite her HR being about 100) she reports having felt poorly since receiving reclast recently (about 2 weeks ago) "every bone in my body hurt" 2-3 days ago became quite dizzy, short of breath, weak had outpatient dobutamine stress echo on 02/23/24 - negative for ischemia, normal EF, normal valve function left atrium mildly dilated on that study of note - she was NOT in a.fib during the stress test patient reports that since her back surgery in 09/2023 she has not felt entirely well Review of Systems Review of Systems: GI - denies melena stools or BRBPR; some dysphagia - is supposed to get EGD gen - no fevers or chills; no weight loss pulm - no dyspnea at rest today cv - no chest pain, no orthopnea Physical Exam Physical Exam: gen - NAD, looks tired skin - generalized pallor neck - no JVD heart - tachy, irregularly irregular, s1 s2, no murmur lungs - CTA b/l abd - soft NT ND BS+ ext - no edema, pulses 2+ b/l Results & Data Results & Data Vital Signs (Past 12 Hours) Vital Signs Temp Pulse Pulse Resp BP Pulse Ox O2 Del Method 02/28/24 10:24 37.0 C 118 H 18 134/106 H 96 Room Air 02/28/24 07:59 120 H 02/28/24 07:39 37.0 C 114 H 18 161/83 H 94 Room Air 02/28/24 03:02 36.7 C 109 H 18 112/70 94 Room Air 02/28/24 00:12 O2 Del Method 02/28/24 10:24 02/28/24 07:59 02/28/24 07:39 02/28/24 03:02 02/28/24 00:12 Room Air Laboratory Results Laboratory Results - last 24 hr 02/28/24 02/28/24 05:19 07:54 WBC 5.84 RBC 4.62 Hgb 10.2 L Hct 32.2 L MCV 69.7 L MCH 22.1 L MCHC 31.7 L RDW Std Deviation 45.1 RDW Coeff of Price 18.4 H Plt Count 359 MPV 9.4 PT 14.0 H INR 1.3 H Sodium 139 Potassium 4.0 Chloride 107 Carbon Dioxide 23 Anion Gap 9 BUN 19 Creatinine 0.86 Est Cr Clr Drug Dosing 58.8 Est GFR ( Amer) 77.1 Est GFR (Non-Af Amer) 66.6 BUN/Creatinine Ratio 22.1 H Glucose 102 H POC Glucose 99 Calcium 7.7 L Magnesium 2.0 Iron 19 L TIBC 316 Unsaturated IBC 297 Transferrin % Sat 6 L Ferritin 28.7 Folate 7.76 PG Care Time/CCT Total # of Minutes Spent Total Time Spent with Patient: Total time spent is greater than 50% in coordination of care (as documented) at patient's floor/unit and/or counseling patient: Coding Level of Care Code 61201 SUB INP/OBS CARE 3/50MIN Diagnoses Atrial fibrillation, new onset I48.91 Deep vein thrombosis (DVT) of left lower extremity I82.402 Chronic anticoagulation Z79.01 Hypertension I10 Common migraine without aura G43.009 Type 1 diabetes mellitus with hypoglycemia, with long-term current use of insulin E10.649 Seizure disorder G40.909 Osteoporosis M81.0 Hypothyroidism E03.9 Dyslipidemia E78.5 Bilateral pulmonary embolism I26.99 Iron deficiency anemia D50.9
[2024-02-28 12:28] LABS: BUN Creatinine Ratio 22.1 (10-20); Calcium 7.7 mg/dl (8.6-10.3); Creatinine Clr Calc Pharmacy 58.8 ml/min; Est GFR (African American) 77.1 ml/min; Est GFR (Non-African American) 66.6 ml/min
[2024-02-28 12:45] LABS: Ferritin 28.7 ng/ml (8-388)
[2024-02-28] MEDS: PANTOprazole 40 MG TAB PO SCH (12:55)
[2024-02-28] MEDS: IRON SUCROSE 300 MG in SODIUM CHLORIDE 0.9% 250 ML IV ONE (15:30)
[2024-02-28] MEDS: METOPROLOL TARTRATE 50 MG TAB PO SCH (20:55)
--- NOTE | 2024-02-29 05:29 | Electrocardiogram Report ---
Test Reason : Blood Pressure : / mmHG Vent. Rate : 130 BPM Atrial Rate : 000 BPM P-R Int : 000 ms QRS Dur : 080 ms QT Int : 324 ms P-R-T Axes : 000 -14 055 degrees QTc Int : 476 ms Atrial fibrillation with rapid ventricular response Abnormal ECG When compared with ECG of 10-OCT-2023 09:34, Atrial fibrillation has replaced Sinus rhythm Vent. rate has increased BY 62 BPM Confirmed by Get Gan ([id number]) on 02/29/2024 5:28:33 AM Referred By: REFERRED SELF Confirmed By:Get Gan
[2024-02-29 06:37] LABS: Hematocrit (blood only) 28.7 % (37.0-47.0); Hemoglobin 8.9 g/dl (12.0-16.0); Mean Corpuscular Hemoglobin 21.8 pg (25.0-34.0); Mean Corpuscular Volume 70.3 fL (80.0-100.0); Mean Platelet Volume 9.7 fL (9.4-12.4); Platelet Count 364 K/uL (130-400); RDW Coefficient of Variation 18.4 % (11.5-14.5); RDW Standard Deviation 45.5 fL (36.4-46.3); Red Blood Count 4.08 M/uL (4.20-5.40); White Blood Count 5.96 K/ul (4.8-10.8)
[2024-02-29 06:56] LABS: INR 1.5 (0.9-1.1); Prothrombin Time 16.1 Seconds (9.0-12.0)
[2024-02-29 07:04] LABS: BUN Creatinine Ratio 23.3 (10-20); Calcium 7.8 mg/dl (8.6-10.3); Creatinine Clr Calc Pharmacy 58.8 ml/min; Est GFR (African American) 77.1 ml/min; Est GFR (Non-African American) 66.6 ml/min; Potassium 4.3 mmol/L (3.5-5.1)
[2024-02-29] MEDS: IRON SUCROSE 300 MG in SODIUM CHLORIDE 0.9% 250 ML IV ONE (08:30)
[2024-02-29] MEDS: WARFARIN SOD 7.5 MG TAB PO ONE (12:54)
--- NOTE | 2024-02-29 13:24 | Discharge Summary ---
Date of Service February 29, 2024 Admission HPI Per Admitting Provider Patient with a PMHx of T1DM on insulin pump, hypothyroidism, osteopenia/osteoporosis with recent Reclast injection, hx of DVT/PE, and seizure disorder on phenytoin and mannitol presented to the ED with significant SOB, sw eating, palpitations, and generally feeling unwell. Symptoms started this morning. Has never experienced this previously. Has never been in a fib before. No recent excessive caffeine or alcohol use. No new medications. No recent illnesses. No sick contacts. No f/c/CP/abd pain/n/v/d/c or dysuria. Of note patient with recent left DVT on doppler 02/01. ?Provoked from ankle surgery in September. Patient was started on warfarin and follows with Dr. Kessler. Patient saw PCP 02/14 who ordered a CTA PE protocol no signs of new PE. Calf symptoms have since resolved. INR subtherapeutic at 1.7 last outpatient check. Patient had Reclast injection for osteopenia/osteoporosis ordered by Endocrinology. Has been having significant joint/bone pain since this injection. Discharge Exam gen - NAD, looks tired skin - generalized pallor neck - no JVD heart - tachy, irregularly irregular, s1 s2, no murmur lungs - CTA b/l abd - soft NT ND BS+ ext - no edema, pulses 2+ b/l Discharge Data Allergies Allergy/AdvReac Type Severity Reaction Status Date / Time Penicillins Allergy Severe Anaphylaxis Verified 02/26/24 20:15 [id number]-vfrm Allergy Intermediate Rash Verified 02/26/24 20:15 [From Ajovy Autoinjector] lamotrigine Allergy Mild Rash Verified 02/26/24 20:15 oxybutynin Allergy Mild Rash Verified 02/26/24 20:15 Corticosteroids AdvReac Severe (STEROIDS)H Verified 02/26/24 20:15 (Glucocorticoids) allucinatin g fentanyl AdvReac Severe Hallucinations Verified 02/26/24 20:15 ("screamed for 6 days") dextromethorphan AdvReac Intermediate Near Verified 02/26/24 20:15 [From Coricidin HBP Cough syncope and Cold] losartan AdvReac Intermediate Dizzy, Verified 02/26/24 20:15 mood change propoxyphene AdvReac Intermediate Hallucinati Verified 02/26/24 20:15 ons meloxicam AdvReac Mild Nausea Verified 02/26/24 20:15 Consultations 02/26/24 19:43 ED Decision to Admit Stat Ordered Studies 02/26/24 20:02 CT angio chest PE protocol Stat Hospital Course (1) Atrial fibrillation, new onset: despite large dose of Cardizem CD 360mg PO daily she remains uncontrolled. added metoprolol tartrate 25mg q6h for additional rate control. rates did improve with such. hopefully she spontaneously converts to NSR while hospitalized. 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 INR is subtherapeutic again today thus is on lovenox 1mg/kg BID. re-dose coumadin today at 10mg. INR in am. of note - dobutamine stress echo 02/22/2024 reviewed no valvular disease but she does have mild left atrial enlargement. the study was negative for ischemia. recent TSH was wnl. Mag and K are wnl. cont to monitor on tele. (2) Deep vein thrombosis (DVT) of left lower extremity: non-occlusive thrombus seen in 2 veins on doppler study of LLE on 02/02/24. 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 following with the anticoagulation clinic at [facility] with Dr Kessler. currently on lovenox 1mg/kg BID + coumadin. redose coumadin today at 10mg. repeat INR am. (3) Chronic anticoagulation: See above By report is on warfarin because of drug interaction between phenytoin and DOACs (4) Hypertension: uncontrolled cardizem + metoprolol will help adjust as needed (5) Common migraine without aura: continue home meds. rizatriptan as needed. (6) Type 1 diabetes mellitus with hypoglycemia, with long-term current use of insulin: Cont home insulin pump Most recent a1c - 9% - 01/2024 (7) Seizure disorder: Continue home phenytoin Most recent dilantin level was 8.2 in January 2024 (8) Osteoporosis: Had Reclast injection 02/13. Significant side effects including diffuse bone pain. (9) Hypothyroidism: Continue home levothyroxine TSH wnl (10) Dyslipidemia: Continue home statin CPK a few days ago wnl (11) Bilateral pulmonary embolism: History of PE 2020 and 2023 only small residual PE seen on CTA chest this admission Cont lovenox Cont coumadin (12) Iron deficiency anemia: transferrin sat is very low, ferritin is low at 28.7, and MCV is <70 all c/w Fe def she is symptomatic from her anemia venofer 300mg IV x 1 now saw [facility] earlier this spring; was to have EGD soon for dysphagia previous EGD in 2022 showed gastritis and a gastric ulcer she is not on PPI therapy in light of the above start PPI last colonoscopy - 2019; no source of bleeding seen during that endoscopy recheck a cbc in am Plan updated at bedside Discharge Plan Discharge Items Patient Disposition: Home - Self-Care Reason For Visit: Atrial Fibrillation Discharge Diagnosis: 1. rapid atrial fibrillation ("a.fib") - resolved, back in normal rhythm 2. iron deficiency anemia 3. history of DVT 4. chronic coumadin use 5. type 1 diabetes on insulin pump 6. small gastric ulcer - 2022 EGD Activity: As commented below Activity Comment: gradually increase activities over the next 7 days Non-emergency contact: Primary Care Provider, Specialist and Tawer Call non-emergency contact if: you have any medication questions and your symptoms worsen Follow-up/Referrals: Art Ku MD [Physician] - (3-4 weeks; a.fib) Art Montenegro MD [Primary Care Provider] - 03/07/24 2:00 pm Ashley Kessler MD, PhD [Pathologist] - 03/05/24 10:30 am Diet: Carb Count or DM1 Ambulatory Orders: Prothrombin Time INR (Routine) Timeframe: [id number] Location: Determined by Patient Ordered By: Tam Dela Cruz Attending Provider Instructions: Ms Kwan, You were hospitalized due to rapid atrial fibrillation ("a.fib"). See handouts. You received IV and oral medicines to try and slow down the rapid heart rate from the a.fib. Metoprolol appeared to have been more effective than cardizem at controlling your heart rates. On the afternoon of 02/28/24 you converted back to normal rhythm from a.fib. You then stayed in normal rhythm for the rest of your stay. Once you converted back to normal heart rhythm many of your presenting symptoms improved. To reduce the risk of stroke from a.fib you were continued on blood thinners. You received a combination of lovenox and coumadin. In addition to the above you had evidence of severe iron deficiency anemia. You received 2 runs of IV iron while hospitalized. Your anemia worsened following your back surgery in early 2023. It is also possible you have had GI blood loss in the past which can lead to iron deficiency. Fortunately you are not having any active bleeding as your stool was negative for blood. Recommendations - 1. in 2022 your upper endoscopy (EGD) showed a small ulcer in the stomach. In the event you still have an ulcer or have gastritis (irritation of the stomach) - both of which can lead to blood loss and iron deficiency - please take pantoprazole 40mg once daily each morning. First dose tomorrow AM. Please stay on this until your endoscopy is done in March and you get additional guidance from your GI doctors. 2. for a.fib and high blood pressures take - metoprolol 50mg twice daily, first dose TONIGHT. If you go back into a.fib the metoprolol will help prevent the heart rates from going so fast. 3. please resume your lovenox shots TOMORROW morning, 03/01/24. Take 120mg subcutaneous x 1 tomorrow morning, and 120mg subcutaneous x 1 on Tuesday morning. If you need additional lovenox beyond this Tuesday I can refill for you at that time. 4. coumadin - * you received 10mg on 02/27/24 * you received 10mg on 02/28/24 * you received 7.5mg on 02/29/24 * tomorrow afternoon, 03/01/24 - take 5mg of coumadin * 03/02/24 - do not take coumadin until we contact you regarding your INR and give you additional guidance about your coumadin. 5. please have your INR checked at any [facility] on Tuesday morning, 03/02/24; we will contact you with the results. 6. no need to take uosh-ypn-jrcffdu iron since you received the IV iron here. You may need 1-2 more runs of the IV iron, however. Dr Montenegro's office can set this up for you. 7. Dr Julio is aware that you likely need a colonoscopy in addition to the upper endoscopy in March. 8. We will be mailing you a 30-day groundwater monitoring technician to wear. This will be mailed to your home with instructions. This monitor is being done to see how often, if any, you are going into a.fib. Follow-up - see separate section Return to [facility] if - * you have any concerns you are back in a.fib * your pulse (heart rate) is consistently greater than 100 beats per minute * you have dizziness or lightheadedness * you have shortness of breath or chest pains * you see dark/black/tarry material in your stools * you have bright red blood in your stools * any other concerns It was our pleasure to care for you! -Dr Appiah Pending Studies at Discharge: No Stand-Alone Forms: My [facility], Smoking Cessation Medications and DC Order Prescriptions: New pantoprazole 40 mg Tablet,Delayed Release (Dr/Ec) 40 mg PO QAM Qty: 30 2RF metoprolol tartrate 50 mg Tablet 50 mg PO BID Qty: 60 2RF enoxaparin [Lovenox] 120 mg/0.8 mL syringe 120 mg subcut DAILY Qty: 8 0RF Continued albuterol sulfate [ProAir HFA] 90 mcg/actuation HFA aerosol inhaler 2 inh inhalation Q8H PRN (Reason: sob) warfarin 5 mg tablet See Rx Instructions PO DAILY Rx Instructions: 7.5 mg Tues and Sat and 5 mg x 5 days orally daily; UD per [facility] Dilantin 30 mg capsule See Rx Instructions .ROUTE .COMPLEX Qty: 270 1RF Dose Instruction: TAKE 2 TABLETS BY MOUTH IN THE MORNING AND 1 TAB IN THE EVENING . TAKE WITH 100 MG TABLET Rx Instructions: TAKE 2 TABLETS BY MOUTH IN THE MORNING AND 1 TABLET PO IN THE EVENING. TAKE WITH 100 MG TABLET rosuvastatin 20 mg tablet 20 mg PO DAILY Qty: 90 1RF levothyroxine 125 mcg tablet 125 mcg PO QAM Qty: 90 3RF duloxetine [Cymbalta] 30 mg capsule,delayed release(DR/EC) 30 mg PO QAM Qty: 90 2RF pregabalin [Lyrica] 75 mg capsule 75 mg PO BID Qty: 180 0RF ddvujmbn-rql-lmolg-[id number] 500-500-66.7 mg tablet 1 tab PO HS cholecalciferol (vitamin D3) 5,000 unit tablet 5,000 units PO QPM magnesium 250 mg tablet 250 mg PO DAILY Patient Comments: takes 5 days a week zoledronic ywvv-wmkyucee-ihixc [Reclast] 5 mg/100 mL piggyback 1 ea IV DIRECTED betamethasone dipropionate 0.05 % lotion 1 applic topical DAILY PRN (Reason: skin irritation) Qty: 60 0RF calcium carbonate 500 mg calcium (1,250 mg) Tablet 1,000 mg PO HS cyanocobalamin (vitamin B-12) 2,500 mcg Tablet 2,500 mcg PO Q2D rizatriptan [Maxalt-PRE WAVE ASSEMBLER] 10 mg tablet,disintegrating 10 mg PO DIRECTED PRN (Reason: Migraine Headache) Rx Instructions: may repeat in 2 hours if needed, limit 2-3 days per week hydroxyzine HCl 25 mg tablet 50 mg PO QPM phenytoin sodium extended 100 mg capsule 100 mg PO BID Rx Instructions: 1 CAP ORALLY TWICE A DAY TOTAL DOSE 160MG EVERY MORNIING--TAKES WITH 2-30 MG CAPS, THEN 130MG IN THE EVENING--TAKES WITH 1-30MG CAP. hydroxyzine HCl 25 mg tablet 25 mg PO QAM Rx Instructions: TAKE 1 TABLET BY MOUTH IN THE MORNING AND TWO TABLETS BY MOUTH AT BEDTIME. APPROVED GOOD 11/14/23-12/13/24 insulin lispro [Humalog U-100 Insulin] 100 unit/mL solution 0 unit subcut DAILY Rx Instructions: via insulin pump Discharge Orders: Discharge Order (Routine); Ordered 02/29/24 Ordered By: Tam Navarrete/Other Patient Handouts: AFib Preventing Stroke, AFib, ED Anemia, Iron- Deficiency (Adult) Admission Data Admit Date/Time: 02/28/24 10:39 Attending Provider: Tam Appiah Admit Provider: Tam Appiah Primary Care Provider: Art Montenegro Other Providers: Hossein Moe Other Interventions: Discharge Summary Assessment (RN) Last Done: 02/29/24 13:20 Coding Diagnoses Atrial fibrillation, new onset I48.91 Deep vein thrombosis (DVT) of left lower extremity I82.402 Chronic anticoagulation Z79.01 Hypertension I10 Common migraine without aura G43.009 Type 1 diabetes mellitus with hypoglycemia, with long-term current use of insulin E10.649 Seizure disorder G40.909 Osteoporosis M81.0 Hypothyroidism E03.9 Dyslipidemia E78.5 Bilateral pulmonary embolism I26.99 Iron deficiency anemia D50.9
--- NOTE | 2024-03-01 07:35 | Coding Query ---
CODING QUERY To promote full compliance with coding requirements relating to patient care, provider participation is requested in all cases of access lead uncertainty. Please assist us with the question(s) below: Coding Question(s): Documentation in the medical record indicates the followin/2 CTA There is a thin, bandlike filling defect in the right lower lobe artery compatible with improving chronic pulmonary embolus. No acute embolus is seen 02/28 IM PN Bilateral pulmonary embolism: Plan: History of PE 2020 and 2023 Based on your medical judgment, can you further clarify in the progress notes the acuity/chronicity of the PE? [ ] Acute [ ] Subacute [ x ] Chronic [ ] Other [ ] Unable to determine Physician's Response(s): Thank you Yulia Sanchez, BRIAN, [facility] Principal Diagnosis: "that condition established after study, to be chiefly responsible for occasioning the admission of the patient to the hospital for care." Co-Existing Principal Diagnosis: "when two or more diagnoses equally meet the criteria for principal diagnosis as determined by the circumstances of admission, diagnostic work up, and/or therapy provided, and the Alphabetic Index, Tabular List, or another coding guideline does not provide sequencing direction, any one of the diagnoses may be sequenced first." "When the physician has documented what appears to be a current diagnosis in the body of the record, but has not included the diagnosis in the final diagnostic statement, the physician should be asked whether the diagnosis should be added." (Source Coding Clinic 2 QTR90. p3-4) HANSEL
--- NOTE | 2024-03-02 16:50 | Electrocardiogram Report ---
Test Reason : Blood Pressure : / mmHG Vent. Rate : 068 BPM Atrial Rate : 068 BPM P-R Int : 190 ms QRS Dur : 084 ms QT Int : 456 ms P-R-T Axes : 046 014 056 degrees QTc Int : 484 ms Normal sinus rhythm Cannot rule out Anterior infarct , age undetermined Prolonged QT Abnormal ECG When compared with ECG of 26-FEB-2024 17:47, Sinus rhythm has replaced Atrial fibrillation Vent. rate has decreased BY 62 BPM Confirmed by Get Gan ([id number]) on 03/02/2024 4:50:26 PM Referred By: REFERRED SELF Confirmed By:Get Gan
== END 2024-02-29 16:00 | disposition home or self-care (01) | DRG 309 ==
LOC: EDINP 17:36 → ED 17:36 → SUATTDRO 20:35 → 4W 02-27 16:08